=== PATIENT | male | born 1965 | race Caucasian/White ===

== ENCOUNTER 2017-03-26 16:29 | Emergency (ER) | payer BC ==
[~2017-03-26] VITALS: Ht 179.1 cm; Wt 139.2 kg
[2017-03-26 16:41] VITALS: Ht 179.1 cm; Wt 139.2 kg
[2017-03-26] MEDS ORDERED: SODIUM CHLORIDE 0.9% 1000ML 1,000 ML IV STA (16:47)
--- NOTE | 2017-03-26 16:55 | EMERGENCY ROOM VISIT NOTE ---
History Report prepared by Paulette: Patricia Kaiser Under the Supervision of: Dr. Niranjan Mclaughlin D.O. First contact with patient: 16:44 Chief Complaint: FEVER Stated Complaint: FEVER - PAIN IN RIGHT KIDNEY History of Present Illness The patient is a 51 year old male who presents to the Emergency Room with complaints of right kidney pain beginning 2 days ago. He reports that he was only born with one kidney and that he had this same kidney pain 1 month ago. He reports that taking deep breaths exacerbates the pain. The patient reports that he had a sorethroat, cough, and a fever as well. He denies nausea, vomiting, and chest pain. The patient denies bloody stools and dark urine. He states that he has not seen his doctor for this pain and has only taken Tylenol. He denies a history of kidney stones and a cholecystectomy. He states that he has no other pertinent medical problems. Source of History: patient Onset: 2 days ago Position: other (right kidney) Modifying Factors (Worsening): breathing (deep breaths ) Associated Symptoms: + fevers, + sorethroat, + cough, No chest pain, No nausea, No vomiting Review of Systems See HPI for pertinent positives & negatives. A total of 10 systems reviewed and were otherwise negative. Past Medical & Surgical Medical Problems: (1) Bronchitis (2) Congenital kidney disease (3) Diabetes (4) Hypertension Family History Cancer Heart disease Hypertension Social History Smoking Status: Current Every Day Smoker Marital Status: Housing Status: lives with significant other Current/Historical Medications Scheduled Acetaminophen (Tylenol), 1,000 MG PO PRN UD Aspirin (Aspirin), 1 TAB PO DAILY Atorvastatin (Lipitor), 5 MG PO DAILY Escitalopram (Lexapro), 10 MG PO DAILY Glimepiride (Glimepiride), 1 TAB PO DAILY Losartan Potassium (Cozaar), 50 MG PO DAILY Metformin Hcl (Glucophage), 1,000 MG PO BID Sulfa/Trimethoprim (Bactrim Ds 800MG/160MG), 1 TAB PO BID Scheduled PRN Oxycodone Immediate Rel Tab (Roxicodone Ir), 1-2 TAB PO Q4H PRN for Severe Pain Allergies Coded Allergies: No Known Drug Allergy (Verified Allergy, Unknown, ., 03/26/17) Physical Exam Vital Signs Date Time Temp Pulse Resp B/P (MAP) Pulse Ox O2 Delivery O2 Flow Rate FiO2 03/26/17 18:44 82 20 144/90 98 Room Air 03/26/17 17:40 71 03/26/17 16:41 37.2 73 17 137/86 96 Room Air Physical Exam GENERAL: Patient is awake, alert, and in no acute distress. Patient is resting comfortably and showing no signs of anxiety EYES: The conjunctivae are clear. The pupils are round and reactive. EARS, NOSE, MOUTH AND THROAT: The nose is without any evidence of any deformity. Mucous membranes are moist tongue is midline NECK: The neck is nontender and supple. RESPIRATORY: Normal respiratory effort is noted there is no evidence of wheezing rhonchi or rales CARDIOVASCULAR: Regular rate and rhythm noted there no murmurs rubs or gallops normal S1 normal S2 GASTROINTESTINAL: The abdomen is soft and mildly distended. Bowel sounds are present in all quadrants. RUQ is tender to palpation. No guarding or rigidity. BACK: No midline tenderness or or step-off noted range of motion in flexion extension as well as rotation no signs of muscle spasm noted MUSCULOSKELETAL/EXTREMITIES: There is no evidence of gross deformity full range of motion is noted in the hips and shoulders SKIN: There is no obvious evidence of any rash. There are no petechiae, pallor or cyanosis noted. NEUROLOGIC: Patient is awake alert and oriented x3 Medical Decision & Procedures ER Provider Diagnostic Interpretation: Radiology results as stated below per my review and radiologist interpretation: CHEST ONE VIEW PORTABLE CLINICAL HISTORY: 51 years-old Male presenting with ABDOMINAL PAIN/GI. TECHNIQUE: Portable upright AP view of the chest was obtained. COMPARISON: 04/25/2010. FINDINGS: Mildly prominent cardiac silhouette. Pulmonary vasculature unchanged from prior. Lungs and pleural spaces clear. Osseous structures normal. Upper abdomen normal. IMPRESSION: 1. No acute cardiopulmonary disease. Electronically signed by: Byron Bellamy M.D. 03/26/2017 5:26 PM Dictated Date/Time: 03/26/2017 5:[address] SCAN OF THE ABDOMEN AND PELVIS WITHOUT IV CONTRAST CLINICAL HISTORY: Right flank pain. COMPARISON STUDY: Renal ultrasound dated 05/04/2014. TECHNIQUE: CT scan of the abdomen and pelvis is performed from the lung bases to the proximal femora. Images are reviewed in the axial, sagittal, and coronal planes. IV contrast was not administered for this examination. Automated dose control exposure was utilized. A dose lowering technique was utilized adhering to the principles of ALARA. CT DOSE: 2003.59 mGy.cm FINDINGS: Lung bases: The heart is normal in size and without pericardial effusion. The lung bases are clear. There is a tiny hiatal hernia. Liver: The unenhanced liver is normal in size and contour. The liver demonstrates diffusely diminished attenuation consistent with hepatic steatosis. Fatty sparing is seen adjacent to gallbladder fossa. There is no intrahepatic biliary ductal dilatation. Gallbladder: Unremarkable. Spleen: Normal in size and attenuation. Pancreas: The unenhanced pancreas is grossly unremarkable. Adrenal glands: Unremarkable. Kidneys: There is marked cortical atrophy of the left kidney. The unenhanced right kidney demonstrates compensatory hypertrophy. There is a 12 mm calculus in the right renal pelvis. There is mild right-sided hydronephrosis. The right ureter is normal in caliber and no ureteral calculus is seen. There is right-sided perinephric stranding. 2 additional punctate nonobstructing calculi are seen in the right kidneys. No left renal calculi are identified and there is no left-sided hydronephrosis. There is no evidence of contour deforming renal mass lesion. Abdominal vasculature: The abdominal aorta is normal in course and caliber. Bowel: The small bowel and colon are normal in course and caliber. There is moderate to advanced colonic diverticulosis without CT evidence of acute diverticulitis. Mild colonic fecal retention is observed. The appendix is well-visualized and normal. Peritoneum: There is no intraperitoneal free air or abdominal ascites. There is a fat-containing umbilical hernia. Lymphadenopathy: None. Pelvic viscera: The bladder is decompressed and grossly unremarkable. The prostate and seminal vesicles are normal as visualized. There is a fat-containing right inguinal hernia. Skeletal structures: There are bilateral pars defects at L5. No anterolisthesis is seen at L5-S1. Mild lumbosacral spondylosis is observed. No lytic or blastic lesions are seen. IMPRESSION: 1. There is a 12 mm calculus identified in the right renal pelvis. There is minimal right-sided hydronephrosis as well as right-sided perinephric stranding. The right ureter is normal in caliber and no ureteral stone is identified. This could represent the sequelae of a recently passed kidney stone, ascending urinary tract infection/pyelonephritis, or possibly intermittent obstruction from the large stone in the right renal pelvis. Correlation with clinical findings and urinalysis will be required. Follow-up with urology is recommended. 2. Two additional punctate nonobstructing calculi are seen in the right kidney. 3. There is marked and asymmetric cortical atrophy of the left kidney. 4. Hepatic steatosis. 5. Moderate to advanced colonic diverticulosis without CT evidence of acute diverticulitis. 6. Additional findings as above. Electronically signed by: Ga Dumont M.D. 03/26/2017 5:48 PM Dictated Date/Time: 03/26/2017 5:29 PM Laboratory Results 03/26/17 16:47 Red Blood Count 4.73, Mean Corpuscular Volume 82.7, Mean Corpuscular Hemoglobin 28.8, Mean Corpuscular Hemoglobin Concent 34.8, Mean Platelet Volume 9.0, Neutrophils (%) (Auto) 65.5, Lymphocytes (%) (Auto) 20.4, Monocytes (%) (Auto) 10.4, Eosinophils (%) (Auto) 3.0, Basophils (%) (Auto) 0.3, Neutrophils # (Auto ) 6.24, Lymphocytes # (Auto) 1.95, Monocytes # (Auto) 0.99, Eosinophils # (Auto ) 0.29, Basophils # (Auto) 0.03 03/26/17 17:10 Test 03/26/17 16:47 03/26/17 17:10 03/26/17 17:40 White Blood Count 9.54 K/uL (4.8-10.8) Red Blood Count 4.73 M/uL (4.7-6.1) Hemoglobin 13.6 g/dL (14.0-18.0) Hematocrit 39.1 % (42-52) Mean Corpuscular Volume 82.7 fL (80-100) Mean Corpuscular Hemoglobin 28.8 pg (25-34) Mean Corpuscular Hemoglobin Concent 34.8 g/dl (32-36) Platelet Count 242 K/uL (130-400) Mean Platelet Volume 9.0 fL (7.4-10.4) Neutrophils (%) (Auto) 65.5 % Lymphocytes (%) (Auto) 20.4 % Monocytes (%) (Auto) 10.4 % Eosinophils (%) (Auto) 3.0 % Basophils (%) (Auto) 0.3 % Neutrophils # (Auto) 6.24 K/uL (1.4-6.5) Lymphocytes # (Auto) 1.95 K/uL (1.2-3.4) Monocytes # (Auto) 0.99 K/uL (0.11-0.59) Eosinophils # (Auto) 0.29 K/uL (0-0.5) Basophils # (Auto) 0.03 K/uL (0-0.2) RDW Standard Deviation 38.1 fL (36.4-46.3) RDW Coefficient of Variation 12.6 % (11.5-14.5) Immature Granulocyte % (Auto) 0.4 % Immature Granulocyte # (Auto) 0.04 K/uL (0.00-0.02) Anion Gap 6.0 mmol/L (3-11) Est Creatinine Clear Calc Drug Dose 88.5 ml/min Estimated GFR () 66.9 Estimated GFR (Non- 57.8 BUN/Creatinine Ratio 12.9 (10-20) Calcium Level 9.0 mg/dl (8.5-10.1) Total Bilirubin 0.3 mg/dl (0.2-1) Direct Bilirubin < 0.1 mg/dl (0-0.2) Aspartate Amino Transf (AST/SGOT) 15 U/L (15-37) Alanine Aminotransferase (ALT/SGPT) 33 U/L (12-78) Alkaline Phosphatase 112 U/L (45-117) Total Protein 7.7 gm/dl (6.4-8.2) Albumin 3.7 gm/dl (3.4-5.0) Lipase 169 U/L (73-393) Urine Color YELLOW Urine Appearance CLEAR (CLEAR) Urine pH 5.0 (4.5-7.5) Urine Specific [place] 1.027 (1.000-1.030) Urine Protein 1+ (NEG) Urine Glucose (UA) 2+ (NEG) Urine Ketones TRACE (NEG) Urine Occult Blood 1+ (NEG) Urine Nitrite NEG (NEG) Urine Bilirubin NEG (NEG) Urine Urobilinogen NEG (NEG) Urine Leukocyte Esterase NEG (NEG) Urine WBC (Auto) 1-5 /hpf (0-5) Urine RBC (Auto) 0-4 /hpf (0-4) Urine Hyaline Casts (Auto) 1-5 /lpf (0-5) Urine Epithelial Cells (Auto) 20-30 /lpf (0-5) Urine Bacteria (Auto) NEG (NEG) Laboratory results per my review. Medications Administered Medications (Trade) Dose Ordered Sig/Ervin Route Start Time Stop Time Status Last Admin Dose Admin Sodium Chloride 1,000 ml @ 999 mls/hr Q1H1M STAT IV 03/26/17 16:47 03/26/17 17:47 DC 03/26/17 17:36 999 MLS/HR ED Course 164: The patient was evaluated in room C2. A complete history and physical examination were performed. 164: Ordered Sodium Chloride 1,000 ml @ 999 mls/hr IV. 1840: I spoke with Dr. Baker and he suggests outpatient follow-up for kidney stone. He states that the patient should return if it worsens and be placed on an antibiotic if fever returns. 184: The patient agrees with the plan. 185: Upon reevaluation, the patient is resting. I discussed the results and treatment plan with him. He verbalized agreement of the treatment plan. He was discharged home. Medical Decision Differential diagnosis: Etiologies such as appendicitis, diverticulitis, PUD, biliary pathology, UTI, pancreatitis, obstruction, mesenteric ischemia, aortic pathology, infections, inflammatory bowel disease, renal colic, as well as others were entertained. Nursing notes reviewed. The patient is a 51-year-old male who presented to the emergency department for evaluation of right flank pain. The patient has had right flank pain for the last few days. He also complained of low-grade fever. He took Tylenol prior to arrival and does not have a fever at this time. The patient's abdominal exam does not appear to be consistent with an acute surgical abdomen. 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 The patient's CAT scan showed stranding around his right kidney which could be consistent with intermittent obstruction of her recent passed kidney stone. The patient's right kidney also had a very large kidney stone which could be intermittently obstructing and causing the presentation today. I discussed the patient's laboratory and radiographic studies with him. He was treated with IV fluids in the emergency department. I discussed his case with the on-call urologist. At this time the patient will not be started on antibiotics last signs of infection develop. He was given a prescription for an antibiotic in the urine was sent for culture. He was also encouraged to continue using Motrin and Tylenol for pain but to monitor his temperature closely. He was also encouraged to call the urologist on Wednesday to schedule a follow-up appointment and return to the emergency department immediately if symptoms change worsen or the need arises. Medication Reconcilliation Current Medication List: was personally reviewed by me Blood Pressure Screening Patient's blood pressure: Normal blood pressure Consults Time Called: 1834 Consulting Physician: Dr. Baker [facility] Returned Call: [phone] Baker and he suggests outpatient follow-up for kidney stone. He states that the patient should return if it worsens and be placed on an antibiotic if fever returns. Impression Primary Impression: Kidney stone Additional Impression: Right flank pain Scribe Attestation The scribe's documentation has been prepared under my direction and personally reviewed by me in its entirety. I confirm that the note above accurately reflects all work, treatment, procedures, and medical decision making performed by me. Departure Information Dispostion Home / Self-Care Prescriptions Oxycodone Immediate Rel Tab (ROXICODONE IR) 5 Mg Tab 1-2 TAB PO Q4H Y for Severe Pain, #24 TAB Prov: Niranjan Mclaughlin, DO 03/26/17 Sulfa/Trimethoprim (Bactrim Ds 800MG/160MG) Tab 1 TAB PO BID, #14 TAB Prov: Niranjan Mclaughlin, DO 03/26/17 Referrals Monica Shaikh M.D. (PCP) Murtaza Baker M.D. Forms HOME CARE DOCUMENTATION FORM, IMPORTANT VISIT INFORMATION Patient Instructions Kidney Stones Eval, My [facility] Additional Instructions Call your family to schedule a follow-up appointment. Call the urologist this is possible to schedule a follow-up appointment. Continue using Motrin and Tylenol as directed for pain. Drink plenty clear liquids. If the fever returns I would recommend starting the antibiotic, Bactrim. Return to the emergency department immediately symptoms change worsen or the need arises. Problem Qualifiers
--- NOTE | 2017-03-26 17:27 | DIAGNOSTIC IMAGING REPORT ---
CHEST ONE VIEW PORTABLE CLINICAL HISTORY: 51 years-old Male presenting with ABDOMINAL PAIN/GI. TECHNIQUE: Portable upright AP view of the chest was obtained. COMPARISON: 04/25/2010. FINDINGS: Mildly prominent cardiac silhouette. Pulmonary vasculature unchanged from prior. Lungs and pleural spaces clear. Osseous structures normal. Upper abdomen normal. IMPRESSION: 1. No acute cardiopulmonary disease. Electronically signed by: Byron Bellamy M.D. 03/26/2017 5:26 PM Dictated Date/Time: 03/26/2017 5:25 PM
[2017-03-26 17:46] LABS: BASO % 0.3 %; BASO ABS # 0.03 K/uL (0-0.2); COMPLETE YES; HEMATOCRIT 39.1 % (42-52); IG% 0.4 %; LYMPH % 20.4 %; LYMPH ABS # 1.95 K/uL (1.2-3.4); MEAN CELL VOLUME 82.7 fL (80-100); MEAN CORPUSCULAR HEMOGLOBIN 28.8 pg (25-34); MEAN CORPUSCULAR HGB CONC 34.8 g/dl (32-36); MONO % 10.4 %; NEUT % 65.5 %; PLATELET COUNT 242 K/uL (130-400); RED BLOOD COUNT 4.73 M/uL (4.7-6.1); WHITE BLOOD COUNT 9.54 K/uL (4.8-10.8)
--- NOTE | 2017-03-26 17:49 | DIAGNOSTIC IMAGING REPORT ---
CT SCAN OF THE ABDOMEN AND PELVIS WITHOUT IV CONTRAST CLINICAL HISTORY: Right flank pain. COMPARISON STUDY: Renal ultrasound dated 05/04/2014. TECHNIQUE: CT scan of the abdomen and pelvis is performed from the lung bases to the proximal femora. Images are reviewed in the axial, sagittal, and coronal planes. IV contrast was not administered for this examination. Automated dose control exposure was utilized. A dose lowering technique was utilized adhering to the principles of ALARA. CT DOSE: 2003.59 mGy.cm FINDINGS: Lung bases: The heart is normal in size and without pericardial effusion. The lung bases are clear. There is a tiny hiatal hernia. Liver: The unenhanced liver is normal in size and contour. The liver demonstrates diffusely diminished attenuation consistent with hepatic steatosis. Fatty sparing is seen adjacent to gallbladder fossa. There is no intrahepatic biliary ductal dilatation. Gallbladder: Unremarkable. Spleen: Normal in size and attenuation. Pancreas: The unenhanced pancreas is grossly unremarkable. Adrenal glands: Unremarkable. Kidneys: There is marked cortical atrophy of the left kidney. The unenhanced right kidney demonstrates compensatory hypertrophy. There is a 12 mm calculus in the right renal pelvis. There is mild right-sided hydronephrosis. The right ureter is normal in caliber and no ureteral calculus is seen. There is right-sided perinephric stranding. 2 additional punctate nonobstructing calculi are seen in the right kidneys. No left renal calculi are identified and there is no left-sided hydronephrosis. There is no evidence of contour deforming renal mass lesion. Abdominal vasculature: The abdominal aorta is normal in course and caliber. Bowel: The small bowel and colon are normal in course and caliber. There is moderate to advanced colonic diverticulosis without CT evidence of acute diverticulitis. Mild colonic fecal retention is observed. The appendix is well-visualized and normal. Peritoneum: There is no intraperitoneal free air or abdominal ascites. There is a fat-containing umbilical hernia. Lymphadenopathy: None. Pelvic viscera: The bladder is decompressed and grossly unremarkable. The prostate and seminal vesicles are normal as visualized. There is a fat-containing right inguinal hernia. Skeletal structures: There are bilateral pars defects at L5. No anterolisthesis is seen at L5-S1. Mild lumbosacral spondylosis is observed. No lytic or blastic lesions are seen. IMPRESSION: 1. There is a 12 mm calculus identified in the right renal pelvis. There is minimal right-sided hydronephrosis as well as right-sided perinephric stranding. The right ureter is normal in caliber and no ureteral stone is identified. This could represent the sequelae of a recently passed kidney stone, ascending urinary tract infection/pyelonephritis, or possibly intermittent obstruction from the large stone in the right renal pelvis. Correlation with clinical findings and urinalysis will be required. Follow-up with urology is recommended. 2. Two additional punctate nonobstructing calculi are seen in the right kidney. 3. There is marked and asymmetric cortical atrophy of the left kidney. 4. Hepatic steatosis. 5. Moderate to advanced colonic diverticulosis without CT evidence of acute diverticulitis. 6. Additional findings as above. Electronically signed by: Ga Dumont M.D. 03/26/2017 5:48 PM Dictated Date/Time: 03/26/2017 5:29 PM
[2017-03-26 17:52] LABS: ALT/SGPT 33 U/L (12-78); BLOOD UREA NITROGEN 18 mg/dl (7-18); BUN/CREATININE RATIO 12.9 (10-20); CARBON DIOXIDE 26 mmol/L (21-32); CHLORIDE 107 mmol/L (98-107); GLUCOSE 191 mg/dl (70-99); POTASSIUM 3.9 mmol/L (3.5-5.1); SODIUM 139 mmol/L (136-145)
[2017-03-26 17:55] LABS: ALKALINE PHOSPHATASE 112 U/L (45-117); AST/SGOT 15 U/L (15-37)
[2017-03-26 18:08] LABS: URINE APPEARANCE CLEAR (CLEAR); URINE BILIRUBIN NEG (NEG); URINE COLOR YELLOW; URINE EPITHELIAL CELL AUTO 20-30 /lpf (0-5); URINE NITRITE NEG (NEG); URINE SPECIFIC GRAVITY 1.027 (1.000-1.030); UROBILINOGEN NEG (NEG)
[2017-03-26 18:09] LABS: MANUAL MICROSCOPIC REQUIRED? NO; REVIEW REQ? NO
[2017-03-26 18:44] VITALS: BP 144/90; PULSE 82; O2SAT 98
[2017-03-26] MEDS ORDERED: SULF800T23 PO (18:50)
[2017-03-26] MEDS ORDERED: OXYC1TAB3 PO (18:50)
[2017-03-26 19:10] VITALS: TEMP 37.5
[2017-04-03] MEDS ORDERED: ASPI1TAB83 PO (17:07)
[2017-04-03] MEDS ORDERED: ACET-1256 PO (17:07)
[2017-04-03] MEDS ORDERED: ATOR10TA88 PO (17:07)
[2017-04-03] MEDS ORDERED: GLIM4TAB2 PO (17:07)
[2017-04-03] MEDS ORDERED: LOSA50TA6 PO (17:07)
[2017-04-03] MEDS ORDERED: ESCI10TA17 PO (17:07)
[2017-04-03] MEDS ORDERED: METF-384 PO (17:07)
[2017-04-13] MEDS ORDERED: HYDR-5688 PO (10:24)
[2017-04-13] MEDS ORDERED: CIPR-255 PO (10:24)
== END 2017-03-26 19:10 | disposition home or self-care (01) ==
LOC: C.EDB 16:30 → C.EDC 19:10
DX: N20.0 Calculus of kidney (principal); R10.31 Right lower quadrant pain; R10.11 Right upper quadrant pain; Q60.0 Renal agenesis, unilateral; R50.9 Fever, unspecified; J02.9 Acute pharyngitis, unspecified; R05 Cough; E11.9 Type 2 diabetes mellitus without complications; I10 Essential (primary) hypertension; F17.200 Nicotine dependence, unspecified, uncomplicated; Z79.82 Long term (current) use of aspirin; Z79.84 Long term (current) use of oral hypoglycemic drugs; Z82.49 Family history of ischemic heart disease and other diseases of the circulatory system

== ENCOUNTER → 2017-03-31 | Outpatient (CLI) | payer BC ==
[~2017-03-31] MED LIST: ACET-1256 PO; AMOX875T3 PO; ASPI1TAB83 PO; ATOR10TA88 PO; CEFD300C2 PO; CIPR-255 PO; ESCI10TA17 PO; GLIM4TAB2 PO; HYDR-5688 PO; LOSA50TA6 PO; METF-384 PO; OXYC1TAB3 PO; SULF800T23 PO
== END | disposition home or self-care (01) ==
LOC: C.LABSPEC 17:15
PROVIDERS: ATTEND Urology
DX: N20.0 Calculus of kidney (principal)

== ENCOUNTER 2017-04-03 19:04 | Inpatient (IN) | payer BC ==
[~2017-04-03] VITALS: Ht 180.3 cm; Wt 135.6 kg
[~2017-04-03 19:04] MED LIST changes: -AMOX875T3 PO; -CEFD300C2 PO; -CIPR-255 PO; -HYDR-5688 PO; -SULF800T23 PO
[2017-04-03] MEDS ORDERED: SODIUM CHLORIDE 0.9% 1000ML 1,000 ML IV STA (19:24)
[2017-04-03] MEDS ORDERED: ONDANSETRON INJ 2 MG/ML 2 ML VIAL IV STA (19:24)
[2017-04-03] MEDS ORDERED: MoRPHine SULFATE 4 MG/ML 1 ML CARP\\VIAL IV STA ×2 (19:24→20:55)
[2017-04-03 19:56] LABS: BASO % 0.2 %; BASO ABS # 0.02 K/uL (0-0.2); COMPLETE YES; EOS % 2.8 %; HEMATOCRIT 41.7 % (42-52); IG% 0.2 %; LYMPH % 22.5 %; LYMPH ABS # 2.45 K/uL (1.2-3.4); MEAN CELL VOLUME 83.9 fL (80-100); MEAN CORPUSCULAR HEMOGLOBIN 28.4 pg (25-34); MEAN CORPUSCULAR HGB CONC 33.8 g/dl (32-36); MEAN PLATELET VOLUME 8.9 fL (7.4-10.4); MONO % 12.8 %; NEUT % 61.5 %; PLATELET COUNT 353 K/uL (130-400); RED BLOOD COUNT 4.97 M/uL (4.7-6.1); WHITE BLOOD COUNT 10.89 K/uL (4.8-10.8)
[2017-04-03 20:11] LABS: BUN/CREATININE RATIO 8.2 (10-20); CALCIUM 9.6 mg/dl (8.5-10.1); CREATININE 2.2 mg/dl (0.60-1.40); POTASSIUM 4.7 mmol/L (3.5-5.1)
--- NOTE | 2017-04-03 20:26 | DIAGNOSTIC IMAGING REPORT ---
KUB CLINICAL HISTORY: 51 years-old Male presenting with eval for stone right side. TECHNIQUE: Single supine view of the abdomen was obtained. COMPARISON: CT from 03/26/2017. FINDINGS: Moderate stool burden degrades evaluation of the renal shadows. Previously noted calculus in the right renal pelvis measuring approximately 13 mm now projects over the right transverse process of L3 suggestive of passage into the right ureter and obstruction near the right ureteropelvic junction. Osseous structures normal. IMPRESSION: 1. Prominent calculus previously noted in the right renal pelvis may have progressed distally into the right ureteropelvic junction/proximal right ureter. Electronically signed by: Byron Bellamy M.D. 04/03/2017 8:24 PM Dictated Date/Time: 04/03/2017 8:22 PM
[2017-04-03] MEDS ORDERED: AMOX875T3 PO (20:47)
[2017-04-03 21:04] LABS: MANUAL MICROSCOPIC REQUIRED? NO; REVIEW REQ? YES; URINE APPEARANCE TURBID (CLEAR); URINE EPITHELIAL CELL AUTO >30 /lpf (0-5); URINE NITRITE POS (NEG); URINE SPECIFIC GRAVITY 1.034 (1.000-1.030); UROBILINOGEN NEG (NEG)
[2017-04-03 21:08] LABS: URINE COLOR BROWN
[2017-04-03 21:10] LABS: URINE BILIRUBIN NEG (NEG)
[2017-04-03] MEDS ORDERED: CEFTRIAXONE SOD INJ 1 GM ADDVIAL IV STA (21:15)
[2017-04-03] MEDS ORDERED: HYDROmorphone INJ 0.5 MG/0.5 ML SYR IV PRN (22:00)
[2017-04-03] MEDS ORDERED: DEXTROSE 50% 50 ML SYR IV PRN (22:15)
[2017-04-03] MEDS ORDERED: GLUCAGON FOR INJ 1 MG VIAL SQ PRN (22:15)
[2017-04-03] MEDS ORDERED: GLUCOSE 10 TABS/TUBE PO PRN (22:15)
[2017-04-03] MEDS ORDERED: GLUCOSE 40% GEL 15 GM TUBE PO PRN (22:15)
[2017-04-03] MEDS ORDERED: ACETAMINOPHEN 325 MG TAB PO PRN (22:15)
[2017-04-03] MEDS ORDERED: ACETAMINOPHEN 500 MG TAB PO PRN (22:15)
[2017-04-03] MEDS ORDERED: ZOLPIDEM TARTRATE 5 MG TAB PO PRN (22:15)
[2017-04-03] MEDS: HYDROmorphone INJ 1 MG/ML SYR IV PRN (22:19)
--- NOTE | 2017-04-03 22:39 | History and Physical ---
History & Physical Date & Time of Service: Apr 03, 2017 at 22:23 Chief Complaint: Kidney Pain, Stone- Physician Referred Primary Care Physician: Monica Shaikh M.D. History of Present Illness Source: patient, spouse The patient is a 51-year-old male who presents to the emergency department with severe right flank pain. He underwent a CT scan of the abdomen and pelvis on March 26, which showed a 12 mm right ureteral stone with hydronephrosis and perinephric stranding. He saw Dr. Baker from urology 3 days ago, and had a surgical procedure planned for April 13. However, his pain became so severe he presented to the emergency department for assessment tonight. He and his are especially concerned, as he has congenital kidney disease, and has only one functioning kidney. Past Medical/Surgical History Medical Problems: (1) Bronchitis Status: Resolved (2) Congenital kidney disease Status: Chronic (3) Diabetes Status: Chronic (4) Hypertension Status: Chronic Family History Cancer Heart disease Hypertension Social History Smoking Status: Never Smoker Smokeless Tobacco Use: No Alcohol Use: none Drug Use: none Marital Status: Housing status: lives with family Occupational Status: employed Immunizations History of Influenza Vaccine: Unknown History of Tetanus Vaccine?: Unknown History of Pneumococcal: Unknown History of Hepatitis B Vaccine: Unknown Multi-Drug Resistant Organisms History of MDRO: No Allergies Coded Allergies: Sulfamethoxazole w/Trimethoprim (Verified Adverse Reaction, Unknown, diarrhea, 04/02/17) Home Medications Scheduled Amoxicillin (Amoxil), 875 MG PO BID Aspirin (Aspirin), 81 MG PO QPM Atorvastatin (Lipitor), 5 MG PO QPM Escitalopram (Lexapro), 10 MG PO QPM Glimepiride (Glimepiride), 4 MG PO QAM Losartan Potassium (Cozaar), 50 MG PO QAM Metformin Hcl (Glucophage), 1,000 MG PO BID Scheduled PRN Acetaminophen (Tylenol), 1,000 MG PO Q6H PRN for Pain or Fever Oxycodone Immediate Rel Tab (Roxicodone Ir), 1-2 TAB PO Q4H PRN for Severe Pain Review of Systems The patient denies chest pain, palpitations, shortness of breath, cough, lower extremity swelling, vision change, hearing change, sore throat, fevers, chills, sweats, weight change, fatigue, nausea, vomiting, diarrhea or constipation, blood in urine or stool, dysuria, urinary frequency or urgency, lightheadedness , dizziness, headache, memory loss, rash, abnormal bruising or bleeding, imbalance, focal or generalized weakness, numbness or tingling in arms or legs, generalized arthralgias or myalgias, back or neck pain, night sweats. The review of systems is otherwise negative other than for that already noted above, and at least 10 systems have been reviewed. Physical Exam Vital Signs Date Time Temp Pulse Resp B/P (MAP) Pulse Ox O2 Delivery O2 Flow Rate FiO2 04/03/17 21:17 37.3 100 16 145/92 98 Room Air 04/03/17 19:13 36.7 71 20 137/85 95 Room Air The patient is awake, well-developed and adequately nourished, alert and oriented 3, normocephalic and atraumatic, lying in bed and in no acute distress. HEENT--PERRL, EOMI, mucous membranes and oropharynx dry. Neck--supple, no JVD or bruits, thyroid normal, trachea midline, no adenopathy. Heart--normal S1 and S2, no extra beats, no murmurs, rubs or gallops. Lungs--clear bilaterally with good air movement, no respiratory distress, no accessory muscle use. Abdomen--normal bowel sounds and soft, right flank tenderness. Nondistended, no hernias, masses or organomegaly. Obese Extremities--no cyanosis, clubbing or edema. There are good distal pulses b/l. Dermatologic--normal skin turgor, normal color, warm and dry, no abnormal lymph nodes, no rash. Neurologic--cranial nerves II through XII grossly intact. Rheumatologic--normal range of motion, nontender, muscles and joints. Psychiatric--normal affect. Diagnostics Laboratory Results Results Past 24 Hours Test 04/03/17 19:30 04/03/17 20:53 Range/Units White Blood Count 10.89 4.8-10.8 K/uL Red Blood Count 4.97 4.7-6.1 M/uL Hemoglobin 14.1 14.0-18.0 g/dL Hematocrit 41.7 42-52 % Mean Corpuscular Volume 83.9 80-100 fL Mean Corpuscular Hemoglobin 28.4 25-34 pg Mean Corpuscular Hemoglobin Concent 33.8 32-36 g/dl Platelet Count 353 130-400 K/uL Mean Platelet Volume 8.9 7.4-10.4 fL Neutrophils (%) (Auto) 61.5 % Lymphocytes (%) (Auto) 22.5 % Monocytes (%) (Auto) 12.8 % Eosinophils (%) (Auto) 2.8 % Basophils (%) (Auto) 0.2 % Neutrophils # (Auto) 6.71 1.4-6.5 K/uL Lymphocytes # (Auto) 2.45 1.2-3.4 K/uL Monocytes # (Auto) 1.39 0.11-0.59 K/uL Eosinophils # (Auto) 0.30 0-0.5 K/uL Basophils # (Auto) 0.02 0-0.2 K/uL RDW Standard Deviation 37.4 36.4-46.3 fL RDW Coefficient of Variation 12.3 11.5-14.5 % Immature Granulocyte % (Auto) 0.2 % Immature Granulocyte # (Auto) 0.02 0.00-0.02 K/uL Sodium Level 139 136-145 mmol/L Potassium Level 4.7 3.5-5.1 mmol/L Chloride Level 104 98-107 mmol/L Carbon Dioxide Level 28 21-32 mmol/L Anion Gap 7.0 3-11 mmol/L Blood Urea Nitrogen 18 7-18 mg/dl Creatinine 2.20 0.60-1.40 mg/dl Est Creatinine Clear Calc Drug Dose 55.8 ml/min Estimated GFR () 38.8 Estimated GFR (Non- 33.4 BUN/Creatinine Ratio 8.2 10-20 Random Glucose 141 70-99 mg/dl Calcium Level 9.6 8.5-10.1 mg/dl Total Bilirubin 0.4 0.2-1 mg/dl Direct Bilirubin 0.1 0-0.2 mg/dl Aspartate Amino Transf (AST/SGOT) 11 15-37 U/L Alanine Aminotransferase (ALT/SGPT) 22 12-78 U/L Alkaline Phosphatase 100 45-117 U/L Total Protein 8.7 6.4-8.2 gm/dl Albumin 3.9 3.4-5.0 gm/dl Lipase 258 73-393 U/L Urine Color BROWN Urine Appearance TURBID CLEAR Urine pH 5.0 4.5-7.5 Urine Specific [place] 1.034 1.000-1.030 Urine Protein 2+ NEG Urine Glucose (UA) TRACE NEG Urine Ketones NEG NEG Urine Occult Blood 2+ NEG Urine Nitrite POS NEG Urine Bilirubin NEG NEG Urine Urobilinogen NEG NEG Urine Leukocyte Esterase LARGE NEG Urine WBC (Auto) >30 0-5 /hpf Urine RBC (Auto) >30 0-4 /hpf Urine Hyaline Casts (Auto) 1-5 0-5 /lpf Urine Epithelial Cells (Auto) >30 0-5 /lpf Urine Bacteria (Auto) NEG NEG Urine Pathogenic Casts 0 /lpf Microbiology Results 04/03/17 Urine Culture, Received Pending Diagnostic Radiology Patient Name: FOREST KEYS Unit Number: [id number] Dictated: 04/03/172021 Transcribed: 04/03/172021 PBS Printed Date/Time: [~ rep prt dt]/[~ rep prt tm] [~ rep ct labl] - [~ rep ct ivnm] [facility] [place] [address] Dictated: 04/03/172021 Transcribed: 04/03/172021 PBS Printed Date/Time: [~ rep prt dt]/[~ rep prt tm] [~ rep ct labl] - [~ rep ct ivnm] [~ rep ct add3]] [facility] CLINICAL HISTORY: 51 years-old Male presenting with eval for stone right side. TECHNIQUE: Single supine view of the abdomen was obtained. COMPARISON: CT from 03/26/2017. FINDINGS: Moderate stool burden degrades evaluation of the renal shadows. Previously noted calculus in the right renal pelvis measuring approximately 13 mm now projects over the right transverse process of L3 suggestive of passage into the right ureter and obstruction near the right ureteropelvic junction. Osseous structures normal. IMPRESSION: 1. Prominent calculus previously noted in the right renal pelvis may have progressed distally into the right ureteropelvic junction/proximal right ureter. Electronically signed by: Byron Bellamy M.D. 04/03/2017 8:24 PM Dictated Date/Time: 04/03/2017 8:22 PM The status of this report is Signed. Draft = Not yet reviewed or approved by Radiologist. Signed = Reviewed and approved by Radiologist. <AttendingPhy></AttendingPhy> <FamilyPhy>Monica Shaikh M.D.</FamilyPhy> < PrimaryPhy>Monica Shaikh M.D.</PrimaryPhy> <UnitNumber>[id number]</UnitNumber > <VisitNumber>[id number]</VisitNumber> <PatientName>FOREST KEYS</ PatientName> <DateOfBirth>1965</DateOfBirth> <Location>[facility]</Location> < ServiceDate>04/03/17</ServiceDate> <MNE>ESINDI</MNE> <OrderingPhy>Christian Jade MD</OrderingPhy> <OrderingPhyMNE>f rep ord dr rios</OrderingPhyMNE> < DictatingPhyMNE>f rep dict dr rios</DictatingPhyMNE> <CCListMNE>f rep ct mne</ CCListMNE> <AdmittingPhyMNE>f pt admit dr rios</AdmittingPhyMNE> <AttendingPhyMNE >f pt attend dr rios</AttendingPhyMNE> <ConsultingPhyMNE>f pt consult dr rios</ConsultingPhyMNE> <FamilyPhyMNE>f pt fam dr rios</FamilyPhyMNE> <OtherPhyMNE>f pt other dr rios</OtherPhyMNE> < PrimaryPhyMNE>f pt prim care dr rios</PrimaryPhyMNE> <ReferringPhyMNE>f pt referring dr rios</ReferringPhyMNE> Patient Name: FOREST KEYS Unit Number: [id number] Dictated: 03/26/171728 Transcribed: 03/26/171728 EV Printed Date/Time: [~ rep prt dt]/[~ rep prt tm] [~ rep ct labl] - [~ rep ct ivnm] [facility] [place] [address] Dictated: 03/26/171728 Transcribed: 03/26/171728 EV Printed Date/Time: [~ rep prt dt]/[~ rep prt tm] [~ rep ct labl] - [~ rep ct ivnm] [~ rep ct add3]] CT SCAN OF THE ABDOMEN AND PELVIS WITHOUT IV CONTRAST CLINICAL HISTORY: Right flank pain. COMPARISON STUDY: Renal ultrasound dated 05/04/2014. TECHNIQUE: CT scan of the abdomen and pelvis is performed from the lung bases to the proximal femora. Images are reviewed in the axial, sagittal, and coronal planes. IV contrast was not administered for this examination. Automated dose control exposure was utilized. A dose lowering technique was utilized adhering to the principles of ALARA. CT DOSE: 2003.59 mGy.cm FINDINGS: Lung bases: The heart is normal in size and without pericardial effusion. The lung bases are clear. There is a tiny hiatal hernia. Liver: The unenhanced liver is normal in size and contour. The liver demonstrates diffusely diminished attenuation consistent with hepatic steatosis. Fatty sparing is seen adjacent to gallbladder fossa. There is no intrahepatic biliary ductal dilatation. Gallbladder: Unremarkable. Spleen: Normal in size and attenuation. Pancreas: The unenhanced pancreas is grossly unremarkable. Adrenal glands: Unremarkable. Kidneys: There is marked cortical atrophy of the left kidney. The unenhanced right kidney demonstrates compensatory hypertrophy. There is a 12 mm calculus in the right renal pelvis. There is mild right-sided hydronephrosis. The right ureter is normal in caliber and no ureteral calculus is seen. There is right-sided perinephric stranding. 2 additional punctate nonobstructing calculi are seen in the right kidneys. No left renal calculi are identified and there is no left-sided hydronephrosis. There is no evidence of contour deforming renal mass lesion. Abdominal vasculature: The abdominal aorta is normal in course and caliber. Bowel: The small bowel and colon are normal in course and caliber. There is moderate to advanced colonic diverticulosis without CT evidence of acute diverticulitis. Mild colonic fecal retention is observed. The appendix is well-visualized and normal. Peritoneum: There is no intraperitoneal free air or abdominal ascites. There is a fat-containing umbilical hernia. Lymphadenopathy: None. Pelvic viscera: The bladder is decompressed and grossly unremarkable. The prostate and seminal vesicles are normal as visualized. There is a fat-containing right inguinal hernia. Skeletal structures: There are bilateral pars defects at L5. No anterolisthesis is seen at L5-S1. Mild lumbosacral spondylosis is observed. No lytic or blastic lesions are seen. IMPRESSION: 1. There is a 12 mm calculus identified in the right renal pelvis. There is minimal right-sided hydronephrosis as well as right-sided perinephric stranding. The right ureter is normal in caliber and no ureteral stone is identified. This could represent the sequelae of a recently passed kidney stone, ascending urinary tract infection/pyelonephritis, or possibly intermittent obstruction from the large stone in the right renal pelvis. Correlation with clinical findings and urinalysis will be required. Follow-up with urology is recommended. 2. Two additional punctate nonobstructing calculi are seen in the right kidney. 3. There is marked and asymmetric cortical atrophy of the left kidney. 4. Hepatic steatosis. 5. Moderate to advanced colonic diverticulosis without CT evidence of acute diverticulitis. 6. Additional findings as above. Electronically signed by: Ga Dumont M.D. 03/26/2017 5:48 PM Dictated Date/Time: 03/26/2017 5:29 PM The status of this report is Signed. Draft = Not yet reviewed or approved by Radiologist. Signed = Reviewed and approved by Radiologist. <AttendingPhy></AttendingPhy> <FamilyPhy>Monica Shaikh M.D.</FamilyPhy> < PrimaryPhy>Monica Shaikh M.D.</PrimaryPhy> <UnitNumber>[id number]</UnitNumber > <VisitNumber>[id number]</VisitNumber> <PatientName>FOREST KEYS</ PatientName> <DateOfBirth>1965</DateOfBirth> <Location>[facility]</Location> < ServiceDate>03/26/17</ServiceDate> <MNE>ESINDI</MNE> <OrderingPhy>Niranjan Mclaughlin D.O.</OrderingPhy> <OrderingPhyMNE>f rep ord dr rios</OrderingPhyMNE> <DictatingPhyMNE>f rep dict dr rios</DictatingPhyMNE> <CCListMNE>f rep ct elijahe</ CCListMNE> <AdmittingPhyMNE>f pt admit dr rios</AdmittingPhyMNE> <AttendingPhyMNE >f pt attend dr rios</AttendingPhyMNE> <ConsultingPhyMNE>f pt consult dr rios</ConsultingPhyMNE> <FamilyPhyMNE>f pt fam dr rios</FamilyPhyMNE> <OtherPhyMNE>f pt other dr rios</OtherPhyMNE> < PrimaryPhyMNE>f pt prim care dr rios</PrimaryPhyMNE> <ReferringPhyMNE>f pt referring dr rios</ReferringPhyMNE> EKG EKG shows normal sinus rhythm at 77 bpm, there are no acute ST-T changes. Impression Assessment and Plan 13 mm right ureteral pelvic junction stone with mild right hydronephrosis and perinephric stranding--the patient will be admitted to the medical surgical floor. Nothing by mouth after midnight except medications. Normal saline at 100 mils per hour. Dilaudid 0.5-1 mg IV every 2 hours when necessary. Zofran 4 mg IV every 6 hours when necessary. Famotidine 20 mg IV every 12 hours. Ceftriaxone 1 g IV daily. Follow urine culture and sensitivity report. Consults Dr. Martinez from urology, he is already aware of the patient. Hypertension/acute renal insufficiency--baseline creatinine was 1.4 on March 26. Creatinine today is 2.2. Hydrate with normal saline at 100 mils per hour. Follow serial BMP and magnesium levels. Hold losartan and aspirin. Diabetes mellitus--hold glimepiride 4 mg by mouth every morning, and metformin 1000 mg by mouth twice a day. Place on Accu-Cheks before meals and at bedtime with NovoLog coverage per scale. Patient will resume a diabetic diet after his nothing by mouth status is completed. Hyperlipidemia-continue atorvastatin 5 mg by mouth every evening. Depression--continue Lexapro 10 mg by mouth every afternoon. SCDs for DVT prophylaxis. Level of Care Med/Surg Advanced Directives Existing Advance Directive: No Existing Living Will: No Existing Power of Carpenter Prototype: No Resuscitation Status FULL RESUSCITATION VTE Prophylaxis VTE Risk Assessment Done? Y/N: Yes Risk Level: Moderate Given or contraindicated: SCD's Social Service Consult None Apply
[2017-04-03 22:46] VITALS: BP 128/79; PULSE 78; TEMP 36.8; O2SAT 93
[2017-04-03] MEDS: SODIUM CHLORIDE 0.9% 1000ML 1,000 ML IV SCH (23:27)
[2017-04-03] MEDS: FAMOTIDINE IV INJ 20 MG in DEXTROSE 5% 100ML 100 ML IV SCH (23:27)
[2017-04-03 23:45] VITALS: Ht 180.3 cm; Wt 135.6 kg
[2017-04-03] MEDS ORDERED: NURSING DECISION MEDICATION ORDER SCH (23:45)
--- NOTE | 2017-04-04 00:01 | EMERGENCY ROOM VISIT NOTE ---
History Report prepared by Paulette: Maribell Jeronimo Under the Supervision of: Dr. Christian Jade M.D. First contact with patient: 19:16 Chief Complaint: KIDNEY STONE Stated Complaint: KIDNEY PAIN, STONE- PHYSICIAN REFERRED History of Present Illness The patient is a 51 year old male who presents to the Emergency Room with complaints of flank pain starting 10 days ago. The patient states that he was in the ED 8 days ago and was referred to Dr. Baker. He reports that he saw Dr. Baker 3 days ago. He states that they scheduled a laser lithotripsy for April 13. He notes that on that day his pain was under control. He states that he came to the ED today due to increased right sided pain and blood starting to appear in his urine. The patient currently rates her pain as a 10/ 10 in severity. He states that the pain has moved lower in his back and this is the first time he has seen blood in his urine. He states that the pain is intermittent and sharp. The patient denies pain with urination. He reports that he is nauseated, but not vomiting. The patient notes a loss of appetite and diaphoresis. Source of History: patient Onset: 10 days ago Position: other (global) Symptom Intensity: 10/10 Quality: other (global) Timing: other (episode) Associated Symptoms: + diaphoresis, + nausea, + abdominal pain (right sided) , + urinary symptoms, No vomiting Note: The patient complains of loss of appetite. Review of Systems See HPI for pertinent positives & negatives. A total of 10 systems reviewed and were otherwise negative. Past Medical & Surgical Medical Problems: (1) Bronchitis (2) Congenital kidney disease (3) Diabetes (4) Hydronephrosis due to obstruction of ureter (5) Hypertension (6) Right ureteral calculus Family History Cancer Heart disease Hypertension Social History Smoking Status: Never Smoker Marital Status: Housing Status: lives with significant other Current/Historical Medications Scheduled Amoxicillin (Amoxil), 875 MG PO BID Aspirin (Aspirin), 81 MG PO QPM Atorvastatin (Lipitor), 5 MG PO QPM Escitalopram (Lexapro), 10 MG PO QPM Glimepiride (Glimepiride), 4 MG PO QAM Losartan Potassium (Cozaar), 50 MG PO QAM Metformin Hcl (Glucophage), 1,000 MG PO BID Scheduled PRN Acetaminophen (Tylenol), 1,000 MG PO Q6H PRN for Pain or Fever Oxycodone Immediate Rel Tab (Roxicodone Ir), 1-2 TAB PO Q4H PRN for Severe Pain Allergies Coded Allergies: Sulfamethoxazole w/Trimethoprim (Verified Adverse Reaction, Unknown, diarrhea, 04/02/17) Physical Exam Vital Signs Date Time Temp Pulse Resp B/P (MAP) Pulse Ox O2 Delivery O2 Flow Rate FiO2 04/03/17 21:17 37.3 100 16 145/92 98 Room Air 04/03/17 19:13 36.7 71 20 137/85 95 Room Air Physical Exam Constitutional: Vital signs reviewed. Eyes: Pupils are equal round reactive to light. Conjunctiva are noninjected. ENT: Pharynx is clear without erythema or exudate. Mucous membranes are moist. Neck supple without meningeal signs. Respiratory: Clear to auscultation bilaterally. Breath sounds are equal bilaterally. Cardiovascular: Regular rate and rhythm. No rubs or gallops. GI: Soft, nondistended and nontender. Bowel sounds are present. Musculoskeletal: No peripheral edema. No CVA tenderness. Integumentary: No cyanosis. Neurological: The patient is awake and alert. No focal deficits. Psychiatric: Normal affect. Medical Decision & Procedures ER Provider Diagnostic Interpretation: Radiology results as stated below per my review and the radiologist's interpretation: [facility] CLINICAL HISTORY: 51 years-old Male presenting with eval for stone right side. TECHNIQUE: Single supine view of the abdomen was obtained. COMPARISON: CT from 03/26/2017. FINDINGS: Moderate stool burden degrades evaluation of the renal shadows. Previously noted calculus in the right renal pelvis measuring approximately 13 mm now projects over the right transverse process of L3 suggestive of passage into the right ureter and obstruction near the right ureteropelvic junction. Osseous structures normal. IMPRESSION: 1. Prominent calculus previously noted in the right renal pelvis may have progressed distally into the right ureteropelvic junction/proximal right ureter. Electronically signed by: Byron Bellamy M.D. 04/03/2017 8:24 PM Dictated Date/Time: 04/03/2017 8:22 PM Laboratory Results 04/03/17 19:30 Red Blood Count 4.97, Mean Corpuscular Volume 83.9, Mean Corpuscular Hemoglobin 28.4, Mean Corpuscular Hemoglobin Concent 33.8, Mean Platelet Volume 8.9, Neutrophils (%) (Auto) 61.5, Lymphocytes (%) (Auto) 22.5, Monocytes (%) (Auto) 12.8, Eosinophils (%) (Auto) 2.8, Basophils (%) (Auto) 0.2, Neutrophils # (Auto ) 6.71, Lymphocytes # (Auto) 2.45, Monocytes # (Auto) 1.39, Eosinophils # (Auto ) 0.30, Basophils # (Auto) 0.02 04/03/17 19:30 Test 04/03/17 19:30 04/03/17 20:53 White Blood Count 10.89 K/uL (4.8-10.8) Red Blood Count 4.97 M/uL (4.7-6.1) Hemoglobin 14.1 g/dL (14.0-18.0) Hematocrit 41.7 % (42-52) Mean Corpuscular Volume 83.9 fL (80-100) Mean Corpuscular Hemoglobin 28.4 pg (25-34) Mean Corpuscular Hemoglobin Concent 33.8 g/dl (32-36) Platelet Count 353 K/uL (130-400) Mean Platelet Volume 8.9 fL (7.4-10.4) Neutrophils (%) (Auto) 61.5 % Lymphocytes (%) (Auto) 22.5 % Monocytes (%) (Auto) 12.8 % Eosinophils (%) (Auto) 2.8 % Basophils (%) (Auto) 0.2 % Neutrophils # (Auto) 6.71 K/uL (1.4-6.5) Lymphocytes # (Auto) 2.45 K/uL (1.2-3.4) Monocytes # (Auto) 1.39 K/uL (0.11-0.59) Eosinophils # (Auto) 0.30 K/uL (0-0.5) Basophils # (Auto) 0.02 K/uL (0-0.2) RDW Standard Deviation 37.4 fL (36.4-46.3) RDW Coefficient of Variation 12.3 % (11.5-14.5) Immature Granulocyte % (Auto) 0.2 % Immature Granulocyte # (Auto) 0.02 K/uL (0.00-0.02) Anion Gap 7.0 mmol/L (3-11) Est Creatinine Clear Calc Drug Dose 55.8 ml/min Estimated GFR () 38.8 Estimated GFR (Non- 33.4 BUN/Creatinine Ratio 8.2 (10-20) Calcium Level 9.6 mg/dl (8.5-10.1) Total Bilirubin 0.4 mg/dl (0.2-1) Direct Bilirubin 0.1 mg/dl (0-0.2) Aspartate Amino Transf (AST/SGOT) 11 U/L (15-37) Alanine Aminotransferase (ALT/SGPT) 22 U/L (12-78) Alkaline Phosphatase 100 U/L (45-117) Total Protein 8.7 gm/dl (6.4-8.2) Albumin 3.9 gm/dl (3.4-5.0) Lipase 258 U/L (73-393) Urine Color BROWN Urine Appearance TURBID (CLEAR) Urine pH 5.0 (4.5-7.5) Urine Specific [place] 1.034 (1.000-1.030) Urine Protein 2+ (NEG) Urine Glucose (UA) TRACE (NEG) Urine Ketones NEG (NEG) Urine Occult Blood 2+ (NEG) Urine Nitrite POS (NEG) Urine Bilirubin NEG (NEG) Urine Urobilinogen NEG (NEG) Urine Leukocyte Esterase LARGE (NEG) Urine WBC (Auto) >30 /hpf (0-5) Urine RBC (Auto) >30 /hpf (0-4) Urine Hyaline Casts (Auto) 1-5 /lpf (0-5) Urine Epithelial Cells (Auto) >30 /lpf (0-5) Urine Bacteria (Auto) NEG (NEG) Urine Pathogenic Casts /lpf (0) Laboratory results as reviewed by me. Medications Administered Medications (Trade) Dose Ordered Sig/Ervin Route Start Time Stop Time Status Last Admin Dose Admin Morphine Sulfate (MoRPHine SULFATE INJ) 4 mg ONE STAT IV 04/03/17 19:24 04/03/17 19:26 DC 04/03/17 19:40 4 MG Ondansetron HCl (Zofran Inj) 4 mg NOW STAT IV 04/03/17 19:24 04/03/17 19:26 DC 04/03/17 19:39 4 MG Sodium Chloride 1,000 ml @ 999 mls/hr Q1H1M STAT IV 04/03/17 19:24 04/03/17 20:24 DC 8/26/17 19:40 999 MLS/HR Morphine Sulfate (MoRPHine SULFATE INJ) 4 mg NOW STAT IV 04/03/17 20:55 04/03/17 20:56 DC 04/03/17 21:01 4 MG Ceftriaxone Sodium (Rocephin Inj) 1 gm NOW STAT IV 04/03/17 21:15 04/03/17 21:17 DC 04/03/17 21:35 1 GM Hydromorphone HCl (Dilaudid Inj) 1 mg Q2H PRN IV 04/03/17 22:00 04/17/17 21:59 04/03/17 22:19 1 MG ED Course 1919: The patient was evaluated in room A12B. A complete history and physical exam was performed. 1923: Ordered NSS 1000 ml @ 999 mls/hr IV, Zofran Inj 4 mg IV, Morphine Sulfate 4 mg IV. 2053: I reevaluated the patient and he is still having pain, but is feeling better. 2054: Ordered Morphine Sulfate 4 mg IV. 2112: The patient is still having pain. We discussed the urine results. I paged Dr. Martinez. 2114: Ordered Rocephin Inj 1 gm IV. 2127: I spoke with Dr. Martinez of Urology. We discussed the patient and his results. We decided that there is no need for an emergent stent at this time. He asked that if the patient's temperature goes above 101 to notify him. He asked that the patient be admitted to the hospital and a stent will be placed tomorrow. 2131: I spoke with Dr. Ramirez. We discussed the patient and his results. The patient will be further evaluated by Dr. Ramirez. Medical Decision This is a 51-year-old male presents with renal colic. I did perform a limited focused review of portions of the patient's old chart on the electronic medical record. The patient was here March 26, 2017 for right flank pain. He had a CT of the abdomen and pelvis done which showed a 12 mm calculus in the right renal pelvis with minimal hydronephrosis and stranding. The case was discussed with Dr. Dick who recommended outpatient treatment. The patient was discharge with Bactrim and Oxycodone. I did evaluate the patient as noted above. The patient is diaphoretic and in significant pain. IV access was established. I did treat patient with IV morphine and Zofran. He is also given normal saline IV. I did order and personally review the patient's urinalysis as described above. He does have a UTI. A urine culture was sent. I did treat him with IV Rocephin. I did order and review the patient's blood work as noted in the electronic medical record. His creatinine is elevated. I did order a [facility] x-ray. I did review the images myself as well as the radiology report as described above. There does appear to be some movement distally of the stone. I did reassess the patient. He had persistent pain. He was given additional morphine and Dilaudid IV. I did discuss case with Dr. Martinez of urology. He stated that he would take the patient to the or the morning for stent placement. He recommended calling him back should the patient develop fever. I did discuss the recommendations with Dr. Duarte who will hospitalize the patient. Medication Reconcilliation Current Medication List: was personally reviewed by me Blood Pressure Screening Patient's blood pressure: Elevated blood pressure Consults Time Called: 2117 Consulting Physician: Dr. Martinez- Urology Returned Call: [address] Martinez of Urology. We discussed the patient and his results. We decided that there is no need for an emergent stent at this time. He asked that if the patient's temperature goes above 101 to notify him. He asked that the patient be admitted to the hospital and a stent will be placed tomorrow. Additional Consults: Time Called: 2130 Consulted Physician: Dr. Ramirez Returned Call: 2131 Additional Comments: I spoke with Dr. Ramirez. We discussed the patient and his results. The patient will be further evaluated by Dr. Ramirez. Impression Primary Impression: Renal colic Additional Impressions: Intractable pain Acute kidney injury UTI (urinary tract infection) Scribe Attestation The scribe's documentation has been prepared under my direct and personally reviewed by me in its entirety. I confirm that the note above accurately reflects all work, treatment, procedures, and medical decision making performed by me. Departure Information Dispostion Being Evaluated By Hospitalist Monica Roland M.D. (PCP) Patient Instructions My [facility] Problem Qualifiers Additional Impressions: UTI (urinary tract infection) Urinary tract infection type: acute cystitis Hematuria presence: with hematuria Qualified Codes: N30.01 - Acute cystitis with hematuria
[2017-04-04] MEDS: ONDANSETRON INJ 2 MG/ML 2 ML VIAL IV PRN ×2 (00:07→09:58)
[2017-04-04] MEDS: INSULIN ASPART 100 UNITS/ML 3 ML PEN SC SCH ×5 (00:07→21:07)
[2017-04-04] MEDS: HYDROmorphone INJ 1 MG/ML SYR IV PRN ×7 (00:14→12:13)
[2017-04-04] MEDS ORDERED: SODIUM CHLORIDE 0.9% 1000ML 1,000 ML IV STA (06:37)
[2017-04-04] MEDS ORDERED: INSULIN ASPART 100 UNITS/ML 3 ML PEN SC SCH (07:00)
[2017-04-04 07:52] VITALS: BP 142/87; PULSE 81; TEMP 36.8; O2SAT 94
[2017-04-04 08:29] LABS: BASO % 0.1 %; BASO ABS # 0.02 K/uL (0-0.2); COMPLETE YES; EOS % 0.3 %; HEMATOCRIT 38.8 % (42-52); IG% 0.5 %; LYMPH % 10.7 %; LYMPH ABS # 1.48 K/uL (1.2-3.4); MEAN CELL VOLUME 82.7 fL (80-100); MEAN CORPUSCULAR HEMOGLOBIN 28.1 pg (25-34); MEAN PLATELET VOLUME 8.8 fL (7.4-10.4); MONO % 10.9 %; NEUT % 77.5 %; PLATELET COUNT 298 K/uL (130-400); RED BLOOD COUNT 4.69 M/uL (4.7-6.1); WHITE BLOOD COUNT 13.82 K/uL (4.8-10.8)
--- NOTE | 2017-04-04 08:51 | DIAGNOSTIC IMAGING REPORT ---
(RENAL)RETROPERITON COMP HISTORY: 52 years-old Male acute right-sided flank pain with question of hydronephrosis COMPARISON: [facility] 04/03/2017 CT abdomen and pelvis 03/26/2017, renal ultrasound 05/04/2014. TECHNIQUE: Multiple real-time sonographic images of the kidneys and urinary bladder were obtained assessing grayscale appearance and color flow. FINDINGS: Right kidney measures 16.1 x 9.1 x 7.6 cm. There is mild right-sided hydronephrosis with 1.2 cm calculus in the region of the right renal pelvis seen on comparison CT not identified. Additionally, the previously noted punctate nonobstructing calculi seen on CT are not well seen. Cortical medullary differentiation is within normal limits. Markedly trophic left kidney is redemonstrated measuring approximately 8 cm in length. Urinary bladder is collapsed with ureteral jets not identified. IMPRESSION: 1. Mild right-sided hydronephrosis without obstructing stone or mass identified. This may be secondary to the previously noted large calculus within the expected region of the proximal right ureter seen on comparison K[facility] radiograph. 2. Markedly atrophic left kidney redemonstrated. 3. Collapsed urinary bladder. The above report was generated using voice recognition software. It may contain grammatical, syntax or spelling errors. Electronically signed by: Bakari Ingram M.D. 04/04/2017 8:50 AM Dictated Date/Time: 04/04/2017 8:43 AM
[2017-04-04 08:57] LABS: BUN/CREATININE RATIO 6.7 (10-20); CALCIUM 8.5 mg/dl (8.5-10.1); CREATININE 3.6 mg/dl (0.60-1.40); POTASSIUM 5.1 mmol/L (3.5-5.1)
[2017-04-04] MEDS: SODIUM CHLORIDE 0.9% 1000ML 1,000 ML IV SCH ×3 (09:10→23:48)
[2017-04-04] MEDS: FAMOTIDINE IV INJ 20 MG in DEXTROSE 5% 100ML 100 ML IV SCH ×2 (09:59→22:29)
--- NOTE | 2017-04-04 10:07 | Hospitalist Progress Note ---
Hospitalist Progress Note Date of Service Apr 04, 2017. (Susi Russo PA-C) Subjective Pt evaluation today including: conversation w/ patient, conversation w/ family , physical exam, chart review, lab review, review of studies Pain: Moderate RLQ, R flank pain The patient was seen and examined this morning. His and sister are present at bedside. He states "This is one way to spend your birthday". Pt has c/o RLQ and R flank pain this morning, it has improved since coming in overnight, pain initially started last Wednesday after being seen by Dr Baker in clinic. He is still nauseous, and has vomited 4 times this morning. Last time he ate or drank was yesterday around 4 pm. The patient only has one kidney due to congenital kidney disease. His last BM was 2 days ago. He has not urinated at all since late last night. Constitutional: No fever, No chills, No sweats ENT: No trouble swallowing Respiratory: No cough, No shortness of breath, No dyspnea on exertion Cardiovascular: No chest pain, No palpitations Abdomen: + pain, + nausea, + vomiting, No diarrhea, No constipation Musculoskeletal: No joint pain, No swelling Male : + see HPI, + problem reported Neurologic: No weakness, No numbness/tingling Endo: No fatigue Skin: No rash, No itch (Susi Russo, MARY) Objective Vital Signs Date Time Temp Pulse Resp B/P (MAP) Pulse Ox O2 Delivery O2 Flow Rate FiO2 04/04/17 07:52 36.8 81 19 142/87 (105) 94 Room Air 04/03/17 23:45 Room Air 04/03/17 23:45 Room Air 04/03/17 22:46 36.8 78 16 128/79 (95) 93 Room Air 04/03/17 22:28 84 16 154/74 95 04/03/17 21:17 37.3 100 16 145/92 98 Room Air 04/03/17 19:13 36.7 71 20 137/85 95 Room Air (Susi Russo PA-C) Physical Exam General Appearance: WD/WN, no apparent distress Eyes: PERRL, EOMI ENT: hearing grossly normal, pharynx normal Neck: supple, no JVD Respiratory/Chest: lungs clear, no respiratory distress, no accessory muscle use, + pertinent finding (on room air) Cardiovascular: regular rate, rhythm, no murmur, + pertinent finding (slightly tachycardic) Abdomen: normal bowel sounds, soft, + pertinent finding (slightly distended, + Pain with palpation in the RLQ. + R CVA tenderness) Extremities: non-tender, no pedal edema, no calf tenderness Neurologic/Psychiatric: alert, normal mood/affect, oriented x 3 Skin: normal color, warm/dry (Susi Russo, MARY) Laboratory Results Last 24 Hours Test 04/03/17 19:30 04/03/17 20:53 04/03/17 23:44 04/04/17 06:00 White Blood Count 10.89 K/uL Red Blood Count 4.97 M/uL Hemoglobin 14.1 g/dL Hematocrit 41.7 % Mean Corpuscular Volume 83.9 fL Mean Corpuscular Hemoglobin 28.4 pg Mean Corpuscular Hemoglobin Concent 33.8 g/dl Platelet Count 353 K/uL Mean Platelet Volume 8.9 fL Neutrophils (%) (Auto) 61.5 % Lymphocytes (%) (Auto) 22.5 % Monocytes (%) (Auto) 12.8 % Eosinophils (%) (Auto) 2.8 % Basophils (%) (Auto) 0.2 % Neutrophils # (Auto) 6.71 K/uL Lymphocytes # (Auto) 2.45 K/uL Monocytes # (Auto) 1.39 K/uL Eosinophils # (Auto) 0.30 K/uL Basophils # (Auto) 0.02 K/uL RDW Standard Deviation 37.4 fL RDW Coefficient of Variation 12.3 % Immature Granulocyte % (Auto) 0.2 % Immature Granulocyte # (Auto) 0.02 K/uL Sodium Level 139 mmol/L Potassium Level 4.7 mmol/L Chloride Level 104 mmol/L Carbon Dioxide Level 28 mmol/L Anion Gap 7.0 mmol/L Blood Urea Nitrogen 18 mg/dl Creatinine 2.20 mg/dl Est Creatinine Clear Calc Drug Dose 55.8 ml/min Estimated GFR () 38.8 Estimated GFR (Non- 33.4 BUN/Creatinine Ratio 8.2 Random Glucose 141 mg/dl Calcium Level 9.6 mg/dl Total Bilirubin 0.4 mg/dl Direct Bilirubin 0.1 mg/dl Aspartate Amino Transf (AST/SGOT) 11 U/L Alanine Aminotransferase (ALT/SGPT) 22 U/L Alkaline Phosphatase 100 U/L Total Protein 8.7 gm/dl Albumin 3.9 gm/dl Lipase 258 U/L Urine Color BROWN Urine Appearance TURBID Urine pH 5.0 Urine Specific [place] 1.034 Urine Protein 2+ Urine Glucose (UA) TRACE Urine Ketones NEG Urine Occult Blood 2+ Urine Nitrite POS Urine Bilirubin NEG Urine Urobilinogen NEG Urine Leukocyte Esterase LARGE Urine WBC (Auto) >30 /hpf Urine RBC (Auto) >30 /hpf Urine Hyaline Casts (Auto) 1-5 /lpf Urine Epithelial Cells (Auto) >30 /lpf Urine Bacteria (Auto) NEG Urine Pathogenic Casts /lpf Bedside Glucose 177 mg/dl 161 mg/dl Test 04/04/17 07:38 White Blood Count 13.82 K/uL Red Blood Count 4.69 M/uL Hemoglobin 13.2 g/dL Hematocrit 38.8 % Mean Corpuscular Volume 82.7 fL Mean Corpuscular Hemoglobin 28.1 pg Mean Corpuscular Hemoglobin Concent 34.0 g/dl Platelet Count 298 K/uL Mean Platelet Volume 8.8 fL Neutrophils (%) (Auto) 77.5 % Lymphocytes (%) (Auto) 10.7 % Monocytes (%) (Auto) 10.9 % Eosinophils (%) (Auto) 0.3 % Basophils (%) (Auto) 0.1 % Neutrophils # (Auto) 10.71 K/uL Lymphocytes # (Auto) 1.48 K/uL Monocytes # (Auto) 1.50 K/uL Eosinophils # (Auto) 0.04 K/uL Basophils # (Auto) 0.02 K/uL RDW Standard Deviation 37.6 fL RDW Coefficient of Variation 12.5 % Immature Granulocyte % (Auto) 0.5 % Immature Granulocyte # (Auto) 0.07 K/uL Sodium Level 136 mmol/L Potassium Level 5.1 mmol/L Chloride Level 106 mmol/L Carbon Dioxide Level 24 mmol/L Anion Gap 6.0 mmol/L Blood Urea Nitrogen 24 mg/dl Creatinine 3.60 mg/dl Est Creatinine Clear Calc Drug Dose 33.7 ml/min Estimated GFR () 21.2 Estimated GFR (Non- 18.3 BUN/Creatinine Ratio 6.7 Random Glucose 197 mg/dl Calcium Level 8.5 mg/dl Magnesium Level 2.0 mg/dl (Susi Russo PA-C) Assessment and Plan This is a 52 yo M with PMHx of HTN, HLD, DM II, Depression who presented with right flank pain. He underwent a CT scan of the abdomen and pelvis on March 26 , which showed a 12 mm right ureteral stone with hydronephrosis and perinephric stranding. He saw Dr. Bkaer from urology 3 days ago, and had a surgical procedure planned for April 13. Nephrolithiasis, hydronephrosis ABDOUL Congenital kidney disease - CT scan of the abdomen and pelvis on March 26, which showed a 12 mm right ureteral stone with hydronephrosis and perinephric stranding. He saw Dr. Baker from urology 3 days ago, scheduled for ureteroscopy on 04/13 as outpt. - Renal U/S completed showing- mild right-sided hydronephrosis with 1.2 cm calculus in the region of the right renal pelvis seen on comparison CT not identified. Additionally, the previously noted punctate nonobstructing calculi seen on CT are not well seen. Markedly trophic left kidney. - Urology consulted- Plan for stent placement this morning and outpatient ureteroscopy as already scheduled. - Cr. increased from 2.2 to 3.6 - will back off fluids at this time to 1/2 NSS to 60 mL/hr per urology request, can increase after stent placement if needed. Baseline Cr. seems to be around 1.4 - WBC increased to 13.8 from 10 K - Continue ceftriaxone IV, day #1 - Follow am prp and cbc Hypertension - BP stable, holding losartan and asa Diabetes mellitus II - hold glimepiride 4 mg QAM and metformin 1000 mg BID - ISS with accuchekcs achs and Q6H while NPO. - Currently NPO, diabetic diet afterwards Hyperlipidemia -continue atorvastatin 5 mg QPM Depression- -continue Lexapro 10 mg QPM DVT prophylaxis: SCDs, ambulatory CODE STATUS: FULL CODE Disposition: From home, lives with , discharge when medically stable, possible tomorrow. (Susi Russo PA-C) AURELIO Physician Supervision Note: I interviewed and examined the patient. Discussed with Susi Russo PAC and agree with findings and plan as documented in the note. Any exceptions or clarifications are listed here: None Pt was seen post operatively and was slightly sedate, was at bedside and will bring in CPAP Pt is sedate but awakens easily, pain is controlled vitals noted and stable car is regular, lungs are clear nephrolithiasis , s/p ureteroscopy and stent placement acute renal failure from obstructive uropathy, will increase IVF and hope renal function improves by am, if not will need nephrology Documented By: Christian Green (Christian Green M.D.)
[2017-04-04] MEDS ORDERED: NURSING VERBAL MED ORDER ONE ×3 (10:15→16:30)
--- NOTE | 2017-04-04 10:26 | Urology Consultation ---
History General Date of Service: Apr 04, 2017. Primary Care Physician: Monica Shaikh M.D. Pt seen a urologist before?: Yes If yes, why?: renal stone History of Present Illness 52 / male with an atrophic l kidney and known 1 cm r renal stone scheduled for an elective r ureteroscopy and laser sept developed r flank pain and nausea yesterday pm and was advised to come to the er for admission and r stent . Creatinine is rising and he is having ongoing pain and nausea. Discussed w pt and plan stent today and return as scheduled for ureteroscopy. Discussed risks including inability to place stent requiring transfer for percutaneous nephrostomy , anesthesia risks and damage to the ureter requiring open repair. Pt agrees to proceed Imaging Imaging: [facility] Labs were reviewed and are within normal limits unless listed below. Labs are available in the chart and at [facility] Problem List Medical Problems: (1) Acute kidney injury Status: Acute (2) Intractable pain Status: Acute (3) Kidney stone Status: Acute (4) Renal colic Status: Acute (5) Right flank pain Status: Acute (6) UTI (urinary tract infection) Status: Acute Family History Cancer Heart disease Hypertension Social History Hx Tobacco Use In Past Year?: No Marital status: Housing status: lives with family Occupation status: employed Immunizations History of Influenza Vaccine: Unknown History of Tetanus Vaccine?: Unknown History of Pneumococcal: Unknown History of Hepatitis B Vaccine: Unknown History of MDRO No Allergies Coded Allergies: Sulfamethoxazole w/Trimethoprim (Verified Adverse Reaction, Unknown, diarrhea, 04/02/17) Medications Home Medications: Home Meds and Scripts Medications Dose Route/Sig Max Daily Dose Days Date Category Dose Instructions Amoxil (Amoxicillin) 875 Mg Tab 875 Mg PO BID 10 04/03/17 Reported PRESCRIBED 04/02/2017, TAKE DIRECTED UNTIL GONE Roxicodone Ir (Oxycodone HCl) 5 Mg Tab 1-2 Tab PO Q4H PRN 03/26/17 Rx Tylenol (Acetaminophen) 500 Mg Tab 1,000 Mg PO Q6H PRN 03/26/17 Reported Aspirin 81 Mg Tab 81 Mg PO QPM 03/26/17 Reported Lipitor (Atorvastatin Calcium) 10 Mg Tab 5 Mg PO QPM 03/26/17 Reported Lexapro (Escitalopram Oxalate) 10 Mg Tab 10 Mg PO QPM 03/26/17 Reported Glimepiride 4 Mg Tab 4 Mg PO QAM 03/26/17 Reported Cozaar (Losartan Potassium) 50 Mg Tab 50 Mg PO QAM 03/26/17 Reported Glucophage (Metformin Hcl) 1,000 Mg Tab 1,000 Mg PO BID 03/26/17 Reported Inpatient Medications: Current Inpatient Medications Medications (Trade) Dose Ordered Sig/Ervin Route Start Time Stop Time Status Last Admin Dose Admin Hydromorphone HCl (Dilaudid Inj) 1 mg Q2H PRN IV 04/03/17 22:00 04/17/17 21:59 04/04/17 10:11 1 MG Hydromorphone HCl (Dilaudid Inj) 0.5 mg Q2H PRN IV 04/03/17 22:00 04/17/17 21:59 Acetaminophen (Tylenol Tab) 650 mg Q4H PRN PO 04/03/17 22:15 05/03/17 22:14 Zolpidem Tartrate (Ambien Tab) 5 mg HSZ PRN PO 04/03/17 22:15 05/03/17 22:14 Ondansetron HCl (Zofran Inj) 4 mg Q6H PRN IV 04/03/17 22:15 05/03/17 22:14 04/04/17 09:58 4 MG Glucose (Glucose 40% Gel) UD PRN PO 04/03/17 22:15 05/03/17 22:14 Glucose (Glucose Chew Tab) 1 tabs UD PRN PO 04/03/17 22:15 05/03/17 22:14 Dextrose (Dextrose 50% 50ML Syringe) 50 ml UD PRN IV 04/03/17 22:15 05/03/17 22:14 Glucagon (Glucagon Inj) 1 mg UD PRN SQ 04/03/17 22:15 05/03/17 22:14 Famotidine 20 mg/ Dextrose 102 ml @ 200 mls/hr Q12H IV 04/03/17 23:00 05/03/17 22:59 04/04/17 09:59 200 MLS/HR Atorvastatin Calcium (Lipitor Tab) 5 mg QPM PO 04/04/17 21:00 05/04/17 20:59 Escitalopram Oxalate (Lexapro Tab) 10 mg QPM PO 04/04/17 21:00 05/04/17 20:59 Ceftriaxone Sodium 1 gm/ Dextrose 50 ml @ 100 mls/hr Q24H IV 04/04/17 21:00 04/12/17 21:29 Sodium Chloride 1,000 ml @ 200 mls/hr Q5H IV 04/03/17 23:00 05/03/17 22:59 04/04/17 09:10 100 MLS/HR Insulin Aspart (novoLOG ASPART) SLIDING SCALE If C... Q6 SC 04/04/17 00:00 05/04/17 00:00 04/04/17 06:14 1 UNITS Miscellaneous Information (Nursing Verbal Med Order) 1 ea ONE ONCE N/A 04/04/17 10:15 04/04/17 10:16 UNV Miscellaneous Information (Nursing Verbal Med Order) 1 ea ONE ONCE N/A 04/04/17 10:15 04/04/17 10:16 UNV Review of Systems Review of Systems Constitutional: No fever Eyes: No see HPI, No blurred vision, No double vision, No eye pain, No loss of night vision, No problem reported Neurological: No see HPI, No dizzy, No passing out, No numbness/tingling, No seizures, No problem reported Endocrine: + tired/sluggish Gastrointestinal: + abdominal pain Cardiovascular: No see HPI, No heart murmur, No chest pain, No angina, No irregular heartbeat, No palpitations, No swelling ankles/feet, No problem reported Respiratory: No shortness of breath Skin: No see HPI, No rash, No boils, No dry skin, No problem reported Blood / Lymphatic: No bleed easily Ears / Nose / Throat: No hearing loss Psychologic / Mental: No see HPI Male : + kidney stones Physical Exam Vital Signs: Vital Signs Past 12 Hours Date Time Temp Pulse Resp B/P (MAP) Pulse Ox O2 Delivery O2 Flow Rate FiO2 04/04/17 07:52 36.8 81 19 142/87 (105) 94 Room Air 04/03/17 23:45 Room Air 04/03/17 23:45 Room Air 04/03/17 22:46 36.8 78 16 128/79 (95) 93 Room Air 04/03/17 22:28 84 16 154/74 95 Physical Exam: General Appearance: + moderate distress Eyes: bilateral eyes normal inspection, bilateral eyes PERRL, bilateral eyes EOMI ENT: normal ENT inspection, hearing grossly normal, TMs normal, pharynx normal Neck: supple, no adenopathy, thyroid normal, no JVD Respiratory/Chest: no respiratory distress Cardiovascular: no edema Extremities: normal inspection, no calf tenderness 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
[2017-04-04] MEDS: SODIUM CHLORIDE 0.45% 1000ML 1,000 ML IV SCH ×2 (10:28→15:04)
[2017-04-04] MEDS ORDERED: HYDROmorphone INJ 1 MG/ML SYR IV ONE (10:30)
[2017-04-04] MEDS ORDERED: LIDOCAINE HCL 2% 2 ML VIAL (20MG/ML) ONE (12:33)
[2017-04-04] MEDS ORDERED: PROPOFOL IV EMULSION 10 MG/ML 20 ML VIAL IV ONE (12:33)
[2017-04-04] MEDS ORDERED: FENTANYL CITRATE INJ 50 MCG/1 ML 2 ML VIAL ONE (12:34)
[2017-04-04] MEDS ORDERED: MIDAZOLAM HCL 1 MG/ML 2ML VIAL ONE (12:34)
[2017-04-04] MEDS ORDERED: CONRAY 30% 150ML BOTTLE ONE (12:38)
[2017-04-04] MEDS ORDERED: ATROPINE SULFATE 0.1 MG/ML 5ML SYR IV PRN (13:00)
[2017-04-04] MEDS ORDERED: ONDANSETRON INJ 2 MG/ML 2 ML VIAL IV PRN (13:00)
[2017-04-04] MEDS ORDERED: FENTANYL CITRATE INJ 50 MCG/1 ML 2 ML VIAL IV PRN (13:00)
[2017-04-04] MEDS ORDERED: EpHEDrine SULFATE INJ 50 MG/ML AMP IV PRN (13:00)
[2017-04-04] MEDS ORDERED: PHENYLEPHRINE HCL INJ 10 MG/ML VIAL ONE (13:26)
[2017-04-04] MEDS ORDERED: EpHEDrine SULFATE INJ 50 MG/ML AMP ONE (13:34)
--- NOTE | 2017-04-04 13:59 | DIAGNOSTIC IMAGING REPORT ---
RETROGRADE INCLUDES [facility] HISTORY: 52 years-old Male CYSTOSCOPY RT URETERAL STENT COMPARISON: Renal ultrasound of same day, [facility] radiograph 04/03/2017, CT 03/26/2017. TECHNIQUE: Retrograde cystourethrogram was obtained utilizing 49 seconds of fluoroscopy time. 3 images of the abdominal right upper quadrant were obtained. FINDINGS: First image demonstrates contrast opacification of a dilated right renal collecting system. Second image demonstrates placement of a wire in a dilated right ureter just distal to the ureterovesicular junction. Third image demonstrates the placement of an apparent stent within the inferior pole of the right kidney with distal portion of the device not imaged. The previously described large calculus of the proximal right ureter is not definitely seen on these images. IMPRESSION: Successful placement of a right ureteral stent. Please refer to the procedural report for further details. The above report was generated using voice recognition software. It may contain grammatical, syntax or spelling errors. Electronically signed by: Bakari Ingram M.D. 04/04/2017 1:57 PM Dictated Date/Time: 04/04/2017 1:53 PM
--- NOTE | 2017-04-04 14:13 | [facility] Post Operative Brief Note ---
Immediate Operative Summary Operative Date Apr 04, 2017. Pre-Operative Diagnosis Renal Stone Right Post-Operative Diagnosis Renal Stone Right Procedure(s) Performed Cystoscopy, Right Ureteral Stent Insertion Surgeon Tactical Air Control Party Manager Surgeon(s) None Estimated Blood Loss 5ML Findings duplex collecting system Specimens None per surgeon
--- NOTE | 2017-04-04 14:14 | [facility] Post Operative Brief Note ---
Immediate Operative Summary Operative Date Apr 04, 2017. Pre-Operative Diagnosis Renal Stone Right Post-Operative Diagnosis Renal Stone Right Procedure(s) Performed Cystoscopy, Right Ureteral Stent Insertion Surgeon Database Marketing Specialist Surgeon(s) None Estimated Blood Loss 5ML Findings urethral stricture able to dilate w scope Specimens None per surgeon
[2017-04-04] MEDS ORDERED: HYDROCODONE/ACETAMOPHEN 5/325MG TAB PO PRN (14:15)
--- NOTE | 2017-04-04 14:28 | Anesthesiology Progress Note ---
Anesthesia Post Op Note Date & Time Apr 04, 2017 at 14:27 Vital Signs Pain Intensity: 0 Vital Signs Past 12 Hours Date Time Temp Pulse Resp B/P (MAP) Pulse Ox O2 Delivery O2 Flow Rate FiO2 04/04/17 14:25 36.3 79 16 130/77 96 Oxymask 10 04/04/17 14:15 79 16 129/82 96 Oxymask 10 04/04/17 14:07 86 16 135/74 94 Oxymask 10 04/04/17 13:58 36.4 87 16 153/87 96 Oxymask 10 04/04/17 09:00 Room Air 04/04/17 07:52 36.8 81 19 142/87 (105) 94 Room Air Notes Mental Status: alert / awake / arousable, participated in evaluation Pt Amnestic to Procedure: Yes Nausea / Vomiting: adequately controlled Pain: adequately controlled Airway Patency, RR, SpO2: stable & adequate BP & HR: stable & adequate Hydration State: stable & adequate Anesthetic Complications: no major complications apparent
[2017-04-04] MEDS ORDERED: MAGNESIUM HYDROXIDE SUSP 30 ML UDC PO PRN (14:30)
[2017-04-04 14:40] VITALS: BP 142/87; PULSE 72; TEMP 36.7; O2SAT 96
[2017-04-04 15:40] VITALS: BP 138/79; PULSE 69; TEMP 36.6; O2SAT 92
[2017-04-04 16:40] VITALS: BP 133/73; PULSE 74; TEMP 36.6; O2SAT 92
[2017-04-04 19:58] VITALS: BP 113/68; PULSE 70; TEMP 36.7; O2SAT 94
[2017-04-04] MEDS ORDERED: CEFTRIAXONE SOD INJ 1 GM in DEXTROSE 5% ADD-VANTAGE 50ML 50 ML IV SCH (21:00)
[2017-04-04] MEDS ORDERED: ESCITALOPRAM OXALATE 10 MG TAB PO SCH (21:00)
[2017-04-04] MEDS ORDERED: ATORVASTATIN 10 MG TAB PO SCH (21:00)
[2017-04-04] MEDS: DOCUSATE SODIUM 100 MG CAP PO SCH (21:05)
--- NOTE | 2017-04-04 22:15 | OPERATIVE REPORT ---
DATE OF OPERATION: 04/04/2017 PROCEDURE PERFORMED: Cystoscopy and right stent. PREOPERATIVE DIAGNOSIS: Obstructing stone in right ureter and solitary kidney. POSTOPERATIVE DIAGNOSIS: Same. SURGEON: Abimael Martinez MD ANESTHESIA: General. INDICATIONS: The patient is a 52-year-old male with a history of stone that moved into the ureter. The patient had been scheduled for ureteroscopy. He has a solitary kidney. He presents now with anuria and severe pain and rising creatinine. DESCRIPTION OF THE PROCEDURE: The patient was taken to the cystoscopy suite and had Venodyne stockings placed and given Rocephin yesterday. He was placed in dorsal lithotomy position and prepped and draped in the usual sterile fashion. A 21-Bulgarian cystoscope was passed per urethra. The patient did have a small short stricture in the bulbar urethra which was dilated passively with the scope. Once inside the bladder, the bladder was carefully examined with 30 and 70 degree lens without any evidence of tumor. The right ureteral orifice was identified and cannulated with a 5-Bulgarian open-ended catheter and a retrograde was performed which showed a duplex system with a stone above the intersection of the 2 collecting systems. The Dual-Flex guidewire was passed beyond this and then an open-ended catheter was passed over that with a hydronephrotic drip. The wire was removed and a retrograde was performed which defined the duplex system better, then the guidewire was replaced and once in the lower pole moiety and the stent went into the collecting system lower pole moiety, and the distal end was in the bladder. The patient was transferred to the recovery room in stable condition. I attest to the content of the Intraoperative Record and any orders documented therein. Any exceptions are noted below. MTDD
[2017-04-04 22:53] VITALS: BP 110/68; PULSE 71; TEMP 36.8; O2SAT 95
[2017-04-05 03:33] VITALS: BP 103/63; PULSE 68; TEMP 36.6; O2SAT 95
[2017-04-05 06:01] LABS: BASO % 0.1 %; BASO ABS # 0.01 K/uL (0-0.2); COMPLETE YES; HEMATOCRIT 34.5 % (42-52); IG% 0.2 %; LYMPH % 10.5 %; LYMPH ABS # 1.34 K/uL (1.2-3.4); MEAN CELL VOLUME 82.9 fL (80-100); MEAN CORPUSCULAR HEMOGLOBIN 28.4 pg (25-34); MEAN CORPUSCULAR HGB CONC 34.2 g/dl (32-36); MEAN PLATELET VOLUME 8.8 fL (7.4-10.4); MONO % 8.8 %; NEUT % 80.4 %; PLATELET COUNT 316 K/uL (130-400); RED BLOOD COUNT 4.16 M/uL (4.7-6.1); WHITE BLOOD COUNT 12.74 K/uL (4.8-10.8)
[2017-04-05] MEDS: SODIUM CHLORIDE 0.9% 1000ML 1,000 ML IV SCH ×2 (06:18→13:45)
[2017-04-05 06:30] LABS: BUN/CREATININE RATIO 10.5 (10-20); CALCIUM 8.7 mg/dl (8.5-10.1); CREATININE 2.7 mg/dl (0.60-1.40); MAGNESIUM 2.1 mg/dl (1.8-2.4); POTASSIUM 5.3 mmol/L (3.5-5.1)
[2017-04-05 08:00] VITALS: BP 106/65; PULSE 66; TEMP 36.7; O2SAT 96
[2017-04-05] MEDS: DOCUSATE SODIUM 100 MG CAP PO SCH (08:38)
[2017-04-05] MEDS: INSULIN ASPART 100 UNITS/ML 3 ML PEN SC SCH ×2 (08:49→13:32)
--- NOTE | 2017-04-05 10:19 | Progress Note ---
Subjective Date of Service: Apr 05, 2017. Subjective Pt evaluation today including: conversation w/ patient, chart review, lab review Voiding: no voiding problems 53 yo male s/p right ureteral stent placement for 12mm right ureteral stone. Pt reports he feels better today. Denies pain. Denies n/v. + gross hematuria. Denies dysuria. UC&S noted to be negative. Cr remains elevated, but has improved to 2.7 this morning from 3.6 yesterday. Potassium noted to be elevated at 5.3. Problem List Medical Problems: (1) Acute kidney injury Status: Acute (2) Intractable pain Status: Acute (3) Kidney stone Status: Acute (4) Renal colic Status: Acute (5) Right flank pain Status: Acute (6) UTI (urinary tract infection) Status: Acute Review of Systems Constitutional: No fever, No chills Respiratory: No shortness of breath Cardiac: No chest pain Abdomen: No pain, No nausea, No vomiting Male : + hematuria, No dysuria Heme: No abnormal bleeding/bruising Objective Vital Signs Date Time Temp Pulse Resp B/P (MAP) Pulse Ox O2 Delivery O2 Flow Rate FiO2 04/05/17 08:00 96 Room Air 04/05/17 08:00 36.7 66 16 106/65 (79) 96 Room Air 04/05/17 08:00 36.7 16 106/65 (79) 96 Room Air 04/05/17 03:33 36.6 68 16 103/63 (76) 95 Room Air 04/04/17 23:50 Room Air CPAP 04/04/17 22:53 36.8 71 16 110/68 (82) 95 CPAP 04/04/17 19:58 36.7 70 18 113/68 (83) 94 Room Air 04/04/17 16:40 36.6 74 18 133/73 (93) 92 Room Air 04/04/17 15:45 Room Air 04/04/17 15:40 36.6 69 18 138/79 (98) 92 Room Air 04/04/17 14:40 96 Nasal Cannula 2.0 04/04/17 14:40 36.7 72 16 142/87 (105) 96 Nasal Cannula 2.0 04/04/17 14:40 96 Nasal Cannula 2.0 04/04/17 14:25 36.3 79 16 130/77 96 Oxymask 10 04/04/17 14:15 79 16 129/82 96 Oxymask 10 04/04/17 14:07 86 16 135/74 94 Oxymask 10 04/04/17 13:58 36.4 87 16 153/87 96 Oxymask 10 Physical Exam General Appearance: no apparent distress Eyes: normal inspection ENT: hearing grossly normal Neck: no JVD Respiratory/Chest: no respiratory distress, no accessory muscle use Cardiovascular: no JVD Extremities: normal inspection Neurologic/Psychiatric: alert, normal mood/affect, oriented x 3 Skin: normal color Laboratory Results Last 24 Hours Test 04/04/17 12:12 04/04/17 12:58 04/04/17 14:08 04/04/17 17:03 Bedside Glucose 229 mg/dl 177 mg/dl 184 mg/dl 221 mg/dl Test 04/04/17 20:39 04/05/17 05:23 04/05/17 08:01 Bedside Glucose 228 mg/dl White Blood Count 12.74 K/uL Red Blood Count 4.16 M/uL Hemoglobin 11.8 g/dL Hematocrit 34.5 % Mean Corpuscular Volume 82.9 fL Mean Corpuscular Hemoglobin 28.4 pg Mean Corpuscular Hemoglobin Concent 34.2 g/dl Platelet Count 316 K/uL Mean Platelet Volume 8.8 fL Neutrophils (%) (Auto) 80.4 % Lymphocytes (%) (Auto) 10.5 % Monocytes (%) (Auto) 8.8 % Eosinophils (%) (Auto) 0.0 % Basophils (%) (Auto) 0.1 % Neutrophils # (Auto) 10.24 K/uL Lymphocytes # (Auto) 1.34 K/uL Monocytes # (Auto) 1.12 K/uL Eosinophils # (Auto) 0.00 K/uL Basophils # (Auto) 0.01 K/uL RDW Standard Deviation 38.3 fL RDW Coefficient of Variation 12.6 % Immature Granulocyte % (Auto) 0.2 % Immature Granulocyte # (Auto) 0.03 K/uL Sodium Level 140 mmol/L Potassium Level 5.3 mmol/L Chloride Level 108 mmol/L Carbon Dioxide Level 24 mmol/L Anion Gap 8.0 mmol/L Blood Urea Nitrogen 28 mg/dl Creatinine 2.70 mg/dl Est Creatinine Clear Calc Drug Dose 45.0 ml/min Estimated GFR () 30.0 Estimated GFR (Non- 25.9 BUN/Creatinine Ratio 10.5 Random Glucose 208 mg/dl Calcium Level 8.7 mg/dl Magnesium Level 2.1 mg/dl Assessment and Plan POD #1 s/p cysto and right ureteral stent placement for renal colic and ARF AFVSS. Pain improved. Cr improving. Continue to monitor. The pt is scheduled for outpatient URS/LL with Dr. Baker next week on 04-13. Will keep as scheduled. No further management at this time. Recall PRN issues. Thanks for allowing us to participate in this pt's care.
--- NOTE | 2017-04-05 10:50 | Discharge Instructions ---
Discharge Instructions Date of Service Apr 05, 2017. Admission Reason for Admission: Hydronephrosis Due To Obstruction Of Ureter, Discharge Discharge Diagnosis / Problem: R ureteral kidney stone, hydronephrosis Discharge Goals Goal(s): Decrease discomfort, Improve function, Increase independence, Improve disease control Activity Recommendations Activity Limitations: resume your previous activity Lifting Limitations: no more than 25 pounds, gradually increase as tolerated Exercise/Sports Limitations: none, gradually increase as tolerated May Resume Sexual Activity: when tolerated Shower/Bathe: no limitations Driving or Machine Use: no limitations . Instructions / Follow-Up Instructions / Follow-Up You were admitted to [facility] with abdominal pain and diagnosed with R ureteral kidney stone and hydronephrosis in the setting of Congenital Kidney disease. During your stay here you were evaluated by Urology, a R ureteral stent was placed. You were treated with supportive care, intravenous fluids, and pain management. You have been scheduled for lithotripsy as an outpatient next Wednesday with Dr. Baker. Your creatine function improved during admission. Continue to drink plenty of water. Please have a BMP rechecked on Wednesday to evaluated further improvement. Medications: Continue taking all medications as prescribed. Your antibiotic regimen has been changed from Augmentin to Cefdinir (Omnicef) 300 mg twice daily x 7 days. Appointments: Follow up with your Primary Care Provider within 1 week. Follow up with urology as already scheduled on Wednesday, Apr [address] Baker. Follow up with Nephrology within 1-2 weeks. An appointment has been requested with Dr. Sawyer Current Hospital Diet Patient's current hospital diet: Diabetes Type 2 Diet Discharge Diet Recommended Diet: Diabetes Type 2 Diet Procedures Procedures Performed: Cystoscopy, Right Ureteral Stent Insertion Pending Studies Studies pending at discharge: no Medical Emergencies . Who to Call and When: Medical Emergencies: If at any time you feel your situation is an emergency, please call 911 immediately. . Non-Emergent Contact Non-Emergency issues call your: Primary Care Provider, Urologist Call Non-Emergent contact if: you have a fever, temperature is above 100.5, your pain is not controlled, your pain is worsening, your pain is unusual for you, your pain is concerning you, you have any medication questions . Past History Medical & Surgical History: (1) Right ureteral calculus (2) Hydronephrosis due to obstruction of ureter (3) Congenital kidney disease (4) Diabetes (5) Hypertension . "Provider Documentation" section prepared by Sandee Russo. . VTE Core Measure Inpt VTE Proph given/why not?: Emi Gutierrez, SCD's
[2017-04-05] MEDS ORDERED: CEFD300C2 PO (13:03)
[2017-04-05] MEDS ORDERED: SODIUM POLYST. SULF SUSP 15G/60ML PO STA (13:04)
--- NOTE | 2017-04-05 13:14 | Discharge Summary ---
Discharge Summary Date of Service Apr 05, 2017. (Susi Russo PA-C) Discharge Summary Admission Date: Apr 03, 2017 at 22:01 Discharge Date: Apr 05, 2017 Discharge Disposition: Home Principal Diagnosis: R kidney stone, hydronephrosis Problems/Secondary Diagnoses: HTN, HLD, DM II, Depression, congenital kidney disease Immunizations: Have You Had Influenza Vaccine: Unknown History of Tetanus Vaccine?: Unknown History of Pneumococcal: Unknown History of Hepatitis B Vaccine: Unknown Procedures: KUB CLINICAL HISTORY: 51 years-old Male presenting with eval for stone right side. TECHNIQUE: Single supine view of the abdomen was obtained. COMPARISON: CT from 03/26/2017. FINDINGS: Moderate stool burden degrades evaluation of the renal shadows. Previously noted calculus in the right renal pelvis measuring approximately 13 mm now projects over the right transverse process of L3 suggestive of passage into the right ureter and obstruction near the right ureteropelvic junction. Osseous structures normal. IMPRESSION: 1. Prominent calculus previously noted in the right renal pelvis may have progressed distally into the right ureteropelvic junction/proximal right ureter. Electronically signed by: Byron Bellamy M.D. 04/03/2017 8:24 PM Dictated Date/Time: 04/03/2017 8:22 PM The status of this report is Signed. (RENAL)RETROPERITON COMP HISTORY: 52 years-old Male acute right-sided flank pain with question of hydronephrosis COMPARISON: [facility] 04/03/2017 CT abdomen and pelvis 03/26/2017, renal ultrasound 05/04/2014. TECHNIQUE: Multiple real-time sonographic images of the kidneys and urinary bladder were obtained assessing grayscale appearance and color flow. FINDINGS: Right kidney measures 16.1 x 9.1 x 7.6 cm. There is mild right-sided hydronephrosis with 1.2 cm calculus in the region of the right renal pelvis seen on comparison CT not identified. Additionally, the previously noted punctate nonobstructing calculi seen on CT are not well seen. Cortical medullary differentiation is within normal limits. Markedly trophic left kidney is redemonstrated measuring approximately 8 cm in length. Urinary bladder is collapsed with ureteral jets not identified. IMPRESSION: 1. Mild right-sided hydronephrosis without obstructing stone or mass identified. This may be secondary to the previously noted large calculus within the expected region of the proximal right ureter seen on comparison K[facility] radiograph. 2. Markedly atrophic left kidney redemonstrated. 3. Collapsed urinary bladder. The above report was generated using voice recognition software. It may contain grammatical, syntax or spelling errors. Electronically signed by: Bakari Ingram M.D. 04/04/2017 8:50 AM Dictated Date/Time: 04/04/2017 8:43 AM The status of this report is Signed. RETROGRADE INCLUDES [facility] HISTORY: 52 years-old Male CYSTOSCOPY RT URETERAL STENT COMPARISON: Renal ultrasound of same day, [facility] radiograph 04/03/2017, CT 03/26/2017. TECHNIQUE: Retrograde cystourethrogram was obtained utilizing 49 seconds of fluoroscopy time. 3 images of the abdominal right upper quadrant were obtained. FINDINGS: First image demonstrates contrast opacification of a dilated right renal collecting system. Second image demonstrates placement of a wire in a dilated right ureter just distal to the ureterovesicular junction. Third image demonstrates the placement of an apparent stent within the inferior pole of the right kidney with distal portion of the device not imaged. The previously described large calculus of the proximal right ureter is not definitely seen on these images. IMPRESSION: Successful placement of a right ureteral stent. Please refer to the procedural report for further details. The above report was generated using voice recognition software. It may contain grammatical, syntax or spelling errors. Electronically signed by: Bakari Ingram M.D. 04/04/2017 1:57 PM Dictated Date/Time: 04/04/2017 1:53 PM The status of this report is Signed. Consultations: Urology (Susi Russo PA-C) Medication Reconciliation New Medications: Cefdinir (Omnicef) 300 Mg Cap 1 CAP PO BID for 7 Days, #14 CAP Continued Medications: Acetaminophen (Tylenol) 500 Mg Tab 1000 MG PO Q6H PRN for Pain or Fever, TAB Aspirin (Aspirin) 81 Mg Tab 81 MG PO QPM, TAB Atorvastatin (Lipitor) 10 Mg Tab 5 MG PO QPM, TAB Escitalopram (Lexapro) 10 Mg Tab 10 MG PO QPM, TAB Glimepiride (Glimepiride) 4 Mg Tab 4 MG PO QAM, TAB Losartan Potassium (Cozaar) 50 Mg Tab 50 MG PO QAM, TAB Metformin Hcl (Glucophage) 1,000 Mg Tab 1000 MG PO BID, TAB Oxycodone Immediate Rel Tab (Roxicodone Ir) 5 Mg Tab 1-2 TAB PO Q4H PRN for Severe Pain, #24 TAB Discontinued Medications: Amoxicillin (Amoxil) 875 Mg Tab 875 MG PO BID for 10 Days, #20 TAB PRESCRIBED 04/02/2017, TAKE DIRECTED UNTIL GONE Discharge Exam The patient was seen and examined this morning. Pt reports feeling "100% better today compared to yesterday". He reports he is eating and drinking without difficulty. He has been urinating with mild hematuria, with a small clot passing this morning. He denies dysuria or abdominal pain s/p stent placement yesterday. Ambulating in the halls without difficulty. Review of Systems: Constitutional: No fever, No chills, No sweats Eyes: No diplopia ENT: No sore throat, No trouble swallowing Respiratory: No sputum, No shortness of breath Cardiovascular: No chest pain, No palpitations Abdomen: No pain, No nausea, No vomiting, No diarrhea, No constipation Musculoskeletal: No swelling, No calf pain Genitourinary - Male: + hematuria, No dysuria, No urinary frequency, No urinary urgency, No urinary hesitancy, No urinary retention Neurologic: No numbness/tingling Endocrine: No fatigue Integumentary: No rash, No itch Physical Exam: General Appearance: WD/WN, no apparent distress, + obese Eyes: PERRL, EOMI ENT: hearing grossly normal, pharynx normal Neck: supple, no JVD Respiratory/Chest: chest non-tender, lungs clear, no respiratory distress, no accessory muscle use Cardiovascular: regular rate, rhythm, no murmur Abdomen / GI: normal bowel sounds, non tender, soft Extremities: no calf tenderness, no pedal edema Neurologic/Psychiatric: alert, normal mood/affect, oriented x 3 Skin: normal color, warm/dry (Susi Russo PA-C) Hospital Course History of Present Illness Source: patient, spouse The patient is a 51-year-old male who presents to the emergency department with severe right flank pain. He underwent a CT scan of the abdomen and pelvis on March 26, which showed a 12 mm right ureteral stone with hydronephrosis and perinephric stranding. He saw Dr. Baker from urology 3 days ago, and had a surgical procedure planned for April 13. However, his pain became so severe he presented to the emergency department for assessment tonight. He and his are especially concerned, as he has congenital kidney disease, and has only one functioning kidney. Physical Exam Vital Signs Date Time Temp Pulse Resp B/P (MAP) Pulse Ox O2 Delivery O2 Flow Rate FiO2 04/03/17 21:17 37.3 100 16 145/92 98 Room Air 04/03/17 19:13 36.7 71 20 137/85 95 Room Air The patient is awake, well-developed and adequately nourished, alert and oriented 3, normocephalic and atraumatic, lying in bed and in no acute distress. HEENT--PERRL, EOMI, mucous membranes and oropharynx dry. Neck--supple, no JVD or bruits, thyroid normal, trachea midline, no adenopathy. Heart--normal S1 and S2, no extra beats, no murmurs, rubs or gallops. Lungs--clear bilaterally with good air movement, no respiratory distress, no accessory muscle use. Abdomen--normal bowel sounds and soft, right flank tenderness. Nondistended, no hernias, masses or organomegaly. Obese Extremities--no cyanosis, clubbing or edema. There are good distal pulses b/l. Dermatologic--normal skin turgor, normal color, warm and dry, no abnormal lymph nodes, no rash. Neurologic--cranial nerves II through XII grossly intact. Rheumatologic--normal range of motion, nontender, muscles and joints. Psychiatric--normal affect. Hospital Course: This is a 52 yo M with PMHx of HTN, HLD, DM II, Depression who presented with right flank pain. He underwent a CT scan of the abdomen and pelvis on March 26 , which showed a 12 mm right ureteral stone with hydronephrosis and perinephric stranding. He saw Dr. Baker from urology 3 days ago, and had a surgical procedure planned for April 13. Nephrolithiasis, hydronephrosis ABDOUL Congenital kidney disease - CT scan of the abdomen and pelvis on March 26, which showed a 12 mm right ureteral stone with hydronephrosis and perinephric stranding. He saw Dr. Baker from urologyas an outpt only 3 days prior to admission, scheduled for ureteroscopy on 04/13 as outpt. - Renal U/S completed showing- mild right-sided hydronephrosis with 1.2 cm calculus in the region of the right renal pelvis seen on comparison CT not identified. Additionally, the previously noted punctate nonobstructing calculi seen on CT are not well seen. Markedly trophic left kidney. - Urology consulted- Pt had stent placement on 04/[address] Martinez, keep planned outpatient ureteroscopy as already scheduled. - Cr. peaked at 3.6 and trended back down to 2.7, pt is tolerating fluids and diet without difficulty. An outpatient nephrology referral was made and pt will see nephro within 1-2 weeks. Repeat BMP on 04/07 to recheck Cr. Results are being sent to urology for follow up. Baseline Cr. seems to be around 1.4 - WBC trending downward - Received ceftriaxone IV x 2 days, will switch to cefdinir 300 gm Q12H, pt's cr. clearance is stable. D/C outpatient augmentin. Hypertension - BP stable, holding losartan and asa during admission, resume upon discharge Diabetes mellitus II - held glimepiride 4 mg QAM and metformin 1000 mg BID - resume upon discharge - ISS with accuchekcs achs and Q6H while NPO. - Tolerating diet without difficulty Hyperlipidemia -continue atorvastatin 5 mg QPM Depression- -continue Lexapro 10 mg QPM DVT prophylaxis: SCDs, ambulatory CODE STATUS: FULL CODE Disposition: From home, lives with , discharge today Total Time Spent: Greater than 30 minutes This includes examination of the patient, discharge planning, medication reconciliation, and communication with other providers. (Susi Russo, MARY) PA Physician Supervision Note: I interviewed and examined the patient. Discussed with Susi Russo PAC and agree with findings and plan as documented in the note. Any exceptions or clarifications are listed here: None Patient has congenital unilateral kidney and ureteral stent acute on chronic renal failure this has improved the patient is understanding he needs to continue aggressive hydration with close outpatient follow-up with serology Vital signs are stable Patient's pain is greatly improved his heart is regular lungs are clear abdomen is soft Patiently discharged Omnicef twice a day given his previous streptococcal urinary tract infection cultures an outpatient Documented By: Christian Green (Christian Green M.D.) Discharge Instructions Please refer to the electronic Patient Visit Report (Discharge Instructions) for additional information. (Susi Russo PA-C) Follow-Up Follow up with your Primary Care Provider within 1 week. Follow up with urology as already scheduled on Wednesday, [address] Baker. Follow up with Nephrology within 1-2 weeks. An appointment has been requested with Dr. Sawyer (Susi Russo PA-C) Additional Copies To Monica Shaikh M.D.
[2017-04-05] MEDS: FAMOTIDINE IV INJ 20 MG in DEXTROSE 5% 100ML 100 ML IV SCH (13:27)
[2017-04-05 14:55] VITALS: BP 106/65; PULSE 66; TEMP 36.7; O2SAT 96
[2017-04-13] MEDS ORDERED: HYDR-5688 PO (10:24)
[2017-04-13] MEDS ORDERED: CIPR-255 PO (10:24)
== END 2017-04-05 15:10 | disposition home or self-care (01) | DRG 694 ==
LOC: C.EDB 19:06 → C.MSN 22:01 → ENRESERV 22:17
PROVIDERS: ADMIT Hospitalist; ATTEND Internal Medicine
PROC: BT14ZZZ Fluoroscopy of Kidneys, Ureters and Bladder (ICD-10-PCS; principal; 2017-04-04 12:00)
PROC: 0T768DZ Dilation of Right Ureter with Intraluminal Device, Via Natural or Artificial Opening Endoscopic (ICD-10-PCS; principal; 2017-04-04 12:00)
DX: N13.2 Hydronephrosis with renal and ureteral calculous obstruction (principal); N17.9 Acute kidney failure, unspecified; Q61.9 Cystic kidney disease, unspecified; R74.8 Abnormal levels of other serum enzymes; I10 Essential (primary) hypertension; Z88.2 Allergy status to sulfonamides; E78.5 Hyperlipidemia, unspecified; F32.9 Major depressive disorder, single episode, unspecified; E11.9 Type 2 diabetes mellitus without complications

== ENCOUNTER → 2017-04-13 | Day surgery (SDC) | payer BC ==
[2017-04-02 11:36] VITALS: BMI 44.0
--- NOTE | 2017-04-02 12:22 | PAT Medication Instructions ---
Service Date Apr 02, 2017. Current Home Medication List Acetaminophen (Tylenol), 1,000 MG PO PRN UD Aspirin (Aspirin), 1 TAB PO QPM Atorvastatin (Lipitor), 5 MG PO QPM Escitalopram (Lexapro), 10 MG PO QPM Glimepiride (Glimepiride), 1 TAB PO QAM Losartan Potassium (Cozaar), 50 MG PO QAM Metformin Hcl (Glucophage), 1,000 MG PO BID Oxycodone Immediate Rel Tab (Roxicodone Ir), 1-2 TAB PO Q4H PRN for Severe Pain Medication Instructions For Your Scheduled Surgery Hold for 10 days per surgeon: Aspirin (Aspirin), 1 TAB PO QP - Hold the following medications 48 hours prior to surgery: Metformin Hcl (Glucophage), 1,000 MG PO BID - Hold the following medications the morning of surgery: Glimepiride (Glimepiride), 1 TAB PO QAM Losartan Potassium (Cozaar), 50 MG PO QAM - Take the following medications the morning of surgery with a sip of water: Acetaminophen (Tylenol), 1,000 MG PO PRN UD (if needed up to 4 hours prior to surgery) Oxycodone Immediate Rel Tab (Roxicodone Ir), 1-2 TAB PO Q4H PRN for Severe Pain (if needed for pain up to 4 hours prior to surgery) - Take the following medications as scheduled the night before surgery: Atorvastatin (Lipitor), 5 MG PO QPM Escitalopram (Lexapro), 10 MG PO QPM Acetaminophen (Tylenol), 1,000 MG PO PRN UD Oxycodone Immediate Rel Tab (Roxicodone Ir), 1-2 TAB PO Q4H PRN for Severe Pain If you have any questions please call us at [phone] or [phone] or [phone]
[~2017-04-13] VITALS: Ht 177.8 cm; Wt 138.2 kg
[~2017-04-13] MED LIST changes: +ACETAMINOPHEN 325 MG TAB PO PRN; +ATROPINE SULFATE 0.1 MG/ML 5ML SYR IV PRN; +CEFD300C2 PO; +CIPR-255 PO; +CIPROFLOXACIN / D5W 400 MG IV SCH; +CONRAY 30% 150ML BOTTLE ONE; +DEXAMETHASONE SOD INJ 4 MG/ML VIAL ONE; +DiphenhydrAMINE HCL 50 MG/ML VIAL ONE; +EpHEDrine SULFATE INJ 50 MG/ML AMP IV PRN; +FENTANYL CITRATE INJ 50 MCG/1 ML 2 ML VIAL IV PRN; +FENTANYL CITRATE INJ 50 MCG/1 ML 2 ML VIAL ONE; +HYDR-5688 PO; +LACTATED RINGER'S 1000ML 1,000 ML IV SCH; +LIDOCAINE HCL 2% 2 ML VIAL (20MG/ML) ONE; +MIDAZOLAM HCL 1 MG/ML 2ML VIAL ONE; +ONDANSETRON INJ 2 MG/ML 2 ML VIAL ONE; +OXYCODONE/ACETAMINOPHEN 5-325 TAB PO PRN; +PROPOFOL IV EMULSION 10 MG/ML 20 ML VIAL IV ONE; +ROCURONIUM BROMIDE 10 MG/ML 5 ML VIAL IV ONE; +SODIUM CHLORIDE 0.9% 1000ML 1,000 ML IV SCH; +SUCCINYLCHOLINE CHLORIDE 20 MG/ML 10 ML VIAL IV ONE
[2017-04-13 06:59] VITALS: BP 144/65; PULSE 72; TEMP 37; O2SAT 98; Ht 177.8 cm; Wt 138.2 kg
--- NOTE | 2017-04-13 08:23 | History & Physical Bridge Note ---
H&P Re-Evaluation Bridge Note: I have examined the patient, reviewed the History & Physical and in the interval since the performance of the History & Physical I have noted the following changes of clinical significance: No changes noted
--- NOTE | 2017-04-13 10:26 | Discharge Instructions ---
Discharge Instructions Date of Service Apr 13, 2017. Admission Reason for Admission: Stones Discharge Discharge Diagnosis / Problem: stone Discharge Goals Goal(s): Decrease discomfort, Improve function, Increase independence, Improve disease control, Prevent Disease Progression Activity Recommendations Activity Limitations: resume your previous activity Lifting Limitations: none Exercise/Sports Limitations: none May Resume Sexual Activity: when tolerated Shower/Bathe: no limitations Driving or Machine Use: resume 1 day after discharge . Instructions / Follow-Up Instructions / Follow-Up Please keep your previously scheduled follow-up appointment Dr. Baker Discharge Diet Recommended Diet: Regular Diet Procedures Procedures Performed: Cystoscopy; Right Ureteroscopy, Laser Lithotripsy, Retrograde Pyelogram, Stent Exchange Pending Studies Studies pending at discharge: no Medical Emergencies . Who to Call and When: Medical Emergencies: If at any time you feel your situation is an emergency, please call 911 immediately. . Non-Emergent Contact Non-Emergency issues call your: Urologist Call Non-Emergent contact if: you have a fever, temperature is above 101.5, your pain is not controlled, your pain is worsening . . "Provider Documentation" section prepared by Himanshu Prado. . VTE Core Measure Inpt VTE Proph given/why not?: Treatment not indicated [place] Drug Monitoring Program Search Results: patient reviewed within database, no issues identified
--- NOTE | 2017-04-13 10:30 | [facility] Operative Report ---
Operative Report Operative Date Apr 13, 2017. Pre-Operative Diagnosis Right Nephrolithiasis; Atrophic Left Kidney Post-Operative Diagnosis same as preop Procedure(s) Performed Cystoscopy; Right Ureteroscopy, Laser Lithotripsy, Retrograde Pyelogram, Stent Exchange ([id number]) Surgeon Dr. Baker Clinical Research Physician Surgeon(s) None Estimated Blood Loss 0 ml Findings Large right ureteral calculus- impacted in the proximal ureter Specimens A: Right kidney stones, for chemical analysis Drains [id number] Anesthesia Gen. Complication(s) None Disposition Recovery Room / PACU (stable) Indications [place]-nephric patient with a right ureteral calculus status post prior stenting Description of Procedure The patient was identified in the preoperative holding area, appropriate informed consent reviewed and completed, and the patient was transported to the operating suite. Upon arrival he received appropriate preoperative antibiotics the form of ciprofloxacin. Adequate general anesthesia was achieved, and the patient was placed in dorsal lithotomy position where he was sterilely prepped and draped in standard fashion. In the case by passing a 22 Bengali cystoscope with 30 lens. Meatus was moderately tight but accommodated the scope and no evidence of other stricture disease. Prostate was moderately enlarged but not significantly obstructive. Bladder was fully inspected, no tumors were identified. A stent was easily seen protruding from the right ureteral orifice. Distal aspect of the stent was grasped withdrawn to the meatus. I intubated the stent with a sensor wire advanced to the kidney under fluoroscopy. Of note a large opacity was visualized along the course of the ureter consistent with the stones seen on preoperative imaging. Utilizing a 10 Bengali double-lumen catheter, I dilated the distal ureter and placed a second wire up to the kidney. Utilizing one as a safety wire another as a working wire advanced the flexible ureteroscope. Stone was immediately seen impacted in the ureter at this proximal ureteral location. A 400 laser fiber was passed and laser lithotripsy commenced. I sequentially fragmented the stone into pieces deemed safe for spontaneous passage. The last several pieces mood retrograde into the kidney and I cisco these into the kidney and try to fragment all pieces in the city as a smaller than 1 mm. Given the overall stone burden there was a significant amount of debris but I identified no large stones retained within this debris. I performed a careful exit ureteroscopy identifying no large stones within the ureter. I performed retrograde pyelogram identifying some air bubbles within the ureter but no large stones had moderate hydronephrosis and a clearly bifid system. Wire was repositioned in the upper pole and the stent was placed over this wire significant good curl in the kidney as well as the bladder. The bladder was emptied several small stone fragments were collected and passed off the table as a specimen. Patient was ultimately extubated and taken to the PACU in stable condition. I attest to the content of the Intraoperative Record and any orders documented therein. Any exceptions are noted below.
[2017-04-13 11:26] VITALS: BP 119/57; PULSE 71; TEMP 37; O2SAT 91
--- NOTE | 2017-04-13 11:30 | Anesthesiology Progress Note ---
Anesthesia Post Op Note Date & Time Apr 13, 2017 at 11:29 Vital Signs Pain Intensity: 0 Vital Signs Past 12 Hours Date Time Temp Pulse Resp B/P (MAP) Pulse Ox O2 Delivery O2 Flow Rate FiO2 04/13/17 11:10 36.3 77 23 124/63 92 Room Air 04/13/17 11:00 67 21 126/68 96 Oxymask 10 04/13/17 10:50 68 21 128/70 94 Oxymask 10 04/13/17 10:40 73 17 140/68 96 Oxymask 10 04/13/17 10:32 36.1 82 16 184/89 100 Oxymask 10 132/75 04/13/17 06:59 37 72 20 144/65 (91) 98 Room Air Notes Mental Status: alert / awake / arousable, participated in evaluation Pt Amnestic to Procedure: Yes Nausea / Vomiting: adequately controlled Pain: adequately controlled Airway Patency, RR, SpO2: stable & adequate BP & HR: stable & adequate Hydration State: stable & adequate Anesthetic Complications: no major complications apparent
[2017-04-13 11:50] VITALS: BP 105/62; PULSE 64; TEMP 36.9; O2SAT 92
[2017-04-13 12:20] VITALS: BP 102/60; PULSE 72; TEMP 36.8; O2SAT 92
== END | disposition home or self-care (01) ==
LOC: C.ACU 06:34
PROVIDERS: ATTEND Urology
DX: N20.0 Calculus of kidney (principal); E78.00 Pure hypercholesterolemia, unspecified; Z79.82 Long term (current) use of aspirin; Z79.899 Other long term (current) drug therapy

== ENCOUNTER → 2017-04-20 | Outpatient (CLI) | payer BC ==
[~2017-04-20] MED LIST changes: -ACETAMINOPHEN 325 MG TAB PO PRN; -ATROPINE SULFATE 0.1 MG/ML 5ML SYR IV PRN; -CEFD300C2 PO; -CIPROFLOXACIN / D5W 400 MG IV SCH; -CONRAY 30% 150ML BOTTLE ONE; -DEXAMETHASONE SOD INJ 4 MG/ML VIAL ONE; -DiphenhydrAMINE HCL 50 MG/ML VIAL ONE; -EpHEDrine SULFATE INJ 50 MG/ML AMP IV PRN; -FENTANYL CITRATE INJ 50 MCG/1 ML 2 ML VIAL IV PRN; -FENTANYL CITRATE INJ 50 MCG/1 ML 2 ML VIAL ONE; -LACTATED RINGER'S 1000ML 1,000 ML IV SCH; -LIDOCAINE HCL 2% 2 ML VIAL (20MG/ML) ONE; -MIDAZOLAM HCL 1 MG/ML 2ML VIAL ONE; -ONDANSETRON INJ 2 MG/ML 2 ML VIAL ONE; -OXYCODONE/ACETAMINOPHEN 5-325 TAB PO PRN; -PROPOFOL IV EMULSION 10 MG/ML 20 ML VIAL IV ONE; -ROCURONIUM BROMIDE 10 MG/ML 5 ML VIAL IV ONE; -SODIUM CHLORIDE 0.9% 1000ML 1,000 ML IV SCH; -SUCCINYLCHOLINE CHLORIDE 20 MG/ML 10 ML VIAL IV ONE
--- NOTE | 2017-04-20 18:54 | DIAGNOSTIC IMAGING REPORT ---
KUB HISTORY: N20.0 Nephrolithiasis COMPARISON: KUB 04/03/2017. FINDINGS: The bowel gas pattern is unremarkable. There are no dilated loops of small bowel to suggest an obstruction. There is a right ureteral stent which appears be in good position. There are now multiple stones fragments seen within the distal right ureter near the ureterovesical junction. These measure a total length of 1.4 cm. The proximal right ureteral stone seen on the prior study is no longer identified. No left ureteral calculi. No renal calculi identified. No pneumoperitoneum or pneumatosis. IMPRESSION: 1. Multiple stone fragments within the distal right ureter near the ureterovesical junction. 2. Right ureteral stent is likely in good position. Electronically signed by: Nicolas Arechiga M.D. 04/20/2017 6:52 PM Dictated Date/Time: 04/20/2017 6:50 PM
== END | disposition home or self-care (01) ==
LOC: C.RAD 16:15
PROVIDERS: ATTEND Urology
DX: N20.0 Calculus of kidney (principal)

== ENCOUNTER → 2017-06-07 | Outpatient (CLI) | payer BC ==
[~2017-06-07] MED LIST changes: +ATOR10TA82 PO; -ATOR10TA88 PO
[2017-06-07 10:22] LABS: URINE APPEARANCE CLEAR (CLEAR); URINE BILIRUBIN NEG (NEG); URINE COLOR YELLOW; URINE NITRITE NEG (NEG); URINE SPECIFIC GRAVITY 1.023 (1.000-1.030); UROBILINOGEN NEG (NEG); ZZUR CULT IF INDIC CLEAN CATCH NO
[2017-06-07 10:24] LABS: MANUAL MICROSCOPIC REQUIRED? NO; REVIEW REQ? NO
[2017-06-07 10:26] LABS: BLOOD UREA NITROGEN 18 mg/dl (7-18); BUN/CREATININE RATIO 13.9 (10-20); CALCIUM 8.9 mg/dl (8.5-10.1); CARBON DIOXIDE 25 mmol/L (21-32); CHLORIDE 104 mmol/L (98-107); CREATININE 1.26 mg/dl (0.60-1.40); GLUCOSE 215 mg/dl (70-99); MAGNESIUM 1.7 mg/dl (1.8-2.4); POTASSIUM 4.2 mmol/L (3.5-5.1); SODIUM 138 mmol/L (136-145); URIC ACID 6.1 mg/dl (2.6-7.2)
[2017-06-07 10:27] LABS: PHOSPHORUS 2.7 mg/dl (2.5-4.9)
[2017-06-07 10:44] LABS: URINE PROTIEN/CREAT RATIO 0.2 (0-0.2); URINE TOTAL PROTEIN 25.8 mg/dl (0-11.9)
--- NOTE | 2017-06-14 13:47 | CODING QUERY MEDICAL NECESSITY ---
SUPPORTING DIAGNOSIS NEEDED A supporting diagnosis is required for the test/procedure performed on this patient in order for us to be reimbursed by the patient's insurance. Please provide a supporting diagnosis for the following test/procedure listed below next to the test name along with your signature. *If there is no additional diagnosis for this patient that would support the following test/procedure please document that below next to the test/procedure. Test(s)/Procedure(s) that require a supporting diagnosis: * VITAMIN D, 25-HYDROXY DIAGNOSIS: Provider Signature: Date: Thank you Meena Peters [employer] Once completed, please kindly fax back to [phone] For questions please call [phone]
== END | disposition home or self-care (01) ==
LOC: C.LAB1850 08:27
PROVIDERS: ATTEND Internal Medicine Nephrology
DX: N20.0 Calculus of kidney (principal)

== ENCOUNTER → 2017-12-14 | Outpatient (CLI) | payer OTHER ==
[~2017-12-14] MED LIST changes: -HYDR-5688 PO; -OXYC1TAB3 PO
[2017-12-14 18:11] LABS: BLOOD UREA NITROGEN 13 mg/dl (7-18); CALCIUM 8.9 mg/dl (8.5-10.1); CARBON DIOXIDE 29 mmol/L (21-32); CREATININE 1.21 mg/dl (0.60-1.40); GLUCOSE 182 mg/dl (70-99); SODIUM 140 mmol/L (136-145)
[2017-12-14 18:12] LABS: PHOSPHORUS 2.5 mg/dl (2.5-4.9)
== END | disposition home or self-care (01) ==
LOC: C.LAB1850 16:16
PROVIDERS: ATTEND Internal Medicine Nephrology
DX: N20.0 Calculus of kidney (principal)

== ENCOUNTER 2018-11-19 03:49 | Inpatient (IN) ==
[2018-11-19] MEDS ORDERED: SODIUM CHLORIDE 0.9% 500 ML IV STA (04:17)
[2018-11-19 04:23] LABS: Hematocrit (blood only) 39.1 % (42-52); Hemoglobin 13.4 g/dL (14.0-18.0); Mean Corpuscular Hgb Conc 34.3 g/dL (32-36); Mean Corpuscular Volume 83.4 fL (80-100); Mean Platelet Volume 9.1 fL (7.4-10.4); Platelet Count 220 K/uL (130-400); RDW Coefficient of Variation 12.7 % (11.5-14.5); Red Blood Count 4.69 M/uL (4.7-6.1); White Blood Count 8.25 K/uL (4.8-10.8)
[2018-11-19 04:48] LABS: BUN Creatinine Ratio 10.3 (10-20); Blood Urea Nitrogen 28 mg/dl (7-18); Calcium 8.6 mg/dl (8.5-10.1); Carbon Dioxide 27 mmol/L (21-32); Chloride 102 mmol/L (98-107); Creatinine Clr Calc Pharmacy 43.7 ml/min; Est GFR (African American) 29.2; Est GFR (Non-African American) 25.2; Glucose 431 mg/dl (70-99); Potassium 3.8 mmol/L (3.5-5.1); Sodium 134 mmol/L (136-145)
[2018-11-19 05:08] LABS: Alanine Aminotransferase 25 U/L (12-78); Alkaline Phosphatase 113 U/L (45-117); Aspartate Aminotransferase 10 U/L (15-37); Beta-Hydroxybutyrate 1.06 mg/dl (0.2-2.81); Bilirubin Direct < 0.1 mg/dl (0-0.2); Bilirubin,Total 0.3 mg/dl (0.2-1); Total Protein 7.2 gm/dl (6.4-8.2)
[2018-11-19 05:12] LABS: Albumin Level 3.3 gm/dl (3.4-5.0); Troponin I < 0.015 ng/ml (0-0.045)
[2018-11-19 05:14] LABS: Partial Thromboplastin Ratio 0.9; Partial Thromboplastin Time 25.3 Seconds (21.0-31.0); Prothrombin Time 10.4 Seconds (9.0-12.0)
[2018-11-19 06:46] LABS: Appearance Urine Cloudy (Clear); Bilirubin Urine Negative (Negative); Blood Urine Trace (Negative); Color Urine Yellow; Glucose Urine UA 3+ (Negative); Ketones Urine Negative (Negative); Leukocyte Esterase Urine Negative (Negative); Nitrite Urine Negative (Negative); Protein Urine Negative (Negative); Specific Gravity Urine 1.017 (1.000-1.030); Urobilinogen Urine Negative (Negative)
[2018-11-19 06:59] LABS: Epithelial Cell Urine 0-5 /lpf (0-5); RBC Urine 0-4 /hpf (0-4); Sperm Urine Present (None Prsent); WBC Urine 0-5 /hpf (0-5)
[2018-11-19 07:00] LABS: Bacteria Urine Negative (Negative)
--- NOTE | 2018-11-19 07:47 | Emergency Department Note ---
History of Present Illness General Chief Complaint: Flank Pain Stated Complaint: RIGHT SIDE KIDNEY PAIN W/ HX OF KIDNEY STONES Source: patient Mode of arrival: ambulatory Limitations: no limitations History of Present Illness Provider Complaint: flank pain Onset (ago): 1 day(s) Pain Consistency: constant Location: R flank Radiation: RLQ Migration to: no migration Severity: moderate Maximum Pain Intensity: 3 Current Pain Intensity: 3 Quality: + sharp Relieved By: + nothing Exacerbated By: + nothing Context: + history of similar episodes Associated Symptoms: + nausea and + chills This 53-year-old male patient presents emergency department today, ambulatory, complaining of right flank pain. Patient states the pain began at approximately 8 AM yesterday morning. Reports associated nausea and chills and decreased urine output. He has been drinking fluids, but states he does not feel that he is urinating enough. The patient reports a history of 2 kidney stones, one in 2017 and one in 2018. These were 13 mm at 9 mm and did require surgery and stent placement. The patient sees Dr. Baker for urology and Dr. Guerra for nephrology. He did recently follow up with the passenger brakeman. He does have a history of congenital kidney disease and renal agenesis. Patient reports a history of type 2 diabetes. He is currently taking metformin and glimepiride. He denies any fever, chest pain, dyspnea, weakness, numbness or tingling, or other concerning symptoms. Home Medications Home Medications Medication Instructions Recorded Confirmed Type aspirin 81 mg PO DAILY 11/19/18 11/19/18 History atorvastatin 10 mg PO PM 11/19/18 11/19/18 History escitalopram oxalate [Lexapro] 10 mg PO QPM 11/19/18 11/19/18 History glimepiride 4 mg PO QAM 11/19/18 11/19/18 History losartan 50 mg PO DAILY 11/19/18 11/19/18 History metformin 1,000 mg PO BID 11/19/18 11/19/18 History potassium citrate 15 meq PO BID 11/19/18 11/19/18 History Allergies Allergy/AdvReac Type Severity Reaction Status Date / Time Bactrim AdvReac Intermediate diarrhea Verified 02/28/18 05:37 sulfamethoxazole AdvReac Intermediate diarrhea Verified 11/19/18 04:18 trimethoprim AdvReac Intermediate diarrhea Verified 11/19/18 04:18 Past Med/Surg History Medical History Renal agenesis Diabetes (Chronic) Hypertension (Chronic) Congenital kidney disease (Chronic) Right ureteral calculus Hydronephrosis due to obstruction of ureter Social History Preferred Language: B[place]udian Communication Ability: Effective Conservation Planner Required: No Beliefs That Will Affect Care: None Current Living Situation: Spouse Other Information That Helps Us Care for You: No Feels Safe at Home: Yes Safety Concerns: Feels Safe At This Time Smoking Status: Never smoker Hx Alcohol Use: Yes Hx Substance Use: No Review of Systems A total of 10 systems reviewed and were otherwise negative Physical Exam 2 Vital Signs: Vital Signs - 24 hr 11/19/18 03:53 11/19/18 05:08 11/19/18 06:55 Temperature 36.9 C Temperature Source Oral Sepsis Recent Feve r Within 48 Hours No Sepsis New/Unexpla ined Change in Men chi Status No Sepsis Action Take n by Nursing No Action Required Pulse Rate 64 Pulse Rate [Finger ] 67 65 Respiratory Rate 18 20 20 Respiratory Effort / Characteristics Non-Labored Respiratory Depth Normal Blood Pressure 162/96 H Blood Pressure [Le ft Arm] 144/88 H 131/91 Blood Pressure Andra n 118 Blood Pressure Andra n [Left Arm] 106 104 Blood Pressure Pos ition [Left Arm] Lying Pulse Oximetry 97 94 97 Oxygen Delivery Me thod Room Air Room Air Physical Exam: VITALS: Vitals are noted on the nurse's note and reviewed by myself. Vital signs stable. GENERAL: This is a 53-year-old white male, in no acute distress, nondiaphoretic, well-developed well-nourished. SKIN: The skin was without rashes, erythema, edema, or bruising. There is no tenting of the skin. Capillary reflex less than 2 seconds. HEAD: Normocephalic atraumatic. EARS: External auditory canals clear, tympanic membranes pearly rdz without erythema or effusion bilaterally. EYES: Pupils equal round and reactive to light and accommodation. Conjunctivae without injection, sclerae without icterus. Extraocular movements intact. NOSE: Patent, turbinates without inflammation or discharge. No sinus tenderness. MOUTH: Mucous membranes moist. Tonsils are not enlarged. Pharynx without erythema or exudate. Uvula midline. Airway patent. Tongue does not deviate. NECK: Supple without nuchal rigidity. No lymphadenopathy. No thyromegaly. Cervical spine is nontender. No JVD. HEART: Regular rate and rhythm without murmurs gallops or rubs. LUNGS: Clear to auscultation bilaterally without wheezes, rales or rhonchi. No dullness to percussion. No retractions or accessory muscle use. ABDOMEN: Positive bowel sounds x 4. Normal tympanic percussion. Right lower quadrant abdominal tenderness.abdomen otherwise soft, nontender, without masses or organomegaly. Kemp sign negative. No guarding or rebound tenderness. Positive right CVA tenderness. MUSCULOSKELETAL: No muscle atrophy, erythema, or edema noted. Full range of motion without joint tenderness in all extremities. No tenderness to palpation. Normal gait. Strength 5/5 throughout. NEURO: Patient was alert and oriented to person place and time. Normal sensation to light and sharp touch. No focal neurological deficits. Course The patient was seen and evaluated as above. IV access obtained, labs drawn. Patient was hydrated with IV fluids. He was offered analgesics and declined. Imaging performed and reviewed by myself and radiologist as above. Labs reviewed by myself. I discussed the findings with the patient at bedside. I discussed the case with my attending. I discussed the case with the telephonic case manager. We then discussed the case with Dr. Wood, [facility] hospitalist. She did agree to see and evaluate the patient for admission. Please see her dictation regarding ongoing management care of this patient. Administered Medications Discontinued Medications Sodium Chloride (Nss) 500 mls @ 999 mls/hr IV .Q31M STA Stop: 11/19/18 04:47 Last Infusion: 11/19/18 05:06 Dose: 0 mls/hr Documented by: [id number] Admin: 11/19/18 04:20 Dose: 999 mls/hr Documented by: [id number] Medical Decision Making Differential Diagnosis + peptic ulcer disease, + biliary pathology, + UTI, + obstruction, + mesenteric ischemia, + aortic pathology, + infections, + inflammatory bowel disease, + renal colic, + torsion (male), + epididymitis (male), + abdominal pain, + appendicitis, + calculus of kidney, + constipation, + diverticulitis, + endometriosis, + gastroenteritis, + pancreatitis and + small bowel obstruction Medical Records Attestation: I reviewed the patient's medical records. Home Medications Current Medication List: was personally reviewed by me Laboratory Data Attestation: I reviewed the patient's lab results. No leukocytosis, significant anemia, thrombocytopenia. Hepatic function, and electrolytes without significant abnormality. Coags normal. Creatinine elevated at 2.75. Troponin negative. Lipase 399. Glucose elevated at 431. Urinalysis positive for 3+ glucose and trace blood. No bacteria or evidence of infection. Result diagrams: 11/19/18 04:13 11/19/18 04:13 Lab Results 11/19/18 11/19/18 11/19/18 Range/Units 04:13 04:13 04:13 WBC 8.25 (4.8-10.8) K/uL RBC 4.69 L (4.7-6.1) M/uL Hgb 13.4 L (14.0-18.0) g/dL Hct 39.1 L (42-52) % MCV 83.4 (80-100) fL MCH 28.6 (25-34) pg MCHC 34.3 (32-36) g/dL RDW Std Deviation 38.0 (36.4-46.3) fL RDW Coeff of Kandis 12.7 (11.5-14.5) % Plt Count 220 (130-400) K/uL MPV 9.1 (7.4-10.4) fL PT 10.4 (9.0-12.0) Seconds INR 1.0 (0.9-1.1) APTT 25.3 (21.0-31.0) Seconds PTT Ratio 0.9 Sodium 134 L (136-145) mmol/L Potassium 3.8 (3.5-5.1) mmol/L Chloride 102 (98-107) mmol/L Carbon Dioxide 27 (21-32) mmol/L Anion Gap 5.0 (3-11) BUN 28 H (7-18) mg/dl Creatinine 2.75 H (0.6-1.4) mg/dl Est Cr Clr Drug Dosing 43.7 ml/min Est GFR ( Amer) 29.2 Est GFR (Non-Af Amer) 25.2 BUN/Creatinine Ratio 10.3 (10-20) Glucose 431 H* (70-99) mg/dl Calcium 8.6 (8.5-10.1) mg/dl Total Bilirubin 0.3 (0.2-1) mg/dl Direct Bilirubin < 0.1 (0-0.2) mg/dl AST 10 L (15-37) U/L ALT 25 (12-78) U/L Alkaline Phosphatase 113 (45-117) U/L Troponin I < 0.015 (0-0.045) ng/ml Total Protein 7.2 (6.4-8.2) gm/dl Albumin 3.3 L (3.4-5.0) gm/dl Lipase 399 H (73-393) U/L Beta-Hydroxybutyric Acd 1.06 (0.2-2.81) mg/dl Urine Color Urine Appearance (Clear) Urine pH (4.5-7.5) Ur Specific [place] (1.000-1.030) Urine Protein (Negative) Urine Glucose (UA) (Negative) Urine Ketones (Negative) Urine Blood (Negative) Urine Nitrite (Negative) Urine Bilirubin (Negative) Urine Urobilinogen (Negative) Ur Leukocyte Esterase (Negative) Urine RBC (0-4) /hpf Urine WBC (0-5) /hpf Ur Epithelial Cells (0-5) /lpf Urine Bacteria (Negative) Urine Sperm (None Prsent) 11/19/18 Range/Units 06:20 WBC (4.8-10.8) K/uL RBC (4.7-6.1) M/uL Hgb (14.0-18.0) g/dL Hct (42-52) % MCV (80-100) fL MCH (25-34) pg MCHC (32-36) g/dL RDW Std Deviation (36.4-46.3) fL RDW Coeff of Kandis (11.5-14.5) % Plt Count (130-400) K/uL MPV (7.4-10.4) fL PT (9.0-12.0) Seconds INR (0.9-1.1) APTT (21.0-31.0) Seconds PTT Ratio Sodium (136-145) mmol/L Potassium (3.5-5.1) mmol/L Chloride (98-107) mmol/L Carbon Dioxide (21-32) mmol/L Anion Gap (3-11) BUN (7-18) mg/dl Creatinine (0.6-1.4) mg/dl Est Cr Clr Drug Dosing ml/min Est GFR ( Amer) Est GFR (Non-Af Amer) BUN/Creatinine Ratio (10-20) Glucose (70-99) mg/dl Calcium (8.5-10.1) mg/dl Total Bilirubin (0.2-1) mg/dl Direct Bilirubin (0-0.2) mg/dl AST (15-37) U/L ALT (12-78) U/L Alkaline Phosphatase (45-117) U/L Troponin I (0-0.045) ng/ml Total Protein (6.4-8.2) gm/dl Albumin (3.4-5.0) gm/dl Lipase (73-393) U/L Beta-Hydroxybutyric Acd (0.2-2.81) mg/dl Urine Color Yellow Urine Appearance Cloudy H (Clear) Urine pH 5.0 (4.5-7.5) Ur Specific [place] 1.017 (1.000-1.030) Urine Protein Negative (Negative) Urine Glucose (UA) 3+ H (Negative) Urine Ketones Negative (Negative) Urine Blood Trace H (Negative) Urine Nitrite Negative (Negative) Urine Bilirubin Negative (Negative) Urine Urobilinogen Negative (Negative) Ur Leukocyte Esterase Negative (Negative) Urine RBC 0-4 (0-4) /hpf Urine WBC 0-5 (0-5) /hpf Ur Epithelial Cells 0-5 (0-5) /lpf Urine Bacteria Negative (Negative) Urine Sperm Present H (None Prsent) Imaging Data Radiologist's Impression: CT ABDOMEN/PELVIS WITHOUT CONTRAST (reviewed by statrad): Moderate right hydroureteronephrosis extending to 2 mm calcification in the proximal to mid right ureter. The left kidney is markedly atrophic measuring only 4.4 cm in length by 2.8 cm AP, similar to exam 02/05/2018. No acute bowel abnormality suspected with scattered diverticulosis incidentally noted. The unenhanced liver, gallbladder, pancreas, spleen, and adrenal glands are unremarkable. No acute osseous abnormality with incidental bilateral L5 spondylolysis. No acute osseous abnormality. ECG Data Attestation: I personally reviewed and interpreted this ECG as follows: Indication: abdominal pain Rate (beats per minute): 67 Rhythm: normal sinus Findings: no acute ischemic change and no ectopy Comparison ECG Date: from (11/19/18) Change: no significant change Blood Pressure Blood Pressure Findings: Normal blood pressure MDM Narrative This 53-year-old male patient with significant past medical history of renal agenesis presents emergency department today complaining of right flank pain. The patient has a history of ureteral stones requiring surgical intervention. He developed right flank pain consistent with previous stones and associated with urinary retention yesterday. Pain became worse and he was concerned about the urinary retention overnight, so he decided to come to the emergency department for evaluation. Workup here does show a 2 mm stone in the proximal to mid right ureter with moderate right hydroureteronephrosis. The patient does have a elevated creatinine 2.75, and concern for ABDOUL. Of note, the patient's blood sugar is 430 which is unusual for the patient. He is a type II diabetic and currently being treated with metformin and glimepiride, which he has been taking regularly. I did recommend admission for IV hydration, blood sugar management, and ABDOUL. I suspect the patient will require urology consult. He was hydrated in the emergency department with IV fluids, but declined any pain medication. Please see hospitalist dictation regarding ongoing management care of this patient. The chart was completed utilizing [employer] Speech voice recognition software. Grammatical errors, random word insertions, pronoun errors, and incomplete sentences are an occasional consequence of this system due to software limitations, ambient noise, and hardware issues. Any formal questions or concerns about the content, text, or information contained within the body of this dictation should be directly addressed to the provider for clarification. Impression & Plan Renal agenesis, Right ureteral calculus, Hydronephrosis due to obstruction of ureter, Hyperglycemia Discharge Plan Visit Data Chief Complaint: Flank Pain Stated Complaint: RIGHT SIDE KIDNEY PAIN W/ HX OF KIDNEY STONES ED Provider: Carole Crocker ED Midlevel Provider: Yessica Glynn Discharge Problem: Renal agenesis, Right ureteral calculus, Hydronephrosis due to obstruction of ureter, Hyperglycemia Patient Disposition: Admitted As Inpatient Condition: Good Forms Stand Alone Forms: [employer] Prescriptions Prescriptions: No Action aspirin 81 mg Tablet,Delayed Release (Dr/Ec) 81 mg PO DAILY RF: 0 atorvastatin 10 mg Tablet 10 mg PO PM RF: 0 escitalopram oxalate [Lexapro] 10 mg Tablet 10 mg PO QPM RF: 0 glimepiride 4 mg Tablet 4 mg PO QAM RF: 0 metformin 1,000 mg Tablet Extended Release 24hr 1,000 mg PO BID RF: 0 losartan 50 mg Tablet 50 mg PO DAILY RF: 0 potassium citrate 15 mEq Tablet Extended Release 15 meq PO BID RF: 0 Referrals Referrals: Monica Shaikh [Primary Care Provider] -
--- NOTE | 2018-11-19 08:09 | CT Scan Report ---
CT SCAN OF THE ABDOMEN AND PELVIS WITHOUT IV CONTRAST CLINICAL HISTORY: Right flank pain. COMPARISON STUDY: Abdominal CT dated 05/20/2018. TECHNIQUE: CT scan of the abdomen and pelvis is performed from the lung bases to the proximal femora. Images are reviewed in the axial, sagittal, and coronal planes. IV contrast was not administered for this examination as per the referring clinician. A dose lowering technique was utilized adhering to the principles of ALARA. CT DOSE: 1760.78 mGy.cm FINDINGS: Lung bases: The heart is normal in size and without pericardial effusion. Punctate calcified granulom as are noted. The lung bases are otherwise clear. There is a tiny hiatal hernia. Liver: The unenhanced liver is normal in size. The liver demonstrates diffusely diminished attenuatio n consistent with hepatic steatosis. Fatty sparing is seen adjacent to gallbladder fossa. There is no intrahepatic biliary ductal dilatation. Gallbladder: Unremarkable. Spleen: Normal in size and attenuation. Pancreas: Unremarkable. Adrenal glands: Unremarkable. Kidneys: There is markedly asymmetric cortical atrophy of the left kidney as compared to the right. T he unenhanced right kidney is mildly enlarged. There is moderate to severe right-sided hydroureterone phrosis, with a 3 mm calculus in the mid right ureter at the level of L4 seen on image #[id number]. There i s associated left-sided perinephric and periureteric stranding as well as trace perinephric fluid. No additional renal calculi are identified. There is no evidence of contour deforming renal mass lesion . Abdominal vasculature: The abdominal aorta is normal in course and caliber. Bowel: There is moderate to advanced colonic diverticulosis without CT evidence of acute diverticulit is. Fecal retention is observed. No bowel obstruction is seen. A small duodenal diverticulum is incid entally noted. The appendix is well-visualized and normal. Peritoneum: There is no intraperitoneal free air or abdominal ascites. There is a fat-containing umbi lical hernia. Lymphadenopathy: None. Pelvic viscera: The bladder, prostate, and seminal vesicles are normal as imaged. Skeletal structures: No lytic or blastic lesions are seen. There are bilateral pars defects at L5. IMPRESSION: 1. There is a 3 mm obstructing calculus in mid right ureter. This causes moderate to severe right hyd roureteronephrosis. 2. No additional renal calculi are identified. 3. Markedly asymmetric cortical atrophy of the left kidney as compared to the right is unchanged from previous. 4. Hepatic steatosis. 5. Moderate to advanced colonic diverticulosis without CT evidence of acute diverticulitis. 6. Additional findings as above. Electronically signed by: Ga Dumont M.D. 11/19/2018 8:07 AM
[2018-11-19] MEDS ORDERED: ACETAMINOPHEN 1,000 MG/100 ML VIAL IV PRN (08:32)
--- NOTE | 2018-11-19 08:32 | History & Physical Report ---
Date of Service November 19, 2018 Assessment & Plan (1) Hydronephrosis due to obstruction of ureter: This patient is a 53-year-old male with a history of left congenital renal agenesis, nephrolithiasis, HTN, HL, DM 2, ZA on CPAP, and anxiety disorder, who presents to the ER with 24 hours of right-sided flank pain that sometimes radiates down into the right groin. He denies hematuria or urinary retention. He was having chills at home but no documented fevers. He has had kidney stones before and this felt similar.. In the ER, he was found to have a 3 mm obstructing right ureteral stone causing moderate to severe hydronephrosis on CT scan. He was also found to have an acute kidney injury with creatinine of 2.75. His urinalysis was negative for infection. -Admit to the medical service -Consult urology-discussed with Dr. Baker on the phone today who will take him urgently to the operating room for stent placement given acute kidney injury in the presence of unilateral kidney -Hydrate with normal saline at 125 mL's per hour -Pain control as needed with Tylenol IV-patient states that he does not need anything more than this for now (2) Right ureteral calculus: As above (3) ABDOUL (acute kidney injury): Baseline creatinine around 1.3, has CKD stage III Creatinine here on admission up to 2.75 likely secondary to right ureteral obstruction in the presence of a unilateral right kidney (has agenesis of the left kidney) Potassium within normal limits, bicarbonate within normal limits, corrected sodium within normal limits, does not appear volume overloaded at this time -Urology to place urgent stent as above to relieve obstruction -Hydrate with IV fluids -Follow BMP in the morning -Hold potassium citrate supplement from home -Holding losartan, metformin from home as well (4) Renal agenesis: With congenital absence of the left kidney as above (5) Diabetes: Blood glucose on admission was 431. He has known, severely uncontrolled diabetes and he admits to noncompliance with checking sugars. He is morbidly obese. He only takes metformin and glimepiride at home. Last hemoglobin A1c was 9.6% in 02/2018 -Hold home glimepiride and metformin -Start Lantus 10 units once daily and start sliding scale insulin -Follow Accu-Cheks q. before meals and at bedtime and adjust insulin as needed -ADA diet after procedure today (6) Hypertension: Blood pressures are fairly well-controlled -Holding losartan from home due to ABDOUL -Follow blood pressures (7) Anxiety disorder: Stable -Continue Lexapro 10 mg daily (8) Hyperlipidemia: Stable -Continue atorvastatin 10 mg daily (9) ZA on CPAP: Can bring CPAP in from home If cannot bring CPAP in from home, would order CPAP for while here (10) Fatty liver: With fatty liver seen on imaging studies previously and today -Need to encourage weight loss and low carbohydrate diet -Can restart on metformin once acute kidney injury resolves (11) Obesity: BMI is 43.9, morbidly obese -Needs counseling on dietary changes and increased exercise in order to lose weight (12) CKD (chronic kidney disease) stage 3, GFR 30-59 ml/min: Baseline GFR around 58, with acute kidney injury here as above -Avoid nephrotoxins -Renally dose all medications -Avoid NSAIDs (13) Anemia: With mild anemia with hemoglobin 13.4, MCV on the low normal side to 83 -Check iron studies, B12, folate in the morning -Follow CBC (14) DVT prophylaxis: SCDs only given upcoming procedure Disposition-admit to medical floor, with acute kidney injury and obstructive ureterolithiasis with hydronephrosis, would need a 2 midnight stay in order to properly treat this condition History of Present Illness Chief Complaint: Right flank pain Primary Care Provider: Monica Shaikh This patient is a 53-year-old male with a history of left congenital renal agenesis, nephrolithiasis, HTN, HL, DM 2, ZA on CPAP, and anxiety disorder, who presents to the ER with 24 hours of right-sided flank pain that sometimes radiates down into the right groin. He denies hematuria or urinary retention. He was having chills at home but no documented fevers. He has had kidney stones before and this felt similar. Denies abdominal pain otherwise, has had some nausea but no vomiting. Denies chest pain or shortness of breath, no lightheadedness or headache. In the ER, he was found to have a 3 mm obstructing right ureteral stone causing moderate to severe hydronephrosis on CT scan. He was also found to have an acute kidney injury with creatinine of 2.75. His urinalysis was negative for infection. He was afebrile in the ER. Allergies Allergy/AdvReac Type Severity Reaction Status Date / Time Bactrim AdvReac Intermediate diarrhea Verified 02/28/18 05:37 sulfamethoxazole AdvReac Intermediate diarrhea Verified 11/19/18 04:18 trimethoprim AdvReac Intermediate diarrhea Verified 11/19/18 04:18 Home Medications Home Medications Medication Instructions Recorded Confirmed Type atorvastatin 10 mg PO PM 11/19/18 11/19/18 History escitalopram oxalate [Lexapro] 10 mg PO QPM 11/19/18 11/19/18 History glimepiride 4 mg PO QAM 11/19/18 11/19/18 History losartan 50 mg PO DAILY 11/19/18 11/19/18 History metformin 1,000 mg PO BID 11/19/18 11/19/18 History potassium citrate 15 meq PO BID 11/19/18 11/19/18 History Past Med/Surg History Medical History Renal agenesis (Acute) Diabetes (Chronic) Hypertension (Chronic) Congenital kidney disease (Chronic) Right ureteral calculus (Acute) Hydronephrosis due to obstruction of ureter (Acute) Anxiety disorder Fatty liver Hyperlipidemia ZA on CPAP Obesity Surgical History History of removal of ureteral stent x 2 Family History Grandmother Diabetes Mother SLE (systemic lupus erythematosus) Parkinson disease Macular degeneration Social History Preferred Language: Macedonian Communication Ability: Effective 911 Emergency Services Dispatcher Required: No Beliefs That Will Affect Care: None marital status: Current Living Situation: Spouse current occupational status: employed 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 Other Information That Helps Us Care for You: No Feels Safe at Home: Yes Safety Concerns: Feels Safe At This Time Smoking Status: Never smoker Hx Alcohol Use: Yes Hx Substance Use: No Review of Systems All systems reviewed & are unremarkable except as noted in HPI & below Physical Exam Vital Signs (Past 24 Hours): Last Vital Signs Temp 36.9 C 11/19/18 03:53 Pulse 65 11/19/18 06:55 Resp 20 11/19/18 06:55 BP 131/91 11/19/18 06:55 Pulse Ox 97 11/19/18 06:55 Constitutional: WD/WN, vitals as above + morbidly obese Eyes: PERRL, conjunctivae normal, anicteric sclerae ENMT: external ear and nose normal, oropharynx normal Neck: trachea midline, no thyromegaly Respiratory: normal respiratory effort, lungs clear to auscultation Cardiovascular: RRR, no murmur, no edema Gastrointestinal (Abdomen): Inspection/Auscultation: abdomen normal to inspection and normal bowel sounds; abdomen not distended Percussion/Palpation: + abdomen tender (Mild in right lower quadrant without guarding or rebound tenderness) and abdomen soft Musculoskeletal: Extremities: extremities normal to inspection; no cyanosis and no clubbing Skin: no rashes, warm and dry Neurologic: moves all extremities and awake; no focal motor deficits Psychiatric: A+Ox3, euthymic affect Results & Data Laboratory Results 11/19/18 11/19/18 11/19/18 Range/Units 17:05 11:42 10:51 WBC (4.8-10.8) K/uL RBC (4.7-6.1) M/uL Hgb (14.0-18.0) g/dL Hct (42-52) % MCV (80-100) fL MCH (25-34) pg MCHC (32-36) g/dL RDW Std Deviation (36.4-46.3) fL RDW Coeff of Kandis (11.5-14.5) % Plt Count (130-400) K/uL MPV (7.4-10.4) fL PT (9.0-12.0) Seconds INR (0.9-1.1) APTT (21.0-31.0) Seconds PTT Ratio Sodium (136-145) mmol/L Potassium (3.5-5.1) mmol/L Chloride (98-107) mmol/L Carbon Dioxide (21-32) mmol/L Anion Gap (3-11) BUN (7-18) mg/dl Creatinine (0.6-1.4) mg/dl Est Cr Clr Drug Dosing ml/min Est GFR ( Amer) Est GFR (Non-Af Amer) BUN/Creatinine Ratio (10-20) Glucose (70-99) mg/dl POC Glucose 170 H 307 H 301 H (70-99) Calcium (8.5-10.1) mg/dl Total Bilirubin (0.2-1) mg/dl Direct Bilirubin (0-0.2) mg/dl AST (15-37) U/L ALT (12-78) U/L Alkaline Phosphatase (45-117) U/L Troponin I (0-0.045) ng/ml Total Protein (6.4-8.2) gm/dl Albumin (3.4-5.0) gm/dl Lipase (73-393) U/L Beta-Hydroxybutyric Acd (0.2-2.81) mg/dl Urine Color Urine Appearance (Clear) Urine pH (4.5-7.5) Ur Specific [place] (1.000-1.030) Urine Protein (Negative) Urine Glucose (UA) (Negative) Urine Ketones (Negative) Urine Blood (Negative) Urine Nitrite (Negative) Urine Bilirubin (Negative) Urine Urobilinogen (Negative) Ur Leukocyte Esterase (Negative) Urine RBC (0-4) /hpf Urine WBC (0-5) /hpf Ur Epithelial Cells (0-5) /lpf Urine Bacteria (Negative) Urine Sperm (None Prsent) 11/19/18 11/19/18 11/19/18 Range/Units 06:20 04:13 04:13 WBC (4.8-10.8) K/uL RBC (4.7-6.1) M/uL Hgb (14.0-18.0) g/dL Hct (42-52) % MCV (80-100) fL MCH (25-34) pg MCHC (32-36) g/dL RDW Std Deviation (36.4-46.3) fL RDW Coeff of Kandis (11.5-14.5) % Plt Count (130-400) K/uL MPV (7.4-10.4) fL PT 10.4 (9.0-12.0) Seconds INR 1.0 (0.9-1.1) APTT 25.3 (21.0-31.0) Seconds PTT Ratio 0.9 Sodium 134 L (136-145) mmol/L Potassium 3.8 (3.5-5.1) mmol/L Chloride 102 (98-107) mmol/L Carbon Dioxide 27 (21-32) mmol/L Anion Gap 5.0 (3-11) BUN 28 H (7-18) mg/dl Creatinine 2.75 H (0.6-1.4) mg/dl Est Cr Clr Drug Dosing 43.7 ml/min Est GFR ( Amer) 29.2 Est GFR (Non-Af Amer) 25.2 BUN/Creatinine Ratio 10.3 (10-20) Glucose 431 H* (70-99) mg/dl POC Glucose (70-99) Calcium 8.6 (8.5-10.1) mg/dl Total Bilirubin 0.3 (0.2-1) mg/dl Direct Bilirubin < 0.1 (0-0.2) mg/dl AST 10 L (15-37) U/L ALT 25 (12-78) U/L Alkaline Phosphatase 113 (45-117) U/L Troponin I < 0.015 (0-0.045) ng/ml Total Protein 7.2 (6.4-8.2) gm/dl Albumin 3.3 L (3.4-5.0) gm/dl Lipase 399 H (73-393) U/L Beta-Hydroxybutyric Acd 1.06 (0.2-2.81) mg/dl Urine Color Yellow Urine Appearance Cloudy H (Clear) Urine pH 5.0 (4.5-7.5) Ur Specific [place] 1.017 (1.000-1.030) Urine Protein Negative (Negative) Urine Glucose (UA) 3+ H (Negative) Urine Ketones Negative (Negative) Urine Blood Trace H (Negative) Urine Nitrite Negative (Negative) Urine Bilirubin Negative (Negative) Urine Urobilinogen Negative (Negative) Ur Leukocyte Esterase Negative (Negative) Urine RBC 0-4 (0-4) /hpf Urine WBC 0-5 (0-5) /hpf Ur Epithelial Cells 0-5 (0-5) /lpf Urine Bacteria Negative (Negative) Urine Sperm Present H (None Prsent) 11/19/18 Range/Units 04:13 WBC 8.25 (4.8-10.8) K/uL RBC 4.69 L (4.7-6.1) M/uL Hgb 13.4 L (14.0-18.0) g/dL Hct 39.1 L (42-52) % MCV 83.4 (80-100) fL MCH 28.6 (25-34) pg MCHC 34.3 (32-36) g/dL RDW Std Deviation 38.0 (36.4-46.3) fL RDW Coeff of Kandis 12.7 (11.5-14.5) % Plt Count 220 (130-400) K/uL MPV 9.1 (7.4-10.4) fL PT (9.0-12.0) Seconds INR (0.9-1.1) APTT (21.0-31.0) Seconds PTT Ratio Sodium (136-145) mmol/L Potassium (3.5-5.1) mmol/L Chloride (98-107) mmol/L Carbon Dioxide (21-32) mmol/L Anion Gap (3-11) BUN (7-18) mg/dl Creatinine (0.6-1.4) mg/dl Est Cr Clr Drug Dosing ml/min Est GFR ( Amer) Est GFR (Non-Af Amer) BUN/Creatinine Ratio (10-20) Glucose (70-99) mg/dl POC Glucose (70-99) Calcium (8.5-10.1) mg/dl Total Bilirubin (0.2-1) mg/dl Direct Bilirubin (0-0.2) mg/dl AST (15-37) U/L ALT (12-78) U/L Alkaline Phosphatase (45-117) U/L Troponin I (0-0.045) ng/ml Total Protein (6.4-8.2) gm/dl Albumin (3.4-5.0) gm/dl Lipase (73-393) U/L Beta-Hydroxybutyric Acd (0.2-2.81) mg/dl Urine Color Urine Appearance (Clear) Urine pH (4.5-7.5) Ur Specific [place] (1.000-1.030) Urine Protein (Negative) Urine Glucose (UA) (Negative) Urine Ketones (Negative) Urine Blood (Negative) Urine Nitrite (Negative) Urine Bilirubin (Negative) Urine Urobilinogen (Negative) Ur Leukocyte Esterase (Negative) Urine RBC (0-4) /hpf Urine WBC (0-5) /hpf Ur Epithelial Cells (0-5) /lpf Urine Bacteria (Negative) Urine Sperm (None Prsent) Diagnostic Findings CT scan of the abdomen and pelvis images personally reviewed by me and agree with the following report: CT SCAN OF THE ABDOMEN AND PELVIS WITHOUT IV CONTRAST CLINICAL HISTORY: Right flank pain. COMPARISON STUDY: Abdominal CT dated 05/20/2018. TECHNIQUE: CT scan of the abdomen and pelvis is performed from the lung bases to the proximal femora. Images are reviewed in the axial, sagittal, and coronal planes. IV contrast was not administered for this examination as per the referring clinician. A dose lowering technique was utilized adhering to the principles of ALARA. CT DOSE: 1760.78 mGy.cm FINDINGS: Lung bases: The heart is normal in size and without pericardial effusion. Punctate calcified granulomas are noted. The lung bases are otherwise clear. There is a tiny hiatal hernia. Liver: The unenhanced liver is normal in size. The liver demonstrates diffusely diminished attenuation consistent with hepatic steatosis. Fatty sparing is seen adjacent to gallbladder fossa. There is no intrahepatic biliary ductal dilatation. Gallbladder: Unremarkable. Spleen: Normal in size and attenuation. Pancreas: Unremarkable. Adrenal glands: Unremarkable. Kidneys: There is markedly asymmetric cortical atrophy of the left kidney as compared to the right. The unenhanced right kidney is mildly enlarged. There is moderate to severe right-sided hydroureteronephrosis, with a 3 mm calculus in the mid right ureter at the level of L4 seen on image #304. There is associated left-sided perinephric and periureteric stranding as well as trace perinephric fluid. No additional renal calculi are identified. There is no evidence of contour deforming renal mass lesion. Abdominal vasculature: The abdominal aorta is normal in course and caliber. Bowel: There is moderate to advanced colonic diverticulosis without CT evidence of acute diverticulitis. Fecal retention is observed. No bowel obstruction is seen. A small duodenal diverticulum is incidentally noted. The appendix is well-visualized and normal. Peritoneum: There is no intraperitoneal free air or abdominal ascites. There is a fat-containing umbilical hernia. Lymphadenopathy: None. Pelvic viscera: The bladder, prostate, and seminal vesicles are normal as imaged. Skeletal structures: No lytic or blastic lesions are seen. There are bilateral pars defects at L5. IMPRESSION: 1. There is a 3 mm obstructing calculus in mid right ureter. This causes moderate to severe right hydroureteronephrosis. 2. No additional renal calculi are identified. 3. Markedly asymmetric cortical atrophy of the left kidney as compared to the right is unchanged from previous. 4. Hepatic steatosis. 5. Moderate to advanced colonic diverticulosis without CT evidence of acute diverticulitis. 6. Additional findings as above. ECG Rate (beats per minute): 67 Rhythm: normal sinus Code Status & VTE Plan Code Status Full code VTE Prophylaxis Plan VTE Prophylaxis will be ordered: Yes Reason for no VTE drug order: Contraindicated (1) Diabetes Diabetes mellitus type: type 2 Diabetes mellitus skilled nursing insulin use: without ad terminal makeup operator use Diabetes mellitus complication status: with hyperglycemia Qualified Code(s): E11.65 - Type 2 diabetes mellitus with hyperglycemia (2) Anxiety disorder Anxiety disorder type: generalized anxiety disorder Qualified Code(s): F41.1 - Generalized anxiety disorder (3) Hypertension Hypertension type: essential hypertension Qualified Code(s): I10 - Essential (primary) hypertension (4) Hyperlipidemia Hyperlipidemia type: unspecified Qualified Code(s): E78.5 - Hyperlipidemia, unspecified
--- NOTE | 2018-11-19 09:26 | Urology Consultation ---
Date of Consultation November 19, 2018 Assessment & Plan (1) Right ureteral calculus: Mononephric with obstructing right ureteral stone - plan for cysto stent placement - strict glucose control - cover with single dose ceftriaxone now - consent on the chart History of Present Illness Attending Physician: Mare Conway MD History of Present Illness 53y/o male w/ congenital agenesis of the left kidney and hx of stones from the right kidney - presents to the ER with 24hrs of increasing R flank pain and decreased UoP - no fevers - no hematuria - mild nausea CT: very small stone in the right mid ureter with associated hydro - increased Cr - high BG Allergies Allergy/AdvReac Type Severity Reaction Status Date / Time Bactrim AdvReac Intermediate diarrhea Verified 02/28/18 05:37 sulfamethoxazole AdvReac Intermediate diarrhea Verified 11/19/18 04:18 trimethoprim AdvReac Intermediate diarrhea Verified 11/19/18 04:18 Home Medications Home Medications Medication Instructions Recorded Confirmed Type aspirin 81 mg PO DAILY 11/19/18 11/19/18 History atorvastatin 10 mg PO PM 11/19/18 11/19/18 History escitalopram oxalate [Lexapro] 10 mg PO QPM 11/19/18 11/19/18 History glimepiride 4 mg PO QAM 11/19/18 11/19/18 History losartan 50 mg PO DAILY 11/19/18 11/19/18 History metformin 1,000 mg PO BID 11/19/18 11/19/18 History potassium citrate 15 meq PO BID 11/19/18 11/19/18 History Patient History Medical History Renal agenesis (Acute) Diabetes (Chronic) Hypertension (Chronic) Congenital kidney disease (Chronic) Right ureteral calculus (Acute) Hydronephrosis due to obstruction of ureter (Acute) Social History Preferred Language: Gambian Communication Ability: Effective 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 Beliefs That Will Affect Care: None Current Living Situation: Spouse Other Information That Helps Us Care for You: No Feels Safe at Home: Yes Safety Concerns: Feels Safe At This Time Smoking Status: Never smoker Hx Alcohol Use: Yes Hx Substance Use: No Review of Systems Constitutional: as per Subjective / HPI; no fever and no chills Respiratory: no cough and no dyspnea Cardiovascular: no chest pain and no dyspnea Gastrointestinal: + abdominal pain and + nausea Genitourinary (Male): + urinary hesitancy; no dysuria and no hematuria Musculoskeletal: no back pain and no neck pain Integumentary: no rash Endocrine: no fatigue Physical Exam Vital Signs (Past 24 Hours): Last Vital Signs Temp 36.9 C 11/19/18 03:53 Pulse 67 11/19/18 08:55 Resp 20 11/19/18 08:55 BP 137/87 11/19/18 08:55 Pulse Ox 97 11/19/18 08:55 Physical Exam: AFVSS NAD AAOx3 no resp distress RRR abd soft, mild tenderness on the right flank no edema no rash no adenopathy
[2018-11-19] MEDS ORDERED: GLUCOSE 10 TABS/TUBE PO PRN (09:27)
[2018-11-19] MEDS ORDERED: ONDANSETRON INJ 2 MG/ML 2 ML VIAL IV PRN (09:27)
[2018-11-19] MEDS ORDERED: CARBOHYDRATES FOR HYPOGLYCEMIA PO PRN (09:27)
[2018-11-19] MEDS ORDERED: DEXTROSE 50% 50 ML SYRINGE IV PRN (09:27)
[2018-11-19] MEDS ORDERED: GLUCOSE 40% GEL 15 GM TUBE PO PRN (09:27)
[2018-11-19] MEDS ORDERED: GLUCAGON FOR INJ 1 MG VIAL SQ PRN (09:27)
--- NOTE | 2018-11-19 09:43 | Anesthesiology Consultation ---
Date of Service November 19, 2018 Assessment & Plan (1) Encounter for pre-operative examination: Chart Review Chart Review: Acceptable Risk for Surgery and Patient NOT seen in Pre Admission Testing Consults Requested none NPO Date Last Intake of Fluids: 11/19/18 Time Last Intake of Fluids: 03:00 Last Intake of Fluids Comment: sip of water Date Last Intake of Solids: 11/18/18 Time Last Intake of Solids: 18:30 History Surgery Operation Date: 11/19/18 10:00 Proposed Procedures p Cystoscopy - Himanshu Baker MD s Ureteral Stent Insertion/Removal(Right) - Himanshu Baker MD Height/Weight Height: 5 ft 10 in Weight: 138.9 kg Allergies Allergy/AdvReac Type Severity Reaction Status Date / Time Bactrim AdvReac Intermediate diarrhea Verified 02/28/18 05:37 sulfamethoxazole AdvReac Intermediate diarrhea Verified 11/19/18 04:18 trimethoprim AdvReac Intermediate diarrhea Verified 11/19/18 04:18 Medications Home Medications Medication Instructions Recorded Confirmed Last Taken aspirin 81 mg PO DAILY 11/19/18 11/19/18 Unknown atorvastatin 10 mg PO PM 11/19/18 11/19/18 Unknown escitalopram oxalate [Lexapro] 10 mg PO QPM 11/19/18 11/19/18 Unknown glimepiride 4 mg PO QAM 11/19/18 11/19/18 Unknown losartan 50 mg PO DAILY 11/19/18 11/19/18 Unknown metformin 1,000 mg PO BID 11/19/18 11/19/18 Unknown potassium citrate 15 meq PO BID 11/19/18 11/19/18 Unknown Past Medical History Medical History Renal agenesis (Acute) Diabetes (Chronic) Hypertension (Chronic) Congenital kidney disease (Chronic) Right ureteral calculus (Acute) Hydronephrosis due to obstruction of ureter (Acute) Social History Smoking Status: Never smoker Do You Dip or Chew Tobacco: No Hx Alcohol Use: Yes alcohol intake frequency: holidays/special occasions only Hx Substance Use: No Physical Exam Vital Signs Last Vital Signs Temp 36.9 C 11/19/18 03:53 Pulse 67 11/19/18 08:55 Resp 20 11/19/18 08:55 BP 137/87 11/19/18 08:55 Pulse Ox 97 11/19/18 08:55 Testing Laboratory Results 11/19/18 04:13 11/19/18 04:13 PT 10.4 Seconds (9.0-12.0) 11/19/18 04: INR 1.0 (0.9-1.1) 11/19/18 04: APTT 25.3 Seconds (21.0-31.0) 11/19/18 04:13 Urine Color Yellow 11/19/18 06:20 Urine Appearance Cloudy (Clear) H 11/19/18 06:20 Urine pH 5.0 (4.5-7.5) 11/19/18 06:20 Ur Specific [place] 1.017 (1.000-1.030) 11/19/18 06:20 Urine Protein Negative (Negative) 11/19/18 06:20 Urine Glucose (UA) 3+ (Negative) H 11/19/18 06:20 Urine Ketones Negative (Negative) 11/19/18 06:20 Urine Nitrite Negative (Negative) 11/19/18 06:20 Ur Leukocyte Esterase Negative (Negative) 11/19/18 06:20 Urine RBC 0-4 /hpf (0-4) 11/19/18 06:20 Urine WBC 0-5 /hpf (0-5) 11/19/18 06:20 Ur Epithelial Cells 0-5 /lpf (0-5) 11/19/18 06:20
[2018-11-19] MEDS ORDERED: LIDOCAINE HCL 2% 2 ML VIAL/AMP(20MG/ML) INFIL ONE (09:58)
[2018-11-19] MEDS ORDERED: PROPOFOL IV EMULSION 10 MG/ML 20 ML VIAL IV ONE (09:58)
[2018-11-19] MEDS ORDERED: KETAMINE HCL INJ 50 MG/ML 10 ML VIAL ONE (09:59)
[2018-11-19] MEDS ORDERED: MIDAZOLAM HCL 1 MG/ML 2ML VIAL ONE ×2 (09:59)
[2018-11-19] MEDS ORDERED: fentaNYL citrate 100 MCG/2 ML VIAL ONE (09:59)
[2018-11-19] MEDS ORDERED: cefTRIAXone SODIUM 1,000 MG in DEXTROSE 5% 50 ML IV SCH (10:00)
[2018-11-19] MEDS ORDERED: ePHEDrine sulfate 50 MG/ML AMP IV PRN (10:02)
[2018-11-19] MEDS ORDERED: fentaNYL citrate 100 MCG/2 ML VIAL IV PRN (10:02)
[2018-11-19] MEDS ORDERED: ATROPINE SULFATE 0.1 MG/ML 10ML SYR IV PRN (10:02)
[2018-11-19] MEDS ORDERED: IOTHALAMATE MEGLUMINE II 17.2% 250 ML VIAL ONE (10:06)
--- NOTE | 2018-11-19 10:41 | Operative Report ---
Post Operative Report Pre & Post Diagnosis Operation Date: 11/19/18 10:00 Pre-Op Diagnosis: Acute Kidney Injury, Ureterolithiasis Post-Op Diagnosis: Acute Kidney Injury, Ureterolithiasis Procedure Operation Date: 11/19/18 10:00 Actual Procedures p Cystoscopy - Himanshu Baker MD s Ureteral Stent Insertion/Removal(Right) - Himanshu Baker MD Surgeon Murtaza Baker MD Medical Claims Representative none Estimated Blood Loss 0 Findings Consistent with Post-Op Diagnosis Specimens none Description of Procedure Patient was identified in the preoperative holding area, appropriate informed consents reviewed and completed and the patient transferred to the operating suite. Upon arrival he received appropriate sedation. He is placed in dorsal lithotomy position where sterilely prepped and draped in standard fashion. To begin the case I passed a 22 [place] cystoscope with 30 degree lens. Of note, he has a relatively tight meatus which was gently dilated utilizing hemostat. He has a wide caliber bulbar urethral stricture which was navigable with the scope. Inspection of the bladder revealed no evidence of mucosal disease. Turned my attention to his right ureteral orifice and cannulated with a sensor wire a 5 [place] open-ended catheter. The wire advanced the kidney without difficulty. I advanced a 5 [place] open-ended over the catheter. I felt moderate resistance in the mid ureter consistent with the location of the stone. I measured the length of the ureter and felt that a 6 [place] by 22-32 cm double-J ureteral stent was most appropriate. I placed the stent seeing a good curl in the kidney as well as the bladder. I emptied the bladder and concluded the case. There were no complications. He was reversed from anesthesia and taken to the recovery room in stable condition. I attest to the content of the Intraoperative Record and any orders documented therein. Any exceptions are noted below.
--- NOTE | 2018-11-19 11:13 | Fluoroscopy Report ---
INTRAOPERATIVE RADIOGRAPHS CLINICAL HISTORY: Right-sided retrograde ureterogram and ureteral stent placement. Fluoroscopy time: 7 seconds. FINDINGS: 3 spot fluoroscopic views of the right upper quadrant from a ureterogram and ureteral stent placement procedure are correlated with abdominal CT dated 11/19/2018. The initial image shows a cath eter projecting over the right renal pelvis. The second 2 images show the proximal end of a right ure teral stent being deployed. No large calcifications are identified. IMPRESSION: Intraoperative images from a right ureteral stent placement procedure as above. See opera tive report for detailed findings. Electronically signed by: Ga Dumont M.D. 11/19/2018 11:12 AM
--- NOTE | 2018-11-19 11:27 | Anesthesiology Progress Note ---
Date of Service November 19, 2018 Anesthesia Post Procedure Vital Signs Vital Signs: Temp Pulse Pulse Pulse Resp BP BP 11/19/18 11:05 36.8 C 66 16 151/81 H 11/19/18 10:50 64 17 148/92 H 11/19/18 10:44 36.8 C 67 16 146/73 H 11/19/18 08:55 67 20 137/87 11/19/18 06:55 65 20 131/91 11/19/18 05:08 67 20 144/88 H 11/19/18 03:53 36.9 C 64 18 162/96 H Pulse Ox 11/19/18 11:05 97 11/19/18 10:50 94 11/19/18 10:44 94 11/19/18 08:55 97 11/19/18 06:55 97 11/19/18 05:08 94 11/19/18 03:53 97 Pain Intensity Right Flank: Pain Intensity: 4 Notes Mental Status: alert / awake / arousable Patient Amnestic to Procedure: Yes Nausea / Vomiting: adequately controlled Pain: adequately controlled Airway Patency, RR, SpO2: stable & adequate BP & HR: stable & adequate Hydration State: stable & adequate Anesthetic Complications: no major complications apparent and Pt Satisfied with anesthetic care
[2018-11-19] MEDS: SODIUM CHLORIDE 0.9% 1000ML 1,000 ML IV SCH ×2 (12:27→20:37)
[2018-11-19] MEDS: INSULIN ASPART 100 UNITS/ML 3 ML PEN SC SCH ×3 (13:51→20:38)
[2018-11-19] MEDS: INSULIN GLARGINE SOLOSTAR 100 UNITS/ML 3 ML PEN SC SCH (13:54)
[2018-11-19] MEDS ORDERED: ATORVASTATIN 10 MG TAB PO SCH (21:00)
[2018-11-19] MEDS ORDERED: ESCITALOPRAM OXALATE 10 MG TAB PO SCH (21:00)
[2018-11-20] MEDS: SODIUM CHLORIDE 0.9% 1000ML 1,000 ML IV SCH ×2 (04:40→12:16)
[2018-11-20 07:12] LABS: Basophils # (auto) 0.02 K/uL (0-0.2); Basophils % (auto) 0.3 %; Eosinophils % (auto) 2.8 %; Hematocrit (blood only) 36.5 % (42-52); Hemoglobin 12.5 g/dL (14.0-18.0); Immature Granulocytes # (auto) 0.02 K/uL (0.00-0.02); Immature Granulocytes % (auto) 0.3 %; Lymphocytes # (auto) 2.58 K/uL (1.2-3.4); Lymphocytes % (auto) 35.9 %; Mean Corpuscular Hgb Conc 34.2 g/dL (32-36); Mean Corpuscular Volume 83.7 fL (80-100); Mean Platelet Volume 9.2 fL (7.4-10.4); Monocytes # (auto) 0.67 K/uL (0.11-0.59); Monocytes % (auto) 9.3 %; Neutrophils # (auto) 3.69 K/uL (1.4-6.5); Neutrophils % (auto) 51.4 %; Platelet Count 218 K/uL (130-400); RDW Coefficient of Variation 12.8 % (11.5-14.5); RDW Standard Deviation 38.9 fL (36.4-46.3); Red Blood Count 4.36 M/uL (4.7-6.1); White Blood Count 7.18 K/uL (4.8-10.8)
[2018-11-20 07:32] VITALS: TEMP 98.1
[2018-11-20 07:42] LABS: BUN Creatinine Ratio 12.4 (10-20); Calcium 8.5 mg/dl (8.5-10.1); Est GFR (African American) 57.9; Magnesium 1.9 mg/dl (1.8-2.4); Potassium 4.3 mmol/L (3.5-5.1)
[2018-11-20 07:47] LABS: Ferritin 62.2 ng/ml (8-388)
--- NOTE | 2018-11-20 08:42 | Urology Progress Note ---
Date of Service November 20, 2018 Assessment & Plan (1) ABDOUL (acute kidney injury): mononephric with obstructing ureteral stone - s/p stent yesterday - check KUB today to see if we can determine the exact location of the stone in preparation for definitive surgery - good improvement in Cr overnight - discussed need for strict BG control - ok for d/c home from standpoint - we will arrange outpt f/u Subjective minor stent discomfort, but otherwise doing very well - no hematuria - no fevers - tolerating a diet Physical Exam Vital Signs (Past 24 Hours): Last Vital Signs Temp 36.7 C 11/20/18 07:05 Pulse 63 11/20/18 07:05 Resp 16 11/20/18 07:05 BP 163/93 H 11/20/18 07:05 Pulse Ox 96 11/20/18 07:05 Physical Exam: AFVSS NAD AAox3 no resp distress RRR abd soft, nontender no edema no rash no adenopathy
[2018-11-20] MEDS: INSULIN ASPART 100 UNITS/ML 3 ML PEN SC SCH ×2 (08:53→13:16)
[2018-11-20] MEDS: INSULIN GLARGINE SOLOSTAR 100 UNITS/ML 3 ML PEN SC SCH (08:54)
[2018-11-20 09:00] LABS: Folate (Folic Acid) 11.05 ng/ml (>5.38)
--- NOTE | 2018-11-20 09:19 | XRay Report ---
XR KUB/Abdomen 1 view CLINICAL HISTORY: kidney stone nephrocalcinosis COMPARISON STUDY: 02/08/2018 CT 11/19/2018 FINDINGS: There is a right ureteral stent. Bowel pattern is nonobstructive. Possible 3 mm calcificat ion adjacent to the distal aspect of the stent. Mid right ureter overlaps the spine and is not diagno stically evaluated. IMPRESSION: 1. Right ureteral stent in good position. 2. Potential 3 mm calcification adjacent to the stent distal right ureter. The above report was generated using voice recognition software. It may contain grammatical, syntax or spelling errors. Electronically signed by: Ricardo Dejesus M.D. 11/20/2018 9:17 AM
[2018-11-20 15:03] VITALS: BP 146/89; PULSE 56; O2SAT 98
--- NOTE | 2018-11-20 15:49 | Discharge Summary ---
Date of Service November 20, 2018 Admission HPI Per Admitting Provider This patient is a 53-year-old male with a history of left congenital renal agenesis, nephrolithiasis, HTN, HL, DM 2, ZA on CPAP, and anxiety disorder, who presents to the ER with 24 hours of right-sided flank pain that sometimes radiates down into the right groin. He denies hematuria or urinary retention. He was having chills at home but no documented fevers. He has had kidney stones before and this felt similar. Denies abdominal pain otherwise, has had some nausea but no vomiting. Denies chest pain or shortness of breath, no lightheadedness or headache. In the ER, he was found to have a 3 mm obstructing right ureteral stone causing moderate to severe hydronephrosis on CT scan. He was also found to have an acute kidney injury with creatinine of 2.75. His urinalysis was negative for infection. He was afebrile in the ER. Principal Diagnosis Right ureterolithiasis, acute kidney injury Diabetes mellitus type 2 with hyperglycemia Discharge Exam Constitutional WD/WN, vitals as above + morbidly obese Eyes PERRL, conjunctivae normal, anicteric sclerae ENMT external ear and nose normal, oropharynx normal Neck trachea midline, no thyromegaly Respiratory normal respiratory effort, lungs clear to auscultation Cardiovascular RRR, no murmur, no edema Gastrointestinal (Abdomen) normal bowel sounds, soft, nontender, no hepatosplenomegaly Musculoskeletal Extremities: extremities normal to inspection; no cyanosis and no clubbing Skin no rashes, warm and dry Neurologic moves all extremities and awake; no focal motor deficits Psychiatric A+Ox3, euthymic affect Discharge Data Allergies Allergy/AdvReac Type Severity Reaction Status Date / Time Bactrim AdvReac Intermediate diarrhea Verified 02/28/18 05:37 sulfamethoxazole AdvReac Intermediate diarrhea Verified 11/19/18 04:18 trimethoprim AdvReac Intermediate diarrhea Verified 11/19/18 04:18 Consultations 11/19/18 06:44 ED Decision to Admit Stat 11/19/18 09:27 Consult Urology Routine Procedures Performed Operation Date: 11/19/18 10:00 Actual Procedures p Cystoscopy(Not Applicable) - Himanshu Baker MD s Right Ureteral Stent Insertion(Right) - Himanshu Baker MD Ordered Studies 11/19/18 FL KUB Routine FL fluoroscopy <1hr Routine 11/19/18 04:36 CT abd pelvis wo con Stat KUB Hospital Course (1) Hydronephrosis due to obstruction of ureter: This patient is a 53-year-old male with a history of left congenital renal agenesis, nephrolithiasis, HTN, HL, DM 2, ZA on CPAP, and anxiety disorder, who presents to the ER with 24 hours of right-sided flank pain that sometimes radiates down into the right groin. He denies hematuria or urinary retention. He was having chills at home but no documented fevers. He has had kidney stones before and this felt similar.. In the ER, he was found to have a 3 mm obstructing right ureteral stone causing moderate to severe hydronephrosis on CT scan. He was also found to have an acute kidney injury with creatinine of 2.75. His urinalysis was negative for infection. He was admitted to the hospital and neurology was urgently consulted. He was taken urgently to the operating room for stent placement given acute kidney injury in the presence of unilateral kidney -He was given copious IV fluids with normal saline at 125 mL's per hour -His pain was fairly well controlled from the beginning With ureteral stent in place, his hydronephrosis and obstruction is likely resolved -He will follow-up with urology in the office in 2 days to discuss definitive stone treatment as the stone was still in place on KUB on the day of discharge -He can take Tylenol at home as needed for pain (2) Right ureteral calculus: As above (3) ABDOUL (acute kidney injury): Baseline creatinine around 1.3, has CKD stage III Creatinine here on admission up to 2.75 likely secondary to right ureteral obstruction in the presence of a unilateral right kidney (has agenesis of the left kidney) Potassium within normal limits, bicarbonate within normal limits, corrected sodium within normal limits, does not appear volume overloaded at this time -Creatinine improved down to 1.5 on the day of discharge status post ureteral stent as above to relieve obstruction -He was also hydrated with IV fluids -Follow BMP as an outpatient in 2 days with results to be sent to his PCP and urology -Upon discharge, will continue to hold potassium citrate supplement from home to avoid hyperkalemia in the setting of acute kidney injury-he can restart this once creatinine returns to normal -Upon discharge, will also continue to hold losartan and metformin from home as well until creatinine returns to normal (4) Renal agenesis: With congenital absence of the left kidney as above (5) Diabetes: Blood glucose on admission was 431. He has known, severely uncontrolled diabetes and he admits to noncompliance with checking sugars. He is morbidly obese. He only takes metformin and glimepiride at home. Last hemoglobin A1c was 9.6% in 02/2018 -His home glimepiride and metformin were held during admission He was treated with Lantus 10 units once daily and sliding scale insulin with meals His hemoglobin A1c was still pending at the time of discharge and should be followed up on by his PCP -Stressed him the importance of checking his sugars at home and better control of his sugar -He will have his metformin held after discharge until renal function returns to normal -He can continue his glimepiride -Would be a good candidate for Trulicity versus starting on basal bolus insulin as an outpatient-we will defer to PCP for management (6) Hypertension: Blood pressures are fairly well-controlled -Continue holding losartan from home due to ABDOUL -Follow blood pressures after discharge as an outpatient (7) Anxiety disorder: Stable -Continue Lexapro 10 mg daily (8) Hyperlipidemia: Stable -Continue atorvastatin 10 mg daily (9) ZA on CPAP: Used CPAP while here and will continue at home (10) Fatty liver: With fatty liver seen on imaging studies previously and today -Need to encourage weight loss and low carbohydrate diet -Can restart on metformin once acute kidney injury resolves (11) Obesity: BMI is 43.9, morbidly obese -Needs counseling on dietary changes and increased exercise in order to lose weight (12) CKD (chronic kidney disease) stage 3, GFR 30-59 ml/min: Baseline GFR around 58, with acute kidney injury here as above -Avoid nephrotoxins -Renally dose all medications -Avoid NSAIDs (13) Anemia: With mild anemia with hemoglobin 13.4, MCV on the low normal side to 83 Iron studies here are consistent with anemia of chronic disease B12 normal but on the low side of normal at 312, folate normal (14) DVT prophylaxis: SCDs were provided Disposition-stable for discharge home Total Time Total Time Spent Total Time Spent (In Minutes): Greater than 30 minutes Total Time Includes: Examination of the Patient, Discharge Planning and Medication Reconciliation Discharge Plan Discharge Items Patient Disposition: Home - Self-Care Reason For Visit: ABDOUL, URETEROLITHIASIS Discharge Diagnosis: Acute kidney injury, right ureterolithiasis Condition: Good Discharge Goals: Decrease discomfort, Diagnostic testing, Improve disease control and Therapeutic intervention Activity: Resume your previous activity Lifting: Gradually increase as tolerated Bathing: No limitations Exercise/Sports: Gradually increase as tolerated Non-emergency contact: Primary Care Provider and Urologist Call non-emergency contact if: you have any medication questions, your symptoms worsen, your pain is not controlled, your pain is worsening, your pain is unusual for you, your pain is concerning for you and your temperature is above 100.5 Follow-up/Referrals: Himanshu Baker MD [Family Provider] - (Dr. Baker's office should be contacting you tomorrow for your appointment on Wednesday.) Monica Shaikh [Primary Care Provider] - (Please call for follow-up appoint ment within 1 week) Diet: Carb Consistent or DM2 and Heart Healthy Other Ambulatory Orders: Basic Metabolic Panel (Routine) Timeframe: 2 Days Location: Determined by Patient Ordered By: Mare Estes Provider Instructions: You were admitted with a kidney stone on the right side and had a stent placed to relieve the obstruction causing injury to your right kidney. Your kidney failure improved on the blood work but was not completely back to normal. Please have your blood work checked in 2 days-the results will get sent to your primary care physician and to Dr. Baker's office. Your diabetes is severely uncontrolled. You are given insulin while you are here as your blood sugar was in the 400s when you were admitted. Your hemoglobin A1c test was still pending at the time of discharge, but I suspect it will be significantly elevated as well. Please follow-up with your primary care physician for this. Please DO NOT TAKE your losartan, your potassium citrate, or your metformin until your kidney function returns to normal. Prescriptions: Continued atorvastatin 10 mg Tablet 10 mg PO PM RF: 0 escitalopram oxalate [Lexapro] 10 mg Tablet 10 mg PO QPM RF: 0 glimepiride 4 mg Tablet 4 mg PO QAM RF: 0 metformin 1,000 mg Tablet Extended Release 24hr 1,000 mg PO BID Qty: 0 RF: 0 losartan 50 mg Tablet 50 mg PO DAILY Qty: 0 RF: 0 potassium citrate 15 mEq Tablet Extended Release 15 meq PO BID Qty: 0 RF: 0 Stand-Alone Forms: [employer] Marisa/Other Patient Handouts: Diabetes Healthy Meals, Diabetes Carbs, Eat Healthy, Diet High Fiber Discharge Orders: Discharge Order (Routine); Ordered 11/20/18 Ordered By: Mare Conway Admission Data Admit Date/Time: 11/19/18 08:32 Attending Provider: Mare Conway Admit Provider: Mare Conway Primary Care Provider: Monica Shaikh Other Providers: Alisa Wood Christophe T. Service: Medical Other Pending Studies at Discharge: Yes Studies:: Hemoglobin A1c
[2018-11-21 07:22] LABS: Estimated Average Glucose 280 mg/dl; Hemoglobin A1C 11.4 % (4.5-5.6)
== END 2018-11-20 16:49 | disposition home or self-care (01) | DRG 660 ==
LOC: ED 03:49 → 3N 08:32

== ENCOUNTER 2018-11-30 17:32 | Inpatient (IN) ==
[2018-11-30] MEDS ORDERED: ONDANSETRON INJ 2 MG/ML 2 ML VIAL IV STA (18:17)
--- NOTE | 2018-11-30 18:32 | Emergency Department Note ---
History of Present Illness General Chief complaint: Flank Pain Stated complaint: RT FLANK PAIN Source: patient Mode of arrival: ambulatory Limitations: no limitations History of Present Illness Maximum Pain Intensity: 4 This patient is a 53-year-old male who presents to the emergency department complaining of right flank pain. The patient reports that approximately 8 hours ago, he began to develop pain in the right side which radiates to the left side. He has been unable to void since 530 this morning, about 12 hours ago. He states that he is having no urge to urinate. Patient reports he only has one functional kidney due to left-sided atrophic kidney. He states that the pain is a constant, throbbing pain with occasional sharp pains and rates the discomfort a 4/10. He states that he has felt feverish today but does not believe he has a fever. He has not taken any pain medication. He has nausea, but has not vomited. Patient does report he had a recent admission approximately 10 days ago due to a right-sided kidney stone. He had a stent which was removed about 1 week ago in the office. He was prescribed ciprofloxacin after discharge and finished this 2 days ago. Patient is a diabetic and recently stopped metformin due to his kidney function. He did call his urologist today, who said they would call him in a dose of Flomax and recommended that he come here if he was not able to make to the office. Home Medications Home Medications Medication Instructions Recorded Confirmed Type atorvastatin 10 mg PO PM 11/19/18 11/30/18 History escitalopram oxalate [Lexapro] 10 mg PO QPM 11/19/18 11/30/18 History glimepiride 4 mg PO QAM 11/19/18 11/30/18 History metformin 1,000 mg PO BID #0 tab 11/20/18 11/30/18 Rx potassium citrate 15 meq PO BID #0 tab 11/20/18 11/30/18 Rx losartan 50 mg PO QAM 11/21/18 11/30/18 History hydrocodone-acetaminophen 1 tab PO Q6H PRN #15 tab 11/22/18 11/30/18 Rx Allergies Allergy/AdvReac Type Severity Reaction Status Date / Time Bactrim AdvReac Intermediate diarrhea Verified 02/28/18 05:37 sulfamethoxazole AdvReac Intermediate diarrhea Verified 11/22/18 12:48 trimethoprim AdvReac Intermediate diarrhea Verified 11/22/18 12:48 Past Med/Surg History Medical History Renal agenesis (Acute) Diabetes (Chronic) A1C 11.4% Hypertension (Chronic) Congenital kidney disease (Chronic) Right ureteral calculus (Acute) Anxiety disorder Fatty liver Hyperlipidemia Morbid obesity ZA on CPAP Surgical History History of colonoscopy History of removal of ureteral stent x 2 Hx of cystoscopy x2 Family History Grandmother Diabetes Mother SLE (systemic lupus erythematosus) Parkinson disease Macular degeneration Social History Preferred Language: Russian Communication Ability: Effective 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[employer] 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: No Beliefs That Will Affect Care: None marital status: Current Living Situation: Spouse current occupational status: employed 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 Other Information That Helps Us Care for You: No Feels Safe at Home: Yes Safety Concerns: Feels Safe At This Time Smoking Status: Never smoker Second Hand Exposure: No Hx Alcohol Use: No Hx Substance Use: No Review of Systems A total of 10 systems reviewed and were otherwise negative Physical Exam Vital Signs Vital Signs - 24 hr 11/30/18 17:35 11/30/18 19:53 11/30/18 21:52 Temperature 37.1 C Temperature Source Oral Sepsis Recent Fever Within 48 Hours No Sepsis New/Unexplained Change in Mental Status No Sepsis Action Taken by Nursing No Action Required Pulse Rate 73 Pulse Rate [Apical] Pulse Rate [Left Finger] Pulse Rate [Radial] 75 72 Pulse Rhythm Regular Pulse Rhythm [Apical] Pulse Rhythm [Radial] Regular Regular Pulse Strength Normal Pulse Strength [Radial] Normal Normal Respiratory Rate 20 18 20 Respiratory Effort / Characteristics Non-Labored Spontaneous Non-Labored Spontaneous Non-Labored Spontaneous Respiratory Depth Normal Normal Normal Respiratory Pattern Regular Regular Regular Blood Pressure 152/96 H Blood Pressure [Left Arm] Blood Pressure [Right Arm] 145/78 H 130/74 Blood Pressure Mean 114 Blood Pressure Mean [Left Arm] Blood Pressure Mean [Right Arm] 100 92 Blood Pressure Position Sitting Blood Pressure Position [Left Arm] Pulse Oximetry 98 97 95 Oxygen Delivery Method Room Air Room Air Room Air Oxygen Flow Rate Fraction of Inspired Oxygen SaO2/FiO2 Ratio 11/30/18 21:56 11/30/18 23:05 11/30/18 23:15 Temperature 36.7 C Temperature Source Oral Sepsis Recent Fever Within 48 Hours Sepsis New/Unexplained Change in Mental Status Sepsis Action Taken by Nursing Pulse Rate 75 Pulse Rate [Apical] 63 65 Pulse Rate [Left Finger] Pulse Rate [Radial] Pulse Rhythm Pulse Rhythm [Apical] Pulse Rhythm [Radial] Pulse Strength Pulse Strength [Radial] Respiratory Rate 20 18 20 Respiratory Effort / Characteristics Non-Labored Spontaneous Non-Labored Spontaneous Respiratory Depth Normal Normal Respiratory Pattern Regular Regular Blood Pressure 130/74 Blood Pressure [Left Arm] 125/70 126/79 Blood Pressure [Right Arm] Blood Pressure Mean Blood Pressure Mean [Left Arm] 88 94 Blood Pressure Mean [Right Arm] Blood Pressure Position Blood Pressure Position [Left Arm] Lying Lying Pulse Oximetry 95 99 99 Oxygen Delivery Method Room Air Oxymask Oxymask Oxygen Flow Rate 5 2 Fraction of Inspired Oxygen SaO2/FiO2 Ratio 11/30/18 23:25 11/30/18 23:35 11/30/18 23:45 Temperature 37 C 36.8 C Temperature Source Oral Oral Sepsis Recent Fever Within 48 Hours Sepsis New/Unexplained Change in Mental Status Sepsis Action Taken by Nursing Pulse Rate Pulse Rate [Apical] 63 61 Pulse Rate [Left Finger] 62 Pulse Rate [Radial] Pulse Rhythm Pulse Rhythm [Apical] Regular Pulse Rhythm [Radial] Pulse Strength Pulse Strength [Radial] Respiratory Rate 18 18 16 Respiratory Effort / Characteristics Non-Labored Spontaneous Non-Labored Spontaneous Respiratory Depth Normal Normal Respiratory Pattern Regular Regular Blood Pressure Blood Pressure [Left Arm] 124/75 115/68 123/82 Blood Pressure [Right Arm] Blood Pressure Mean Blood Pressure Mean [Left Arm] 91 83 95 Blood Pressure Mean [Right Arm] Blood Pressure Position Blood Pressure Position [Left Arm] Lying Lying Lying Pulse Oximetry 98 98 95 Oxygen Delivery Method Oxymask Oxymask Room Air Oxygen Flow Rate 2 Fraction of Inspired Oxygen 2 SaO2/FiO2 Ratio 4900 12/01/18 00:15 12/01/18 00:45 Temperature 37.0 C 37.0 C Temperature Source Oral Axillary Sepsis Recent Fever Within 48 Hours Sepsis New/Unexplained Change in Mental Status Sepsis Action Taken by Nursing Pulse Rate Pulse Rate [Apical] Pulse Rate [Left Finger] 58 L 60 Pulse Rate [Radial] Pulse Rhythm Pulse Rhythm [Apical] Pulse Rhythm [Radial] Pulse Strength Pulse Strength [Radial] Respiratory Rate 16 16 Respiratory Effort / Characteristics Respiratory Depth Respiratory Pattern Blood Pressure Blood Pressure [Left Arm] 137/67 128/83 Blood Pressure [Right Arm] Blood Pressure Mean Blood Pressure Mean [Left Arm] 90 98 Blood Pressure Mean [Right Arm] Blood Pressure Position Blood Pressure Position [Left Arm] Lying Lying Pulse Oximetry 94 Oxygen Delivery Method Room Air CPAP Oxygen Flow Rate Fraction of Inspired Oxygen SaO2/FiO2 Ratio VITALS: Vitals are noted on the nurse's note and reviewed by myself. Vital signs stable. GENERAL: This is a 53-year-old male, in no acute distress, nondiaphoretic, well-developed well-nourished. SKIN: The skin was without rashes. EYES: Pupils equal round and reactive to light and accommodation. MOUTH: Mucous membranes moist. NECK: Supple without nuchal rigidity. HEART: Regular rate and rhythm without murmurs gallops or rubs. LUNGS: Clear to auscultation bilaterally without wheezes, rales or rhonchi. ABDOMEN: Positive bowel sounds x 4. Soft, minimal tenderness to palpation in the right upper quadrant. No guarding or rebound tenderness. Positive right CV A tenderness. NEURO: Patient was alert and oriented to person place and time. Course Reevaluation(s) Reevaluation #1: Patient was reevaluated and is having pain now and request something for this. He was ordered a dose of morphine. Consultations Consultation #1: Dr. Edward [place] [facility] [place] Consultation #2: Dr. Cohen - urology Administered Medications Discontinued Medications Ceftriaxone Sodium (Rocephin) 1,000 mg in 50 mls @ 100 mls/hr IV NOW STA Stop: 11/30/18 21:55 Last Infusion: 12/01/18 00:44 Dose: 0 mls/hr Documented by: [id number] Admin: 11/30/18 21:41 Dose: 100 mls/hr Documented by: [id number] Iothalamate Meglumine (Cysto-Conray Ii) Confirm Administered Dose 250 ml .ROUTE .STK-MED ONE Stop: 11/30/18 21:57 Last Admin: 11/30/18 22:50 Dose: 30 ml Documented by: [id number] Morphine Sulfate (Morphine Sulfate) 6 mg IV NOW STA Stop: 11/30/18 19:10 Last Admin: 11/30/18 19:19 Dose: 6 mg Documented by: [id number] Ondansetron HCl (Zofran) 4 mg IV NOW STA Stop: 11/30/18 18:18 Last Admin: 11/30/18 19:05 Dose: 4 mg Documented by: [id number] Medical Decision Making Differential Diagnosis Differential diagnosis includes kidney stone, pyelonephritis, kidney failure, prostate enlargement, among others. Home Medications Current Medication List: was personally reviewed by me Laboratory Data Attestation: I reviewed the patient's lab results. Result diagrams: 11/30/18 18:55 12/01/18 00:13 Lab Results 11/30/18 11/30/18 12/01/18 Range/Units 18:55 18:55 00:13 WBC 9.61 (4.8-10.8) K/uL RBC 4.86 (4.7-6.1) M/uL Hgb 14.2 (14.0-18.0) g/dL Hct 39.7 L (42-52) % MCV 81.7 (80-100) fL MCH 29.2 (25-34) pg MCHC 35.8 (32-36) g/dL RDW Std Deviation 38.1 (36.4-46.3) fL RDW Coeff of Kandis 12.8 (11.5-14.5) % Plt Count 262 (130-400) K/uL MPV 9.4 (7.4-10.4) fL Immature Gran % (Auto) 0.3 % Neut % (Auto) 60.6 % Lymph % (Auto) 24.8 % Arroyo % (Auto) 12.2 % Eos % (Auto) 1.7 % Baso % (Auto) 0.4 % Immature Gran # (Auto) 0.03 H (0.00-0.02) K/uL Neut # (Auto) 5.83 (1.4-6.5) K/uL Lymph # (Auto) 2.38 (1.2-3.4) K/uL Arroyo # (Auto) 1.17 H (0.11-0.59) K/uL Eos # (Auto) 0.16 (0-0.5) K/uL Baso # (Auto) 0.04 (0-0.2) K/uL Sodium 138 136 (136-145) mmol/L Potassium 4.3 4.4 (3.5-5.1) mmol/L Chloride 108 H 108 H (98-107) mmol/L Carbon Dioxide 22 24 (21-32) mmol/L Anion Gap 8.0 4.0 (3-11) BUN 31 H 33 H (7-18) mg/dl Creatinine 3.00 H 3.12 H (0.6-1.4) mg/dl Est Cr Clr Drug Dosing 40.2 38.4 ml/min Est GFR ( Amer) 26.3 25.1 Est GFR (Non-Af Amer) 22.7 21.6 BUN/Creatinine Ratio 10.4 10.5 (10-20) Glucose 155 H 175 H (70-99) mg/dl Calcium 9.2 8.7 (8.5-10.1) mg/dl Total Bilirubin 0.3 (0.2-1) mg/dl AST 14 L (15-37) U/L ALT 27 (12-78) U/L Alkaline Phosphatase 108 (45-117) U/L Total Protein 7.6 (6.4-8.2) gm/dl Albumin 3.8 (3.4-5.0) gm/dl Globulin 3.8 (2.5-4.0) gm/dl Albumin/Globulin Ratio 1.0 (0.9-2) Imaging Data Attestation: I personally reviewed and interpreted this imaging study as follows: Radiologist's Impression: KUB FINDINGS: The bowel gas pattern is unremarkable. There are no dilated loops of small bowel to suggest an obstruction. No renal calculi. No ureteral calculi. No pneumoperitoneum or pneumatosis. IMPRESSION: No renal or ureteral stones. RENAL ULTRASOUND FINDINGS: Right kidney: 14.5 cm. Mild hydronephrosis. This has improved. Normal corticomedullary differentiation and cortical thickness. Left kidney: Not identified. This was demonstrated to be atrophic on the prior study. Bladder: Almost completely decompressed and therefore not well visualized. IMPRESSION: 1. Mild right hydronephrosis. This has slightly improved compared to the recent CT examination. 2. The left kidney was not identified and was demonstrated to be atrophic on the prior study. ABDOMEN AND PELVIS CT WITHOUT CONTRAST FINDINGS: Punctate calcified granulomas within the left lower lobe. No pneumoperitoneum. No pneumatosis. Bilateral L5 spondylolysis with associated spondylolisthesis. Mild hepatic steatosis. The unenhanced gallbladder, spleen, adrenal glands, and pancreas are unremarkable. There is a severely atrophic left kidney. No retroperitoneal lymphadenopathy. The bladder is decompressed and not well evaluated. Small fat-containing right inguinal hernia. Small duodenal diverticulum. Normal appendix. Colonic diverticulosis. No evidence for diverticulitis. Suboptimal evaluation for bowel pathology due to the lack of intravenous and oral contrast. However, there is no definite bowel wall thickening or obstruction. Right perinephric edema persists. Moderate right hydroureteronephrosis to the level of the proximal ureter is again noted. There is a 2 mm obstructing stone at the proximal ureter on image 289 resulting in the hydronephrosis. This remains unchanged. No renal calculi identified. IMPRESSION: 1. No change in the moderate right hydronephrosis secondary to an obstructing 2 mm stone within the proximal right ureter. 2. No additional renal calculi. 3. The left kidney is markedly atrophic. 4. Hepatic steatosis. 5. Colonic diverticulosis. Blood Pressure Blood Pressure Findings: Normal blood pressure Blood Pressure Disposition: did not require urgent referral MDM Narrative The patient is a 53-year-old male who presents today complaining of right flank pain and decreased urination. Bladder scan was performed and showed no significant retention. Labs revealed no leukocytosis or anemia. Creatinine was found to be elevated at 3, which is nearly double that of patient's most recent creatinine. Ultrasound and KUB performed which did not show any obvious abnormalities. CT of the abdomen and pelvis was then performed which did show a 2 mm obstructing stone in the proximal right ureter. Dr. Cohen of urology was consulted and did take the patient to the OR for operative management. [facility] for [facility]. Patient was given a dose of Rocephin in the ER and did receive morphine for pain. He remained stable while in the emergency department. Impression & Plan ABDOUL (acute kidney injury), Calculus of right ureter Discharge Plan Visit Data *Final* Discharge Date/Time: 11/30/18 21:56 Chief Complaint: Flank Pain Stated Complaint: RT FLANK PAIN ED Provider: Fredis Branham ED Midlevel Provider: Adriana Cheney Discharge Problem: ABDOUL (acute kidney injury), Calculus of right ureter Patient Disposition: Admitted As Inpatient Condition: Good Discharge Instructions Interventions: ED Discharge Assessment Last Done: 11/30/18 21:56
[2018-11-30 19:06] LABS: Basophils # (auto) 0.04 K/uL (0-0.2); Basophils % (auto) 0.4 %; Eosinophils # (auto) 0.16 K/uL (0-0.5); Eosinophils % (auto) 1.7 %; Hematocrit (blood only) 39.7 % (42-52); Hemoglobin 14.2 g/dL (14.0-18.0); Immature Granulocytes # (auto) 0.03 K/uL (0.00-0.02); Immature Granulocytes % (auto) 0.3 %; Lymphocytes # (auto) 2.38 K/uL (1.2-3.4); Lymphocytes % (auto) 24.8 %; Mean Corpuscular Hgb Conc 35.8 g/dL (32-36); Mean Corpuscular Volume 81.7 fL (80-100); Mean Platelet Volume 9.4 fL (7.4-10.4); Monocytes # (auto) 1.17 K/uL (0.11-0.59); Monocytes % (auto) 12.2 %; Neutrophils # (auto) 5.83 K/uL (1.4-6.5); Neutrophils % (auto) 60.6 %; Platelet Count 262 K/uL (130-400); RDW Coefficient of Variation 12.8 % (11.5-14.5); RDW Standard Deviation 38.1 fL (36.4-46.3); Red Blood Count 4.86 M/uL (4.7-6.1); White Blood Count 9.61 K/uL (4.8-10.8)
[2018-11-30] MEDS ORDERED: MoRPHine SULFATE 10 MG/ML CARP/VIAL IV STA (19:09)
[2018-11-30 19:24] LABS: Albumin Level 3.8 gm/dl (3.4-5.0); BUN Creatinine Ratio 10.4 (10-20); Calcium 9.2 mg/dl (8.5-10.1); Creatinine Clr Calc Pharmacy 40.2 ml/min; Est GFR (African American) 26.3; Est GFR (Non-African American) 22.7; Potassium 4.3 mmol/L (3.5-5.1)
[2018-11-30 19:27] LABS: Bilirubin,Total 0.3 mg/dl (0.2-1); Globulin 3.8 gm/dl (2.5-4.0); Total Protein 7.6 gm/dl (6.4-8.2)
--- NOTE | 2018-11-30 19:36 | XRay Report ---
KUB HISTORY: right flank pain, hx stones COMPARISON: KUB 11/20/2018. FINDINGS: The bowel gas pattern is unremarkable. There are no dilated loops of small bowel to suggest an obstruction. No renal calculi. No ureteral calculi. No pneumoperitoneum or pneumatosis. IMPRESSION: No renal or ureteral stones. Electronically signed by: Nicolas Arechiga M.D. 11/30/2018 7:34 PM
--- NOTE | 2018-11-30 19:54 | Ultrasound Report ---
RENAL ULTRASOUND HISTORY: right flank pain, hx stones COMPARISON: Abdomen and pelvis CT 11/19/2018. FINDINGS: Right kidney: 14.5 cm. Mild hydronephrosis. This has improved. Normal corticomedullary differentiatio n and cortical thickness. Left kidney: Not identified. This was demonstrated to be atrophic on the prior study. Bladder: Almost completely decompressed and therefore not well visualized. IMPRESSION: 1. Mild right hydronephrosis. This has slightly improved compared to the recent CT examination. 2. The left kidney was not identified and was demonstrated to be atrophic on the prior study. Electronically signed by: Nicolas Arechiga M.D. 11/30/2018 7:53 PM
--- NOTE | 2018-11-30 20:27 | CT Scan Report ---
ABDOMEN AND PELVIS CT WITHOUT CONTRAST CT DOSE: 1726.23 mGy.cm HISTORY: right flank pain TECHNIQUE: Multiaxial CT images of the abdomen and pelvis were performed without contrast. A dose lo wering technique was utilized adhering to the principles of ALARA. COMPARISON STUDY: Abdomen and pelvis CT 11/19/2018. FINDINGS: Punctate calcified granulomas within the left lower lobe. No pneumoperitoneum. No pneumatos is. Bilateral L5 spondylolysis with associated spondylolisthesis. Mild hepatic steatosis. The unenhan luly gallbladder, spleen, adrenal glands, and pancreas are unremarkable. There is a severely atrophic left kidney. No retroperitoneal lymphadenopathy. The bladder is decompressed and not well evaluated. Small fat-containing right inguinal hernia. Small duodenal diverticulum. Normal appendix. Colonic div erticulosis. No evidence for diverticulitis. Suboptimal evaluation for bowel pathology due to the lac k of intravenous and oral contrast. However, there is no definite bowel wall thickening or obstructio n. Right perinephric edema persists. Moderate right hydroureteronephrosis to the level of the proxima l ureter is again noted. There is a 2 mm obstructing stone at the proximal ureter on image 289 result ing in the hydronephrosis. This remains unchanged. No renal calculi identified. IMPRESSION: 1. No change in the moderate right hydronephrosis secondary to an obstructing 2 mm stone within the p roximal right ureter. 2. No additional renal calculi. 3. The left kidney is markedly atrophic. 4. Hepatic steatosis. 5. Colonic diverticulosis. Electronically signed by: Nicolas Arechiga M.D. 11/30/2018 8:26 PM
--- NOTE | 2018-11-30 21:14 | History & Physical Report ---
Date of Service November 30, 2018 Assessment & Plan (1) Right ureteral calculus: 53 y/o M male Hx congenital L renal agenesis, nephrolithiasis, HTN, HLD, DM 2, ZA - CPAP. The pt recently developed an obstructive calculus with resultant ARF and a creatinine of 2.75 on 11/19/18. He required a stent and extraction of the stone. The stent was removed on 11/24. At that point his creatinine had improved to 1.5. The pt was up at 5:[address] his to [place]. He reports that he did not urinate as he normally does when he woke up and then developed R flank pain at approximately 9:30 AM. He presents with progressive pain and still has not urinated. Initial labs are notable for a creatinine of 3. He denies fevers, rigors, N/V. 1) R ureteral calculus with obstruction and ARF - this is a surgical emergency considering he is unable to urinate and has only one kidney. Urology has been contacted and I do not imagine he can avoid the OR emergently. He carries an RCRI of 0.9% and recently tolerated stenting well. Would start IVF with the procedure to avoid overload as he is unable to urinate. 2) DM II - placed on a SS 3) HTN - Losartan held - PRN Hydralazine can be provided if needed 4) HLD - cont Atorvastatin Full code - SCDs Total time for this admit including review of labs, meds, imaging, records - discussion with pt and ER attending - 38 min Present on Admission?: Yes History of Present Illness Chief Complaint: R flank pain Primary Care Provider: Monica Shaikh 53 y/o M male Hx congenital L renal agenesis, nephrolithiasis, HTN, HLD, DM 2, ZA - CPAP. The pt recently developed an obstructive calculus with resultant ARF and a creatinine of 2.75 on 11/19/18. He required a stent and extraction of the stone. The stent was removed on 11/24. At that point his creatinine had improved to 1.5. The pt was up at 5:[address] his to [place]. He reports that he did not urinate as he normally does when he woke up and then developed R flank pain at approximately 9:30 AM. He presents with progressive pain and still has not urinated. Initial labs are notable for a creatinine of 3. He denies fevers, rigors, N/V. PMH: 1) DM II 2) HTN 3) HLD 4) Congenital absence of L kidney 5) Nephrolithiasis with ureteral obstruction and ARF 01/24, 11/25 Surgical: Ureteral stent, lithotripsy Social: Does not drink or smoke. 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 Family: Both parents alive - father is well, mother has Parkinson's and SLE Allergies Allergy/AdvReac Type Severity Reaction Status Date / Time Bactrim AdvReac Intermediate diarrhea Verified 02/28/18 05:37 sulfamethoxazole AdvReac Intermediate diarrhea Verified 11/22/18 12:48 trimethoprim AdvReac Intermediate diarrhea Verified 11/22/18 12:48 Home Medications Home Medications Medication Instructions Recorded Confirmed Type atorvastatin 10 mg PO PM 11/19/18 11/30/18 History escitalopram oxalate [Lexapro] 10 mg PO QPM 11/19/18 11/30/18 History glimepiride 4 mg PO QAM 11/19/18 11/30/18 History metformin 1,000 mg PO BID #0 tab 11/20/18 11/30/18 Rx potassium citrate 15 meq PO BID #0 tab 11/20/18 11/30/18 Rx losartan 50 mg PO QAM 11/21/18 11/30/18 History hydrocodone-acetaminophen 1 tab PO Q6H PRN #15 tab 11/22/18 11/30/18 Rx Past Med/Surg History Medical History Renal agenesis (Acute) Diabetes (Chronic) A1C 11.4% Hypertension (Chronic) Congenital kidney disease (Chronic) Right ureteral calculus (Acute) Anxiety disorder Fatty liver Hyperlipidemia Morbid obesity ZA on CPAP Surgical History History of colonoscopy History of removal of ureteral stent x 2 Hx of cystoscopy x2 Social History Preferred Language: Martiniquais Communication Ability: Effective Beliefs That Will Affect Care: None marital status: Current Living Situation: Spouse current occupational status: employed 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 Feels Safe at Home: Yes Smoking Status: Never smoker Second Hand Exposure: No Hx Alcohol Use: Yes Alcohol type: beer Hx Substance Use: No Review of Systems Review of Systems: Gen: Denies fevers, night sweats, rigors, fatigue, malaise, weight loss/gain ENT: Denies congestion, throat pain, hearing loss Eyes: Denies acute visual changes CV: Denies CP, palpitations Pulmonary: Denies SOB, cough, wheezing GI: Denies N/V, diarrhea, constipation : R flank pain - anuric since prior hammad Neuro: Denies acute or unilateral weakness, acute gait impairment, headache or acute visual changes Musculoskeletal: Denies joint pain, inflammation Endocrine: Denies polydipsia, polyuria Skin: Denies acute rashes or ulcers Physical Exam Physical Exam: General: AAO x 3, no distress ENT: No erythema or exudates, no thrush Eyes: AYANNA, EOMI Head and neck: Normocephalic, atraumatic, No JVD, neck is supple. Chest/heart: Nontender, S1,2, RRR, no murmurs, no gallops Lungs: CTAB, no wheezing or crackles Abdomen: Nondistended, BS+, R flank is tender Neuro: AAO x 3, speech is clear, no unilateral weakness or loss of sensation, coordination intact Musculoskeletal: No joint inflammation, muscle tenderness, FROM Skin: No acute rashes or ulcers Extremities: No clubbing, cyanosis, edema Results & Data Vital Signs (Past 12 Hours) Vital Signs Temp Pulse Pulse Resp BP BP Pulse Ox 11/30/18 19:53 75 18 145/78 H 97 11/30/18 17:35 98.8 F 73 20 152/96 H 98
[2018-11-30] MEDS ORDERED: cefTRIAXone SODIUM 1,000 MG/50 ML BAG IV STA (21:26)
--- NOTE | 2018-11-30 21:53 | Urology Consultation ---
Date of Consultation November 30, 2018 Assessment & Plan (1) ABDOUL (acute kidney injury): Solitary kidney with obstructing stone and anuria for few hours. Patient Cr has doubled since last checked. CT shows small obst stone on solitary kidney. Risks and benefits discussed with patient. Understands risks. Understands anuria with solitary kidney would warrant emergent/urgent intervention. OR and anesthesia has been alerted. Plan for urgent Cystoscopy with right stent placement. Will have ER alert medicine about admission for observation. (2) Right ureteral calculus: (3) Congenital kidney disease: History of Present Illness History of Present Illness Patient was driving to [place] and had sudden onset of severe pain in flank. has not voided significant amount since this AM. Has worsening discomfort and severpain into groin known solitary kidney with recent stone treatment. Had tolerated well and recently had stent removed. CT shows 2 mm obs stone in solitary kidney with surrounding stranding Allergies Allergy/AdvReac Type Severity Reaction Status Date / Time Bactrim AdvReac Intermediate diarrhea Verified 02/28/18 05:37 sulfamethoxazole AdvReac Intermediate diarrhea Verified 11/22/18 12:48 trimethoprim AdvReac Intermediate diarrhea Verified 11/22/18 12:48 Home Medications Home Medications Medication Instructions Recorded Confirmed Type atorvastatin 10 mg PO PM 11/19/18 11/30/18 History escitalopram oxalate [Lexapro] 10 mg PO QPM 11/19/18 11/30/18 History glimepiride 4 mg PO QAM 11/19/18 11/30/18 History metformin 1,000 mg PO BID #0 tab 11/20/18 11/30/18 Rx potassium citrate 15 meq PO BID #0 tab 11/20/18 11/30/18 Rx losartan 50 mg PO QAM 11/21/18 11/30/18 History hydrocodone-acetaminophen 1 tab PO Q6H PRN #15 tab 11/22/18 11/30/18 Rx Patient History Medical History Renal agenesis (Acute) Diabetes (Chronic) A1C 11.4% Hypertension (Chronic) Congenital kidney disease (Chronic) Right ureteral calculus (Acute) Anxiety disorder Fatty liver Hyperlipidemia Morbid obesity ZA on CPAP Surgical History History of colonoscopy History of removal of ureteral stent x 2 Hx of cystoscopy x2 Family History Grandmother Diabetes Mother SLE (systemic lupus erythematosus) Parkinson disease Macular degeneration Social History Preferred Language: Liberian Communication Ability: Effective Beliefs That Will Affect Care: None marital status: Current Living Situation: Spouse current occupational status: employed 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 Feels Safe at Home: Yes Smoking Status: Never smoker Second Hand Exposure: No Hx Alcohol Use: Yes Alcohol type: beer Hx Substance Use: No Review of Systems Review of Systems: All systems reviewed & are unremarkable except as noted in HPI & below Physical Exam Constitutional: well developed, + acute distress and + obese Eyes: eyes not dysmorphic, no eyelid abnormality and no scleral abnormality ENMT: Ears: no hearing impairment Neck: trachea midline; no tracheal deviation Respiratory: normal respiratory effort; no respiratory distress and no labored breathing Cardiovascular: Rate/Rhythm: not tachycardic Gastrointestinal (Abdomen): Inspection/Auscultation: + abdomen distended Percussion/Palpation: abdomen soft; abdomen nontender Musculoskeletal: Head/Neck/Chest: + head abnormal to inspection, normocephalic and head atraumatic Skin: no lesions and no jaundice Neurologic: normal touch/pain/proprioception and CN's II-XI intact bilaterally Psychiatric: Orientation: alert and oriented x 3 Apperance: appropriately dressed Genitourinary: + CVA tenderness Lymphatic: no lymphadenopathy Results & Data Vital Signs (Past 12 Hours) Vital Signs Temp Pulse Pulse Resp BP BP Pulse Ox 11/30/18 19:53 75 18 145/78 H 97 11/30/18 17:35 37.1 C 73 20 152/96 H 98
[2018-11-30] MEDS ORDERED: IOTHALAMATE MEGLUMINE II 17.2% 250 ML VIAL ONE (21:56)
[2018-11-30] MEDS ORDERED: SUCCINYLCHOLINE 100MG/5ML SYR ONE (22:04)
[2018-11-30] MEDS ORDERED: PROPOFOL IV EMULSION 10 MG/ML 20 ML VIAL IV ONE (22:04)
[2018-11-30] MEDS ORDERED: LIDOCAINE HCL 2% 2 ML VIAL/AMP(20MG/ML) INFIL ONE (22:04)
[2018-11-30] MEDS ORDERED: fentaNYL citrate 100 MCG/2 ML VIAL ONE (22:05)
--- NOTE | 2018-11-30 22:23 | Anesthesiology Consultation ---
Date of Service November 30, 2018 Assessment & Plan (1) Encounter for pre-operative examination: Chart Review Chart Review: Acceptable Risk for Surgery and Patient NOT seen in Pre Admission Testing Consults Requested none ASA [id number] Proposed Anesthesia Anesthesia Type: MAC Risk / Benefits Reviewed With: PT / POA / Parent / Guardian, Accepts Plan and Informed Consent Obtained NPO Date Last Intake of Fluids: 11/30/18 Time Last Intake of Fluids: 16:00 Date Last Intake of Solids: 11/30/18 Time Last Intake of Solids: 09:30 History Surgery Operation Date: 11/30/18 21:40 Proposed Procedures p Cystoscopy Ureteral Stent Insertion - Kiran Cohen II, DO Height/Weight Height: 5 ft 11 in Weight: 136.3 kg Allergies Allergy/AdvReac Type Severity Reaction Status Date / Time Bactrim AdvReac Intermediate diarrhea Verified 02/28/18 05:37 sulfamethoxazole AdvReac Intermediate diarrhea Verified 11/22/18 12:48 trimethoprim AdvReac Intermediate diarrhea Verified 11/22/18 12:48 Medications Home Medications Medication Instructions Recorded Confirmed Last Taken atorvastatin 10 mg PO PM 11/19/18 11/30/18 11/21/18 22:00 escitalopram oxalate [Lexapro] 10 mg PO QPM 11/19/18 11/30/18 11/21/18 22:00 glimepiride 4 mg PO QAM 11/19/18 11/30/18 11/18/18 23:00 metformin 1,000 mg PO BID #0 tab 11/20/18 11/30/18 11/18/18 23:00 potassium citrate 15 meq PO BID #0 tab 11/20/18 11/30/18 11/18/18 23:00 losartan 50 mg PO QAM 11/21/18 11/30/18 11/18/18 23:00 hydrocodone-acetaminophen 1 tab PO Q6H PRN #15 tab 11/22/18 11/30/18 Unknown Past Medical History Medical History Renal agenesis (Acute) Diabetes (Chronic) A1C 11.4% Hypertension (Chronic) Congenital kidney disease (Chronic) Right ureteral calculus (Acute) Anxiety disorder Fatty liver Hyperlipidemia Morbid obesity ZA on CPAP Past Family History Family History Grandmother Diabetes Mother SLE (systemic lupus erythematosus) Parkinson disease Macular degeneration Past Surgical History Surgical History History of colonoscopy History of removal of ureteral stent x 2 Hx of cystoscopy x2 Social History Smoking Status: Never smoker Hx Alcohol Use: Yes Alcohol type: beer alcohol intake frequency: holidays/special occasions only Hx Substance Use: No Physical Exam Vital Signs Last Vital Signs Temp 37.1 C 11/30/18 17:35 Pulse 75 11/30/18 21:56 Resp 20 11/30/18 21:56 BP 130/74 11/30/18 21:56 Pulse Ox 95 11/30/18 21:56 Testing Laboratory Results 11/30/18 18:55 11/30/18 18:55
[2018-11-30] MEDS ORDERED: ePHEDrine sulfate 50 MG/ML AMP IV PRN (22:29)
[2018-11-30] MEDS ORDERED: fentaNYL citrate 100 MCG/2 ML VIAL IV PRN (22:29)
[2018-11-30] MEDS ORDERED: ATROPINE SULFATE 0.1 MG/ML 10ML SYR IV PRN (22:29)
[2018-11-30] MEDS ORDERED: MIDAZOLAM HCL 1 MG/ML 2ML VIAL ONE (22:32)
--- NOTE | 2018-11-30 23:01 | Operative Report ---
Post Operative Report Pre & Post Diagnosis Operation Date: 11/30/18 21:40 Pre-Op Diagnosis: Right Ureteral Stone, Anuria, Renal Failure Post-Op Diagnosis: Right Ureteral Stone Procedure Operation Date: 11/30/18 21:40 Actual Procedures p Cystoscopy, Right retrograde pyelogram and Ureteral Stent Insertion(Right) - Kiran Cohen II, DO Surgeon Kiran Cohen, II, DO Human Geography Instructor None Estimated Blood Loss 1 Findings Consistent with Post-Op Diagnosis Severely obstructed right kidney with small proximal ureteral stone. Specimens None Drains 6 Fr Multilength Anesthesia Type MAC Complications none Disposition Disposition: Recovery Room Indications Patient with obstructing stone and solitary kidney with anuria and acute renal failure. Risks and benefits discussed about urgent procedure. Description of Procedure Patient was consented and brought back to the operating room. Patient was placed under anesthesia in the supine position and moved to the dorsal lithotomy position. Patient was prepped and draped in the regular sterile fashion. A time out was completed. A 30degree Cystoscope was placed into the bladder and the entire bladder was examined. The UO's were identified. The Right was cannulized with a catheter and a retrograde pyelogram was complete. Severe dilation of the renal pelvis was noted. A wire was then placed. With the wire in place, a 6 Fr Double J stent was placed. It was confirmed with fluoroscopy. With the stent in place, the bladder was emptied. The scope was removed. The patient was cleaned, aroused from anesthesia, and transferred to the pacu in stable condition having tolerated the procedure well with no complications. I was present and participated in all aspects of the procedure. The patient will be monitored in the PACU until transferred. I attest to the content of the Intraoperative Record and any orders documented therein. Any exceptions are noted below.
--- NOTE | 2018-11-30 23:13 | Anesthesiology Progress Note ---
Date of Service November 30, 2018 Anesthesia Post Procedure Vital Signs Vital Signs: Temp Pulse Pulse Resp BP BP Pulse Ox 11/30/18 21:56 75 20 130/74 95 11/30/18 21:52 72 20 130/74 95 11/30/18 19:53 75 18 145/78 H 97 11/30/18 17:35 37.1 C 73 20 152/96 H 98 Pain Intensity Right Flank: Pain Intensity: 1 Notes Mental Status: alert / awake / arousable Patient Amnestic to Procedure: Yes Nausea / Vomiting: adequately controlled Pain: adequately controlled Airway Patency, RR, SpO2: stable & adequate BP & HR: stable & adequate Hydration State: stable & adequate Anesthetic Complications: no major complications apparent and Pt Satisfied with anesthetic care
[2018-11-30] MEDS ORDERED: ONDANSETRON INJ 2 MG/ML 2 ML VIAL IV PRN (23:51)
[2018-11-30] MEDS ORDERED: ZOLPIDEM TARTRATE 5 MG TAB PO PRN (23:51)
[2018-11-30] MEDS ORDERED: ACETAMINOPHEN 325 MG TAB PO PRN (23:51)
[2018-11-30] MEDS ORDERED: HYDROmorphone INJ 0.5 MG/0.5 ML SYR IV PRN (23:51)
[2018-12-01 00:53] LABS: BUN Creatinine Ratio 10.5 (10-20); Calcium 8.7 mg/dl (8.5-10.1); Creatinine Clr Calc Pharmacy 38.4 ml/min; Est GFR (African American) 25.1; Est GFR (Non-African American) 21.6; Potassium 4.4 mmol/L (3.5-5.1)
[2018-12-01] MEDS ORDERED: GLUCOSE 10 TABS/TUBE PO PRN (01:00)
[2018-12-01] MEDS ORDERED: DEXTROSE 50% 50 ML SYRINGE IV PRN (01:00)
[2018-12-01] MEDS ORDERED: CARBOHYDRATES FOR HYPOGLYCEMIA PO PRN (01:00)
[2018-12-01] MEDS ORDERED: GLUCAGON FOR INJ 1 MG VIAL IM PRN (01:00)
[2018-12-01] MEDS ORDERED: GLUCOSE 40% GEL 15 GM TUBE PO PRN (01:00)
[2018-12-01] MEDS: LACTATED RINGER'S 1,000 ML IV SCH ×2 (01:46→14:23)
[2018-12-01] MEDS: INSULIN ASPART 100 UNITS/ML 3 ML PEN SC SCH ×6 (04:56→22:03)
--- NOTE | 2018-12-01 06:30 | Fluoroscopy Report ---
FL retrograde includes kub HISTORY: 53 years-old Male CYSTO/STENT right-sided cystourethrogram with stent placement COMPARISON: CT abdomen and pelvis 11/30/2018 TECHNIQUE: 3 spot fluoroscopic images of the right abdomen and pelvis were obtained utilizing 30.6 se conds fluoroscopy time FINDINGS: Moderate right hydroureteronephrosis redemonstrated. A right ureteral stent is placed which appears t o be in satisfactory positioning. The previously described 2 mm calculus of the right ureters not def initively seen on these images. IMPRESSION: Fluoroscopic assistance as above. Please see procedural report for further details. The above report was generated using voice recognition software. It may contain grammatical, syntax o r spelling errors. Electronically signed by: Bakari Ingram M.D. 12/01/2018 6:29 AM
[2018-12-01 07:21] LABS: Basophils # (auto) 0.03 K/uL (0-0.2); Basophils % (auto) 0.4 %; Eosinophils # (auto) 0.13 K/uL (0-0.5); Eosinophils % (auto) 1.9 %; Hematocrit (blood only) 38.5 % (42-52); Hemoglobin 13.5 g/dL (14.0-18.0); Immature Granulocytes # (auto) 0.01 K/uL (0.00-0.02); Immature Granulocytes % (auto) 0.1 %; Lymphocytes # (auto) 2.18 K/uL (1.2-3.4); Lymphocytes % (auto) 31.1 %; Mean Corpuscular Hgb Conc 35.1 g/dL (32-36); Mean Platelet Volume 9.2 fL (7.4-10.4); Monocytes # (auto) 0.65 K/uL (0.11-0.59); Monocytes % (auto) 9.3 %; Neutrophils # (auto) 4.02 K/uL (1.4-6.5); Neutrophils % (auto) 57.2 %; Platelet Count 242 K/uL (130-400); RDW Standard Deviation 39.1 fL (36.4-46.3); Red Blood Count 4.64 M/uL (4.7-6.1); White Blood Count 7.02 K/uL (4.8-10.8)
[2018-12-01] MEDS ORDERED: Nursing to Pharmacy Communication ONE (07:58)
--- NOTE | 2018-12-01 09:42 | Urology Progress Note ---
Date of Service December 01, 2018 Assessment & Plan (1) Calculus of right ureter: POD #1 s/p cysto, R ureteral stent placement. Doing well, tolerating stent without bother. Will arrange outpatient urology follow up with Dr. Baker in 2 weeks to discuss definitive stone management. Patient encouraged to call our office with any questions/concerns in the interim. Continue Tamsulosin, can utilize Tylenol as needed for stent discomfort. Thank you for allowing us to participate in the care of this patient. Please contact our service with additional questions/concerns. (2) ABDOUL (acute kidney injury): Stent in good position, recommend repeat BMP. Subjective 53 YO male, atrophic L kidney, POD #1 s/p cysto, R ureteral stent placement. Patient reports feeling much better this morning. No pain. +intermittent hematuria, voiding spontaneously without bother. No fever/chills. No nausea/vomiting. Review of Systems Review of Systems: All systems reviewed & are unremarkable except as noted in HPI & below Physical Exam Physical Exam: WN/WD NAD. Resp effort normal. No edema. No JVD. Abd soft/nontender. A&O x3, appropriate affect. Results & Data Vital Signs (Past 12 Hours) Vital Signs Temp Pulse Pulse Pulse Pulse Resp BP 12/01/18 07:21 51 L 16 12/01/18 02:45 36.5 C 56 L 16 12/01/18 01:45 36.7 C 56 L 16 12/01/18 00:45 37.0 C 60 16 12/01/18 00:15 37.0 C 58 L 16 11/30/18 23:45 36.8 C 62 16 11/30/18 23:35 61 18 11/30/18 23:25 37 C 63 18 11/30/18 23:15 65 20 11/30/18 23:05 36.7 C 63 18 11/30/18 21:56 75 20 130/74 11/30/18 21:52 72 20 BP BP Pulse Ox 12/01/18 07:21 127/84 96 12/01/18 02:45 134/82 95 12/01/18 01:45 127/82 96 12/01/18 00:45 128/83 12/01/18 00:15 137/67 94 11/30/18 23:45 123/82 95 11/30/18 23:35 115/68 98 11/30/18 23:25 124/75 98 11/30/18 23:15 126/79 99 11/30/18 23:05 125/70 99 11/30/18 21:56 95 11/30/18 21:52 130/74 95
[2018-12-01] MEDS ORDERED: PNEUMOCOCCAL POLYSACCHARIDES 25 MCG/0.5 ML VIAL/SYR IM ONE (12:00)
[2018-12-01] MEDS ORDERED: PNEUMOCOCCAL ADMINISTRATION CHARGE ONE (12:00)
[2018-12-01 14:51] LABS: Appearance Urine Clear (Clear); Bacteria Urine Automated Negative (Negative); Bilirubin Urine Negative (Negative); Blood Urine 3+ (Negative); Color Urine Yellow; Glucose Urine UA 1+ (Negative); Ketones Urine Negative (Negative); Leukocyte Esterase Urine Negative (Negative); Nitrite Urine Negative (Negative); Protein Urine Trace (Negative); RBC Urine Automated >30 /hpf (0-4); Specific Gravity Urine 1.017 (1.000-1.030); Urobilinogen Urine Negative (Negative)
--- NOTE | 2018-12-01 16:28 | Hospitalist Progress Note ---
Date of Service December 01, 2018 Assessment & Plan (1) Right ureteral calculus: 53 y/o M male Hx congenital L renal agenesis, nephrolithiasis, HTN, HLD, DM 2, ZA - CPAP admitted on November 27, 2018 because of right ureter stone associated with blockage and acute renal failure Per report, the pt recently developed an obstructive calculus with resultant ARF and a creatinine of 2.75 on 11/19/18, required a stent and extraction of the stone. The stent was removed on 11/24/2018 , At that point his creatinine had improved to 1.5. On the day of admission he was up at 5:[address] his to [place], he developed Right flank pain at approximately 9:30 AM. right ureteral calculus with obstruction and ARF Patient had a stent last night, the pain was released, after cystoscopy, per report of the right mild hydronephrosis was not changed, this morning his creatinine level was 3.12, compared to 3.0 yesterday Acute on chronic kidney failure, with worsening creatinine level, likely blockage, will continue IV fluid and monitor lab tomorrow morning DM II -blood glucose range 177 09/10/2016, restart glimepiride, and placed on a SS HTN - Losartan held - PRN Hydralazine can be provided if needed HLD - cont Atorvastatin Full code - SCDs Continue IV fluid followed by renal function, if renal function getting better and may be discharged sooner Subjective Doing fair, no pain, no dysuria urgency and frequency, denies fever and chills, has been up and walk, Review of Systems Review of Systems: All systems reviewed & are unremarkable except as noted in HPI & below Physical Exam Physical Exam: General Appearance: obvious obesity, WD/WN, no apparent distress, Eyes: normal inspection, PERRL, EOMI, sclerae normal ENT: normal ENT inspection, hearing grossly normal, pharynx normal Neck: supple, no adenopathy, thyroid normal, no JVD, no carotid bruits, trachea midline Respiratory/Chest: chest non-tender, normal breath sounds, no respiratory distress, no accessory muscle use, rales, wheezing Cardiovascular: regular rate, rhythm, no JVD, no murmur Abdomen: karla CVA NT, normal bowel sounds, non tender, soft, no organomegaly, Extremities: normal range of motion, non-tender, normal inspection, no pedal edema, no calf tenderness, normal capillary refill, pelvis stable, joint has no limited range of motion, capillary refill is normal, no cyanosis clubbing Neurologic/Psychiatric: skein yarn dyer helper II-XII nml as tested, no motor/sensory deficits, alert, normal mood/affect, oriented x 3 Skin: normal color, warm/dry, no rash Lymphatic: no adenopathy Results & Data Vital Signs (Past 12 Hours) Vital Signs Temp Pulse Resp BP Pulse Ox 12/01/18 15:28 36.8 C 64 18 108/68 96 12/01/18 07:21 51 L 16 127/84 96 Laboratory Results - last 24 hr 11/30/18 11/30/18 12/01/18 18:55 18:55 00:13 WBC 9.61 RBC 4.86 Hgb 14.2 Hct 39.7 L MCV 81.7 MCH 29.2 MCHC 35.8 RDW Std Deviation 38.1 RDW Coeff of Kandis 12.8 Plt Count 262 MPV 9.4 Immature Gran % (Auto) 0.3 Neut % (Auto) 60.6 Lymph % (Auto) 24.8 Green % (Auto) 12.2 Eos % (Auto) 1.7 Baso % (Auto) 0.4 Immature Gran # (Auto) 0.03 H Neut # (Auto) 5.83 Lymph # (Auto) 2.38 Green # (Auto) 1.17 H Eos # (Auto) 0.16 Baso # (Auto) 0.04 Sodium 138 136 Potassium 4.3 4.4 Chloride 108 H 108 H Carbon Dioxide 22 24 Anion Gap 8.0 4.0 BUN 31 H 33 H Creatinine 3.00 H 3.12 H Est Cr Clr Drug Dosing 40.2 38.4 Est GFR ( Amer) 26.3 25.1 Est GFR (Non-Af Amer) 22.7 21.6 BUN/Creatinine Ratio 10.4 10.5 Glucose 155 H 175 H POC Glucose Calcium 9.2 8.7 Magnesium Total Bilirubin 0.3 AST 14 L ALT 27 Alkaline Phosphatase 108 Total Protein 7.6 Albumin 3.8 Globulin 3.8 Albumin/Globulin Ratio 1.0 Urine Color Urine Appearance Urine pH Ur Specific [place] Urine Protein Urine Glucose (UA) Urine Ketones Urine Blood Urine Nitrite Urine Bilirubin Urine Urobilinogen Ur Leukocyte Esterase Urine WBC (Auto) Urine RBC (Auto) U Hyaline Cast (Auto) U Epithel Cells (Auto) Urine Bacteria (Auto) 12/01/18 12/01/18 12/01/18 01:46 04:51 06:55 WBC 7.02 RBC 4.64 L Hgb 13.5 L Hct 38.5 L MCV 83.0 MCH 29.1 MCHC 35.1 RDW Std Deviation 39.1 RDW Coeff of Kandis 13.0 Plt Count 242 MPV 9.2 Immature Gran % (Auto) 0.1 Neut % (Auto) 57.2 Lymph % (Auto) 31.1 Green % (Auto) 9.3 Eos % (Auto) 1.9 Baso % (Auto) 0.4 Immature Gran # (Auto) 0.01 Neut # (Auto) 4.02 Lymph # (Auto) 2.18 Green # (Auto) 0.65 H Eos # (Auto) 0.13 Baso # (Auto) 0.03 Sodium Potassium Chloride Carbon Dioxide Anion Gap BUN Creatinine Est Cr Clr Drug Dosing Est GFR ( Amer) Est GFR (Non-Af Amer) BUN/Creatinine Ratio Glucose POC Glucose 195 H 217 H Calcium Magnesium Total Bilirubin AST ALT Alkaline Phosphatase Total Protein Albumin Globulin Albumin/Globulin Ratio Urine Color Urine Appearance Urine pH Ur Specific [place] Urine Protein Urine Glucose (UA) Urine Ketones Urine Blood Urine Nitrite Urine Bilirubin Urine Urobilinogen Ur Leukocyte Esterase Urine WBC (Auto) Urine RBC (Auto) U Hyaline Cast (Auto) U Epithel Cells (Auto) Urine Bacteria (Auto) 12/01/18 12/01/18 12/01/18 06:55 08:14 11:54 WBC RBC Hgb Hct MCV MCH MCHC RDW Std Deviation RDW Coeff of [place]and[place] Plt Count MPV Immature Gran % (Auto) Neut % (Auto) Lymph % (Auto) Green % (Auto) Eos % (Auto) Baso % (Auto) Immature Gran # (Auto) Neut # (Auto) Lymph # (Auto) Green # (Auto) Eos # (Auto) Baso # (Auto) Sodium Potassium Chloride Carbon Dioxide Anion Gap BUN Creatinine Est Cr Clr Drug Dosing Est GFR ( Amer) Est GFR (Non-Af Amer) BUN/Creatinine Ratio Glucose POC Glucose 190 H 203 H Calcium Magnesium 2.0 Total Bilirubin AST ALT Alkaline Phosphatase Total Protein Albumin Globulin Albumin/Globulin Ratio Urine Color Urine Appearance Urine pH Ur Specific [place] Urine Protein Urine Glucose (UA) Urine Ketones Urine Blood Urine Nitrite Urine Bilirubin Urine Urobilinogen Ur Leukocyte Esterase Urine WBC (Auto) Urine RBC (Auto) U Hyaline Cast (Auto) U Epithel Cells (Auto) Urine Bacteria (Auto) 12/01/18 14:25 WBC RBC Hgb Hct MCV MCH MCHC RDW Std Deviation RDW Coeff of [place]and[place] Plt Count MPV Immature Gran % (Auto) Neut % (Auto) Lymph % (Auto) Green % (Auto) Eos % (Auto) Baso % (Auto) Immature Gran # (Auto) Neut # (Auto) Lymph # (Auto) Green # (Auto) Eos # (Auto) Baso # (Auto) Sodium Potassium Chloride Carbon Dioxide Anion Gap BUN Creatinine Est Cr Clr Drug Dosing Est GFR ( Amer) Est GFR (Non-Af Amer) BUN/Creatinine Ratio Glucose POC Glucose Calcium Magnesium Total Bilirubin AST ALT Alkaline Phosphatase Total Protein Albumin Globulin Albumin/Globulin Ratio Urine Color Yellow Urine Appearance Clear Urine pH 5.0 Ur Specific [place] 1.017 Urine Protein Trace H Urine Glucose (UA) 1+ H Urine Ketones Negative Urine Blood 3+ H Urine Nitrite Negative Urine Bilirubin Negative Urine Urobilinogen Negative Ur Leukocyte Esterase Negative Urine WBC (Auto) 1-5 Urine RBC (Auto) >30 H U Hyaline Cast (Auto) 1-5 U Epithel Cells (Auto) 10-20 H Urine Bacteria (Auto) Negative
[2018-12-01] MEDS: GLIMEPIRIDE 2 MG TAB PO SCH (18:55)
[2018-12-01] MEDS ORDERED: ATORVASTATIN 10 MG TAB PO SCH (21:00)
[2018-12-01] MEDS ORDERED: ESCITALOPRAM OXALATE 10 MG TAB PO SCH (21:00)
[2018-12-02] MEDS: LACTATED RINGER'S 1,000 ML IV SCH ×2 (02:23→13:59)
[2018-12-02 06:18] LABS: Basophils # (auto) 0.03 K/uL (0-0.2); Basophils % (auto) 0.4 %; Eosinophils # (auto) 0.23 K/uL (0-0.5); Eosinophils % (auto) 3.2 %; Hematocrit (blood only) 38.8 % (42-52); Hemoglobin 13.7 g/dL (14.0-18.0); Immature Granulocytes # (auto) 0.01 K/uL (0.00-0.02); Immature Granulocytes % (auto) 0.1 %; Lymphocytes # (auto) 2.74 K/uL (1.2-3.4); Mean Corpuscular Hgb Conc 35.3 g/dL (32-36); Mean Corpuscular Volume 82.4 fL (80-100); Mean Platelet Volume 9.2 fL (7.4-10.4); Monocytes # (auto) 0.62 K/uL (0.11-0.59); Monocytes % (auto) 8.6 %; Neutrophils # (auto) 3.59 K/uL (1.4-6.5); Neutrophils % (auto) 49.7 %; Platelet Count 228 K/uL (130-400); RDW Coefficient of Variation 12.7 % (11.5-14.5); RDW Standard Deviation 38.3 fL (36.4-46.3); Red Blood Count 4.71 M/uL (4.7-6.1); White Blood Count 7.22 K/uL (4.8-10.8)
[2018-12-02 07:50] LABS: BUN Creatinine Ratio 13.9 (10-20); Calcium 9.3 mg/dl (8.5-10.1); Creatinine Clr Calc Pharmacy 86.8 ml/min; Est GFR (African American) 67.2; Potassium 4.4 mmol/L (3.5-5.1)
[2018-12-02] MEDS: GLIMEPIRIDE 2 MG TAB PO SCH (07:58)
[2018-12-02] MEDS: INSULIN ASPART 100 UNITS/ML 3 ML PEN SC SCH ×2 (09:14→13:02)
--- NOTE | 2018-12-02 14:07 | Discharge Summary ---
Date of Service December 02, 2018 Admission HPI Per Admitting Provider 53 y/o M male Hx congenital L renal agenesis, nephrolithiasis, HTN, HLD, DM 2, ZA - CPAP. The pt recently developed an obstructive calculus with resultant ARF and a creatinine of 2.75 on 11/19/18. He required a stent and extraction of the stone. The stent was removed on 11/24. At that point his creatinine had improved to 1.5. The pt was up at 5:[address] his to [place]. He reports that he did not urinate as he normally does when he woke up and then developed R flank pain at approximately 9:30 AM. He presents with progressive pain and still has not urinated. Initial labs are notable for a creatinine of 3. He denies fevers, rigors, N/V. PMH: 1) DM II 2) HTN 3) HLD 4) Congenital absence of L kidney 5) Nephrolithiasis with ureteral obstruction and ARF 01/24, 11/25 Surgical: Ureteral stent, lithotripsy Social: Does not drink or smoke. 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 Chest/heart: Nontender, S1,2, RRR, no murmurs, no gallops Lungs: CTAB, no wheezing or crackles Abdomen: Nondistended, BS+, R flank is tender Neuro: AAO x 3, speech is clear, no unilateral weakness or loss of sensation, coordination intact Musculoskeletal: No joint inflammation, muscle tenderness, FROM Skin: No acute rashes or ulcers Extremities: No clubbing, cyanosis, edema Principal Diagnosis Ureteral calculus with obstruction, acute renal failure Discharge Exam Lungs clear to auscultation percussion. Heart regular rhythm normal S1 and S2. Abdomen soft with active bowel sounds no tenderness. No flank pain or costovertebral angle tenderness. No hematuria. Discharge Data Allergies Allergy/AdvReac Type Severity Reaction Status Date / Time Bactrim AdvReac Intermediate diarrhea Verified 02/28/18 05:37 sulfamethoxazole AdvReac Intermediate diarrhea Verified 11/22/18 12:48 trimethoprim AdvReac Intermediate diarrhea Verified 11/22/18 12:48 Consultations 11/30/18 23:51 Consult Urology Stat Procedures Performed Operation Date: 11/30/18 21:40 Actual Procedures p Cystoscopy, Right Retrograde Pyelogram, Right Ureteral Stent Insertion(Right) - Kiran Cohen II, DO Ordered Studies 11/30/18 18:47 US renal/blad retro comp Stat 11/30/18 20:08 CT abd pelvis wo con Stat 11/30/18 22:00 FL fluoroscopy <1hr Routine FL retrograde includes kub Routine Hospital Course (1) Right ureteral calculus: 53 y/o M male Hx congenital L renal agenesis, nephrolithiasis, HTN, HLD, DM 2, ZA - CPAP admitted on November 27, 2018 because of right ureter stone associated with blockage and acute renal failure Per report, the pt recently developed an obstructive calculus with resultant ARF and a creatinine of 2.75 on 11/19/18, required a stent and extraction of the stone. The stent was removed on 11/24/2018 , At that point his creatinine had improved to 1.5. On the day of admission he was up at 5:[address] his to [place], he developed Right flank pain at approximately 9:30 AM. right ureteral calculus with obstruction and ARF Patient had a stent last night, the pain was released, after cystoscopy, per report of the right mild hydronephrosis was not changed, this morning his creatinine level was 3.12, compared to 3.0 yesterday Acute on chronic kidney failure, with worsening creatinine level, likely blockage, will continue IV fluid and monitor lab tomorrow morning DM II -blood glucose range 177 09/10/2016, restart glimepiride, and placed on a SS HTN - Losartan held - PRN Hydralazine can be provided if needed HLD - cont Atorvastatin Full code - SCDs Continue IV fluid followed by renal function, if renal function getting better and may be discharged sooner Total Time Total Time Spent Total Time Spent (In Minutes): 35 minutes Total Time Includes: Examination of the Patient, Discharge Planning and Medication Reconciliation Discharge Plan Discharge Items Patient Disposition: Home - Self-Care Reason For Visit: OBSTRUCTING CALCULUS,ARF Discharge Diagnosis: Ureteral calculus with obstruction, acute renal failure Condition: Good Discharge Goals: Decrease discomfort, Improve disease control, Improve function and Increase independence Activity: Resume your previous activity Non-emergency contact: Primary Care Provider and Urologist Call non-emergency contact if: you have any medication questions, your symptoms worsen, your pain is worsening and your temperature is above 100.5 Follow-up/Referrals: Monica Shaikh [Primary Care Provider] - Diet: Carb Consistent or DM2 Addtl Provider Instructions: Follow-up with urology as instructed Prescriptions: New ciprofloxacin HCl 250 mg tablet 250 mg PO BID Qty: 10 RF: 0 Continued atorvastatin 10 mg Tablet 10 mg PO PM RF: 0 escitalopram oxalate [Lexapro] 10 mg Tablet 10 mg PO QPM RF: 0 glimepiride 4 mg Tablet 4 mg PO QAM RF: 0 metformin 1,000 mg Tablet Extended Release 24hr 1,000 mg PO BID Qty: 0 RF: 0 potassium citrate 15 mEq Tablet Extended Release 15 meq PO BID Qty: 0 RF: 0 losartan 50 mg tablet 50 mg PO QAM RF: 0 hydrocodone-acetaminophen 5-325 mg tablet 1 tab PO Q6H PRN (Reason: pain) Qty: 15 RF: 0 Stand-Alone Forms: [facility], Important Visit Information Discharge Orders: Discharge Order (Routine); Ordered 12/02/18 Ordered By: Sarbjit Chan Admission Data Admit Date/Time: 11/30/18 21:57 Attending Provider: Sarbjit Chan Admit Provider: Anthony Edward Primary Care Provider: Monica Shaikh Other Providers: Kiran Cohen II ; Anthony Edward Service: Surgical Services Other Interventions: Discharge Summary Assessment (RN) Last Done: 12/02/18 13:49 Pending Studies at Discharge: No
--- OUTSIDE RECORDS SUMMARY | 2018-12-05 20:51 | External Medical Summary | Continuity of Care Document ---
:1965 Author Name Trevor Chowdhury, Provider Address Unavailable Unavailable , Care Team Providers Name Role Phone Olivia Chowdhury, Murtaza Unavailable [email or web address] Problems Hypercholesterolemia (272.0) (E78.00) Essential hypertension (401.9) (I10) Nephrolithiasis (592.0) (N20.0) Depression (311) (F32.9) Diabetes mellitus, type 2 (250.00) (E11.9) Allergies and Adverse Reactions No Known Drug Allergies (Allergy) Medications Tamsulosin HCl - 0.4 MG Oral Capsule; TAKE 1 CAPSULE B edtime JULIAN Nolasco Katheryn Goyal Start: 30-Nov-2018 Quantity: 30 Refills: 2 Glucophage 500 MG Oral Tablet; TAKE 1 TABLET EVERY 12 HOURS WITH FOOD. Refills: 0 Losartan Potassium 50 MG Oral Tablet; TAKE 1 TABLET DAILY. Quantity: 90 Refills: 3 Glimepiride 4 MG Oral Tablet; TAKE 1 TABLET DAILY. 100 Tablet Bottle Refills: 0 Escitalopram Oxalate 10 MG Oral Tablet; TAKE 1 TABLET DAILY. 30 Tablet Bottle Refills: 0 Atorvastatin Calcium 10 MG Oral Tablet; TAKE 1 TABLET AT BED TIME Quantity: 30 Refills: 5 Aspirin 81 MG TABS; TAKE 1 TABLET DAILY. Refills: 5 Tylenol CAPS; TAKE 1 CAPSULE Every 6 hours Refills: 0 Potassium Citrate ER 15 MEQ (1620 MG) Or al Tablet Extended Release; Take 1 tablet twice daily DO Tanvir Murillo Start: 11-Jun-2017 Quantity: 180 Refills: 3 Procedures X-ray 1 view Abdomen (KUB) Date: 01-Dec-2018 History of colonoscopy Status: Completed History of oral surgery Status: Complete d Immunizations Immunizations not documented Family History Mother Family history of systemic lupus erythematosus (V19.4) (Z82. 69) Status: Active Family history of Parkinsonism (V17.2) (Z82.0) Status: Activ e Social History - Smoking Status Never smoker Plan of Treatment Planned Encounters Appointment; Murtaza Baker M.D. Start: 16-Jan-2019 8:15 Request Planned Observations Planned Goals not documented Results CT Abd/Pelvis w/o Contrast (No IV, No Laboratory: [facility] C Diagnostic Imaging 1800 [address]. Oral) (Pending) [facility] 19-Nov-2018 7:58 CT ABD/PELVIS NO IV OR ORAL CN [facility], [place] [phone] C T Scan Report Patient: FOREST KEYS Admit Date: 11/19/18 MR#: [id number] Address1: [address] [place], [place] [address] Acct ID:[id number] Address2: Date: 1965 [facility] Zip: [place] [address] Age: 53 Location: ED Sex: M Room/Bed: Att Phy: Diagnosis: RIGHT SIDE KIDNEY PAIN W/ HX OF KIDNEY STONES Mary Phy: Monica Shaikh MD Service Date: 11/19/18 Fam Phy: Murtaza Solares MD Interpr etin g Phy: Ga Dumont MD Admi t Phy: Ordering Phy: Yessica Glynn PA-C cc: CT SCAN OF THE ABDOMEN AND PELVIS WITHOUT IV CONTRAST CLINICAL HISTORY: Right flank pain. COMPARISON STUDY: Abdominal CT dated 05/20/2018. TECHNIQUE: CT scan of t he abdomen and pelvis is performed from the lung bases to the proximal femora. Images are reviewed in the axial, sagittal, and cor onal planes. IV contrast was not administered for this examination as per the referring clinician. A dose lowering technique was utilized adhering to the principles of A LEEANNE. CT DOSE: 1760.78 mGy.cm FINDING S: Lung bases: The heart is normal in size and without pericardial effusion. Punctate calcified granulomas are noted. The lung bases are otherwise clear. There is a tiny hia chi hernia. Liver: The unenhanced liver is normal in size. The liver demonstrates diffusely diminished attenuation consist ent with hepatic steatosis. Fatty sparing is seen adjacent to gallbladder fossa. There is no intrahepatic biliary ductal dilatation. Gallbladder: Unremarkable. Spleen: Normal in size and attenuation. Pancreas: Unremarkable. Adrenal glands: Unremarkable. Kidneys: There is mar kedly asymmetric cortical atrophy of the left kidney as compared to the right.The unenhanced right kidney is mildly enlarged. There is mode rate to severe right-sided hydroureteronephro sis, with a 3 mm calculus in the mid right ur eter at the level of L4 seen on image#304. T here is associated left-sided perinephric and periureteric stranding as well as trace perinephric fluid. No additional renal c alculi are identified. There is no evidence of contour deforming renal mass lesion. Abdominal vasculature: The abdominal aor ta is normal in course and caliber. Bowel : There is moderate to advanced colonic diverticulosis without CT evidence of ac fernie diverticulitis. Fecal retention is obser eliecer. No bowel obstruction is seen. A small du odenal diverticulum is incidentally noted. The appendix is well-visualized and normal. Peritoneum: There is no intraperitoneal free air or abdominal ascites. There is a fat-containing umbilical hernia. Lymphadenopathy: None. Pelvic visce ra: The bladder, prostate, and seminal vesic les are normal as imaged. Skeletal structures: No lytic or blastic lesions are seen. There are bilateral pars defects a t L5. IMPRESSION: 1. There is a 3 mm obstructing calculus in mid right ureter . This causes moderate to severe right hydroureteronephrosis. 2. No additi onal renal calculi are identified. 3. Ma rkedly asymmetric cortical atrophy of the left kidney as compared to the right is unchanged fr om previous. 4. Hepatic steatosis. 5. Moderate to advanced colonic diverticulo sis without CT evidence of acute diverticuli tis. 6. Additional findings as above. Electronically signed by: Ga Dumont M.D. 11/19/2018 8:07 AM Dictated: 0758 Transcribed: 11/19/18 0758 RADFL Fluoroscopy Up to 1 HR Laboratory: [facility] Diagnostic Im aging 1800 [address]. (Pending) Kelly [facility] [place] 19-Nov-2018 11:10 FLUORO UP TO 1 HOUR [facility], [place] [phone] Fluoroscopy Report Patient: FOREST KEYS Admit Date: 11/19/18 MR#: [id number] Address1: [address] [place] [address] [address]izondo Acct ID:[id number] Address2: Date: 1965 [facility] Zip: [place] [address] Age: 53 Location: 3N Sex: M Room/Bed: N379-2 Att Ph y: Mare Conway MD Diagnosis : A KI, URETEROLITHIASIS Pr i Phy: Monica Shaikh MD Service Delroy e: 11/19/18 Fam Phy: Murtaza Solares MD Interpr etin g Phy: Ga Dumont MD Admi t Phy: Mare Conway MD Ordering Phy: Mare Barry MD cc : INTRAOPERATIVE RADIOGRAPHS CLIN ICAL HISTORY: Right-sided retrograde ureterog pooja and ureteral stent placement. Fluor oscopy time: 7 seconds. FINDINGS: 3 spot fluoroscopic views of the right upper qu adrant from a ureterogram and ureteral stent placement procedure are correlated with abdominal CT dated 11/19/2018. The initia l image shows a catheter projecting over t he right renal pelvis. The second 2 images show the proximal end of a right ureteral rebecca nt being deployed. No large calcifications are identified. IMPRESSION: Intraoperat subha images from a right ureteral stent place ment procedure as above. See operative report for detailed findings. Electronic ally signed by: Ga Dumont M.D. 11/20/19 11:12 AM Dictated: 11/19/18 111 0 Transcribed: 11/19/18 1110 FL KUB (Pending) Laboratory: [facility] Diagnostic Imaging 180 0 Jona [facility] [place] 19-Nov-2018 11:10 FL KUB [facility] [place] [phone] Fluoroscopy Report Mickey larios: KEYSFOREST Franco Admit Date: 11/07 10/25 MR#: [id number] Address1: [address] Acct ID:[id number] Address2 : Date: 1965 [facility] Zip: [place] [address] Age: 53 Location: 3N Sex: M Room/Bed: [facility]2 Att Phy: Mare Conway MD Diagnosis: A KI, URETEROLITHIASIS Mary Phy: Monica Shaikh MD Service Date: 11/19/18 Fam Phy: Murtaza Baker MD Interpr eting Phy: Ga Dumont MD Admit Phy: Mare Conway MD Ordering Phy: Murtaza Baker MD cc: INTRAOPERATIVE RADIOGRAPHS CLINICAL HISTORY: Right -sided retrograde ureterogram and ureteral sten t placement. Fluoroscopy time: 7 seco nds. FINDINGS: 3 spot fluoroscopic views o f the right upper quadrant from a ureterogram and ureteral stent placement procedure are correlated with abdominal CT dated 2018. The initial image shows a catheter proje cting over the right renal pelvis. The second 2 images show the proximal end of a right ureteral stent being deployed. No large calcifications are identified. IMPRESSION: Intraoperative images from a right ureteral stent placement procedure as ab ove. See operative report for detailed findin gs. Electronically signed by: Ga Dumont M.D. 11/19/2018 11:12 AM Dictated: 11/19/18 1110 Transcribe d: 11/19/18 1110 X-ray 1 view Abdomen (KUB) (Pending) Laboratory: [facility] Diagnostic Imaging 1800 Jona [facility] 20-Nov-2018 9:15 KUB [facility] [place] [phone] XRay Report Patient: FOREST KEYS Admit Date: 11/07 10/25 MR#: [id number] Address1: [address] [place] [address] Acct ID:[id number] Address2 : Date: 1965 [facility] Zip: [place] [address] Age: 53 Location: 3N Sex: M Room/Bed: [facility] Att Phy: Mare Conway MD Diagnosis: A KI, URETEROLITHIASIS Mary Phy: Monica Shaikh MD Service Date: 11/20/18 Fam Phy: Murtaza Baker MD Interpr eting Phy: Ricardo Dejesus MD Admit Phy: Mare Conway MD Ordering Phy: Murtaza Baker MD cc: XR KUB/Abdomen 1 view CLINICAL HISTORY: kidney stone nephrocalcinosis COMPARISON STUDY: 02/08/2018 CT 11/19/2018 FINDINGS: Th ere is a right ureteral stent. Bowel pattern is nonobstructive. Possible 3 mm calcificat ion adjacent to the distal aspect of the rebecca nt. Mid right ureter overlaps the spine and isnot diagnostically evaluated. IMPRESSIO N: 1. Right ureteral stent in good position . 2. Potential 3 mm calcification adjac ent to the stent distal right ureter. The above report was generated [employer] voice recognition software. It may cont ain grammatical, syntax or spelling errors. Electronically signed by: Ricardo reese M.D. 11/20/2018 9:17 AM Dictat ed: 11/20/18914 Transcribed: 914 X-ray 1 view Abdomen (KUB) (Pending) Laboratory: [facility] Diagnostic Imaging 1800 [address] [place] 30-Nov-2018 19:33 KUB [facility] [place] [phone] XRay Report Patient: FOREST KEYS Admit Date: 11/08 11/25 MR#: [id number] Address1: [address] [place] [address] Acct ID:[id number] Address2 : Date: 1965 [facility] Zip: [place] [address] Age: 53 Location: ED Sex: M Room/Bed: Att Phy: Diagnosis: RT FLAN K PAIN Mary Phy: Ciera Shaikh MD Service Date: 11/30/18 Fam Phy: Murtaza Baker MD Interpr eting Phy: Nicolas somers MD Admit Phy: Rohinii ng Phy: Adriana Cheney PA-C cc: KUB HISTORY: right flank pain, hx stones COMPARISON: K UB 11/20/2018. FINDINGS: The bowel gas pattern is unremarkable. There are no di lated loops of small bowel to suggest an obstruction. No renal calculi. No urete ral calculi. No pneumoperitoneum or pneumato sis. IMPRESSION: No renal or ureteral stones. Electronically signed by: Nicolas Arechiga M.D. 11/30/2018 7:34 PM Dictated: 11/30/181932 Transcribed: 11/30/181932 US renal/blad retro comp (Pending) Laboratory: [facility] D iagnostic Imaging 1800 [address] [facility] [place] 30-Nov-2018 19:51 US renal/blad retro comp Favio Thomas [facility], [place] [phone] Ultrasound Report Patient: FOREST KEYS Admit Date: 11/30/18 MR#: [id number] Address1: [address] [place] [address] [place] Acct ID:[id number] Address2: Date: 1965 [facility] Zip: [place] [address] Age: 53 Location: ED Sex: M Room/Bed: Att Phy: Diagnosis: RT FLANK PAIN Mary Phy: Monica Shaikh MD Se rvice Date: 11/30/18 Fam P hy: Murtaza Baker MD Int erpr eting Phy: Nicolas Arechiga MD Admit Phy: Ordering Phy: Alber Cheney PA-C cc: RENAL ULTRASOUND HISTORY: righ t flank pain, hx stones COMPARISON: Abdomen and pelvis CT 11/19/2018. FINDINGS: Right kidney: 14.5 cm. Mi ld hydronephrosis. This has improved. Romy l corticomedullary differentiation and cor tical thickness. Left kidney: Not identif ied. This was demonstrated to be atrophic on the prior study. Bladder: Almos t completely decompressed and therefore no t well visualized. IMPRESSION: 1. Mild right hydronephrosis. This has slig htly improved compared to the recent CT examination. 2. The left kidney was no t identified and was demonstrated to be at rophic on the prior study. Electron ically signed by: Nicolas Arechiga M.D. 11/30/2018 7:53 PM Dictated: 1950 Transcribed: 11/30/181950 CT Abd/Pelvis w/o Contrast (No IV, No Laboratory: [facility] C Diagnostic Imaging 1800 [address]. Oral) (Pending) [facility] [place] 30-Nov-2018 20:21 CT ABD/PELVIS NO IV OR ORAL CN [facility], [place] [phone] C T Scan Report Patient: FOREST KEYS Admit Date: 11/30/18 MR#: [id number] Address1: [address] Acct ID:[id number] Address2: Date: 1965 [facility] Zip: [place] [address] Age: 53 Location: ED Sex: M Room/Bed: Att Phy: Diagnosis: RT FLANK PAIN Mary Phy: Monica Shaikh MD Se rvice Date: 11/30/18 Fam P hy: Murtaza Baker MD Int erpr eting Phy: Nicolas Arechiga MD Admit Phy: Ordering Phy: Alber Cheney PA-C cc: ABDOMEN AND PELVIS CT WITHOUT CONTRAST CT DOSE: 1726.23 mGy.cm HISTORY: right flank pain TECHNIQUE: Multiaxial CT images of the abdomen and pelvis were performed without contrast. A dose lowe ring technique was utilized adhering to the principles of ALARA. COMPARISON FABIEN DY: Abdomen and pelvis CT 11/19/2018. FINDINGS: Punctate calcified granulomas within the left lower lobe. No pneumoperitoneum . No pneumatosis. Bilateral L5 spondylolysis with associated spondylolisthesis. Mild hepat ic steatosis. The unenhanced gallbladder, s pleen, adrenal glands, and pancreas are unremar kable. There is a severely atrophic left kidney . No retroperitoneal lymphadenopathy. The shannan dder is decompressed and not well evaluated. Small fat-containing right inguinal hernia. Sm all duodenal diverticulum. Normal appendix. Colonic diverticulosis. No evidence for diverticulitis. Suboptimal evaluation fo r bowel pathology due to the lack of intra venous and oral contrast. However, there is no definite bowel wallthickening or obstruc tion. Right perinephric edema persists. Modera te right hydroureteronephrosis tothe level of the proximal ureter is again noted. There is a 2 mm obstructing stone at the proximal ure ter on image 289 resulting in the hydronephrosi s. This remains unchanged. No renal calculi identified. IMPRESSION: 1. No change in the moderate right hydronephro sis secondary to an obstructing 2 mm stone w ithin theproximal right ureter. 2. No additi onal renal calculi. 3. The left kidney is markedly atrophic. 4. Hepatic steatosi s. 5. Colonic diverticulosis. Electronically signed by: Nicolas looney M.D. 11/30/2018 8:26 PM Dictat ed: 11/30/182020 Transcribed: 2020 Retrograde Includes KUB (Pending) Laboratory: [facility] Diagnost ic Imaging [address] [place] 01-Dec-2018 6:27 Retrograde Includes KUB (ROR) [facility], [place] [phone] Fluoroscopy Report Patient: FOREST KEYS Admit Date: 11/08 11/25 MR#: [id number] Address1: [address] [place] [address] Samantha Elizondo Acct ID:[id number] Address2 : Date: 1965 [facility] Zip: [place] [address] Age: 53 Location: 3N Sex: M Room/Bed: N380 Att Phy: Anthony Edward M.D. Diagnosis: OBSTR UCTING CALCULUS,ARF Mary Phy: Monica Shaikh MD Service Date: 11/30/18 Fam Phy: Murtaza Baker MD Interpr eting Phy: Avtar Ingram Admit Phy: Anthony Edward M. D. Ordering Phy: Kiran Cohen II, DO cc: FL retrograde includes kub HISTORY: 53 years-old Male CYSTO/STENT right-sided cystourethrogram with stent placement COMPARISON: CT abdo men and pelvis 11/30/2018 TECHNIQUE: 3 s pot fluoroscopic images of the right abdomen and pelvis were obtained utilizing 30.6 seco nds fluoroscopy time FINDINGS: Moder ate right hydroureteronephrosis redemonstrat ed. A right ureteral stent is placed which abdulkadir earsto be in satisfactory positioning. The prev iously described 2 mm calculus of the right ure ters not definitively seen on these images. IMPRESSION: Fluoroscopic assistance as a dominguez. Please see procedural report for further details. The above report wa s generated using voice recognition softwa [employer]. It may contain grammatical, syntaxor spelli ng errors. Electronically signed by: Bakari Ingram M.D. 12/01/2018 6:29 A M Dictated: 12/01/18626 Transc ribed: 12/01/18626 Encounters Appointment; Urology, Nursing Station 24-Nov-2018 9:40 Encounter Diagnosis: Problem not documented Appointment; Murtaza Baker M.D. 22-Nov-2018 13:00 Encounter Diagnosis: Problem not documented Appointment; Murtaza Baker M.D. 21-Sep-2018 9:00 Encounter Diagnosis: Problem not documented Appointment; Tanvir Murillo DO 24-Jun-2018 15:05 Encounter Diagnosis: Problem not documented Appointment; Tanvir Murillo DO 20-May-2018 13:30 Encounter Diagnosis: Problem not documented Appointment; Murtaza Baker M.D. 16-Mar-2018 12:45 Encounter Diagnosis: Problem not documented Appointment; Urology, Room 7 16-Mar-2018 12:30 Encounter Diagnosis: Problem not documented Appointment; Tanvir Murillo DO 04-Mar-2018 10:30 Encounter Diagnosis: Problem not documented Appointment; Murtaza Baker M.D. 28-Feb-2018 11:00 Encounter Diagnosis: Problem not documented Appointment; Murtaza Baker M.D. 14-Feb-2018 11:20 Encounter Diagnosis: Problem not documented Appointment; Tnavir Murillo DO 17-Dec-2017 9:15 Encounter Diagnosis: Problem not documented Appointment; Tanvir Murillo DO 11-Jun-2017 11:15 Encounter Diagnosis: Problem not documented Appointment; Murtaza Baker M.D. 21-Apr-2017 15:55 Encounter Diagnosis: Problem not documented Appointment; Urology, Room 7 21-Apr-2017 15:45 Encounter Diagnosis: Problem not documented Appointment; Murtaza Baker M.D. 13-Apr-2017 12:00 Encounter Diagnosis: Problem not documented Appointment; Tanvir Murillo DO 09-Apr-2017 15:15 Encounter Diagnosis: Problem not documented Appointment; Murtaza Baker M.D. 31-Mar-2017 14:20 Encounter Diagnosis: Problem not documented Appointment; Murtaza Baker M.D. 16-Jan-2019 8:15 Encounter Diagnosis: Problem not documented
--- OUTSIDE RECORDS SUMMARY | 2018-12-05 20:53 | External Medical Summary | Continuity of Care Document ---
:1965 Author Name Trevor Chowdhury, Provider Address Unavailable Unavailable , Care Team Providers Name Role Phone Murtaza Baker M.D. Unavailable [email or web address] Katheryn Reed Unavailable [email or web address] Problems Hypercholesterolemia (272.0) (E78.00) Diabetes mellitus, type 2 (250.00) (E11.9) Depression (311) (F32.9) Essential hypertension (401.9) (I10) Nephrolithiasis (592.0) (N20.0) Allergies and Adverse Reactions No Known Drug Allergies (Allergy) Medications Glucophage 500 MG Oral Tablet; TAKE 1 [...] Murillo Start: 11-Jun-2017 Quantity: 180 Refills: 3 Tamsulosin HCl - 0.4 MG Oral Capsule; TAKE 1 CAPSULE B edtime JULIAN Nolasco Start: 30-Nov-2018 Quantity: 30 Refills: 2 Procedures X-ray 1 view Abdomen (KUB) Date: [...] C Diagnostic Imaging 1800 [address]. Oral) (Pending) [facility] 19-Nov-2018 7:58 CT ABD/PELVIS NO IV OR ORAL CN [facility], [place] [phone] C T Scan Report Patient: FOREST KEYS Admit Date: 11/19/18 MR#: [id number] Address1: [address] [place], [place] [address] Acct ID:[id number] Address2: Date: 1965 [facility] Zip: [place] [address] Age: 53 Location: ED Sex: M Room/Bed: [...] RADFL Fluoroscopy Up to 1 HR Laboratory: [facility] Diagnostic Im aging [address]. (Pending) Kelly [facility] [place] 19-Nov-2018 11:10 FLUORO UP TO 1 HOUR [facility], [place] [phone] Fluoroscopy Report Patient: FOREST KEYS Admit Date: 11/19/18 MR#: [id number] Address1: [address] [place] [address] [address] Acct ID:[id number] Address2: Date: 1965 [facility] Zip: [place] [address] Age: 53 Location: 3N Sex: M Room/Bed: [...] Transcribed: 11/19/18 1110 FL KUB (Pending) Laboratory: [facility] Diagnostic Imaging 180 0 Jona [facility] [place] 19-Nov-2018 11:10 FL KUB [facility] [place] [phone] Fluoroscopy Report Mickey larios: KEYSFOREST Franco Admit Date: 11/07 10/25 MR#: [id number] Address1: [address] Acct ID:[id number] Address2 : Date: 1965 [facility] Zip: [place] [address] Age: 53 Location: 3N Sex: M Room/Bed: [facility] Att Phy: Mare Conway MD Diagnosis: A [...] X-ray 1 view Abdomen (KUB) (Pending) Laboratory: [facility] Diagnostic Imaging 1800 Jona [facility] 20-Nov-2018 9:15 KUB [facility] [place] [phone] XRay Report Patient: FOREST KEYS Admit Date: 11/07 10/25 MR#: [id number] Address1: [address] [place] [address] Acct ID:[id number] Address2 : Date: 1965 [facility] Zip: [place] [address] Age: 53 Location: 3N Sex: M Room/Bed: [facility] Att Phy: Mare Conway MD Diagnosis: A [...] right ureter. The above report was generated [employer] voice recognition software. It may cont ain grammatical, syntax or spelling errors. Electronically signed by: Ricardo reese M.D. 11/20/2018 9:17 AM Dictat ed: 11/20/18914 Transcribed: 914 X-ray 1 view Abdomen (KUB) (Pending) Laboratory: [facility] Diagnostic Imaging [address] [place] 30-Nov-2018 19:33 KUB [facility] [place] [phone] XRay Report Patient: FOREST KEYS Admit Date: 11/08 11/25 MR#: [id number] Address1: [address] [place] [address] Acct ID:[id number] Address2 : Date: 1965 [facility] Zip: [place] [address] Age: 53 Location: ED Sex: M Room/Bed: [...] 11/30/181932 US renal/blad retro comp (Pending) Laboratory: [facility] D iagnostic Imaging [address] [facility] [place] 30-Nov-2018 19:51 US renal/blad retro comp Favio Thomas [facility], [place] [phone] Ultrasound Report Patient: FOREST KEYS Admit Date: 11/30/18 MR#: [id number] Address1: [address] [place] [address] [address] Acct ID:[id number] Address2: Date: 1965 [facility] Zip: [place] [address] Age: 53 Location: ED Sex: M Room/Bed: [...] Abd/Pelvis w/o Contrast (No IV, No Laboratory: [facility] C Diagnostic Imaging [address]. Oral) (Pending) [facility] [place] 30-Nov-2018 20:21 CT ABD/PELVIS NO IV OR ORAL CN [facility], [place] [phone] C T Scan Report Patient: FOREST KEYS Admit Date: 11/30/18 MR#: [id number] Address1: [address] Acct ID:[id number] Address2: Date: 1965 [facility] Zip: [place] [address] Age: 53 Location: ED Sex: M Room/Bed: [...] adhering to the principles of ALARA. COMPARISON FABEIN DY: Abdomen and pelvis CT 11/19/2018. FINDINGS: [...] Transcribed: 2020 Retrograde Includes KUB (Pending) Laboratory: [facility] Diagnost ic Imaging [address] [place] 01-Dec-2018 6:27 Retrograde Includes KUB (ROR) [facility], [place] [phone] Fluoroscopy Report Patient: FOREST KEYS Admit Date: 11/08 11/25 MR#: [id number] Address1: [address] [place] [address] Samantha Elizondo Acct ID:[id number] Address2 : Date: 1965 [facility] Zip: [place] [address] Age: 53 Location: 3N Sex: M Room/Bed: [...] 11:20 Encounter Diagnosis: Problem not documented Appointment; Tanvir Murillo DO 17-Dec-2017 9:15 Encounter Diagnosis: Problem [...]
== END 2018-12-02 14:58 | disposition home or self-care (01) | DRG 660 ==
LOC: ED 17:32 → 3N 21:56 → OR 21:56 → 3N 21:57 → SUATTDRO 21:57
DX: Z88.8 Allergy status to other drugs, medicaments and biological substances; Z68.41 Body mass index [BMI] 40.0-44.9, adult; K76.0 Fatty (change of) liver, not elsewhere classified; E78.5 Hyperlipidemia, unspecified; E66.01 Morbid (severe) obesity due to excess calories; R34 Anuria and oliguria; Z79.84 Long term (current) use of oral hypoglycemic drugs; E11.9 Type 2 diabetes mellitus without complications; Z88.2 Allergy status to sulfonamides; N20.1 Calculus of ureter; N17.9 Acute kidney failure, unspecified; F41.9 Anxiety disorder, unspecified; Q60.0 Renal agenesis, unilateral; I10 Essential (primary) hypertension

== ENCOUNTER 2018-12-11 16:15 | Inpatient (IN) ==
[2018-12-11] MEDS ORDERED: ONDANSETRON INJ 2 MG/ML 2 ML VIAL IV STA (16:52)
[2018-12-11] MEDS ORDERED: fentaNYL citrate 100 MCG/2 ML VIAL IV STA (16:52)
[2018-12-11] MEDS ORDERED: SODIUM CHLORIDE 0.9% 1000ML 1,000 ML IV SCH (17:00)
[2018-12-11 17:06] LABS: Basophils # (auto) 0.04 K/uL (0-0.2); Basophils % (auto) 0.4 %; Eosinophils # (auto) 0.13 K/uL (0-0.5); Eosinophils % (auto) 1.2 %; Hematocrit (blood only) 37.4 % (42-52); Immature Granulocytes # (auto) 0.01 K/uL (0.00-0.02); Immature Granulocytes % (auto) 0.1 %; Lymphocytes # (auto) 1.99 K/uL (1.2-3.4); Lymphocytes % (auto) 18.7 %; Mean Corpuscular Hgb Conc 34.8 g/dL (32-36); Mean Corpuscular Volume 82.4 fL (80-100); Mean Platelet Volume 9.3 fL (7.4-10.4); Monocytes # (auto) 1.18 K/uL (0.11-0.59); Monocytes % (auto) 11.1 %; Neutrophils # (auto) 7.31 K/uL (1.4-6.5); Neutrophils % (auto) 68.5 %; Platelet Count 224 K/uL (130-400); RDW Coefficient of Variation 12.4 % (11.5-14.5); RDW Standard Deviation 37.2 fL (36.4-46.3); Red Blood Count 4.54 M/uL (4.7-6.1); White Blood Count 10.66 K/uL (4.8-10.8)
--- NOTE | 2018-12-11 17:08 | Emergency Department Note ---
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 He reports he has a hx of recurrent kidney stones. Last month, the patient had a kidney stone on the right side. He had a stent placed on November 22 which was taken out on the as it was thought his kidney stone had passed. He then developed right sided flank pain and had another stent placed on the which is still in. This morning, the patient reports he had some hematuria. He rates his pain as a 4/10 in severity. Home Medications Home Medications Medication Instructions Recorded Confirmed Type atorvastatin 10 mg PO PM 11/19/18 12/11/18 History escitalopram oxalate [Lexapro] 10 mg PO QPM 11/19/18 12/11/18 History glimepiride 4 mg PO QAM 11/19/18 12/11/18 History metformin 1,000 mg PO BID #0 tab 11/20/18 12/11/18 Rx potassium citrate 15 meq PO BID #0 tab 11/20/18 12/11/18 Rx losartan 50 mg PO QAM 11/21/18 12/11/18 History Allergies Allergy/AdvReac Type Severity Reaction Status Date / Time Bactrim AdvReac Intermediate diarrhea Verified 02/28/18 05:37 sulfamethoxazole AdvReac Intermediate diarrhea Verified 12/11/18 17:47 trimethoprim AdvReac Intermediate diarrhea Verified 12/11/18 17:47 Past Med/Surg History Medical History Renal agenesis (Acute) Diabetes (Chronic) A1C 11.4% Hypertension (Chronic) Congenital kidney disease (Chronic) Right ureteral calculus (Acute) Anxiety disorder Fatty liver Hyperlipidemia Morbid obesity ZA on CPAP Surgical History History of colonoscopy History of removal of ureteral stent x 2 Hx of cystoscopy x2 Family History Grandmother Diabetes Mother SLE (systemic lupus erythematosus) Parkinson disease Macular degeneration Social History Preferred Language: Greenlandic Communication Ability: Effective 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 and A total of 10 systems reviewed and were otherwise negative Physical Exam Vital Signs Vital Signs - 24 hr 12/11/18 16:18 12/11/18 17:11 12/11/18 17:15 Temperature 37.2 C Temperature Source Oral Sepsis Recent Fever Within 48 Hours No Sepsis New/Unexplained Change in Mental Status No Sepsis Action Taken by Nursing No Action Required Pulse Rate 73 75 73 Pulse Rate [Finger] Pulse Rate from SpO2 Sensor 76 Pulse Rhythm Regular Respiratory Rate 18 21 18 Respiratory Effort / Characteristics Non-Labored Spontaneous Respiratory Depth Normal Blood Pressure 149/83 H 143/89 H Blood Pressure [Left Arm] Blood Pressure Mean 105 107 Blood Pressure Mean [Left Arm] Blood Pressure Position Sitting Pulse Oximetry 99 93 99 Oxygen Delivery Method Room Air Room Air Room Air 12/11/18 18:28 12/11/18 20:37 Temperature Temperature Source Sepsis Recent Fever Within 48 Hours Sepsis New/Unexplained Change in Mental Status Sepsis Action Taken by Nursing Pulse Rate 73 Pulse Rate [Finger] 67 Pulse Rate from SpO2 Sensor 74 Pulse Rhythm Respiratory Rate 24 18 Respiratory Effort / Characteristics Respiratory Depth Blood Pressure 132/85 Blood Pressure [Left Arm] 147/90 H Blood Pressure Mean 100 Blood Pressure Mean [Left Arm] 109 Blood Pressure Position Pulse Oximetry 95 95 Oxygen Delivery Method Room Air Room Air Vital signs reviewed. General: Well-appearing male, in no significant distress. Obese HEENT: No scleral icterus, PERRLA, neck supple. Atraumatic. Cardiovascular: Regular rate and rhythm, no extra sounds. Pulmonary: Clear to auscultation bilaterally, normal work of breathing. Abdomen: Soft, nontender, nondistended, positive bowel sounds. Musculoskeletal: Atraumatic, no peripheral edema. Right CVA tenderness Neurologic: Patient awake alert and oriented x 3 Skin: Warm, dry, no rash Course 1700: Past medical records reviewed. The patient was evaluated in room B12. A complete history and physical examination was performed. Administered Medications Discontinued Medications Atorvastatin Calcium (Lipitor) 10 mg PO PM JOBY Stop: 01/11/19 00:12 Last Admin: 12/12/18 01:22 Dose: 10 mg Documented by: [id number] Escitalopram Oxalate (Lexapro) 10 mg PO QPM JOBY Stop: 01/11/19 00:12 Last Admin: 12/12/18 01:21 Dose: 10 mg Documented by: [id number] Fentanyl Citrate (Fentanyl Citrate) 100 mcg IV NOW [facility] Stop: 12/11/18 16:53 Last Admin: 12/11/18 17:06 Dose: 100 mcg Documented by: [id number] Sodium Chloride (Nss 1000ml) 1,000 mls @ 200 mls/hr IV .Q5H JOBY Stop: 01/10/19 16:59 Last Infusion: 12/12/18 00:43 Dose: 0 mls/hr Documented by: [id number] Admin: 12/11/18 17:07 Dose: 125 mls/hr Documented by: [id number] Sodium Chloride (Nss 1000ml) 500 mls @ 999 mls/hr IV .Q31M ONE Stop: 12/11/18 20:08 Last Infusion: 12/11/18 20:31 Dose: 0 mls/hr Documented by: [id number] Admin: 12/11/18 19:56 Dose: 999 mls/hr Documented by: [id number] Lactated Ringer's (Lr) 1,000 mls @ 200 mls/hr IV .Q5H JOBY Stop: 01/11/19 00:12 Last Admin: 12/12/18 14:44 Dose: 200 mls/hr Documented by: [id number] Infusion: 12/12/18 14:44 Dose: 200 mls/hr Documented by: [id number] Admin: 12/12/18 10:05 Dose: 200 mls/hr Documented by: [id number] Infusion: 12/12/18 10:05 Dose: 200 mls/hr Documented by: [id number] Infusion: 12/12/18 08:48 Dose: 200 mls/hr Documented by: [id number] Infusion: 12/12/18 05:30 Dose: 0 mls/hr Documented by: [id number] Admin: 12/12/18 05:29 Dose: 200 mls/hr Documented by: [id number] Infusion: 12/12/18 05:29 Dose: 0 mls/hr Documented by: [id number] Admin: 12/12/18 00:41 Dose: 200 mls/hr Documented by: [id number] Piperacillin Sod/Tazobactam (Sod 4.5 gm/ Dextrose) 120 mls @ 200 mls/hr IV NOW ONE; Protocol Stop: 12/12/18 01:20 Last Infusion: 12/12/18 02:15 Dose: 0 mls/hr Documented by: [id number] Admin: 12/12/18 01:23 Dose: 200 mls/hr Documented by: [id number] Piperacillin Sod/Tazobactam (Sod 4.5 gm/ Dextrose) 120 mls @ 30 mls/hr IV Q8 JOBY; Protocol Stop: 12/22/18 05:59 Last Infusion: 12/12/18 17:20 Dose: 0 mls/hr Documented by: [id number] Admin: 12/12/18 13:18 Dose: 30 mls/hr Documented by: [id number] Infusion: 12/12/18 09:35 Dose: 0 mls/hr Documented by: [id number] Admin: 12/12/18 05:29 Dose: 30 mls/hr Documented by: [id number] Insulin Aspart (Novolog Flexpen) 0 units SC ACHS JOBY Stop: 01/11/19 00:12 Last Admin: 12/12/18 13:19 Dose: 2 units Documented by: [id number] Cosigned by: [id number] Admin: 12/12/18 08:31 Dose: 3 units Documented by: [id number] Cosigned by: [id number] Admin: 12/12/18 00:41 Dose: Not Given Documented by: [id number] Cosigned by: [id number] Iothalamate Meglumine (Cysto-Conray Ii) Confirm Administered Dose 250 ml .ROUTE .STK-MED ONE Stop: 12/11/18 22:52 Last Admin: 12/11/18 23:12 Dose: 20 ml Documented by: [id number] Miscellaneous (Patient's Height And/Or Weight Needed) 1 ea N/A Q2H JOBY Stop: 01/11/19 00:44 Last Admin: 12/12/18 01:13 Dose: 1 ea Documented by: [id number] Ondansetron HCl (Zofran) 4 mg IV NOW STA Stop: 12/11/18 16:53 Last Admin: 12/11/18 17:06 Dose: 4 mg Documented by: [id number] Ondansetron HCl (Zofran) Confirm Administered Dose 4 mg .ROUTE .STK-MED ONE Stop: 12/11/18 21:35 Last Admin: 12/11/18 21:37 Dose: 4 mg Documented by: [id number] Potassium Citrate (Urocit-K) 15 meq PO BID JOBY Stop: 01/11/19 00:12 Last Admin: 12/12/18 08:28 Dose: 15 meq Documented by: [id number] Admin: 12/12/18 01:20 Dose: 15 meq Documented by: [id number] Medical Decision Making Differential Diagnosis Differential diagnosis: Etiologies such as renal colic, appendicitis, diverticulitis, mesenteric ischemia, aortic pathology, infections, inflammatory bowel disease, PUD, biliary pathology, UTI, as well as others were entertained. Medical Records Attestation: I reviewed the patient's medical records. Home Medications Current Medication List: was personally reviewed by me Laboratory Data Attestation: I reviewed the patient's lab results. Result diagrams: 12/12/18 06:53 12/12/18 15:55 Lab Results 12/11/18 12/11/18 12/11/18 Range/Units 16:48 16:48 20:43 WBC 10.66 (4.8-10.8) K/uL RBC 4.54 L (4.7-6.1) M/uL Hgb 13.0 L (14.0-18.0) g/dL Hct 37.4 L (42-52) % MCV 82.4 (80-100) fL MCH 28.6 (25-34) pg MCHC 34.8 (32-36) g/dL RDW Std Deviation 37.2 (36.4-46.3) fL RDW Coeff of Kandis 12.4 (11.5-14.5) % Plt Count 224 (130-400) K/uL MPV 9.3 (7.4-10.4) fL Immature Gran % (Auto) 0.1 % Neut % (Auto) 68.5 % Lymph % (Auto) 18.7 % Logan % (Auto) 11.1 % Eos % (Auto) 1.2 % Baso % (Auto) 0.4 % Immature Gran # (Auto) 0.01 (0.00-0.02) K/uL Neut # (Auto) 7.31 H (1.4-6.5) K/uL Lymph # (Auto) 1.99 (1.2-3.4) K/uL Logan # (Auto) 1.18 H (0.11-0.59) K/uL Eos # (Auto) 0.13 (0-0.5) K/uL Baso # (Auto) 0.04 (0-0.2) K/uL Sodium 138 (136-145) mmol/L Potassium 4.1 (3.5-5.1) mmol/L Chloride 107 (98-107) mmol/L Carbon Dioxide 25 (21-32) mmol/L Anion Gap 6.0 (3-11) BUN 30 H (7-18) mg/dl Creatinine 3.31 H (0.6-1.4) mg/dl Est Cr Clr Drug Dosing Not Reportable Est GFR ( Amer) 23.3 Est GFR (Non-Af Amer) 20.1 BUN/Creatinine Ratio 9.1 L (10-20) Glucose 146 H (70-99) mg/dl POC Glucose (70-99) Calcium 8.9 (8.5-10.1) mg/dl Total Bilirubin 0.3 (0.2-1) mg/dl AST 17 (15-37) U/L ALT 33 (12-78) U/L Alkaline Phosphatase 108 (45-117) U/L Total Creatine Kinase (39-308) U/L Total Protein 7.8 (6.4-8.2) gm/dl Albumin 3.8 (3.4-5.0) gm/dl Globulin 4.0 (2.5-4.0) gm/dl Albumin/Globulin Ratio 1.0 (0.9-2) Lipase 308 (73-393) U/L Specimen Hemolysis Urine Color Yellow Urine Appearance Cloudy A (Clear) Urine pH 5.0 (4.5-7.5) Ur Specific [place] 1.020 (1.000-1.030) Urine Protein 2+ H (Negative) Urine Glucose (UA) 3+ H (Negative) Urine Ketones Negative (Negative) Urine Blood 3+ H (Negative) Urine Nitrite Negative (Negative) Urine Bilirubin Negative (Negative) Urine Urobilinogen Negative (Negative) Ur Leukocyte Esterase 1+ H (Negative) Urine WBC (Auto) >30 H (0-5) /hpf Urine RBC (Auto) >30 H (0-4) /hpf U Hyaline Cast (Auto) 5-10 H (0-5) /lpf U Epithel Cells (Auto) >30 H (0-5) /lpf Urine Bacteria (Auto) Negative (Negative) Ur Renal Epithelial Cell >30 H (0-5) /lpf Urine Yeast Not Reportable 12/12/18 12/12/18 12/12/18 Range/Units 00:16 00:17 06:53 WBC 7.62 (4.8-10.8) K/uL RBC 4.11 L (4.7-6.1) M/uL Hgb 11.7 L (14.0-18.0) g/dL Hct 33.9 L (42-52) % MCV 82.5 (80-100) fL MCH 28.5 (25-34) pg MCHC 34.5 (32-36) g/dL RDW Std Deviation 37.5 (36.4-46.3) fL RDW Coeff of Kandis 12.5 (11.5-14.5) % Plt Count 196 (130-400) K/uL MPV 9.2 (7.4-10.4) fL Immature Gran % (Auto) 0.1 % Neut % (Auto) 60.9 % Lymph % (Auto) 28.2 % Logan % (Auto) 8.9 % Eos % (Auto) 1.6 % Baso % (Auto) 0.3 % Immature Gran # (Auto) 0.01 (0.00-0.02) K/uL Neut # (Auto) 4.64 (1.4-6.5) K/uL Lymph # (Auto) 2.15 (1.2-3.4) K/uL Logan # (Auto) 0.68 H (0.11-0.59) K/uL Eos # (Auto) 0.12 (0-0.5) K/uL Baso # (Auto) 0.02 (0-0.2) K/uL Sodium 142 (136-145) mmol/L Potassium 4.4 (3.5-5.1) mmol/L Chloride 111 H (98-107) mmol/L Carbon Dioxide 26 (21-32) mmol/L Anion Gap 5.0 (3-11) BUN 31 H (7-18) mg/dl Creatinine 3.32 H (0.6-1.4) mg/dl Est Cr Clr Drug Dosing Not Reportable Est GFR ( Amer) 23.2 Est GFR (Non-Af Amer) 20.1 BUN/Creatinine Ratio 9.2 L (10-20) Glucose 136 H (70-99) mg/dl POC Glucose 135 H (70-99) Calcium 8.1 L (8.5-10.1) mg/dl Total Bilirubin (0.2-1) mg/dl AST (15-37) U/L ALT (12-78) U/L Alkaline Phosphatase (45-117) U/L Total Creatine Kinase 89 (39-308) U/L Total Protein (6.4-8.2) gm/dl Albumin (3.4-5.0) gm/dl Globulin (2.5-4.0) gm/dl Albumin/Globulin Ratio (0.9-2) Lipase (73-393) U/L Specimen Hemolysis Urine Color Urine Appearance (Clear) Urine pH (4.5-7.5) Ur Specific [place] (1.000-1.030) Urine Protein (Negative) Urine Glucose (UA) (Negative) Urine Ketones (Negative) Urine Blood (Negative) Urine Nitrite (Negative) Urine Bilirubin (Negative) Urine Urobilinogen (Negative) Ur Leukocyte Esterase (Negative) Urine WBC (Auto) (0-5) /hpf Urine RBC (Auto) (0-4) /hpf U Hyaline Cast (Auto) (0-5) /lpf U Epithel Cells (Auto) (0-5) /lpf Urine Bacteria (Auto) (Negative) Ur Renal Epithelial Cell (0-5) /lpf Urine Yeast 12/12/18 12/12/18 12/12/18 Range/Units 08:32 09:11 11:39 WBC (4.8-10.8) K/uL RBC (4.7-6.1) M/uL Hgb (14.0-18.0) g/dL Hct (42-52) % MCV (80-100) fL MCH (25-34) pg MCHC (32-36) g/dL RDW Std Deviation (36.4-46.3) fL RDW Coeff of Kandis (11.5-14.5) % Plt Count (130-400) K/uL MPV (7.4-10.4) fL Immature Gran % (Auto) % Neut % (Auto) % Lymph % (Auto) % Logan % (Auto) % Eos % (Auto) % Baso % (Auto) % Immature Gran # (Auto) (0.00-0.02) K/uL Neut # (Auto) (1.4-6.5) K/uL Lymph # (Auto) (1.2-3.4) K/uL Logan # (Auto) (0.11-0.59) K/uL Eos # (Auto) (0-0.5) K/uL Baso # (Auto) (0-0.2) K/uL Sodium 142 (136-145) mmol/L Potassium 4.3 (3.5-5.1) mmol/L Chloride 110 H (98-107) mmol/L Carbon Dioxide 28 (21-32) mmol/L Anion Gap 4.0 (3-11) BUN 27 H (7-18) mg/dl Creatinine 2.71 H D (0.6-1.4) mg/dl Est Cr Clr Drug Dosing 44.2 Est GFR ( Amer) 29.7 Est GFR (Non-Af Amer) 25.6 BUN/Creatinine Ratio 10.1 (10-20) Glucose 192 H (70-99) mg/dl POC Glucose 191 H 154 H (70-99) Calcium 8.3 L (8.5-10.1) mg/dl Total Bilirubin (0.2-1) mg/dl AST (15-37) U/L ALT (12-78) U/L Alkaline Phosphatase (45-117) U/L Total Creatine Kinase (39-308) U/L Total Protein (6.4-8.2) gm/dl Albumin (3.4-5.0) gm/dl Globulin (2.5-4.0) gm/dl Albumin/Globulin Ratio (0.9-2) Lipase (73-393) U/L Specimen Hemolysis Urine Color Urine Appearance (Clear) Urine pH (4.5-7.5) Ur Specific [place] (1.000-1.030) Urine Protein (Negative) Urine Glucose (UA) (Negative) Urine Ketones (Negative) Urine Blood (Negative) Urine Nitrite (Negative) Urine Bilirubin (Negative) Urine Urobilinogen (Negative) Ur Leukocyte Esterase (Negative) Urine WBC (Auto) (0-5) /hpf Urine RBC (Auto) (0-4) /hpf U Hyaline Cast (Auto) (0-5) /lpf U Epithel Cells (Auto) (0-5) /lpf Urine Bacteria (Auto) (Negative) Ur Renal Epithelial Cell (0-5) /lpf Urine Yeast 12/12/18 12/12/18 Range/Units 15:55 16:26 WBC (4.8-10.8) K/uL RBC (4.7-6.1) M/uL Hgb (14.0-18.0) g/dL Hct (42-52) % MCV (80-100) fL MCH (25-34) pg MCHC (32-36) g/dL RDW Std Deviation (36.4-46.3) fL RDW Coeff of Kandis (11.5-14.5) % Plt Count (130-400) K/uL MPV (7.4-10.4) fL Immature Gran % (Auto) % Neut % (Auto) % Lymph % (Auto) % Logan % (Auto) % Eos % (Auto) % Baso % (Auto) % Immature Gran # (Auto) (0.00-0.02) K/uL Neut # (Auto) (1.4-6.5) K/uL Lymph # (Auto) (1.2-3.4) K/uL Logan # (Auto) (0.11-0.59) K/uL Eos # (Auto) (0-0.5) K/uL Baso # (Auto) (0-0.2) K/uL Sodium 140 (136-145) mmol/L Potassium 4.2 (3.5-5.1) mmol/L Chloride 110 H (98-107) mmol/L Carbon Dioxide 25 (21-32) mmol/L Anion Gap 5.0 (3-11) BUN 27 H (7-18) mg/dl Creatinine 2.54 H (0.6-1.4) mg/dl Est Cr Clr Drug Dosing 47.2 Est GFR ( Amer) 32.1 Est GFR (Non-Af Amer) 27.7 BUN/Creatinine Ratio 10.6 (10-20) Glucose 162 H (70-99) mg/dl POC Glucose 157 H (70-99) Calcium 8.4 L (8.5-10.1) mg/dl Total Bilirubin (0.2-1) mg/dl AST (15-37) U/L ALT (12-78) U/L Alkaline Phosphatase (45-117) U/L Total Creatine Kinase (39-308) U/L Total Protein (6.4-8.2) gm/dl Albumin (3.4-5.0) gm/dl Globulin (2.5-4.0) gm/dl Albumin/Globulin Ratio (0.9-2) Lipase (73-393) U/L Specimen Hemolysis Urine Color Urine Appearance (Clear) Urine pH (4.5-7.5) Ur Specific [place] (1.000-1.030) Urine Protein (Negative) Urine Glucose (UA) (Negative) Urine Ketones (Negative) Urine Blood (Negative) Urine Nitrite (Negative) Urine Bilirubin (Negative) Urine Urobilinogen (Negative) Ur Leukocyte Esterase (Negative) Urine WBC (Auto) (0-5) /hpf Urine RBC (Auto) (0-4) /hpf U Hyaline Cast (Auto) (0-5) /lpf U Epithel Cells (Auto) (0-5) /lpf Urine Bacteria (Auto) (Negative) Ur Renal Epithelial Cell (0-5) /lpf Urine Yeast Imaging Data Radiologist's Impression: Radiology results as stated below per my review and the radiologist's interpretation: KUB CLINICAL HISTORY: Right ureteral stent. FINDINGS: 2 AP supine abdominal radiographs are compared to abdominal radiographs and CT dated 11/30/2018. There is a nonobstructed abdominal bowel gas pattern. A right ureteral stent is in place. No calcifications are seen along the course of the stent. No calculi project over the kidneys. The bony structures appear intact. Mild lumbosacral spondylosis is observed. IMPRESSION: 1. A right ureteral stent is in place. 2. There is no radiographic evidence of nephrolithiasis. Electronically signed by: Ga Dumont M.D. 12/11/2018 5:24 PM ULTRASOUND KIDNEYS AND BLADDER CLINICAL HISTORY: Right flank pain. Ureteral stent. COMPARISON STUDY: KUB dated 12/11/2018. Abdominal CT dated 11/30/2018. TECHNIQUE: Real-time, grayscale, and color flow sonography of the kidneys and bladder is performed. Images are reviewed in the transverse and longitudinal planes. FINDINGS: Kidneys: The right kidney is enlarged and homogeneous in echotexture. The right kidney measures 17.0 x 9.0 x 8.0 cm. The left kidney was not identified There is mild right-sided hydronephrosis. A right ureteral stent is in place. No shadowing renal calculi are identified. There is no sonographic evidence of contour deforming renal mass lesion. No perinephric fluid is identified. Bladder: The bladder was decompressed and not well evaluated. The bladder contains the end of a right ureteral stent. IMPRESSION: 1. The right kidney is enlarged and there is mild right hydronephrosis. 2. A right ureteral stent is in place. 3. The markedly atrophic left kidney was not visualized by ultrasound. Electronically signed by: Ga Dumont M.D. 12/11/2018 7:00 PM Blood Pressure Blood Pressure Findings: Elevated blood pressure Blood Pressure Disposition: elevated BP felt to be situational MDM Narrative This patient was evaluated and appeared to be in no significant distress. IV access was obtained and laboratory work was drawn. Patient was placed on youth nutritional monitor and found to be in a normal sinus rhythm. Patient's laboratory work reveals a creatinine of 3.3. Patient had as a history of only one functioning kidney on the right. There is a stent in place. It appears to be in good position and ultrasound reveals only mild hydronephrosis. The patient has not urinated as of yet. I did discuss the case with [facility] urology, Dr. Mixon, who states there is no intervention required this evening. He will evaluate the patient for further management. Patient's case was discussed with Dr. Green of the hospitalist service he will evaluate the patient for further management. Impression & Plan ABDOUL (acute kidney injury), S/P ureteral stent placement, Renal agenesis, Acute dehydration Discharge Plan Visit Data *Final* Discharge Date/Time: 12/11/18 22:30 Chief Complaint: Flank Pain Stated Complaint: R FLANK PAIN ED Provider: Annalise Zee Discharge Problem: ABDOUL (acute kidney injury), S/P ureteral stent placement, Renal agenesis, Acute dehydration Patient Disposition: Admitted As Inpatient Discharge Instructions Interventions: ED Discharge Assessment Last Done: 12/11/18 22:30 The scribe's documentation has been prepared under my direction and personally reviewed by me in its entirety. I confirm that the note above accurately reflect s all work, treatment, procedures, and medical decision making performed by me.
[2018-12-11 17:24] LABS: Alanine Aminotransferase 33 U/L (12-78); Albumin Level 3.8 gm/dl (3.4-5.0); Aspartate Aminotransferase 17 U/L (15-37); BUN Creatinine Ratio 9.1 (10-20); Blood Urea Nitrogen 30 mg/dl (7-18); Calcium 8.9 mg/dl (8.5-10.1); Carbon Dioxide 25 mmol/L (21-32); Chloride 107 mmol/L (98-107); Est GFR (African American) 23.3; Est GFR (Non-African American) 20.1; Glucose 146 mg/dl (70-99); Potassium 4.1 mmol/L (3.5-5.1); Sodium 138 mmol/L (136-145)
--- NOTE | 2018-12-11 17:25 | XRay Report ---
KUB CLINICAL HISTORY: Right ureteral stent. FINDINGS: 2 AP supine abdominal radiographs are compared to abdominal radiographs and CT dated 019. There is a nonobstructed abdominal bowel gas pattern. A right ureteral stent is in place. No madeline cifications are seen along the course of the stent. No calculi project over the kidneys. The bony str uctures appear intact. Mild lumbosacral spondylosis is observed. IMPRESSION: 1. A right ureteral stent is in place. 2. There is no radiographic evidence of nephrolithiasis. Electronically signed by: Ga Dumont M.D. 12/11/2018 5:24 PM
[2018-12-11 17:27] LABS: Alkaline Phosphatase 108 U/L (45-117); Bilirubin,Total 0.3 mg/dl (0.2-1); Total Protein 7.8 gm/dl (6.4-8.2)
--- NOTE | 2018-12-11 19:01 | Ultrasound Report ---
ULTRASOUND KIDNEYS AND BLADDER CLINICAL HISTORY: Right flank pain. Ureteral stent. COMPARISON STUDY: KUB dated 12/11/2018. Abdominal CT dated 11/30/2018. TECHNIQUE: Real-time, grayscale, and color flow sonography of the kidneys and bladder is performed. I mages are reviewed in the transverse and longitudinal planes. FINDINGS: Kidneys: The right kidney is enlarged and homogeneous in echotexture. The right kidney measures 17.0 x 9.0 x 8.0 cm. The left kidney was not identified There is mild right-sided hydronephrosis. A right ureteral stent is in place. No shadowing renal calculi are identified. There is no sonographic eviden ce of contour deforming renal mass lesion. No perinephric fluid is identified. Bladder: The bladder was decompressed and not well evaluated. The bladder contains the end of a right ureteral stent. IMPRESSION: 1. The right kidney is enlarged and there is mild right hydronephrosis. 2. A right ureteral stent is in place. 3. The markedly atrophic left kidney was not visualized by ultrasound. Electronically signed by: Ga Dumont M.D. 12/11/2018 7:00 PM
[2018-12-11] MEDS ORDERED: SODIUM CHLORIDE 0.9% 1000ML 500 ML IV ONE (19:38)
[2018-12-11 21:13] LABS: Appearance Urine Cloudy (Clear); Bacteria Urine Automated Negative (Negative); Bilirubin Urine Negative (Negative); Blood Urine 3+ (Negative); Color Urine Yellow; Epithelial Cell Urine Auto >30 /lpf (0-5); Glucose Urine UA 3+ (Negative); Ketones Urine Negative (Negative); Leukocyte Esterase Urine 1+ (Negative); Nitrite Urine Negative (Negative); Protein Urine 2+ (Negative); Urobilinogen Urine Negative (Negative); WBC Urine Automated >30 /hpf (0-5)
--- NOTE | 2018-12-11 21:13 | History & Physical Report ---
Date of Service December 11, 2018 Assessment & Plan (1) Right flank pain: 53-year-old male was admitted on 11 Dec 2018 for right flank pain. Right flank pain: Recently underwent right ureteral stone extraction and stent placement on 24Apr by Dr. Cohen. Completed course of Cipro. No interval patient concerns until earlier on day of admission. Presently now pain, nausea, chills, and practically anuric since 10 AM. On arrival, afebrile, not tachycardic, no blood leukocytosis. KUB noted right ureteral stent in place. Renal u/s noted mild right hydronephrosis. Was able to get very small amount of urine, so sent UA and urine culture. - In ED, treated with fentanyl, Zofran, and normal saline IVF. - Discussed case with Annalise Zee, ED provider. She stated she spoke directly with Dr. Mixon (urology) who did not recommend emergent intervention this evening. - Will continue IVF and morphine + Zofran (both prn) for pain and nausea. Will cover with zosyn empirically. Acute renal injury: Admit Cr. 3.31 (on Apr was Cr 1.38) with BUN 30. Has a known history of congenital left renal agenesis. - Urology consult as above. Recheck BMP q6h for now. Track UOP. Check CK. Continue IVF with LR at 200 mL/hr for rehydration purposes. Ongoing medical issues: - Hypertension, hyperlipidemia: At home is on atorvastatin and losartan. --- Will hold his losartan for ABDOUL. - Diabetes type 2: Last A1c in record was 11.4 in Nov 2018. At home is on glimepiride and metformin. --- Placed on insulin sliding scale as inpatient. - ZA: On CPAP. Continue home CPAP use here. - Anxiety: Continue home Lexapro. Code status: Full code. Diet: N.p.o except meds. DVT prophy: SCDs and ambulation. PT/OT: Deferred. Disbo: Admit to med tele. (2) ABDOUL (acute kidney injury): (3) Renal agenesis: (4) Hypertension: (5) Hyperlipidemia: (6) Diabetes: (7) Obstructive sleep apnea: (8) Anxiety: History of Present Illness Primary Care Provider: Monica Shaikh 53-year-old male presents to the emergency department complaining of right- sided flank pain. Of note, patient has left congenital renal agenesis and had a ureteral stent placed on November 30 for similar symptoms. Patient says he was discharged from the hospital on the and went on work travel. Says he completed a course of Cipro last week as well. During his travels he denies any acute concerns but did say he had some ongoing hematuria. However, today (December 11) he says he developed 4/10 right flank pain, non-radiating, around 10 AM. Positive concurrent nausea and chills without vomiting/diarrhea. He also says he has not voided since 8 AM this morning. He denies any anterior abdominal pain or other acute concerns. --- Past medical history includes congenital left renal agenesis, hypertension, hyperlipidemia, diabetes type 2, obstructive sleep apnea, anxiety. --- Past surgical history includes cystoscopies and stent placements. 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 Allergies Allergy/AdvReac Type Severity Reaction Status Date / Time Bactrim AdvReac Intermediate diarrhea Verified 02/28/18 05:37 sulfamethoxazole AdvReac Intermediate diarrhea Verified 12/11/18 17:47 trimethoprim AdvReac Intermediate diarrhea Verified 12/11/18 17:47 Home Medications Home Medications Medication Instructions Recorded Confirmed Type atorvastatin 10 mg PO PM 11/19/18 12/11/18 History escitalopram oxalate [Lexapro] 10 mg PO QPM 11/19/18 12/11/18 History glimepiride 4 mg PO QAM 11/19/18 12/11/18 History metformin 1,000 mg PO BID #0 tab 11/20/18 12/11/18 Rx potassium citrate 15 meq PO BID #0 tab 11/20/18 12/11/18 Rx losartan 50 mg PO QAM 11/21/18 12/11/18 History Past Med/Surg History Medical History Renal agenesis (Acute) Diabetes (Chronic) A1C 11.4% Hypertension (Chronic) Congenital kidney disease (Chronic) Right ureteral calculus (Acute) Anxiety disorder Fatty liver Hyperlipidemia Morbid obesity ZA on CPAP Surgical History History of colonoscopy History of removal of ureteral stent x 2 Hx of cystoscopy x2 Family History Grandmother Diabetes Mother SLE (systemic lupus erythematosus) Parkinson disease Macular degeneration Social History Preferred Language: Palestinian Communication Ability: Effective Vice Chairman Required: No Beliefs That Will Affect Care: None marital status: Current Living Situation: Spouse current occupational status: employed 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 Other Information That Helps Us Care for You: No Feels Safe at Home: Yes Safety Concerns: Feels Safe At This Time Smoking Status: Never smoker Do You Dip or Chew Tobacco: No Second Hand Exposure: No Hx Alcohol Use: No Hx Substance Use: No Review of Systems Review of Systems: Constitutional: Denies fevers, focal weakness Eyes: Denies any visual loss or diplopia ENT: Denies any ear/nose/throat pain or difficulty speaking or swallowing Respiratory: Denies any dyspnea, cough, hemoptysis Cardiovascular: Denies any chest pain or feeling of edema Gastrointestinal: Denies any abdominal pain, vomiting/diarrhea Musculoskeletal: Denies any acute extremity pains, myalgias, or focal weakness Skin: Denies any known acute rashes or lesions Neuro: Denies any headache, acute focal weakness or numbness, or difficulties with speech or swallow. Physical Exam Physical Exam: GENERAL: Awake, alert, well-appearing, in no acute distress HENT: Normocephalic, atraumatic. Oropharynx unremarkable. EYES: Normal conjunctiva. Sclera non-icteric. NECK: Inspection normal. Non-tender. Supple and full ROM. No nuchal rigidity. CARDIAC: +S1S2 RRR, no murmurs. RESPIRATORY: Clear to auscultation. No wheezes or rales. Normal respiratory effort. GI: +BS, soft, non-distended. No anterior tenderness to palpation. No rebound or guarding. Positive right-sided CVA tenderness to palpation. EXTREMITIES: No pedal edema or calf tenderness. Moving all extremities naturally and easily. NEURO: No gross neuro deficits. Results & Data Vital Signs (Past 12 Hours) Vital Signs Temp Pulse Pulse Resp BP BP Pulse Ox 12/11/18 20:37 67 18 147/90 H 95 12/11/18 18:28 73 24 132/85 95 12/11/18 17:15 73 18 99 12/11/18 17:11 75 21 143/89 H 93 12/11/18 16:18 37.2 C 73 18 149/83 H 99 Laboratory Results 12/11/18 12/11/18 12/11/18 Range/Units 20:43 16:48 16:48 WBC 10.66 (4.8-10.8) K/uL RBC 4.54 L (4.7-6.1) M/uL Hgb 13.0 L (14.0-18.0) g/dL Hct 37.4 L (42-52) % MCV 82.4 (80-100) fL MCH 28.6 (25-34) pg MCHC 34.8 (32-36) g/dL RDW Std Deviation 37.2 (36.4-46.3) fL RDW Coeff of Kandis 12.4 (11.5-14.5) % Plt Count 224 (130-400) K/uL MPV 9.3 (7.4-10.4) fL Immature Gran % (Auto) 0.1 % Neut % (Auto) 68.5 % Lymph % (Auto) 18.7 % [place] % (Auto) 11.1 % Eos % (Auto) 1.2 % Baso % (Auto) 0.4 % Immature Gran # (Auto) 0.01 (0.00-0.02) K/uL Neut # (Auto) 7.31 H (1.4-6.5) K/uL Lymph # (Auto) 1.99 (1.2-3.4) K/uL [place] # (Auto) 1.18 H (0.11-0.59) K/uL Eos # (Auto) 0.13 (0-0.5) K/uL Baso # (Auto) 0.04 (0-0.2) K/uL Sodium 138 (136-145) mmol/L Potassium 4.1 (3.5-5.1) mmol/L Chloride 107 (98-107) mmol/L Carbon Dioxide 25 (21-32) mmol/L Anion Gap 6.0 (3-11) BUN 30 H (7-18) mg/dl Creatinine 3.31 H (0.6-1.4) mg/dl Est Cr Clr Drug Dosing Not Reportable Est GFR ( Amer) 23.3 Est GFR (Non-Af Amer) 20.1 BUN/Creatinine Ratio 9.1 L (10-20) Glucose 146 H (70-99) mg/dl Calcium 8.9 (8.5-10.1) mg/dl Total Bilirubin 0.3 (0.2-1) mg/dl AST 17 (15-37) U/L ALT 33 (12-78) U/L Alkaline Phosphatase 108 (45-117) U/L Total Protein 7.8 (6.4-8.2) gm/dl Albumin 3.8 (3.4-5.0) gm/dl Globulin 4.0 (2.5-4.0) gm/dl Albumin/Globulin Ratio 1.0 (0.9-2) Lipase 308 (73-393) U/L Urine Color Pending Urine Appearance Pending Urine pH Pending Ur Specific [place] Pending Urine Protein Pending Urine Glucose (UA) Pending Urine Ketones Pending Urine Blood Pending Urine Nitrite Pending Urine Bilirubin Pending Urine Urobilinogen Pending Ur Leukocyte Esterase Pending Medications Administered Sodium Chloride (Nss 1000ml) 1,000 mls @ 200 mls/hr IV .Q5H JOBY Stop: 01/10/19 16:59 Last Admin: 12/11/18 17:07 Dose: 125 mls/hr Documented by: [id number] Discontinued Medications Fentanyl Citrate (Fentanyl Citrate) 100 mcg IV NOW STA Stop: 12/11/18 16:53 Last Admin: 12/11/18 17:06 Dose: 100 mcg Documented by: [id number] Sodium Chloride (Nss 1000ml) 500 mls @ 999 mls/hr IV .Q31M ONE Stop: 12/11/18 20:08 Last Infusion: 12/11/18 20:31 Dose: 0 mls/hr Documented by: [id number] Admin: 12/11/18 19:56 Dose: 999 mls/hr Documented by: [id number] Ondansetron HCl (Zofran) 4 mg IV NOW STA Stop: 12/11/18 16:53 Last Admin: 12/11/18 17:06 Dose: 4 mg Documented by: [id number] Code Status & VTE Plan Code Status Full code VTE Prophylaxis Plan VTE Prophylaxis will be ordered: Yes Supervising Physician Co-Signing Physician Notes Attending addendum: I have physically seen this patient, have supervised the medical residents activities, and agree with the H&P unless as otherwise noted. Assessment and Plan: Right flank pain/obstructed right ureteral stent/acute right kidney injury/left agenesis of kidney- Patient reports he had not produced any urine since 10 AM even though he drank 46 ounces of fluid today. He was given additional fluid boluses of 1 L in the ED, and still only produced a few mils of urine. Zofran 4 mg IV every 6 hours as needed. NSS at 200 mils per hour. Zosyn 3.375 mg IV every [address] Mixon had been consulted, and did emergently come in to see the patient, take him to the OR and replaced the right ureteral stent. The patient will be admitted to [facility] telemetry. Serial BMP and magnesium levels. Diabetes mellitus-- Hold glimepiride and metformin until eating normally. Placed on Accu-Cheks before meals and at bedtime with NovoLog coverage per scale. Remainder of orders and notations as noted. Resident Activity Tracking Resident Involvement: Resident Care Provided Care Provided: Adult Hospital Medicine (1) Diabetes Diabetes mellitus complication status: with hyperglycemia Diabetes mellitus detention insulin use: without detention use Diabetes mellitus type: type 2 Qualified Code(s): E11.65 - Type 2 diabetes mellitus with hyperglycemia (2) Hypertension Hypertension type: essential hypertension Qualified Code(s): I10 - Essential (primary) hypertension
[2018-12-11 21:22] LABS: RBC Urine Automated >30 /hpf (0-4); Renal Epithelial Cells Urine >30 /lpf (0-5)
[2018-12-11] MEDS ORDERED: ONDANSETRON INJ 2 MG/ML 2 ML VIAL ONE (21:34)
--- NOTE | 2018-12-11 21:51 | Urology Consultation ---
Date of Consultation December 11, 2018 Assessment & Plan (1) ABDOUL (acute kidney injury): Assessment Right flank pain solitary right kidney anuria We will plan on taking patient to the OR tonight for right stent placement Procedure risks and benefits discussed with the patient and his History of Present Illness History of Present Illness 53-year-old white male with a history of nephrolithiasis and a solitary right k idney. He had a stent placed approximately 10 days ago which is still indwelling. He came to the emergency room tonight with anuria and right flank pain. Creatinine is up to 3.2 his baseline is about 1.2 no fevers or chills no nausea or vomiting Allergies Allergy/AdvReac Type Severity Reaction Status Date / Time Bactrim AdvReac Intermediate diarrhea Verified 02/28/18 05:37 sulfamethoxazole AdvReac Intermediate diarrhea Verified 12/11/18 17:47 trimethoprim AdvReac Intermediate diarrhea Verified 12/11/18 17:47 Home Medications Home Medications Medication Instructions Recorded Confirmed Type atorvastatin 10 mg PO PM 11/19/18 12/11/18 History escitalopram oxalate [Lexapro] 10 mg PO QPM 11/19/18 12/11/18 History glimepiride 4 mg PO QAM 11/19/18 12/11/18 History metformin 1,000 mg PO BID #0 tab 11/20/18 12/11/18 Rx potassium citrate 15 meq PO BID #0 tab 11/20/18 12/11/18 Rx losartan 50 mg PO QAM 11/21/18 12/11/18 History Patient History Medical History Renal agenesis (Acute) Diabetes (Chronic) A1C 11.4% Hypertension (Chronic) Congenital kidney disease (Chronic) Right ureteral calculus (Acute) Anxiety disorder Fatty liver Hyperlipidemia Morbid obesity ZA on CPAP Surgical History History of colonoscopy History of removal of ureteral stent x 2 Hx of cystoscopy x2 Family History Grandmother Diabetes Mother SLE (systemic lupus erythematosus) Parkinson disease Macular degeneration Social History Preferred Language: Kyrgyz Communication Ability: Effective Beliefs That Will Affect Care: None marital status: Current Living Situation: Spouse current occupational status: employed 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 Feels Safe at Home: Yes Smoking Status: Never smoker Second Hand Exposure: No Hx Alcohol Use: No Hx Substance Use: No Physical Exam Physical Exam: Well-developed well-nourished white male in no acute distress Neurologically alert and oriented x3 Lungs clear to auscultation Cardiac shows regular rate and rhythm without murmur Abdomen soft nontender there is no masses or hepatospleno megaly Back he does have some right flank pain Results & Data Vital Signs (Past 12 Hours) Vital Signs Temp Pulse Pulse Resp BP BP Pulse Ox 12/11/18 21:23 37.1 C 12/11/18 20:37 67 18 147/90 H 95 12/11/18 18:28 73 24 132/85 95 12/11/18 17:15 73 18 99 12/11/18 17:11 75 21 143/89 H 93 12/11/18 16:18 37.2 C 73 18 149/83 H 99 Laboratory Results Laboratory Results - last 24 hr 12/11/18 12/11/18 12/11/18 16:48 16:48 20:43 WBC 10.66 RBC 4.54 L Hgb 13.0 L Hct 37.4 L MCV 82.4 MCH 28.6 MCHC 34.8 RDW Std Deviation 37.2 RDW Coeff of Kandis 12.4 Plt Count 224 MPV 9.3 Immature Gran % (Auto) 0.1 Neut % (Auto) 68.5 Lymph % (Auto) 18.7 [place] % (Auto) 11.1 Eos % (Auto) 1.2 Baso % (Auto) 0.4 Immature Gran # (Auto) 0.01 Neut # (Auto) 7.31 H Lymph # (Auto) 1.99 [place] # (Auto) 1.18 H Eos # (Auto) 0.13 Baso # (Auto) 0.04 Sodium 138 Potassium 4.1 Chloride 107 Carbon Dioxide 25 Anion Gap 6.0 BUN 30 H Creatinine 3.31 H Est Cr Clr Drug Dosing Not Reportable Est GFR ( Amer) 23.3 Est GFR (Non-Af Amer) 20.1 BUN/Creatinine Ratio 9.1 L Glucose 146 H Calcium 8.9 Total Bilirubin 0.3 AST 17 ALT 33 Alkaline Phosphatase 108 Total Protein 7.8 Albumin 3.8 Globulin 4.0 Albumin/Globulin Ratio 1.0 Lipase 308 Urine Color Yellow Urine Appearance Cloudy A Urine pH 5.0 Ur Specific [place] 1.020 Urine Protein 2+ H Urine Glucose (UA) 3+ H Urine Ketones Negative Urine Blood 3+ H Urine Nitrite Negative Urine Bilirubin Negative Urine Urobilinogen Negative Ur Leukocyte Esterase 1+ H Urine WBC (Auto) >30 H Urine RBC (Auto) >30 H U Hyaline Cast (Auto) 5-10 H U Epithel Cells (Auto) >30 H Urine Bacteria (Auto) Negative Ur Renal Epithelial Cell >30 H Urine Yeast Not Reportable Diagnostic Findings KUB reviewed stent appears to be in good position no stone seen Renal ultrasound reviewed mild right hydronephrosis nonvisualization left kidney
[2018-12-11] MEDS ORDERED: MIDAZOLAM HCL 1 MG/ML 2ML VIAL ONE ×2 (22:03→22:52)
[2018-12-11] MEDS ORDERED: fentaNYL citrate 100 MCG/2 ML VIAL ONE (22:03)
--- NOTE | 2018-12-11 22:19 | Anesthesiology Consultation ---
Date of Service December 11, 2018 Assessment & Plan (1) Encounter for pre-operative examination: Chart Review Chart Review: Acceptable Risk for Surgery and Patient NOT seen in Pre Admission Testing Consults Requested none History Surgery Operation Date: 12/11/18 22:15 Proposed Procedures p Cystoscopy - Bossman Mixon MD Height/Weight Weight: 139.3 kg Allergies Allergy/AdvReac Type Severity Reaction Status Date / Time Bactrim AdvReac Intermediate diarrhea Verified 02/28/18 05:37 sulfamethoxazole AdvReac Intermediate diarrhea Verified 12/11/18 17:47 trimethoprim AdvReac Intermediate diarrhea Verified 12/11/18 17:47 Medications Home Medications Medication Instructions Recorded Confirmed Last Taken atorvastatin 10 mg PO PM 11/19/18 12/11/18 11/21/18 22:00 escitalopram oxalate [Lexapro] 10 mg PO QPM 11/19/18 12/11/18 11/21/18 22:00 glimepiride 4 mg PO QAM 11/19/18 12/11/18 11/18/18 23:00 metformin 1,000 mg PO BID #0 tab 11/20/18 12/11/18 11/18/18 23:00 potassium citrate 15 meq PO BID #0 tab 11/20/18 12/11/18 11/18/18 23:00 losartan 50 mg PO QAM 11/21/18 12/11/18 11/18/18 23:00 Active Medications Generic Name Dose Route Start Last Admin Trade Name Freq PRN Reason Stop Dose Admin Sodium Chloride 1,000 mls @ 200 mls/hr 12/11/18 17:00 12/11/18 17:07 Nss 1000ml IV 01/10/19 16:59 125 mls/hr .Q5H JOBY Administration NPO Date Last Intake of Fluids: 12/11/18 Time Last Intake of Fluids: 14:00 Date Last Intake of Solids: 12/11/18 Time Last Intake of Solids: 13:00 Past Medical History Medical History Renal agenesis (Acute) Diabetes (Chronic) A1C 11.4% Hypertension (Chronic) Congenital kidney disease (Chronic) Right ureteral calculus (Acute) Anxiety disorder Fatty liver Hyperlipidemia Morbid obesity ZA on CPAP Exercise / Class Metabolic Activity III < 4 Walking/Shop/Light housework Past Family History Family History Grandmother Diabetes Mother SLE (systemic lupus erythematosus) Parkinson disease Macular degeneration Past Surgical History Surgical History History of colonoscopy History of removal of ureteral stent x 2 Hx of cystoscopy x2 Past Anesthesia History No Hx of Anesthesia Complications and No Family Hx of Anesthesia Complications History of PONV No Hx of PONV and No Hx of Motion Sickness Social History Smoking Status: Never smoker Do You Dip or Chew Tobacco: No Hx Alcohol Use: No Alcohol type: beer alcohol intake frequency: holidays/special occasions only Hx Substance Use: No Physical Exam Vital Signs Last Vital Signs Temp 37.1 C 12/11/18 21:23 Pulse 67 12/11/18 20:37 Resp 18 12/11/18 20:37 BP 147/90 H 12/11/18 20:37 Pulse Ox 95 12/11/18 20:37 Testing Electrocardiogram Date: 11/19/18 Findings: + NSR @ (67) Laboratory Results 12/11/18 16:48 12/11/18 16:48 Urine Color Yellow 12/11/18 20:43 Urine Appearance Cloudy (Clear) A 12/11/18 20:43 Urine pH 5.0 (4.5-7.5) 12/11/18 20:43 Ur Specific [place] 1.020 (1.000-1.030) 12/11/18 20:43 Urine Protein 2+ (Negative) H 12/11/18 20:43 Urine Glucose (UA) 3+ (Negative) H 12/11/18 20:43 Urine Ketones Negative (Negative) 12/11/18 20:43 Urine Nitrite Negative (Negative) 12/11/18 20:43 Ur Leukocyte Esterase 1+ (Negative) H 12/11/18 20:43 Urine WBC (Auto) >30 /hpf (0-5) H 12/11/18 20:43 Urine RBC (Auto) >30 /hpf (0-4) H 12/11/18 20:43 U Hyaline Cast (Auto) 5-10 /lpf (0-5) H 12/11/18 20:43 U Epithel Cells (Auto) >30 /lpf (0-5) H 12/11/18 20:43 Urine Bacteria (Auto) Negative (Negative) 12/11/18 20:43
[2018-12-11] MEDS ORDERED: ePHEDrine sulfate 50 MG/ML AMP IV PRN (22:41)
[2018-12-11] MEDS ORDERED: ATROPINE SULFATE 0.1 MG/ML 10ML SYR IV PRN (22:41)
[2018-12-11] MEDS ORDERED: ONDANSETRON INJ 2 MG/ML 2 ML VIAL IV PRN (22:41)
[2018-12-11] MEDS ORDERED: fentaNYL citrate 100 MCG/2 ML VIAL IV PRN (22:41)
[2018-12-11] MEDS ORDERED: IOTHALAMATE MEGLUMINE II 17.2% 250 ML VIAL ONE (22:51)
[2018-12-11] MEDS ORDERED: PROPOFOL IV EMULSION 10 MG/ML 20 ML VIAL IV ONE (23:12)
--- NOTE | 2018-12-11 23:31 | Operative Report ---
Post Operative Report Pre & Post Diagnosis Operation Date: 12/11/18 22:15 Pre-Op Diagnosis: Obstructed Right Kidney Post-Op Diagnosis: Obstructed Right Kidney Procedure Operation Date: 12/11/18 22:15 Actual Procedures p Cystoscopy, Right Stent Insertion(Right) - Bossman Mixon MD Surgeon Bossman Mixon MD Hand Pleater None Estimated Blood Loss 0 Findings Consistent with Post-Op Diagnosis Retrograde showed right hydronephrosis Specimens None Drains 6 [place] by multilength right ureteral stent Anesthesia Type MAC Complications none Disposition Accompanied Patient To Recovery: Yes Disposition: Recovery Room Indications 53-year-old white male with solitary right kidney. Had an indwelling stent was admitted because of right flank pain and acute renal failure renal ultrasound showed mild right hydro-because of the renal failure patient being brought in for stent change Description of Procedure Patient was correctly identified and after the induction of an adequate level of intravenous sedation appropriate timeout patient was placed in the dorsolithotomy position. Lower abdomen genitalia prepped with Hibiclens draped in sterile fashion. Meatus was dilated with dilators to 26 [place]. Using a 20 [place] cystoscope routine cystoscopic exam was performed next the previously placed right ureteral stent was grasped with a grasper and brought out through the meatus. I was unable to pass a wire up the stent so the cystoscope was reinserted and I was able to pass the wire alongside the stent until positioned in the renal pelvis confirmed by fluoroscopy the old stent was removed. Open- ended catheter was passed over the wire and the wire was removed. A retrograde pyelogram was done which confirmed position of the renal pelvis. Guidewire was rethreaded through the nikolai catheter and then through the cystoscope open- ended catheter was removed. 6 [place] MultiLink stent was then passed under fluoroscopic guidance over the guidewire up the right ureter to position in the renal pelvis confirmed by fluoroscopy. The guidewire was removed there was good curl at the bladder level. Patient's bladder was then drained. All needle sponge and instrument counts were correct in the case. Patient tolerated the procedure well and was taken recovery in stable condition. I attest to the content of the Intraoperative Record and any orders documented therein. Any exceptions are noted below.
--- NOTE | 2018-12-12 00:09 | Anesthesiology Progress Note ---
Date of Service December 12, 2018 Anesthesia Post Procedure Vital Signs Vital Signs: Temp Pulse Pulse Pulse Resp BP BP 12/11/18 23:50 36.9 C 69 20 123/78 12/11/18 23:40 36.9 C 67 20 146/85 H 12/11/18 23:30 72 18 153/85 H 12/11/18 23:21 36.9 C 74 20 145/82 H 12/11/18 21:23 37.1 C 12/11/18 20:37 67 18 147/90 H 12/11/18 18:28 73 24 132/85 12/11/18 17:15 73 18 12/11/18 17:11 75 21 143/89 H 12/11/18 16:18 37.2 C 73 18 149/83 H Pulse Ox 12/11/18 23:50 95 12/11/18 23:40 96 12/11/18 23:30 100 12/11/18 23:21 100 12/11/18 21:23 12/11/18 20:37 95 12/11/18 18:28 95 12/11/18 17:15 99 12/11/18 17:11 93 12/11/18 16:18 99 Pain Intensity Abdomen: Pain Intensity: 9 Transfer of Care Handoff Completed per policy Notes Mental Status: alert / awake / arousable and participated in evaluation Patient Amnestic to Procedure: Yes Nausea / Vomiting: adequately controlled Pain: adequately controlled Airway Patency, RR, SpO2: stable & adequate BP & HR: stable & adequate Hydration State: stable & adequate Anesthetic Complications: no major complications apparent and Pt Satisfied with anesthetic care
[2018-12-12] MEDS ORDERED: PIPERACILL/TAZOBAC CONSULT ACTIVE PRN (00:13)
[2018-12-12] MEDS ORDERED: PIPERACILLIN/TAZOBACTAM 2.25 GM in DEXTROSE 5% 100 ML IV SCH (00:13)
[2018-12-12] MEDS ORDERED: GLUCOSE 10 TABS/TUBE PO PRN (00:13)
[2018-12-12] MEDS ORDERED: ESCITALOPRAM OXALATE 10 MG TAB PO SCH (00:13)
[2018-12-12] MEDS ORDERED: GLUCOSE 40% GEL 15 GM TUBE PO PRN (00:13)
[2018-12-12] MEDS ORDERED: ONDANSETRON INJ 2 MG/ML 2 ML VIAL IV PRN (00:13)
[2018-12-12] MEDS ORDERED: GLUCAGON FOR INJ 1 MG VIAL SQ PRN (00:13)
[2018-12-12] MEDS ORDERED: DEXTROSE 50% 50 ML SYRINGE IV PRN (00:13)
[2018-12-12] MEDS ORDERED: CARBOHYDRATES FOR HYPOGLYCEMIA PO PRN (00:13)
[2018-12-12] MEDS ORDERED: MoRPHine SULFATE 4 MG/ML 1 ML CARP\\VIAL IV PRN (00:13)
[2018-12-12] MEDS ORDERED: ATORVASTATIN 10 MG TAB PO SCH (00:13)
[2018-12-12] MEDS: LACTATED RINGER'S 1,000 ML IV SCH ×4 (00:41→14:44)
[2018-12-12] MEDS: INSULIN ASPART 100 UNITS/ML 3 ML PEN SC SCH ×3 (00:41→13:19)
[2018-12-12] MEDS ORDERED: PIPERACILLIN/TAZOBACTAM 4.5 GM in DEXTROSE 5% 100 ML IV ONE (00:45)
[2018-12-12] MEDS ORDERED: PATIENT'S HEIGHT AND/OR WEIGHT NEEDED SCH (00:45)
[2018-12-12 00:50] LABS: BUN Creatinine Ratio 9.2 (10-20); Blood Urea Nitrogen 31 mg/dl (7-18); Calcium 8.1 mg/dl (8.5-10.1); Carbon Dioxide 26 mmol/L (21-32); Chloride 111 mmol/L (98-107); Est GFR (African American) 23.2; Est GFR (Non-African American) 20.1; Glucose 136 mg/dl (70-99); Potassium 4.4 mmol/L (3.5-5.1); Sodium 142 mmol/L (136-145)
[2018-12-12 00:53] LABS: Creatine Kinase 89 U/L (39-308)
[2018-12-12] MEDS: POTASSIUM CITRATE 10 MEQ TAB PO SCH ×2 (01:20→08:28)
[2018-12-12] MEDS: PIPERACILLIN/TAZOBACTAM 4.5 GM in DEXTROSE 5% 100 ML IV SCH ×2 (05:29→13:18)
--- NOTE | 2018-12-12 06:49 | Fluoroscopy Report ---
FL retrograde includes kub CLINICAL HISTORY: CYSTOstent placement COMPARISON STUDY: None FLUOROSCOPY TIME: 54 seconds NUMBER OF FLUOROSCOPIC IMAGES: 3 FINDINGS: Image intensifier support was utilized for a right ureteral stent placement. IMPRESSION: Image intensifier support for a right ureteral stent placement The above report was generated using voice recognition software. It may contain grammatical, syntax or spelling errors. Electronically signed by: Ricardo Dejesus M.D. 12/12/2018 6:48 AM
[2018-12-12 07:15] LABS: Basophils # (auto) 0.02 K/uL (0-0.2); Basophils % (auto) 0.3 %; Eosinophils # (auto) 0.12 K/uL (0-0.5); Eosinophils % (auto) 1.6 %; Hematocrit (blood only) 33.9 % (42-52); Hemoglobin 11.7 g/dL (14.0-18.0); Immature Granulocytes # (auto) 0.01 K/uL (0.00-0.02); Immature Granulocytes % (auto) 0.1 %; Lymphocytes # (auto) 2.15 K/uL (1.2-3.4); Lymphocytes % (auto) 28.2 %; Mean Corpuscular Hgb Conc 34.5 g/dL (32-36); Mean Corpuscular Volume 82.5 fL (80-100); Mean Platelet Volume 9.2 fL (7.4-10.4); Monocytes # (auto) 0.68 K/uL (0.11-0.59); Monocytes % (auto) 8.9 %; Neutrophils # (auto) 4.64 K/uL (1.4-6.5); Neutrophils % (auto) 60.9 %; Platelet Count 196 K/uL (130-400); RDW Coefficient of Variation 12.5 % (11.5-14.5); RDW Standard Deviation 37.5 fL (36.4-46.3); Red Blood Count 4.11 M/uL (4.7-6.1); White Blood Count 7.62 K/uL (4.8-10.8)
--- NOTE | 2018-12-12 08:35 | Urology Progress Note ---
Date of Service December 12, 2018 Assessment & Plan (1) S/P ureteral stent placement: POD #1 s/p right stent exchange. Patient feeling well. I suspect that ABDOUL will continue to resolve, recommend nephrology consultation if continued issues. Patient has follow up appointment in our outpatient clinic this week, will keep as scheduled. Please reconsult our service if additional questions/concerns during hospitalization. Thank you for allowing us to participate in the care of Mr. Smith. (2) Right flank pain: (3) ABDOUL (acute kidney injury): Subjective 53 YO male POD #1 s/p right stent exchange. Patient reports feeling much better this morning. No pain. No fever/chills. Urinating spontaneously without bother +intermittent hematuria. No nausea/vomiting. Review of Systems Review of Systems: All systems reviewed & are unremarkable except as noted in HPI & below Physical Exam Physical Exam: WN/WD NAD. Resp effort normal. No edema, no JVD. Abdomen soft/nontender. A&O x3, appropriate affect. Results & Data Vital Signs (Past 12 Hours) Vital Signs Temp Pulse Pulse Pulse Resp BP Pulse Ox 12/12/18 07:19 63 20 117/72 94 12/12/18 04:07 36.6 C 59 L 16 120/74 97 12/12/18 03:11 36.8 C 65 21 122/72 96 12/12/18 02:10 64 12/12/18 01:47 36.8 C 71 18 130/77 94 12/12/18 01:16 36.9 C 66 18 132/80 95 12/12/18 00:45 36.8 C 62 18 127/80 95 12/12/18 00:44 37.1 C 66 14 121/71 93 12/12/18 00:31 37 C 83 18 133/75 95 12/11/18 23:50 36.9 C 69 20 123/78 95 12/11/18 23:40 36.9 C 67 20 146/85 H 96 12/11/18 23:30 72 18 153/85 H 100 12/11/18 23:21 36.9 C 74 20 145/82 H 100 12/11/18 21:23 37.1 C 12/11/18 20:37 67 18 147/90 H 95
[2018-12-12 10:16] LABS: BUN Creatinine Ratio 10.1 (10-20); Calcium 8.3 mg/dl (8.5-10.1); Creatinine Clr Calc Pharmacy 44.2 ml/min; Est GFR (African American) 29.7; Est GFR (Non-African American) 25.6; Potassium 4.3 mmol/L (3.5-5.1)
[2018-12-12 16:24] LABS: BUN Creatinine Ratio 10.6 (10-20); Calcium 8.4 mg/dl (8.5-10.1); Creatinine Clr Calc Pharmacy 47.2 ml/min; Est GFR (African American) 32.1; Est GFR (Non-African American) 27.7; Potassium 4.2 mmol/L (3.5-5.1)
--- NOTE | 2018-12-12 17:12 | Discharge Summary ---
Date of Service December 12, 2018 Admission HPI Per Admitting Provider 53-year-old male presents to the emergency department complaining of right-sided flank pain. Of note, patient has left congenital renal agenesis and had a ureteral stent placed on November 30 for similar symptoms. Patient says he was discharged from the hospital on the and went on work travel. Says he completed a course of Cipro last week as well. During his travels he denies any acute concerns but did say he had some ongoing hematuria. However, today (December 11) he says he developed 4/10 right flank pain, non-radiating, around 10 AM. Positive concurrent nausea and chills without vomiting/diarrhea. He also says he has not voided since 8 AM this morning. He denies any anterior abdominal pain or other acute concerns. --- Past medical history includes congenital left renal agenesis, hypertension, hyperlipidemia, diabetes type 2, obstructive sleep apnea, anxiety. --- Past surgical history includes cystoscopies and stent placements. 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 Principal Diagnosis Acute Renal Failure Discharge Exam Constitutional WD/WN, vitals as above Respiratory normal respiratory effort, lungs clear to auscultation Cardiovascular RRR, no murmur, no edema Gastrointestinal (Abdomen) normal bowel sounds, soft, nontender, no hepatosplenomegaly Psychiatric A+Ox3, euthymic affect Discharge Data Allergies Allergy/AdvReac Type Severity Reaction Status Date / Time Bactrim AdvReac Intermediate diarrhea Verified 02/28/18 05:37 sulfamethoxazole AdvReac Intermediate diarrhea Verified 12/11/18 17:47 trimethoprim AdvReac Intermediate diarrhea Verified 12/11/18 17:47 Consultations 12/11/18 19:32 ED Decision to Admit Stat 12/12/18 00:13 Consult Urology Routine Procedures Performed Operation Date: 12/11/18 22:15 Actual Procedures p Cystoscopy, Right Stent Insertion(Right) - Bossman Mixon MD Ordered Studies 12/11/18 FL retrograde includes kub Routine 12/11/18 17:56 US renal/blad retro comp Stat Hospital Course (1) Acute renal failure: 1) Right flank pain: 53-year-old male was admitted on 11 Dec 2018 for right flank pain. Right flank pain: Recently underwent right ureteral stone extraction and stent placement on by Dr. Cohen. Completed course of Cipro. No interval patient concerns until earlier on day of admission. Had flank pain, nausea, chills, and practically anuric. On arrival, afebrile, not tachycardic, no blood leukocytosis. KUB noted right ureteral stent in place. Renal u/s noted mild right hydronephrosis. - In ED, treated with fentanyl, Zofran, and normal saline IVF. - Urology consulted and patient underwent replacement of stent. - Kept on IVF and pain control. Given zosyn empirically. Culture came back negative. No antibiotic on discharge. Acute renal injury: Admit Cr. 3.31 (on 26Apr was Cr 1.38) with BUN 30. Has a known history of congenital left renal agenesis. - Creatinine improving after stent exchange and IV fluid hydration. Creatinine on discharge 2.54. - To have BMP checked as outpatient in 2-3 days - Continue to hold losartan, metformin and glimiperide for 3 days until bmp results reviewed by primary care physician. Ongoing medical issues: - Hypertension, hyperlipidemia: At home is on atorvastatin and losartan. - Held his losartan for ABDOUL. - Diabetes type 2: Last A1c in record was 11.4 in Nov 2018. - At home is on glimepiride and metformin. - ZA: On CPAP. Continue home CPAP use here. - Anxiety: Continue home Lexapro. Follow up with family physician in one week Follow up with urology as recommended. Total Time Total Time Spent Total Time Spent (In Minutes): 40 Discharge Plan Discharge Items Patient Disposition: Home - Self-Care Reason For Visit: FLANK PAIN,ABDOUL Discharge Diagnosis: Acute Renal Failure Discharge Goals: Improve disease control Activity: Resume your previous activity Non-emergency contact: Primary Care Provider Call non-emergency contact if: you have any medication questions Follow-up/Referrals: Monica Shaikh [Primary Care Provider] - Diet: Heart Healthy and Low Sodium (2gm) Addtl Provider Instructions: Please hold losartan, glimepiride and metformin until your blood test of kidney function comes back down enough as per your primary care provider recommendation. Please get blood test for kidney function done on . Follow up with your family physician in one week. Prescriptions: Continued atorvastatin 10 mg Tablet 10 mg PO PM RF: 0 escitalopram oxalate [Lexapro] 10 mg Tablet 10 mg PO QPM RF: 0 glimepiride 4 mg Tablet 4 mg PO QAM RF: 0 metformin 1,000 mg Tablet Extended Release 24hr 1,000 mg PO BID Qty: 0 RF: 0 potassium citrate 15 mEq Tablet Extended Release 15 meq PO BID Qty: 0 RF: 0 losartan 50 mg tablet 50 mg PO QAM RF: 0 Stand-Alone Forms: [facility] Discharge Orders: Discharge Order (Routine); Ordered 12/12/18 Ordered By: Tasha Taylor Admission Data Admit Date/Time: 12/11/18 21:07 Attending Provider: Tasha Taylor Admit Provider: Bakari Zuluaga Primary Care Provider: Monica Shaikh Other Providers: Andrzej Ramirez David Service: Telemetry Medical Other Interventions: Discharge Summary Assessment (RN) Last Done: 12/12/18 17:01
== END 2018-12-12 18:05 | disposition home or self-care (01) | DRG 660 ==
LOC: ED 16:15 → SUATTDRO 21:07 → 2W 21:07
DX: Q60.0 Renal agenesis, unilateral; G47.33 Obstructive sleep apnea (adult) (pediatric); E78.5 Hyperlipidemia, unspecified; E66.01 Morbid (severe) obesity due to excess calories; Z68.41 Body mass index [BMI] 40.0-44.9, adult; I10 Essential (primary) hypertension; Z79.84 Long term (current) use of oral hypoglycemic drugs; R31.9 Hematuria, unspecified; N13.30 Unspecified hydronephrosis; F41.9 Anxiety disorder, unspecified; E11.9 Type 2 diabetes mellitus without complications; Z79.899 Other long term (current) drug therapy; N17.9 Acute kidney failure, unspecified

== ENCOUNTER 2020-08-20 15:50 | Inpatient (IN) ==
[2020-08-20] MEDS ORDERED: SODIUM CHLORIDE 0.9% 1000ML 1,000 ML IV ONE (18:03)
[2020-08-20] MEDS ORDERED: ONDANSETRON INJ 2 MG/ML 2 ML VIAL IV STA (18:03)
[2020-08-20] MEDS ORDERED: HYDROmorphone INJ 1 MG/ML SYRINGE IV STA (18:03)
--- NOTE | 2020-08-20 19:51 | CT Scan Report ---
ABDOMEN AND PELVIS CT WITHOUT CONTRAST CT DOSE: 1928.94 mGy.cm HISTORY: Acute right-sided flank pain with hematuria. History of kidney stones flank pain TECHNIQUE: Multiaxial CT images of the abdomen and pelvis were performed without contrast. A dose lo wering technique was utilized adhering to the principles of ALARA. COMPARISON STUDY: CT abdomen pelvis 03/04/2020 FINDINGS: Mild subpleural groundglass opacities of the right lung base favor atelectasis. Mild right hemidiaphragmatic elevation. Calcified granuloma of the lingula. No pneumatosis or pneumoperitoneum. Coronary artery calcifications. The unenhanced spleen, pancreas, gallbladder and adrenal glands are u nremarkable. The liver also appears unremarkable. Marked left renal atrophy. Compensatory enlargement of the right kidney. Moderate right-sided hydrour eteronephrosis with perinephric and periureteral stranding secondary to an obstructing calculi of the mid right ureter at the level of the superior endplate L4. There appears to be 3 calculi, the larges t of which measures 4 mm. There are least 3 nonobstructing calculi noted within the right kidney, lar gest of which measures 8 mm and is linear within the inferior pole. Decompressed urinary bladder. Unr emarkable prostate. Small fat filled right inguinal hernia. Unremarkable aorta and IVC. There is no a denopathy. Small duodenal diverticulum. There is no bowel obstruction or bowel wall thickening. Colonic divertic ulosis. Mild to moderate fecal retention. Noninflamed appendix. Tiny fat filled periumbilical hernia. No acute fracture. Remote bilateral L5 pars defects with 2 mm anterolisthesis L5 on S1. IMPRESSION: 1. Moderate right-sided hydroureteronephrosis secondary to three obstructing calculi within the mid r ight ureter at the level of L4. 2. Nonobstructing right nephrolithiasis. 3. Marked left renal atrophy. 4. No bowel obstruction or bowel wall thickening. Normal appendix. 5. Colonic diverticulosis. ACT 112: Negative or not required by law. The above report was generated using voice recognition software. It may contain grammatical, syntax o r spelling errors. Electronically signed by: Bakari Ingram M.D. 08/20/2020 7:50 PM
[2020-08-20 19:58] LABS: Basophils # (auto) 0.04 K/uL (0-0.2); Basophils % (auto) 0.3 %; Eosinophils # (auto) 0.11 K/uL (0-0.5); Eosinophils % (auto) 0.8 %; Hematocrit (blood only) 39.4 % (42-52); Hemoglobin 13.3 g/dL (14.0-18.0); Immature Granulocytes # (auto) 0.03 K/uL (0.00-0.02); Immature Granulocytes % (auto) 0.2 %; Lymphocytes # (auto) 1.82 K/uL (1.2-3.4); Lymphocytes % (auto) 13.5 %; Mean Corpuscular Hemoglobin 28.5 pg (25-34); Mean Corpuscular Hgb Conc 33.8 g/dL (32-36); Mean Corpuscular Volume 84.4 fL (80-100); Mean Platelet Volume 8.9 fL (7.4-10.4); Monocytes # (auto) 1.28 K/uL (0.11-0.59); Monocytes % (auto) 9.5 %; Neutrophils # (auto) 10.25 K/uL (1.4-6.5); Neutrophils % (auto) 75.7 %; Platelet Count 244 K/uL (130-400); RDW Coefficient of Variation 12.5 % (11.5-14.5); RDW Standard Deviation 38.1 fL (36.4-46.3); Red Blood Count 4.67 M/uL (4.7-6.1); White Blood Count 13.53 K/uL (4.8-10.8)
[2020-08-20 20:18] LABS: BUN Creatinine Ratio 11.1 (10-20); Creatinine Clr Calc Pharmacy 47.2 ml/min; Est GFR (African American) 33.1; Est GFR (Non-African American) 28.6; Potassium 4.3 mmol/L (3.5-5.1)
--- NOTE | 2020-08-20 21:07 | History & Physical Report ---
Date of Service August 20, 2020 Assessment & Plan (1) ABDOUL (acute kidney injury): I suspect the acute kidney injury is secondary to the patient's kidney stones noted on CAT scan. We will avoid nephrotoxic medication We will provide gentle hydration We will repeat labs in the morning (2) Calculus of right ureter: Treating emergency room physician has been in contact with Dr. Baker of urology. Patient will tentatively be taken to the operating room for cystoscopy and possible stent placement tomorrow. We will therefore make him n.p.o. after midnight We will provide antiemetics and analgesics due to the pain the patient was experiencing We will place patient on Flomax to help expel the stones (3) Diabetes: We will place the patient on sliding scale insulin. Due to his acute kidney injury his Metformin will be held (4) Hypertension: Patient takes metoprolol which we will continue at his home dose. We will hold his losartan due to planned operative procedure tomorrow (5) Hyperlipidemia: We will maintain the patient on his home dose of Lipitor (6) Atrial fibrillation: We will check a preoperative EKG We will maintain the patient on his home dose of metoprolol We will hold the patient's Eliquis due to his planned operative procedure. We will use SCDs only for DVT prophylaxis. If the patient's Eliquis is resumed postoperatively no further measures will be needed Man will be a level 1 full code in the event of cardiopulmonary arrest. History of Present Illness Chief Complaint: I have a kidney stone Primary Care Provider: Monica Shaikh This is a 55 year -old male with a history of a left atrophic kidney as well as a history of uric acid kidney stones and acute kidney injury. Patient notes that he has a history of having kidney stones causing acute kidney injury requiring ureteral stents with the most recent episode being in October 2018. He says he follows locally with Dr. Baker of urology. This man was in his usual state of health until approximate 3 to 4 days ago when he developed hematuria. Over the ensuing several days he noted he had some right flank pain with no radiation. He said that the pain persisted so he contacted his urologist. The pain ultimately became so severe he presented to the emergency department. He does have nausea without vomiting but and he also has chills but has not had any febrile episodes. He denies dysuria. In the emergency department a CT scan was performed that showed a markedly atrophic left kidney. The right kidney demonstrated moderate hydronephrosis secondary to 3 obstructing stones in the mid ureter. Labs consisted of a CBC which revealed a white blood cell count of 3.5 his hemoglobin was 13.3 and his hematocrit was 39.4. The platelet count was noted to be within normal range. Chemistry profile showed sodium and potassium were within the normal range. His BUN and creatinine were 27 and 2.4. It is noted to mention that over the past year his baseline renal function showed a creatinine of approximately 1.3. Patient does take Eliquis for history of atrial fibrillation. He said his most recent dose was at 7:30 AM this morning. He currently does not have any palpitations or chest pain. At the time of my exam he is resting comfortably in bed his pain was better controlled and he was in no distress. Allergies Allergy/AdvReac Type Severity Reaction Status Date / Time Bactrim AdvReac Intermediate diarrhea Verified 02/28/18 05:37 sulfamethoxazole AdvReac Intermediate diarrhea Verified 08/20/20 21:24 trimethoprim AdvReac Intermediate diarrhea Verified 08/20/20 21:24 Home Medications Medication Instructions Recorded Confirmed Type escitalopram oxalate [Lexapro] 10 mg PO QPM 11/19/18 08/20/20 History losartan 50 mg PO QPM 11/21/18 08/20/20 History atorvastatin 20 mg tablet 20 mg PO QPM 04/09/20 08/20/20 History lactobacillus combination no.8 1 mg PO DAILY 04/09/20 08/20/20 History metformin 500 mg 24 hr 2,000 mg PO QPM tab 04/09/20 08/20/20 History tablet,extended release Trulicity 1.5 mg/0.5 mL 1.5 mg SUBCUT .COMPLEX #6 ml NS 05/24/20 08/20/20 Rx subcutaneous pen injector apixaban 5 mg tablet 5 mg PO BID 06/27/20 08/20/20 History metoprolol tartrate 25 mg tablet 12.5 mg PO BID 06/27/20 08/20/20 History acetaminophen [Tylenol Extra 1,000 mg PO Q6H PRN 08/20/20 08/20/20 History Strength] insulin aspart U-100 [Novolog 6 unit SUBCUT TID 08/20/20 08/20/20 History Flexpen U-100 Insulin] insulin degludec [Tresiba 38 unit SUBCUT DAILY 08/20/20 08/20/20 History FlexTouch U-100] Past Med/Surg History Medical History (Updated 08/21/20 @ 01:09 by Junior Rai) Anxiety disorder Congenital kidney disease Diabetes A1C 11.4% TYPE 2 Fatty liver Hyperlipidemia Hypertension Microalbuminuria Morbid obesity ZA on CPAP Renal agenesis Right ureteral calculus Uncontrolled type 2 diabetes mellitus Surgical History History of anesthesia reaction DIZZY/NAUSEATED/LIGHT SENSITIVTY WITH FIRST CYSTOSCOPY History of colonoscopy History of lithotripsy x2 History of removal of ureteral stent x 2 History of tooth extraction Hx of cystoscopy x5 Family History Grandmother Diabetes Mother SLE (systemic lupus erythematosus) Parkinson disease Macular degeneration Social History Smoking Status: Never smoker Second Hand Exposure: No; Do You Dip or Chew Tobacco: No; Hx Alcohol Use: No Hx Substance Use: No Preferred Language: Tanzanian Communication Ability: Effective Biological Technician Required: No Beliefs That Will Affect Care: None marital status: Current Living Situation: Spouse current occupational status: employed 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 How many Children do You have: 1 Other Information That Helps Us Care for You: Yes (born with one kidney right side) Feels Safe at Home: Yes Safety Concerns: Feels Safe At This Time Assistive Devices: CPAP and Glasses Review of Systems Constitutional: + chills; no fever Eyes: no diplopia Ear, Nose, Mouth, Throat: no ear pain Respiratory: no cough and no dyspnea Cardiovascular: no chest pain and no palpitations Gastrointestinal: + nausea; no vomiting Genitourinary: + hematuria and + flank pain (Right sided); no dysuria Musculoskeletal: + back pain (Right flank pain) Integumentary: no rash Neurologic: no localized weakness Physical Exam Constitutional: well developed and well nourished; no acute distress Eyes: no conjunctival abnormality ENMT: Ears: no hearing impairment Neck: trachea midline Respiratory: normal respiratory effort, lungs clear to auscultation Cardiovascular: Rate/Rhythm: regular rate and regular rhythm Gastrointestinal (Abdomen): Percussion/Palpation: abdomen soft; abdomen nontender Right CVA tenderness noted with percussion Musculoskeletal: No calf pain Skin: no rashes, warm and dry Neurologic: CN's II-XI intact bilaterally and moves all extremities Psychiatric: A+Ox3, euthymic affect Results & Data Results & Data ([facility] [place]) Vital Signs (Past 12 Hours) Vital Signs Temp Pulse Pulse Resp BP BP Pulse Ox 08/20/20 20:24 79 19 122/74 96 08/20/20 18:53 75 18 149/83 H 98 08/20/20 16:15 37.2 C 79 16 138/81 96 Code Status & VTE Plan VTE Prophylaxis Plan VTE Prophylaxis will be ordered: Yes Supervising Physician Co-Signing Physician Notes Patient seen and examined, chart reviewed, case discussed with MARY Vidal and I agree with his assessment and plan as above. Briefly, patient is a 55yo male with history of left atrophic kidney - multiple uric acid stones in the past. He follows with Dr. Baker. He presents today with 3-4 days of hematuria and right flank pain as well as nausea. CT with moderate hydronephrosis of the right kidney with 3 obstructing stones in the mid ureter. Labs significant for leukocytosis, elevated BUN of 27 and Cr of 2.4. Patient seen on medical floor, resting comfortably in bed, NAD Skin - no rash HEENT - NC/AT, PERRL, MMM Heart - +S1/S2, regular, no m/r/g Lungs - CTA Abd - mild tenderness with lower abdominal palpation, no rebound/guarding/peritoneal signs Ext - No edema Labs and images reviewed Assessment/Plan - 55yo C male with history of atrophic left kidney, prior stone disease presenting with obstructing renal stones, hydronephrosis and ABDOUL. He is afebrile, HD stable, non-toxic in appearance. Pain well controlled with current regimen -Admit to medical -IVF, pain control and anti-emetics -Ciprofloxacin -Flomax -Urology assistance appreciated - patient NPO for possible procedure in AM. Jennifer held on admission -Remainder of plan as above PG Care Time/CCT Total # of Minutes Spent Total Time Spent with Patient: Total time spent is greater than 50% in coordination of care (as documented) at patient's floor/unit and/or counseling patient: Coding Level of Care Code 71357 Initial Inpt Care Lvl 3 Diagnoses ABDOUL (acute kidney injury) N17.9 Calculus of right ureter N20.1 Diabetes E11.65 Diabetes mellitus complication status: with hyperglycemia Diabetes mellitus prison insulin use: without prison use Diabetes mellitus type: type 2 Hypertension I10 Hypertension type: essential hypertension Hyperlipidemia E78.5 Atrial fibrillation I48.91 (1) Diabetes Diabetes mellitus complication status: with hyperglycemia Diabetes mellitus prison insulin use: without long term care administrator use Diabetes mellitus type: type 2 Qualified Code(s): E11.65 - Type 2 diabetes mellitus with hyperglycemia (2) Hypertension Hypertension type: essential hypertension Qualified Code(s): I10 - Essential (primary) hypertension
[2020-08-20] MEDS ORDERED: METOPROLOL TARTRATE 25 MG TAB PO SCH (21:30)
[2020-08-20] MEDS ORDERED: ONDANSETRON INJ 2 MG/ML 2 ML VIAL IV PRN (22:12)
[2020-08-20] MEDS ORDERED: ACETAMINOPHEN 1,000 MG/100 ML VIAL IV PRN (22:12)
[2020-08-20] MEDS ORDERED: oxyCODONE HCL SOLN 5 MG/5 ML UDC PO PRN (22:12)
[2020-08-20] MEDS ORDERED: MoRPHine SULFATE 2 MG/ML CARP IV PRN (22:12)
[2020-08-20] MEDS: SODIUM CHLORIDE 0.9% 1000ML 1,000 ML IV SCH (23:06)
[2020-08-20] MEDS: TAMSULOSIN HCL 0.4 MG CAP PO SCH (23:12)
[2020-08-20] MEDS: INSULIN ASPART 100 UNITS/ML 3 ML PEN SC SCH (23:13)
[2020-08-20] MEDS ORDERED: GLUCOSE 40% GEL 15 GM TUBE PO PRN (23:45)
[2020-08-20] MEDS ORDERED: GLUCOSE 10 TABS/TUBE PO PRN (23:45)
[2020-08-20] MEDS ORDERED: CARBOHYDRATES FOR HYPOGLYCEMIA PO PRN (23:45)
[2020-08-20] MEDS ORDERED: GLUCAGON FOR INJ 1 MG VIAL IM PRN (23:45)
[2020-08-20] MEDS ORDERED: DEXTROSE 50% 50 ML SYRINGE IV PRN (23:45)
[2020-08-21] MEDS ORDERED: CIPROFLOXACIN / D5W 400 MG/200 ML BAG IV SCH
--- NOTE | 2020-08-21 01:08 | Emergency Department Note ---
History of Present Illness General Chief Complaint: Flank Pain Stated Complaint: R SIDED FLANK PAIN Time Seen by Provider: 08/20/20 17:49 History of Present Illness Provider Complaint: flank pain (R) Onset (ago): 2 week(s) Pain Consistency: intermittent Location: R flank Radiation: none Severity: moderate Maximum Pain Intensity: 6 Current Pain Intensity: 8 Quality: + stabbing and + sharp Relieved By: + nothing Exacerbated By: + nothing Context: + history of similar episodes (History of right-sided kidney stones) Associated Symptoms: + nausea; no vomiting, no diarrhea, no fever, no chills, no constipation, no dysuria, no hematemesis, no hematochezia, no melena, no hematuria, no anorexia, no headache, no back pain, no chest pain, no weakness and no numbness Home Medications Medication Instructions Recorded Confirmed Type escitalopram oxalate [Lexapro] 10 mg PO QPM 11/19/18 08/20/20 History losartan 50 mg PO QPM 11/21/18 08/20/20 History atorvastatin 20 mg tablet 20 mg PO QPM 04/09/20 08/20/20 History lactobacillus combination no.8 1 mg PO DAILY 04/09/20 08/20/20 History metformin 500 mg 24 hr 2,000 mg PO QPM tab 04/09/20 08/20/20 History tablet,extended release Trulicity 1.5 mg/0.5 mL 1.5 mg SUBCUT .COMPLEX #6 ml NS 05/24/20 08/20/20 Rx subcutaneous pen injector apixaban 5 mg tablet 5 mg PO BID 06/27/20 08/20/20 History metoprolol tartrate 25 mg tablet 12.5 mg PO BID 06/27/20 08/20/20 History acetaminophen [Tylenol Extra 1,000 mg PO Q6H PRN 08/20/20 08/20/20 History Strength] insulin aspart U-100 [Novolog 6 unit SUBCUT TID 08/20/20 08/20/20 History Flexpen U-100 Insulin] insulin degludec [Tresiba 38 unit SUBCUT DAILY 08/20/20 08/20/20 History FlexTouch U-100] Allergies Allergy/AdvReac Type Severity Reaction Status Date / Time Bactrim AdvReac Intermediate diarrhea Verified 02/28/18 05:37 sulfamethoxazole AdvReac Intermediate diarrhea Verified 08/20/20 21:24 trimethoprim AdvReac Intermediate diarrhea Verified 08/20/20 21:24 Past Med/Surg History Medical History (Updated 08/21/20 @ 01:09 by Junior Rai) Anxiety disorder Congenital kidney disease Diabetes A1C 11.4% TYPE 2 Fatty liver Hyperlipidemia Hypertension Microalbuminuria Morbid obesity ZA on CPAP Renal agenesis Right ureteral calculus Uncontrolled type 2 diabetes mellitus Surgical History History of anesthesia reaction DIZZY/NAUSEATED/LIGHT SENSITIVTY WITH FIRST CYSTOSCOPY History of colonoscopy History of lithotripsy x2 History of removal of ureteral stent x 2 History of tooth extraction Hx of cystoscopy x5 Family History Grandmother Diabetes Mother SLE (systemic lupus erythematosus) Parkinson disease Macular degeneration Social History Smoking Status: Never smoker Second Hand Exposure: No; Do You Dip or Chew Tobacco: No; Hx Alcohol Use: No Hx Substance Use: No Preferred Language: Serbian Communication Ability: Effective Fiscal Services Manager Required: No Beliefs That Will Affect Care: None marital status: Current Living Situation: Spouse current occupational status: employed 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 How many Children do You have: 1 Other Information That Helps Us Care for You: Yes (born with one kidney right side) Feels Safe at Home: Yes Safety Concerns: Feels Safe At This Time Assistive Devices: CPAP and Glasses Review of Systems A total of 10 systems reviewed and were otherwise negative Physical Exam Vital Signs: Vital Signs - 24 hr 08/20/20 16:15 08/20/20 18:53 08/20/20 20:24 Temperature 37.2 C Temperature Source Oral Pulse Rate 79 Pulse Rate [Finger ] 75 79 Pulse Rhythm Regular Pulse Rhythm [Fing er] Regular Pulse Strength Normal Pulse Strength [Fi nger] Normal Respiratory Rate 16 18 19 Respiratory Effort / Characteristics Non-Labored Non-Labored Non-Labored Respiratory Depth Normal Normal Normal Respiratory Patter n Regular Regular Blood Pressure 138/81 Blood Pressure [Ri ght Arm] 149/83 H 122/74 Blood Pressure Andra n 100 Blood Pressure Andra n [Right Arm] 105 90 Blood Pressure Pos ition Sitting Blood Pressure Pos ition [Right Arm] Lying Sitting Pulse Oximetry 96 98 96 Oxygen Delivery Me thod Room Air Room Air Room Air Sepsis Recent Feve r Within 48 Hours No Sepsis New/Unexpla ined Change in Men chi Status N/A Sepsis Action Take n by Nursing No Action Required Physical Exam: Physical Exam GENERAL: He is oriented to person, place, and time. He appears well-developed and well-nourished. He does not appear distressed. HENT: Exam performed. - Head: Normocephalic and atraumatic. - Right Ear: External ear normal. No mastoid tenderness. - Left Ear: External ear normal. No mastoid tenderness. - Mouth/Throat: The oropharynx is clear and moist. No trismus in the jaw. No dental abscesses or uvula swelling. No oropharyngeal exudate or tonsillar abscesses. EYES: Conjunctivae and EOM are normal. Pupils are equal, round, and reactive to light. Right eye exhibits no discharge. Left eye exhibits no discharge. No scleral icterus. NECK: Normal range of motion. Neck supple. No JVD present. No spinous process tenderness present. No carotid bruit present. No rigidity. No tracheal deviation and normal range of motion present. No Brudzinski's sign and no Kernig's sign noted. CV: Normal rate, regular rhythm, normal heart sounds and intact distal pulses. There is no peripheral edema. Palpable radial pulses bue. PULM/CHEST: Effort normal and breath sounds normal. No respiratory distress. No stridor. He has no wheezes. He has no rales. - Chest Wall: He exhibits no tenderness. ABD: The abdomen is soft. Bowel sounds are normal. He has no distension. No mass is present. There is no tenderness. There is no rebound, no guarding, no Kemp's sign and no tenderness at McBurney's point. Rovsig negative. Right- sided CVA tenderness. MUSC/SKEL: Normal range of motion. There is no peripheral edema, tenderness or deformity. LYMPH: No cervical adenopathy. NEURO: He is alert and oriented to person, place, and time. He has normal strength. No cranial nerve deficit or sensory deficit. Coordination and gait normal. GCS eye subscore is 4. GCS verbal subscore is 5. GCS motor subscore is 6. Cerebellar tests wnl. SKIN: Skin is warm and dry. He is not diaphoretic. PSYCH: He has a normal mood and affect. Behavior is normal. Judgment and thought content normal. Course Course 1748: The patient was evaluated in room B11. A complete history and physical exam was performed. Bladder scan showed a decompressed bladder. 2039: Vital signs stable. Labs show acute kidney injury with creatinine of 2.4. Mild leukocytosis of 13.5. CT shows 3 right-sided kidney stones with hydroureteronephrosis largest kidney stone measuring up to [address]. [address] Baker patient's urologist who recommended that the patient be admitted to the medicine service with him on consult and he will evaluate the patient tomor row morning. Dr. Israel coronel [facility] hospitalist was notified of the patient. Administered Medications Sodium Chloride (Nss 1000ml) 1,000 mls @ 125 mls/hr IV .Q8H JOBY Stop: 09/19/20 22:11 Last Admin: 08/20/20 23:06 Dose: 100 mls/hr Documented by: [id number] Acetaminophen (Ofirmev) 1,000 mg in 100 mls @ 400 mls/hr IV Q8H PRN PRN Reason: Pain Stop: 08/23/20 22:11 Last Infusion: 08/20/20 23:29 Dose: 0 mls/hr Documented by: [id number] Admin: 08/20/20 23:10 Dose: 400 mls/hr Documented by: [id number] Ciprofloxacin (Cipro / D5w) 400 mg in 200 mls @ 100 mls/hr IV Q12H JOBY; Protocol Stop: 08/31/20 00:00 Last Admin: 08/21/20 00:11 Dose: 100 mls/hr Documented by: [id number] Insulin Aspart (Insulin Aspart 100 Units/Ml 3 Ml Pen) 0 units SC Q6 JOBY Stop: 09/19/20 22:44 Last Admin: 08/20/20 23:13 Dose: Not Given Documented by: [id number] Cosigned by: [id number] Metoprolol Tartrate (Metoprolol Tartrate 25 Mg Tab) 25 mg PO BID JOBY Stop: 09/19/20 21:29 Last Admin: 08/20/20 21:15 Dose: 25 mg Documented by: [id number] Tamsulosin HCl (Tamsulosin Hcl 0.4 Mg Cap) 0.4 mg PO HS JOBY Stop: 09/19/20 22:44 Last Admin: 08/20/20 23:12 Dose: 0.4 mg Documented by: [id number] Discontinued Medications Hydromorphone HCl (Hydromorphone Inj 1 Mg/Ml Syringe) 1 mg IV NOW STA Stop: 08/20/20 18:04 Last Admin: 08/20/20 18:54 Dose: 1 mg Documented by: [id number] Sodium Chloride (Nss 1000ml) 1,000 mls @ 999 mls/hr IV .Q1H1M ONE Stop: 08/20/20 19:03 Last Infusion: 08/20/20 19:53 Dose: 0 mls/hr Documented by: [id number] Admin: 08/20/20 18:45 Dose: 999 mls/hr Documented by: [id number] Ondansetron HCl (Ondansetron Inj 2 Mg/Ml 2 Ml Vial) 4 mg IV NOW STA Stop: 08/20/20 18:04 Last Admin: 08/20/20 18:54 Dose: 4 mg Documented by: [id number] Medical Decision Making Laboratory Data Result diagrams: 08/20/20 19:47 08/20/20 19:47 Lab Results 08/20/20 08/20/20 08/20/20 Range/Units 19:47 19:47 20:53 WBC 13.53 H (4.8-10.8) K/uL RBC 4.67 L (4.7-6.1) M/uL Hgb 13.3 L (14.0-18.0) g/dL Hct 39.4 L (42-52) % MCV 84.4 (80-100) fL MCH 28.5 (25-34) pg MCHC 33.8 (32-36) g/dL RDW Std Deviation 38.1 (36.4-46.3) fL RDW Coeff of Kandis 12.5 (11.5-14.5) % Plt Count 244 (130-400) K/uL MPV 8.9 (7.4-10.4) fL Immature Gran % (Auto) 0.2 % Neut % (Auto) 75.7 % Lymph % (Auto) 13.5 % Bladen % (Auto) 9.5 % Eos % (Auto) 0.8 % Baso % (Auto) 0.3 % Neut # (Auto) 10.25 H (1.4-6.5) K/uL Lymph # (Auto) 1.82 (1.2-3.4) K/uL Bladen # (Auto) 1.28 H (0.11-0.59) K/uL Eos # (Auto) 0.11 (0-0.5) K/uL Baso # (Auto) 0.04 (0-0.2) K/uL Immature Gran # (Auto) 0.03 H (0.00-0.02) K/uL Sodium 137 (136-145) mmol/L Potassium 4.3 (3.5-5.1) mmol/L Chloride 106 (98-107) mmol/L Carbon Dioxide 24 (21-32) mmol/L Anion Gap 7.0 (3-11) BUN 27 H (7-18) mg/dl Creatinine 2.45 H (0.6-1.4) mg/dl Est Cr Clr Drug Dosing 47.2 ml/min Est GFR ( Amer) 33.1 Est GFR (Non-Af Amer) 28.6 BUN/Creatinine Ratio 11.1 (10-20) Glucose 115 H (70-99) mg/dl Calcium 9.0 (8.5-10.1) mg/dl COVID-19 Eval [facility] SARS-CoV-2, RNA, NAAT (NEGATIVE) 08/20/20 Range/Units 20:53 WBC (4.8-10.8) K/uL RBC (4.7-6.1) M/uL Hgb (14.0-18.0) g/dL Hct (42-52) % MCV (80-100) fL MCH (25-34) pg MCHC (32-36) g/dL RDW Std Deviation (36.4-46.3) fL RDW Coeff of Kandis (11.5-14.5) % Plt Count (130-400) K/uL MPV (7.4-10.4) fL Immature Gran % (Auto) % Neut % (Auto) % Lymph % (Auto) % Bladen % (Auto) % Eos % (Auto) % Baso % (Auto) % Neut # (Auto) (1.4-6.5) K/uL Lymph # (Auto) (1.2-3.4) K/uL Bladen # (Auto) (0.11-0.59) K/uL Eos # (Auto) (0-0.5) K/uL Baso # (Auto) (0-0.2) K/uL Immature Gran # (Auto) (0.00-0.02) K/uL Sodium (136-145) mmol/L Potassium (3.5-5.1) mmol/L Chloride (98-107) mmol/L Carbon Dioxide (21-32) mmol/L Anion Gap (3-11) BUN (7-18) mg/dl Creatinine (0.6-1.4) mg/dl Est Cr Clr Drug Dosing ml/min Est GFR ( Amer) Est GFR (Non-Af Amer) BUN/Creatinine Ratio (10-20) Glucose (70-99) mg/dl Calcium (8.5-10.1) mg/dl COVID-19 Eval Order SARS-CoV-2, RNA, NAAT NEGATIVE (NEGATIVE) Imaging Data Radiologist's Impression: ABDOMEN AND PELVIS CT WITHOUT CONTRAST CT DOSE: 1928.94 mGy.cm HISTORY: Acute right-sided flank pain with hematuria. History of kidney stones flank pain TECHNIQUE: Multiaxial CT images of the abdomen and pelvis were performed without contrast. A dose lowering technique was utilized adhering to the principles of ALARA. COMPARISON STUDY: CT abdomen pelvis 03/04/2020 FINDINGS: Mild subpleural groundglass opacities of the right lung base favor atelectasis. Mild right hemidiaphragmatic elevation. Calcified granuloma of the lingula. No pneumatosis or pneumoperitoneum. Coronary artery calcifications. The unenhanced spleen, pancreas, gallbladder and adrenal glands are unremarkable. The liver also appears unremarkable. Marked left renal atrophy. Compensatory enlargement of the right kidney. Moderate right-sided hydroureteronephrosis with perinephric and periureteral stranding secondary to an obstructing calculi of the mid right ureter at the level of the superior endplate L4. There appears to be 3 calculi, the largest of which measures 4 mm. There are least 3 nonobstructing calculi noted within the right kidney, largest of which measures 8 mm and is linear within the inferior pole. Decompressed urinary bladder. Unremarkable prostate. Small fat filled right inguinal hernia. Unremarkable aorta and IVC. There is no adenopathy. Small duodenal diverticulum. There is no bowel obstruction or bowel wall thickening. Colonic diverticulosis. Mild to moderate fecal retention. Noninflamed appendix. Tiny fat filled periumbilical hernia. No acute fracture. Remote bilateral L5 pars defects with 2 mm anterolisthesis L5 on S1. IMPRESSION: 1. Moderate right-sided hydroureteronephrosis secondary to three obstructing calculi within the mid right ureter at the level of L4. 2. Nonobstructing right nephrolithiasis. 3. Marked left renal atrophy. 4. No bowel obstruction or bowel wall thickening. Normal appendix. 5. Colonic diverticulosis. ACT 112: Negative or not required by law. The above report was generated using voice recognition software. It may contain grammatical, syntax or spelling errors. Electronically signed by: Bakari Ingram M.D. 08/20/2020 7:50 PM Dictated: 08/20/201938Transcribed: 08/20/201938 MDM Narrative Vital signs stable. Labs show acute kidney injury with creatinine of 2.4. Mild leukocytosis of 13.5. CT shows 3 right-sided kidney stones with hydroureteronephrosis largest kidney stone measuring up to [address]. [address] Baker patient's urologist who recommended that the patient be admitted to the medicine service with him on consult and he will evaluate the patient tomorrow morning. Dr. Israel rollins hospitalist was notified of the patient. Impression & Plan BADOUL (acute kidney injury), Kidney stones, Hydronephrosis Discharge Plan Visit Data Chief Complaint: Flank Pain Stated Complaint: R SIDED FLANK PAIN ED Provider: Junior Rai Discharge Problem: ABDOUL (acute kidney injury), Kidney stones, Hydronephrosis Patient Disposition: Admitted As Inpatient Discharge Instructions Interventions: ED Discharge Assessment Last Done: 08/20/20 21:40 Discharge Problem: Hydronephrosis Qualifiers: Hydronephrosis type: with ureteral calculous obstruction Qualified Code(s): N13.2 - Hydronephrosis with renal and ureteral calculous obstruction
[2020-08-21] MEDS: INSULIN ASPART 100 UNITS/ML 3 ML PEN SC SCH ×4 (06:17→21:03)
[2020-08-21] MEDS ORDERED: ATROPINE SULFATE 0.1 MG/ML 10ML SYR IV PRN (06:52)
[2020-08-21] MEDS ORDERED: fentaNYL citrate 100 MCG/2 ML VIAL IV PRN (06:52)
[2020-08-21] MEDS ORDERED: ePHEDrine sulfate 50 MG/ML AMP IV PRN (06:52)
[2020-08-21] MEDS ORDERED: ONDANSETRON INJ 2 MG/ML 2 ML VIAL IV PRN (06:52)
--- NOTE | 2020-08-21 06:52 | Anesthesiology Consultation ---
Date of Service August 21, 2020 Assessment & Plan ASA ASA3 Proposed Anesthesia Anesthesia Type: MAC Risk / Benefits Reviewed With: PT / POA / Parent / Guardian, Accepts Plan and Informed Consent Obtained History Surgery Operation Date: 08/21/20 07:15 Proposed Procedures p Cystoscopy Stent Insertion Right - Himanshu Baker MD Height/Weight Height: 5 ft 11 in Weight: 132.3 kg Allergies Allergy/AdvReac Type Severity Reaction Status Date / Time Bactrim AdvReac Intermediate diarrhea Verified 02/28/18 05:37 sulfamethoxazole AdvReac Intermediate diarrhea Verified 08/20/20 21:24 trimethoprim AdvReac Intermediate diarrhea Verified 08/20/20 21:24 Medications Home Medications Medication Instructions Recorded Confirmed Last Taken escitalopram oxalate [Lexapro] 10 mg PO QPM 11/19/18 08/20/20 02/14/19 22:00 losartan 50 mg PO QPM 11/21/18 08/20/20 08/20/20 08:00 atorvastatin 20 mg tablet 20 mg PO QPM 04/09/20 08/20/20 Unknown lactobacillus combination no.8 1 mg PO DAILY 04/09/20 08/20/20 Unknown metformin 500 mg 24 hr 2,000 mg PO QPM tab 04/09/20 08/20/20 Unknown tablet,extended release Trulicity 1.5 mg/0.5 mL 1.5 mg SUBCUT .COMPLEX #6 ml NS 05/24/20 08/20/20 Unknown subcutaneous pen injector apixaban 5 mg tablet 5 mg PO BID 06/27/20 08/20/20 08/20/20 08:00 metoprolol tartrate 25 mg tablet 12.5 mg PO BID 06/27/20 08/20/20 08/20/20 09:00 acetaminophen [Tylenol Extra 1,000 mg PO Q6H PRN 08/20/20 08/20/20 Unknown Strength] insulin aspart U-100 [Novolog 6 unit SUBCUT TID 08/20/20 08/20/20 08/19/20 Flexpen U-100 Insulin] insulin degludec [Tresiba 38 unit SUBCUT DAILY 08/20/20 08/20/20 08/19/20 22:00 FlexTouch U-100] Active Medications Generic Name Dose Route Start Last Admin Trade Name Freq PRN Reason Stop Dose Admin Sodium Chloride 1,000 mls @ 125 mls/hr 08/20/20 22:12 08/21/20 05:58 Nss 1000ml IV 09/19/20 22:11 125 mls/hr .Q8H JOBY Infusion Acetaminophen 1,000 mg in 100 mls @ 400 mls/hr 08/20/20 22:12 08/20/20 23:29 Ofirmev IV 08/23/20 22:11 Infused Q8H PRN Infusion Pain Ciprofloxacin 400 mg in 200 mls @ 100 mls/hr 08/21/20 00:00 08/21/20 02:14 Cipro / D5w IV 08/31/20 00:00 Infused Q12H JOBY Infusion Protocol Insulin Aspart 0 units 08/20/20 22:45 08/21/20 06:17 Insulin Aspart 100 Units/Ml 3 Ml Pen SC 09/19/20 22:44 Not Given Q6 JOBY Oxycodone HCl 5 mg 08/20/20 22:12 08/21/20 04:09 Oxycodone Hcl Soln 5 Mg/5 Ml Udc PO 09/03/20 22:11 5 mg Q6H PRN Administration Pain Tamsulosin HCl 0.4 mg 08/20/20 22:45 08/20/20 23:12 Tamsulosin Hcl 0.4 Mg Cap PO 09/19/20 22:44 0.4 mg HS JOBY Administration Past Medical History Medical History Anxiety disorder Congenital kidney disease Diabetes A1C 11.4% TYPE 2 Fatty liver Hyperlipidemia Hypertension Microalbuminuria Morbid obesity ZA on CPAP Renal agenesis Right ureteral calculus Uncontrolled type 2 diabetes mellitus Exercise / Class Metabolic Activity II 4-5 Yardwork/Stairs/Walk up hill Past Family History Family History Grandmother Diabetes Mother SLE (systemic lupus erythematosus) Parkinson disease Macular degeneration Past Surgical History Surgical History History of anesthesia reaction DIZZY/NAUSEATED/LIGHT SENSITIVTY WITH FIRST CYSTOSCOPY History of colonoscopy History of lithotripsy x2 History of removal of ureteral stent x 2 History of tooth extraction Hx of cystoscopy x5 Past Anesthesia History No Hx of Anesthesia Complications and No Family Hx of Anesthesia Complications History of PONV No Hx of PONV and No Hx of Motion Sickness Social History Smoking Status: Never smoker Do You Dip or Chew Tobacco: No Hx Alcohol Use: No Alcohol type: beer alcohol intake frequency: holidays/special occasions only Hx Substance Use: No substance use type: does not use Review of Systems denies fever/cough/ colds/ chest pain/ SOB/ ZA denies ZA Physical Exam Vital Signs Last Vital Signs Temp 36.7 C 08/21/20 06:12 Pulse 73 08/21/20 06:12 Resp 14 08/21/20 06:12 BP 111/64 08/21/20 06:12 Pulse Ox 96 08/21/20 06:12 ENMT Mouth: no TMJ abnormality and no dentition abnormality Thyromental Distance: > or= 3.5 Finger Breadths Mallampati Class: II Neck neck extension not limited Respiratory normal respiratory effort; no respiratory distress Auscultation: lungs clear to auscultation bilaterally Cardiovascular Rate/Rhythm: regular rate and regular rhythm Neurologic moves all extremities Psychiatric Orientation: alert and oriented x 3 Testing Laboratory Results 08/20/20 19:47 08/20/20 19:47 08/21/20 08/20/20 05:59 22:21 POC Glucose 153 H 151 H
[2020-08-21] MEDS ORDERED: PHENYLEPHRINE 100MCG/ML 5ML SYR ONE (06:59)
[2020-08-21] MEDS ORDERED: LIDOCAINE HCL 2% 2 ML VIAL/AMP(20MG/ML) INFIL ONE (06:59)
[2020-08-21] MEDS ORDERED: fentaNYL citrate 100 MCG/2 ML VIAL ONE (06:59)
[2020-08-21] MEDS ORDERED: MIDAZOLAM HCL 1 MG/ML 2ML VIAL ONE (06:59)
[2020-08-21] MEDS ORDERED: ePHEDrine sulfate 50 MG/ML SYR ONE (06:59)
[2020-08-21] MEDS ORDERED: PROPOFOL IV EMULSION 10 MG/ML 20 ML VIAL IV ONE (06:59)
[2020-08-21] MEDS ORDERED: ONDANSETRON INJ 2 MG/ML 2 ML VIAL ONE (06:59)
--- NOTE | 2020-08-21 07:10 | Urology Consultation ---
Date of Consultation August 21, 2020 Assessment & Plan (1) Hydronephrosis: (2) Kidney stones: Mononephric with obstructing ureteral stone and ABDOUL - requires urgent intervention in the form of cystoscopy and stent placement - kidney function should improve over the next 24 hours - will ultimately require another surgery to definitively treat his stones - risks, benefits, and expectations discussed History of Present Illness Attending Physician: Alisa Wood DO History of Present Illness 55y/o male, congenitally mononephric long hx of kidney stones with numerous prior emergent inteventions pain and decreased UoP starting in the past 24-48hr presented to ER CT - stones within the right kidney, mod hydro, several ureteral stones Cr 2.45 very limited UoP no fevers/chills/rigors mentating well hemodynamically stable Allergies Allergy/AdvReac Type Severity Reaction Status Date / Time Bactrim AdvReac Intermediate diarrhea Verified 02/28/18 05:37 sulfamethoxazole AdvReac Intermediate diarrhea Verified 08/20/20 21:24 trimethoprim AdvReac Intermediate diarrhea Verified 08/20/20 21:24 Home Medications Medication Instructions Recorded Confirmed Type escitalopram oxalate [Lexapro] 10 mg PO QPM 11/19/18 08/20/20 History losartan 50 mg PO QPM 11/21/18 08/20/20 History atorvastatin 20 mg tablet 20 mg PO QPM 04/09/20 08/20/20 History lactobacillus combination no.8 1 mg PO DAILY 04/09/20 08/20/20 History metformin 500 mg 24 hr 2,000 mg PO QPM tab 04/09/20 08/20/20 History tablet,extended release Trulicity 1.5 mg/0.5 mL 1.5 mg SUBCUT .COMPLEX #6 ml NS 05/24/20 08/20/20 Rx subcutaneous pen injector apixaban 5 mg tablet 5 mg PO BID 06/27/20 08/20/20 History metoprolol tartrate 25 mg tablet 12.5 mg PO BID 06/27/20 08/20/20 History acetaminophen [Tylenol Extra 1,000 mg PO Q6H PRN 08/20/20 08/20/20 History Strength] insulin aspart U-100 [Novolog 6 unit SUBCUT TID 08/20/20 08/20/20 History Flexpen U-100 Insulin] insulin degludec [Tresiba 38 unit SUBCUT DAILY 08/20/20 08/20/20 History FlexTouch U-100] Patient History Medical History Anxiety disorder Congenital kidney disease Diabetes A1C 11.4% TYPE 2 Fatty liver Hyperlipidemia Hypertension Microalbuminuria Morbid obesity ZA on CPAP Renal agenesis Right ureteral calculus Uncontrolled type 2 diabetes mellitus Surgical History History of anesthesia reaction DIZZY/NAUSEATED/LIGHT SENSITIVTY WITH FIRST CYSTOSCOPY History of colonoscopy History of lithotripsy x2 History of removal of ureteral stent x 2 History of tooth extraction Hx of cystoscopy x5 Family History Grandmother Diabetes Mother SLE (systemic lupus erythematosus) Parkinson disease Macular degeneration Social History Smoking Status: Never smoker Second Hand Exposure: No; Do You Dip or Chew Tobacco: No; Hx Alcohol Use: No Hx Substance Use: No Preferred Language: Icelandic Communication Ability: Effective Drain Layer Required: No Beliefs That Will Affect Care: None marital status: Current Living Situation: Spouse current occupational status: employed 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 How many Children do You have: 1 Other Information That Helps Us Care for You: Yes (born with one kidney right side) Feels Safe at Home: Yes Safety Concerns: Feels Safe At This Time Assistive Devices: CPAP and Glasses Review of Systems Constitutional: no fever, no chills and no fatigue Eyes: no worsening vision Ear, Nose, Mouth, Throat: no facial pain and no pain with swallowing Respiratory: no cough and no dyspnea Cardiovascular: no chest pain and no palpitations Gastrointestinal: no abdominal pain, no nausea and no vomiting Genitourinary: + problem reported Musculoskeletal: no back pain Integumentary: no rash and no urticaria Neurologic: no gait abnormality and no unsteadiness Psychiatric: no behavioral changes and no depression Endocrine: no fatigue Physical Exam Constitutional: well developed and well nourished Neck: neck nontender Respiratory: normal respiratory effort; no respiratory distress and does not use accessory muscles Cardiovascular: Rate/Rhythm: regular rate Vessels: radial pulses present Extremities: no edema Gastrointestinal (Abdomen): Inspection/Auscultation: abdomen normal to inspection Percussion/Palpation: abdomen soft; abdomen nontender and no guarding Musculoskeletal: Head/Neck/Chest: normocephalic and head atraumatic Extremities: extremities normal to inspection Skin: no rashes and no lesions Trauma: no evidence of skin trauma Neurologic: awake; not obtunded Speech / Cognition: normal speech Motor/Sensory: no tremor Psychiatric: Orientation: alert and oriented x 3 Genitourinary: no CVA tenderness Lymphatic: no lymphadenopathy Results & Data ([facility]) Vital Signs (Past 12 Hours) Vital Signs Temp Pulse Pulse Resp BP BP Pulse Ox 08/21/20 06:35 36.9 C 81 20 131/74 98 08/21/20 06:12 36.7 C 73 14 111/64 96 08/21/20 04:02 36.7 C 66 14 112/70 96 08/20/20 23:24 36.7 C 71 14 116/71 95 08/20/20 21:54 36.8 C 76 16 113/70 94 08/20/20 21:40 74 17 123/60 95 08/20/20 20:24 79 19 122/74 96 PG Care Time/CCT Total # of Minutes Spent Total Time Spent with Patient: Total time spent is greater than 50% in coordination of care (as documented) at patient's floor/unit and/or counseling patient: Coding Level of Care Code 64850 Inpt Consult Level 4 Diagnoses Hydronephrosis N13.2 Hydronephrosis type: with ureteral calculous obstruction Kidney stones N20.0 (1) Hydronephrosis Hydronephrosis type: with ureteral calculous obstruction Qualified Code(s): N13.2 - Hydronephrosis with renal and ureteral calculous obstruction
[2020-08-21] MEDS ORDERED: ceFAZolin 2,000 MG/15 ML IV PUSH IV ONE (07:16)
[2020-08-21] MEDS ORDERED: ceFAZolin 2000MG 2,000 MG/15 ML SYR IV ONE (07:18)
--- NOTE | 2020-08-21 07:44 | Operative Report ---
PG Post Operative Report Pre & Post Diagnosis Operation Date: 08/21/20 07:15 Pre-Op Diagnosis: ABDOUL/STONES Post-Op Diagnosis: ABDOUL/STONES I identified the patient and participated in the time-out.: Yes Procedure Operation Date: 08/21/20 07:15 Actual Procedures p Cystoscopy, Ureteral Stent Insertion Right(Right) - Himanshu Baker MD Surgeon Murtaza Baker MD Binding Dyer none Estimated Blood Loss 0 Findings Consistent with Post-Op Diagnosis Specimens none Description of Procedure The patient was identified in the preoperative holding area, appropriate informed consents were reviewed and completed and the patient was transferred to the operative suite. Upon arrival, appropriate antibiotics and anesthesia were administered and the patient was placed in dorsal lithotomy position and prepped and draped in sterile fashion. To begin the case I passed a 22 Omani cystoscope with 30 degree lens. Inspection revealed a healthy-appearing urethra although he does have several wide caliber strictures. All these were navigable with the scope. His prostate is moderately enlarged. Inspection of the bladder revealed healthy-appearing mucosa without any stones within the bladder. The right ureteral orifice was identified and cannulated with a sensor wire and a five Omani open-ended catheter. The wire advanced to the kidney without difficulty although I could feel resistance as if I passed the stones. I then placed a six Omani by 26 cm double-J stent seeing a good curl in the kidney as well as the bladder. There was immediate urine output through and around the stent after deployment. Bladder was decompressed and the case concluded. He was reversed from anesthesia and taken to the recovery room in stable condition. There were no complications. I attest to the content of the Intraoperative Record and any orders documented therein. Any exceptions are noted below.
--- NOTE | 2020-08-21 08:01 | Fluoroscopy Report ---
FL KUB CLINICAL HISTORY: RT STENT COMPARISON STUDY: CT of the abdomen and pelvis August 20, 2020. FLUOROSCOPY TIME: 4.8 seconds. FLUOROSCOPIC IMAGES: 1 FINDINGS: Fluoroscopy was provided during placement of a right ureteral stent. Incidental note is mad e of a right anterior abdominal wall device, as shown on CT. IMPRESSION: Fluoroscopy provided during placement of a right ureteral stent. ACT 112: Negative or not required by law. Electronically signed by: Osman Taylor M.D. 08/21/2020 8:00 AM
--- NOTE | 2020-08-21 08:17 | Anesthesiology Progress Note ---
Date of Service August 21, 2020 Anesthesia Post Procedure Vital Signs Vital Signs: Temp Pulse Pulse Pulse Resp BP BP 08/21/20 08:08 36.4 C L 76 16 119/62 08/21/20 08:00 73 16 129/68 08/21/20 07:51 36.2 C L 76 16 118/64 08/21/20 06:35 36.9 C 81 20 131/74 08/21/20 06:12 36.7 C 73 14 111/64 08/21/20 04:02 36.7 C 66 14 112/70 08/20/20 23:24 36.7 C 71 14 116/71 08/20/20 21:54 36.8 C 76 16 113/70 08/20/20 21:40 74 17 123/60 08/20/20 20:24 79 19 122/74 08/20/20 18:53 75 18 149/83 H 08/20/20 16:15 37.2 C 79 16 138/81 Pulse Ox 08/21/20 08:08 94 08/21/20 08:00 100 08/21/20 07:51 97 08/21/20 06:35 98 08/21/20 06:12 96 08/21/20 04:02 96 08/20/20 23:24 95 08/20/20 21:54 94 08/20/20 21:40 95 08/20/20 20:24 96 08/20/20 18:53 98 08/20/20 16:15 96 Pain Intensity Head: Pain Intensity: 6 Transfer of Care Handoff Completed per policy Notes Mental Status: alert / awake / arousable and participated in evaluation Patient Amnestic to Procedure: Yes Nausea / Vomiting: adequately controlled Pain: adequately controlled Airway Patency, RR, SpO2: stable & adequate BP & HR: stable & adequate Hydration State: stable & adequate Anesthetic Complications: no major complications apparent and Pt Satisfied with anesthetic care
--- NOTE | 2020-08-21 08:50 | Hospitalist Progress Note ---
Date of Service August 21, 2020 Assessment & Plan (1) ABDOUL (acute kidney injury): in patient with CKD III and atrophic L kidney * Secondary to obstructing stones. Cr elevated to 3.16 on AM labs (baseline ~1.7) with atrophic L kidney and R sided calculi * Urology consulted -- emergent intervention given only one functioning kidney * s/p cystoscopy with stent with Dr. Baker this morning * * Avoid nephrotoxic medications * Continue IVF NSS @ 125cc/hr * BMP this afternoon with slight improvement of Cr to 2.93 but still elevated * Given diet * Antiemetics/pain control as needed * WBC wnl (elevated on admission). Cipro x 1 for intervention today-- discussed with urology and no need for further abx (urine not collected prior to abx as had not been able to provide sample) * BMP in AM (2) Calculus of right ureter: s/p cysto with stent as above Flomax (3) Diabetes: Hold metformin ISS while inpatient A1c 8.5 in June BSGs acceptable Continue to monitor (4) Hypertension: Stable, BP 109/67 Continue metoprolol Continue to hold losartan given ABDOUL Monitor (5) Hyperlipidemia: Lipitor (6) Atrial fibrillation: EKG with NSR 77bpm pre-op Resumed Eliquis post-operatively DVT Proph SCDs Eliquis resumed as above Dispo: likely d/c tomorrow (2) Calculus of right ureter: (3) Diabetes: (4) Hypertension: (5) Hyperlipidemia: (6) Atrial fibrillation: Admission and Anticipated Discharge Date Admission Date: August 20, 2020 Subjective Patient evaluated this morning following intervention. Feeling much better. Just ate. Has the hiccups but no further n/v. Pain well controlled. Has been voiding in the urinal without issue. UOP improved. Discussed repeating BMP this afternoon and if improved significantly would consider discharge. Discussed this afternoon Cr still elevated and will continue with hydration and consider discharge in the AM. Patient agreeable. No fever, chills, chest pain, shortness of breath, back pain, dysuria or hematuria. Review of Systems Review of Systems: All systems reviewed & are unremarkable except as noted in HPI & below Physical Exam Constitutional: WD/WN, vitals as above comfortable; no acute distress Eyes: + anicteric sclerae and PERRL ENMT: dry mm Neck: normal visual inspection and trachea midline Respiratory: normal respiratory effort, lungs clear to auscultation Cardiovascular: RRR, no murmur, no edema Gastrointestinal (Abdomen): normal bowel sounds, soft, nontender, no hepatosplenomegaly Musculoskeletal: no cyanosis or clubbing, extremities motor strength 5/5 Skin: no rashes, warm and dry Neurologic: PERRL, EOMI, accommodation nl, no face palsy, no dysarthria Psychiatric: A+Ox3, euthymic affect Genitourinary: no CVA tenderness NO ROSA Lymphatic: no cervical or axillary lymphadenopathy Results & Data Results & Data ([facility]) Vital Signs (Past 12 Hours) Vital Signs Temp Pulse Pulse Pulse Resp BP BP 08/21/20 08:30 37.3 C 74 16 130/78 08/21/20 08:08 36.4 C L 76 16 119/62 08/21/20 08:00 73 16 129/68 08/21/20 07:51 36.2 C L 76 16 118/64 08/21/20 06:35 36.9 C 81 20 131/74 08/21/20 06:12 36.7 C 73 14 111/64 08/21/20 04:02 36.7 C 66 14 112/70 08/20/20 23:24 36.7 C 71 14 116/71 08/20/20 21:54 36.8 C 76 16 113/70 08/20/20 21:40 74 17 123/60 Pulse Ox 08/21/20 08:30 95 08/21/20 08:08 94 08/21/20 08:00 100 08/21/20 07:51 97 08/21/20 06:35 98 08/21/20 06:12 96 08/21/20 04:02 96 08/20/20 23:24 95 08/20/20 21:54 94 08/20/20 21:40 95 Laboratory Results 08/21/20 08/21/20 08/21/20 Range/Units 15:12 12:12 09:58 WBC (4.8-10.8) K/uL RBC (4.7-6.1) M/uL Hgb (14.0-18.0) g/dL Hct (42-52) % MCV (80-100) fL MCH (25-34) pg MCHC (32-36) g/dL RDW Std Deviation (36.4-46.3) fL RDW Coeff of Kandis (11.5-14.5) % Plt Count (130-400) K/uL MPV (7.4-10.4) fL Immature Gran % (Auto) % Neut % (Auto) % Lymph % (Auto) % [place] % (Auto) % Eos % (Auto) % Baso % (Auto) % Neut # (Auto) (1.4-6.5) K/uL Lymph # (Auto) (1.2-3.4) K/uL [place] # (Auto) (0.11-0.59) K/uL Eos # (Auto) (0-0.5) K/uL Baso # (Auto) (0-0.2) K/uL Immature Gran # (Auto) (0.00-0.02) K/uL Sodium 138 136 (136-145) mmol/L Potassium 4.6 4.3 (3.5-5.1) mmol/L Chloride 106 105 (98-107) mmol/L Carbon Dioxide 26 26 (21-32) mmol/L Anion Gap 5.0 5.0 (3-11) BUN 32 H 34 H (7-18) mg/dl Creatinine 2.93 H 3.16 H D (0.6-1.4) mg/dl Est Cr Clr Drug Dosing 39.5 36.6 ml/min Est GFR ( Amer) 26.7 24.3 Est GFR (Non-Af Amer) 23.0 21.0 BUN/Creatinine Ratio 11.0 10.8 (10-20) Glucose 205 H 168 H (70-99) mg/dl POC Glucose 173 H (70-99) mg/dl Calcium 8.8 8.2 L (8.5-10.1) mg/dl COVID-19 Eval Order SARS-CoV-2, RNA, NAAT (NEGATIVE) 08/21/20 08/21/20 08/21/20 Range/Units 09:58 07:53 05:59 WBC 9.90 (4.8-10.8) K/uL RBC 4.48 L (4.7-6.1) M/uL Hgb 12.8 L (14.0-18.0) g/dL Hct 37.6 L (42-52) % MCV 83.9 (80-100) fL MCH 28.6 (25-34) pg MCHC 34.0 (32-36) g/dL RDW Std Deviation 38.4 (36.4-46.3) fL RDW Coeff of Kandis 12.6 (11.5-14.5) % Plt Count 240 (130-400) K/uL MPV 8.8 (7.4-10.4) fL Immature Gran % (Auto) 0.2 % Neut % (Auto) 72.6 % Lymph % (Auto) 15.3 % [place] % (Auto) 11.0 % Eos % (Auto) 0.8 % Baso % (Auto) 0.1 % Neut # (Auto) 7.19 H (1.4-6.5) K/uL Lymph # (Auto) 1.51 (1.2-3.4) K/uL [place] # (Auto) 1.09 H (0.11-0.59) K/uL Eos # (Auto) 0.08 (0-0.5) K/uL Baso # (Auto) 0.01 (0-0.2) K/uL Immature Gran # (Auto) 0.02 (0.00-0.02) K/uL Sodium (136-145) mmol/L Potassium (3.5-5.1) mmol/L Chloride (98-107) mmol/L Carbon Dioxide (21-32) mmol/L Anion Gap (3-11) BUN (7-18) mg/dl Creatinine (0.6-1.4) mg/dl Est Cr Clr Drug Dosing ml/min Est GFR ( Amer) Est GFR (Non-Af Amer) BUN/Creatinine Ratio (10-20) Glucose (70-99) mg/dl POC Glucose 155 H 153 H (70-99) mg/dl Calcium (8.5-10.1) mg/dl COVID-19 Eval Order SARS-CoV-2, RNA, NAAT (NEGATIVE) 08/20/20 08/20/20 08/20/20 Range/Units 22:21 20:53 20:53 WBC (4.8-10.8) K/uL RBC (4.7-6.1) M/uL Hgb (14.0-18.0) g/dL Hct (42-52) % MCV (80-100) fL MCH (25-34) pg MCHC (32-36) g/dL RDW Std Deviation (36.4-46.3) fL RDW Coeff of Kandis (11.5-14.5) % Plt Count (130-400) K/uL MPV (7.4-10.4) fL Immature Gran % (Auto) % Neut % (Auto) % Lymph % (Auto) % [place] % (Auto) % Eos % (Auto) % Baso % (Auto) % Neut # (Auto) (1.4-6.5) K/uL Lymph # (Auto) (1.2-3.4) K/uL [place] # (Auto) (0.11-0.59) K/uL Eos # (Auto) (0-0.5) K/uL Baso # (Auto) (0-0.2) K/uL Immature Gran # (Auto) (0.00-0.02) K/uL Sodium (136-145) mmol/L Potassium (3.5-5.1) mmol/L Chloride (98-107) mmol/L Carbon Dioxide (21-32) mmol/L Anion Gap (3-11) BUN (7-18) mg/dl Creatinine (0.6-1.4) mg/dl Est Cr Clr Drug Dosing ml/min Est GFR ( Amer) Est GFR (Non-Af Amer) BUN/Creatinine Ratio (10-20) Glucose (70-99) mg/dl POC Glucose 151 H (70-99) mg/dl Calcium (8.5-10.1) mg/dl COVID-19 Eval Order Covid19 IDNow [facility] SARS-CoV-2, RNA, NAAT NEGATIVE (NEGATIVE) 08/20/20 08/20/20 Range/Units 19:47 19:47 WBC 13.53 H (4.8-10.8) K/uL RBC 4.67 L (4.7-6.1) M/uL Hgb 13.3 L (14.0-18.0) g/dL Hct 39.4 L (42-52) % MCV 84.4 (80-100) fL MCH 28.5 (25-34) pg MCHC 33.8 (32-36) g/dL RDW Std Deviation 38.1 (36.4-46.3) fL RDW Coeff of Kandis 12.5 (11.5-14.5) % Plt Count 244 (130-400) K/uL MPV 8.9 (7.4-10.4) fL Immature Gran % (Auto) 0.2 % Neut % (Auto) 75.7 % Lymph % (Auto) 13.5 % [place] % (Auto) 9.5 % Eos % (Auto) 0.8 % Baso % (Auto) 0.3 % Neut # (Auto) 10.25 H (1.4-6.5) K/uL Lymph # (Auto) 1.82 (1.2-3.4) K/uL [place] # (Auto) 1.28 H (0.11-0.59) K/uL Eos # (Auto) 0.11 (0-0.5) K/uL Baso # (Auto) 0.04 (0-0.2) K/uL Immature Gran # (Auto) 0.03 H (0.00-0.02) K/uL Sodium 137 (136-145) mmol/L Potassium 4.3 (3.5-5.1) mmol/L Chloride 106 (98-107) mmol/L Carbon Dioxide 24 (21-32) mmol/L Anion Gap 7.0 (3-11) BUN 27 H (7-18) mg/dl Creatinine 2.45 H (0.6-1.4) mg/dl Est Cr Clr Drug Dosing 47.2 ml/min Est GFR ( Amer) 33.1 Est GFR (Non-Af Amer) 28.6 BUN/Creatinine Ratio 11.1 (10-20) Glucose 115 H (70-99) mg/dl POC Glucose (70-99) mg/dl Calcium 9.0 (8.5-10.1) mg/dl COVID-19 Eval Order SARS-CoV-2, RNA, NAAT (NEGATIVE) Diagnostic Findings CTAP IMPRESSION: 1. Moderate right-sided hydroureteronephrosis secondary to three obstructing calculi within the mid right ureter at the level of L4. 2. Nonobstructing right nephrolithiasis. 3. Marked left renal atrophy. 4. No bowel obstruction or bowel wall thickening. Normal appendix. 5. Colonic diverticulosis. FL KUB CLINICAL HISTORY: RT STENT COMPARISON STUDY: CT of the abdomen and pelvis August 20, 2020. FLUOROSCOPY TIME: 4.8 seconds. FLUOROSCOPIC IMAGES: 1 FINDINGS: Fluoroscopy was provided during placement of a right ureteral stent. Incidental note is made of a right anterior abdominal wall device, as shown on CT. IMPRESSION: Fluoroscopy provided during placement of a right ureteral stent. PG Care Time/CCT Total # of Minutes Spent Total Time Spent with Patient: Total time spent is greater than 50% in coordination of care (as documented) at patient's floor/unit and/or counseling patient: Coding Level of Care Code 38623 Subseq Hosp Care Lvl 2 Diagnoses ABDOUL (acute kidney injury) N17.9 Calculus of right ureter N20.1 Diabetes E11.65 Diabetes mellitus type: type 2 Diabetes mellitus extermination inspector insulin use: without extermination inspector use Diabetes mellitus complication status: with hyperglycemia Hypertension I10 Hypertension type: essential hypertension Hyperlipidemia E78.5 Atrial fibrillation I48.91 (1) Diabetes Diabetes mellitus type: type 2 Diabetes mellitus extermination inspector insulin use: without care home use Diabetes mellitus complication status: with hyperglycemia Qualified Code(s): E11.65 - Type 2 diabetes mellitus with hyperglycemia (2) Hypertension Hypertension type: essential hypertension Qualified Code(s): I10 - Essential (primary) hypertension
[2020-08-21] MEDS: SODIUM CHLORIDE 0.9% 1000ML 1,000 ML IV SCH ×3 (08:54→23:49)
[2020-08-21] MEDS: METOPROLOL TARTRATE 25 MG TAB PO SCH ×2 (08:58→21:02)
[2020-08-21] MEDS ORDERED: METOPROLOL TARTRATE 25 MG TAB PO SCH (09:00)
[2020-08-21] MEDS: ESCITALOPRAM OXALATE 10 MG TAB PO SCH (09:03)
[2020-08-21] MEDS: ATORVASTATIN 20 MG TAB PO SCH (09:03)
[2020-08-21 10:19] LABS: Basophils # (auto) 0.01 K/uL (0-0.2); Basophils % (auto) 0.1 %; Eosinophils # (auto) 0.08 K/uL (0-0.5); Eosinophils % (auto) 0.8 %; Hematocrit (blood only) 37.6 % (42-52); Hemoglobin 12.8 g/dL (14.0-18.0); Immature Granulocytes # (auto) 0.02 K/uL (0.00-0.02); Immature Granulocytes % (auto) 0.2 %; Lymphocytes # (auto) 1.51 K/uL (1.2-3.4); Lymphocytes % (auto) 15.3 %; Mean Corpuscular Hemoglobin 28.6 pg (25-34); Mean Corpuscular Volume 83.9 fL (80-100); Mean Platelet Volume 8.8 fL (7.4-10.4); Monocytes # (auto) 1.09 K/uL (0.11-0.59); Neutrophils # (auto) 7.19 K/uL (1.4-6.5); Neutrophils % (auto) 72.6 %; Platelet Count 240 K/uL (130-400); RDW Coefficient of Variation 12.6 % (11.5-14.5); RDW Standard Deviation 38.4 fL (36.4-46.3); Red Blood Count 4.48 M/uL (4.7-6.1)
[2020-08-21 10:43] LABS: BUN Creatinine Ratio 10.8 (10-20); Calcium 8.2 mg/dl (8.5-10.1); Creatinine Clr Calc Pharmacy 36.6 ml/min; Est GFR (African American) 24.3; Potassium 4.3 mmol/L (3.5-5.1)
[2020-08-21] MEDS: DOCUSATE SODIUM 100 MG CAP PO SCH ×2 (13:43→21:02)
[2020-08-21] MEDS: POLYETHYLENE (MIRALAX) 17 GM PACK PO SCH (13:43)
--- NOTE | 2020-08-21 14:23 | Electrocardiogram Report ---
Test Reason : Blood Pressure : / mmHG Vent. Rate : 077 BPM Atrial Rate : 077 BPM P-R Int : 192 ms QRS Dur : 090 ms QT Int : 374 ms P-R-T Axes : 059 027 039 degrees QTc Int : 423 ms Normal sinus rhythm Low voltage QRS Borderline ECG When compared with ECG of 19-NOV-2018 04:44, No significant change was found Confirmed by Abimael Flores ([id number]) on 08/21/2020 2:22:43 PM Referred By: Himanshu Baker Confirmed By:Abimael Flores
[2020-08-21 15:45] LABS: Calcium 8.8 mg/dl (8.5-10.1); Creatinine Clr Calc Pharmacy 39.5 ml/min; Est GFR (African American) 26.7; Potassium 4.6 mmol/L (3.5-5.1)
[2020-08-21] MEDS: APIXABAN 5 MG TABLET PO SCH (21:02)
[2020-08-21] MEDS: TAMSULOSIN HCL 0.4 MG CAP PO SCH (21:03)
[2020-08-22] MEDS: SODIUM CHLORIDE 0.9% 1000ML 1,000 ML IV SCH (06:03)
[2020-08-22 06:34] LABS: Basophils # (auto) 0.01 K/uL (0-0.2); Basophils % (auto) 0.2 %; Eosinophils # (auto) 0.18 K/uL (0-0.5); Eosinophils % (auto) 2.8 %; Hematocrit (blood only) 36.8 % (42-52); Hemoglobin 12.4 g/dL (14.0-18.0); Immature Granulocytes # (auto) 0.01 K/uL (0.00-0.02); Immature Granulocytes % (auto) 0.2 %; Lymphocytes # (auto) 2.06 K/uL (1.2-3.4); Lymphocytes % (auto) 31.9 %; Mean Corpuscular Hemoglobin 28.6 pg (25-34); Mean Corpuscular Hgb Conc 33.7 g/dL (32-36); Mean Corpuscular Volume 84.8 fL (80-100); Monocytes # (auto) 0.67 K/uL (0.11-0.59); Monocytes % (auto) 10.4 %; Neutrophils # (auto) 3.53 K/uL (1.4-6.5); Neutrophils % (auto) 54.5 %; Platelet Count 239 K/uL (130-400); RDW Coefficient of Variation 12.7 % (11.5-14.5); RDW Standard Deviation 39.2 fL (36.4-46.3); Red Blood Count 4.34 M/uL (4.7-6.1); White Blood Count 6.46 K/uL (4.8-10.8)
[2020-08-22 07:12] LABS: BUN Creatinine Ratio 13.1 (10-20); Calcium 8.9 mg/dl (8.5-10.1); Creatinine Clr Calc Pharmacy 69.8 ml/min; Est GFR (Non-African American) 45.7
--- NOTE | 2020-08-22 07:56 | Urology Progress Note ---
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 Smith. Please reconsult us with additional questions, concerns or changes in patient status. Admission and Anticipated Discharge Date Admission Date: August 20, 2020 Subjective Pt examined at bedside this AM Awake, resting in bed on arrival Denies any pain/discomfort at this time No fevers or chills Tolerating diet, no nausea or vomiting Voiding without difficulty Some hematuria as expected No dysuria Feels he is emptying his bladder Chart review: Afebrile Wbc 6.46 Hgb 12.4 Cr 1.66 (previous 2.93) Continues on Flomax Eliquis resumed post-operatively Offers no additional complaints today Review of Systems Constitutional: as per Subjective / HPI Gastrointestinal: as per Subjective / HPI Genitourinary: + as per Subjective / HPI Physical Exam Constitutional: well developed and well nourished; no acute distress and not ill appearing Neck: normal visual inspection Respiratory: normal respiratory effort and able to speak in complete sentences Cardiovascular: Extremities: no calf tenderness Gastrointestinal (Abdomen): Percussion/Palpation: abdomen soft; abdomen non tender and no guarding Skin: Warm and dry Neurologic: moves all extremities and awake; not confused Psychiatric: Orientation: alert, oriented x 3 and cooperative Results & Data ([facility]) Vital Signs (Past 12 Hours) Vital Signs Temp Pulse Resp BP Pulse Ox 08/22/20 04:00 36.7 C 72 14 114/63 98 08/21/20 23:02 36.5 C 76 14 118/72 94 08/21/20 20:24 36.6 C 72 17 118/70 97 PG Care Time/CCT Total # of Minutes Spent Total Time Spent with Patient: Total time spent is greater than 50% in coordination of care (as documented) at patient's floor/unit and/or counseling patient: Coding Level of Care Code 71646 Subseq Hosp Care Lvl 2 Diagnoses Kidney stones N20.0 ABDOUL (acute kidney injury) N17.9
[2020-08-22] MEDS: POLYETHYLENE (MIRALAX) 17 GM PACK PO SCH (08:40)
[2020-08-22] MEDS: DOCUSATE SODIUM 100 MG CAP PO SCH (08:43)
[2020-08-22] MEDS: ESCITALOPRAM OXALATE 10 MG TAB PO SCH (08:43)
[2020-08-22] MEDS: APIXABAN 5 MG TABLET PO SCH (08:43)
[2020-08-22] MEDS: ATORVASTATIN 20 MG TAB PO SCH (08:44)
[2020-08-22] MEDS: METOPROLOL TARTRATE 25 MG TAB PO SCH (08:44)
[2020-08-22] MEDS: INSULIN ASPART 100 UNITS/ML 3 ML PEN SC SCH (08:46)
--- NOTE | 2020-08-22 09:33 | Discharge Summary ---
Date of Service August 22, 2020 Admission HPI Per Admitting Provider This is a 55 year -old male with a history of a left atrophic kidney as well as a history of uric acid kidney stones and acute kidney injury. Patient notes that he has a history of having kidney stones causing acute kidney injury requiring ureteral stents with the most recent episode being in October 2018. He says he follows locally with Dr. Baker of urology. This man was in his usual state of health until approximate 3 to 4 days ago when he developed hematuria. Over the ensuing several days he noted he had some right flank pain with no radiation. He said that the pain persisted so he contacted his urologist. The pain ultimately became so severe he presented to the emergency department. He does have nausea without vomiting but and he also has chills but has not had any febrile episodes. He denies dysuria. In the emergency department a CT scan was performed that showed a markedly atrophic left kidney. The right kidney demonstrated moderate hydronephrosis secondary to 3 obstructing stones in the mid ureter. Labs consisted of a CBC which revealed a white blood cell count of 3.5 his hemoglobin was 13.3 and his hematocrit was 39.4. The platelet count was noted to be within normal range. Chemistry profile showed sodium and potassium were within the normal range. His BUN and creatinine were 27 and 2.4. It is noted to mention that over the past year his baseline renal function showed a creatinine of approximately 1.3. Patient does take Eliquis for history of atrial fibrillation. He said his most recent dose was at 7:30 AM this morning. He currently does not have any palpitations or chest pain. At the time of my exam he is resting comfortably in bed his pain was better controlled and he was in no distress. Admission Exam Per Admitting Provider Constitutional: well developed and well nourished; no acute distress Eyes: no conjunctival abnormality ENMT: Ears: no hearing impairment Neck: trachea midline Respiratory: normal respiratory effort, lungs clear to auscultation Cardiovascular: Rate/Rhythm: regular rate and regular rhythm Gastrointestinal (Abdomen): Percussion/Palpation: abdomen soft; abdomen nontender Right CVA tenderness noted with percussion Musculoskeletal: No calf pain Skin: no rashes, warm and dry Neurologic: CN's II-XI intact bilaterally and moves all extremities Psychiatric: A+Ox3, euthymic affect Principal Diagnosis Acute Kidney Injury secondary to obstructing stones Discharge Exam Constitutional WD/WN, vitals as above comfortable; no acute distress Eyes + anicteric sclerae and PERRL ENMT mmm Neck normal visual inspection and trachea midline Respiratory normal respiratory effort, lungs clear to auscultation Cardiovascular RRR, no murmur, no edema Gastrointestinal (Abdomen) normal bowel sounds, soft, nontender, no hepatosplenomegaly Musculoskeletal no cyanosis or clubbing, extremities motor strength 5/5 Skin no rashes, warm and dry Neurologic PERRL, EOMI, accommodation nl, no face palsy, no dysarthria Psychiatric A+Ox3, euthymic affect Genitourinary no CVA tenderness Lymphatic no cervical or axillary lymphadenopathy Discharge Data Allergies Allergy/AdvReac Type Severity Reaction Status Date / Time Bactrim AdvReac Intermediate diarrhea Verified 02/28/18 05:37 sulfamethoxazole AdvReac Intermediate diarrhea Verified 08/20/20 21:24 trimethoprim AdvReac Intermediate diarrhea Verified 08/20/20 21:24 Consultations 08/20/20 20:40 ED Decision to Admit Stat 08/20/20 22:12 Consult Urology Stat Procedures Performed Operation Date: 08/21/20 07:15 Actual Procedures p Cystoscopy, Ureteral Stent Insertion Right(Right) - Himanshu Baker MD Ordered Studies 08/20/20 18:03 CT abd pelvis wo con Stat 08/21/20 07:30 FL KUB Routine FL fluoroscopy <1hr Routine Hospital Course (1) ABDOUL (acute kidney injury): in patient with CKD III and atrophic L kidney CTAP with: * 1. Moderate right-sided hydroureteronephrosis secondary to three obstructing calculi within the mid right ureter at the level of L4. * 2. Nonobstructing right nephrolithiasis. * 3. Marked left renal atrophy. * 4. No bowel obstruction or bowel wall thickening. Normal appendix. * 5. Colonic diverticulosis. ABDOUL secondary to obstructing stones. Cr elevated to 3.16 (baseline ~1.3-1.7) with atrophic L kidney and R sided calculi * Urology consulted -- emergent intervention given only one functioning kidney * s/p cystoscopy with stent with Dr. Baker on 08/21 * IVF provided for ABDOUL and repeat Cr 1.66, closer to baseline and instructed to hold losartan for today and resume in next 2 days unless BP becomes elevated prior to that on his home BP cuff * Supportive care with antiemetics/pain control -- sent with short prescription for pain medication at discharge for breakthrough pain in addition to flomax for stone expulsion * Cipro x 1 for intervention but discussed with Urology and did not feel any further abx warranted at this time. Urine culture not obtained prior to abx therapy * To follow up with Urology outpatient for definitive treatment. Of note, does follow with Dr Murillo from nephrology and he states he had follow up with [facility] in the past and had been on mediation to help with decreasing stone formation but did not find any help and discontinued at that time. Follow up with Dr. Murillo rec'd as previously scheduled (2) Calculus of right ureter: s/p cysto with stent as above Flomax (3) Diabetes: Hold metformin while inpatient. A1c 8.5 Home medications resumed at discharge. Sugars well controlled while inpatient (4) Hypertension: Stable, BP 119/74 Continue metoprolol Continue to hold losartan given ABDOUL for next day, then resume (5) Hyperlipidemia: Lipitor (6) Atrial fibrillation: EKG with NSR 77bpm pre-op Resumed Eliquis post-operatively DVT Proph SCDs while inpatient Eliquis resumed as above Discharged home (2) Calculus of right ureter: (3) Diabetes: (4) Hypertension: (5) Hyperlipidemia: (6) Atrial fibrillation: Total Time Total Time Spent Total Time Spent (In Minutes): 60 Discharge Plan Discharge Items Patient Disposition: Home - Self-Care Reason For Visit: ABDOUL/STONES Discharge Diagnosis: Acute Kidney Injury secondary to obstructing stones Goals: You have been hospitalized for an urgent problem which required surgery. During your stay at [facility], we have made an effort to correct the problem that brought you to the hospital while keeping you as comfortable as possible. Surgery and medications were used to bring your condition under control and your discharge instructions will include directions for any medications you should take after leaving the hospital. Please make sure to follow the advice of your surgeon regarding follow up with the surgeon and with your primary care provider. Activity: Resume your previous activity Non-emergency contact: Primary Care Provider, Nurse Behavioral Health Care and Urologist Call non-emergency contact if: you have any medication questions and your pain is not controlled Follow-up/Referrals: Tanvir Murillo DO [Physician] - 10/02/20 9:00 am (as previously scheduled) Monica Shaikh [Primary Care Provider] - Zari Harrell CRNP [Nurse Practitioner] - 08/28/20 10:00 am Diet: Heart Healthy Franklyn Attending Provider Instructions: You have been hospitalized for an acute kidney injury secondary to several stones. Urology was consulted and you were taking to the OR for stent placement and will need follow up with them for definitive treatment. You were provided supportive care and analgesia and are being sent home with a short prescription for pain control to use as needed. You can use Tylenol for other non-severe pain. You have also been sent with a prescription for Flomax to help with stone expulsion to be taken at night. Discussion was had with Urology and they do not feel you need to have further antibiotics at this time as the obstruction has been resolved. You should continue to push oral fluids and as discussed, please hold your losartan for tomorrow and resume on Wednesday, unless blood pressure readings at home tomorrow show your pressures to be elevated. You should follow up with Urology in the next 1-2 weeks. You should follow up with your PCP and Nephrology as previously scheduled. Please return to the emergency department with any worsening pain, fever, difficulty urinating, or for any other symptoms that are concerning for you. It has been a pleasure being a part of the medical team providing for you while you have been in the hospital. Take care! Franklyn [employer] Provider Instructions: Please call the urology office at [phone] with any questions, concerns or need to reschedule appointments for any reason. We are happy to assist you. While you have a ureteral stent in place: Some discomfort is normal. Certain movements may trigger pain or a feeling that you need to urinate. You may also feel mild soreness or pressure before or during urination. These symptoms should go away a few days after the stent is removed. Your urine may be slightly pink or red. This is due to bleeding caused by minor irritation from the stent. This may happen on and off while you have the stent, it is not harmful and is to be expected. Medication to help minimize discomfort or bladder spasms, or to prevent infection may be prescribed. Take this as directed. Drink plenty of fluids to help flush out your urinary tract. If you go home with a catheter, wash with soapy water and a fresh washcloth twice daily. We recommend mild bar soap such as Dial or Dove. How long will you need a stent? The stent is often taken out after the blockage in the ureter is treated or the ureter has healed. This may take 1-2 weeks, or longer. If a stent is needed for a longer period of time, it may need to be exchanged every few months. You will need to have your stones treated prior to the stents being removed. When to call [facility] at [phone]: Your urine contains heavy blood clots You are constantly leaking urine Fever of 101F or higher, chills, nausea, or vomiting Your pain is not relieved with medication The end of the stent comes out of your urethra Pending Studies at Discharge: No Stand-Alone Forms: [facility] WorkThink, Opioid Pain Management, Work/School Release (Inpt) Medications and DC Order Prescriptions: New tamsulosin 0.4 mg Capsule 0.4 mg PO HS 7 Days Qty: 7 RF: 0 oxycodone 5 mg tablet 5 mg PO Q6H PRN (Reason: pain) Qty: 7 RF: 0 Continued Trulicity 1.5 mg/0.5 mL pen injector 1.5 mg subcut .COMPLEX Qty: 6 RF: 3 atorvastatin [Lipitor] 20 mg tablet 20 mg PO QPM RF: 0 metformin 500 mg tablet,ER manny.retention 24 hr 2,000 mg PO QPM RF: 0 lactobacillus combination no.8 1 mg PO DAILY RF: 0 metoprolol tartrate 25 mg tablet 12.5 mg PO BID RF: 0 Eliquis 5 mg tablet 5 mg PO BID RF: 0 escitalopram oxalate [Lexapro] 10 mg Tablet 10 mg PO QPM RF: 0 insulin aspart U-100 [Novolog Flexpen U-100 Insulin] 100 unit/mL (3 mL) insulin pen 6 unit subcut TID RF: 0 Tresiba FlexTouch U-100 100 unit/mL (3 mL) insulin pen 38 unit subcut DAILY RF: 0 acetaminophen [Tylenol Extra Strength] 500 mg Tablet 1,000 mg PO Q6H PRN (Reason: Pain) RF: 0 losartan 50 mg tablet 50 mg PO QPM RF: 0 Discharge Orders: Discharge Order (Routine); Ordered 08/22/20 Ordered By: Hannah Cunningham/Other Patient Handouts: Understanding Kidney Stones, Identifying Kidney Stones, Preventing Kidney Stones Admission Data Admit Date/Time: 08/20/20 20:56 Attending Provider: Christian Green Admit Provider: Alisa Wood Primary Care Provider: Monica Shaikh Other Providers: Alisa Wood ; Himanshu Baker Other Interventions: Discharge Summary Assessment (RN) Last Done: 08/22/20 10:28 Coding Level of Care Code D/C Day Management >30 mins Diagnoses ABDOUL (acute kidney injury) N17.9 Calculus of right ureter N20.1 Diabetes E11.65 Diabetes mellitus complication status: with hyperglycemia Diabetes mellitus prison insulin use: without prison use Diabetes mellitus type: type 2 Hypertension I10 Hypertension type: essential hypertension Hyperlipidemia E78.5 Atrial fibrillation I48.91
== END 2020-08-22 11:10 | disposition home or self-care (01) | DRG 660 ==
LOC: ED 15:50 → SUATTDRO 20:56 → 3N 20:56

== ENCOUNTER 2021-09-07 19:19 | Inpatient (IN) ==
[2021-09-07] MEDS ORDERED: SODIUM CHLORIDE 0.9% 1000ML 1,000 ML IV SCH (19:30)
[2021-09-07] MEDS ORDERED: MoRPHine SULFATE 4 MG/ML 1 ML CARP\\VIAL IV STA (19:30)
[2021-09-07] MEDS ORDERED: ONDANSETRON INJ 2 MG/ML 2 ML VIAL IV STA (19:30)
--- NOTE | 2021-09-07 19:39 | Emergency Department Note ---
History of Present Illness General Chief Complaint: Unable to Void Stated Complaint: KIDNEY STONE, PAIN, UNABLE TO VOID Time Seen by Provider: 09/07/21 19:30 History of Present Illness Provider Complaint: flank pain Onset (ago): 4 day(s) Pain Consistency: intermittent Location: R flank Severity: similar to previous episodes (feels like kidney stones) Maximum Pain Intensity: 8 Current Pain Intensity: 8 Quality: + stabbing and + sharp Relieved By: + nothing Exacerbated By: + nothing Context: + history of similar episodes (hx kidney stones); no foreign travel, no possible food poisoning, no sick contacts, no recent antibiotic use, no recent surgery/procedure or no recent injury Associated Symptoms: + nausea and + chills; no vomiting, no diarrhea, no fever, no constipation, no dysuria, no hematemesis, no hematochezia, no melena, no hematuria, no anorexia, no syncope, no headache, no neck pain, no back pain, no chest pain, no weakness, no breathing difficulty and no numbness Difficulty urinating Home Medications Medication Instructions Recorded Confirmed Type losartan 50 mg tablet 50 mg PO QAM 11/21/18 09/07/21 History atorvastatin 20 mg tablet (Lipitor) 20 mg PO QPM 04/09/20 09/07/21 History metformin 500 mg 24 hr 2,000 mg PO QPM tab 04/09/20 09/07/21 History tablet,extended release apixaban 5 mg tablet (Eliquis) 5 mg PO BID 06/27/20 09/07/21 History acetaminophen 500 mg tablet 1,000 mg PO Q6H PRN 08/20/20 09/07/21 History (Tylenol Extra Strength) lactobacillus combination no.4 3 3,000 mmu cells PO QAM 09/04/20 09/07/21 History billion cell capsule (Probiotic) blood-glucose sensor (Dexcom G6 #3 ea 10/28/20 07/07/21 History Sensor) blood-glucose sensor (Dexcom G6 #9 ea 05/20/21 07/07/21 Rx Sensor) Dexcom G6 Transmitter #1 ea NS 05/22/21 07/07/21 Rx (blood-glucose transmitter) insulin degludec 100 unit/mL (3 42 unit SUBCUT HS ml 07/07/21 09/07/21 History mL) subcutaneous pen (Tresiba FlexTouch U-100 insulin) metoprolol tartrate 25 mg tablet 12.5 mg PO PM tab 07/07/21 09/07/21 History dulaglutide 3 mg/0.5 mL 3 mg SUBCUT WK 09/07/21 09/07/21 History subcutaneous pen injector (Trulicity) insulin aspart U-100 100 unit/mL 10 - 15 unit SUBCUT QPM 09/07/21 09/07/21 History (3 mL) subcutaneous pen (Novolog Flexpen U-100 Insulin aspart) Allergies Allergy/AdvReac Type Severity Reaction Status Date / Time Bactrim AdvReac Intermediate diarrhea Verified 02/28/18 05:37 sulfamethoxazole AdvReac Intermediate diarrhea Verified 09/07/21 20:47 trimethoprim AdvReac Intermediate diarrhea Verified 09/07/21 20:47 Past Med/Surg History Medical History Anxiety disorder Atrial fibrillation DX'D 05/20/20 F/U DR RITO OCHOA 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 Diabetes A1C 11.4% TYPE 2 Fatty liver Hydronephrosis Hyperlipidemia Hypertension Microalbuminuria Morbid obesity ZA on CPAP Renal agenesis Right ureteral calculus T2DM (type 2 diabetes mellitus) Uncontrolled type 2 diabetes mellitus Surgical History History of anesthesia reaction DIZZY/NAUSEATED/LIGHT SENSITIVTY WITH FIRST CYSTOSCOPY History of colonoscopy History of lithotripsy x2 History of removal of ureteral stent x 2 History of tooth extraction WISDOM TEETH Hx of cystoscopy x5 Family History Grandmother Diabetes Mother SLE (systemic lupus erythematosus) Parkinson disease Macular degeneration Social History Smoking Status: Never smoker Second Hand Exposure: No; Hx Alcohol Use: Yes Alcohol type: beer Hx Substance Use: No Preferred Language: Malay Communication Ability: Effective Travel Rn Or Required: No Beliefs That Will Affect Care: None marital status: Current Living Situation: Spouse current occupational status: employed current occupation: [employer] How many Children do You have: 1 Feels Safe at Home: Yes Assistive Devices: Contacts and Glasses Review of Systems A total of 10 systems reviewed and were otherwise negative Physical Exam Vital Signs: Vital Signs - 24 hr 09/07/21 19:24 09/07/21 20:14 Temperature 36.0 C L Temperature Source Temporal Artery Sc an Pulse Rate 86 Respiratory Rate 20 Respiratory Effort / Characteristics Non-Labored Sponta neous Respiratory Depth Normal Blood Pressure 146/79 H Blood Pressure Andra n 101 Pulse Oximetry 96 Oxygen Delivery Me thod Room Air Room Air Sepsis New/Unexpla ined Change in Men chi Status N/A Sepsis Action Take n by Nursing No Action Required Physical Exam: Physical Exam GENERAL: He is oriented to person, place, and time. He appears well-developed and well-nourished. He does not appear distressed. HENT: Exam performed. - Head: Normocephalic and atraumatic. - Right Ear: External ear normal. No mastoid tenderness. - Left Ear: External ear normal. No mastoid tenderness. - Mouth/Throat: The oropharynx is clear and moist. No trismus in the jaw. No dental abscesses or uvula swelling. No oropharyngeal exudate or tonsillar abscesses. EYES: Conjunctivae and EOM are normal. Pupils are equal, round, and reactive to light. Right eye exhibits no discharge. Left eye exhibits no discharge. No scleral icterus. NECK: Normal range of motion. Neck supple. No JVD present. No spinous process tenderness present. No carotid bruit present. No rigidity. No tracheal deviation and normal range of motion present. No Brudzinski's sign and no Kernig's sign noted. CV: Normal rate, regular rhythm, normal heart sounds and intact distal pulses. There is no peripheral edema. Palpable radial pulses bue. PULM/CHEST: Effort normal and breath sounds normal. No respiratory distress. No stridor. He has no wheezes. He has no rales. - Chest Wall: He exhibits no tenderness. ABD: The abdomen is soft. Bowel sounds are normal. He has no distension. No mass is present. There is no tenderness. There is no rebound, no guarding, no Kemp's sign and no tenderness at McBurney's point. Rovsig negative. Right- sided CVA tenderness. MUSC/SKEL: Normal range of motion. There is no peripheral edema, tenderness or deformity. LYMPH: No cervical adenopathy. NEURO: He is alert and oriented to person, place, and time. He has normal strength. No cranial nerve deficit or sensory deficit. Coordination and gait normal. GCS eye subscore is 4. GCS verbal subscore is 5. GCS motor subscore is 6. Cerebellar tests wnl. SKIN: Skin is warm and dry. He is not diaphoretic. PSYCH: He has a normal mood and affect. Behavior is normal. Judgment and thought content normal. Course Course 1929: The patient was evaluated in room B12. A complete history and physical e xam was performed Cardiac monitoring: An order was placed for continuous cardiac monitoring. The monitor shows a rate of 80 with sinus rhythm 2105: Vital signs stable. Bladder scan shows does not show much urine in the bladder. CT shows 4 mm stone with hydronephrosis perinephric stranding. Labs show normal white blood cell count. Creatinine is up to 1.96. Higher than his baseline. Given the patient has 1 kidney and his elevated creatinine, [facility] Dowling did evaluate the patient states to make the patient n.p.o. and they will decide if procedure needs to be done tomorrow. Dr. Wood's team notified. Administered Medications Sodium Chloride (Nss 1000ml) 1,000 mls @ 125 mls/hr IV .Q8H JOBY Stop: 10/07/21 19:29 Last Admin: 09/07/21 20:09 Dose: 125 mls/hr Documented by: [id number] Discontinued Medications Morphine Sulfate (Morphine Sulfate 4 Mg/Ml 1 Ml Carp\Vial) 4 mg IV NOW STA Stop: 09/07/21 19:31 Last Admin: 09/07/21 20:09 Dose: 4 mg Documented by: [id number] Ondansetron HCl (Ondansetron Inj 2 Mg/Ml 2 Ml Vial) 4 mg IV NOW STA Stop: 09/07/21 19:31 Last Admin: 09/07/21 20:09 Dose: 4 mg Documented by: [id number] Medical Decision Making Laboratory Data Result diagrams: 09/07/21 20:10 09/07/21 20:10 Lab Results 09/07/21 09/07/21 Range/Units 20:10 20:10 WBC 11.68 H (4.8-10.8) K/uL RBC 4.77 (4.7-6.1) M/uL Hgb 13.5 L (14.0-18.0) g/dL Hct 40.0 L (42-52) % MCV 83.9 (80-100) fL MCH 28.3 (25-34) pg MCHC 33.8 (32-36) g/dL RDW Std Deviation 38.7 (36.4-46.3) fL RDW Coeff of Kandis 12.7 (11.5-14.5) % Plt Count 287 (130-400) K/uL MPV 9.0 (7.4-10.4) fL Immature Gran % (Auto) 0.2 % Neut % (Auto) 64.2 % Lymph % (Auto) 22.3 % Ballard % (Auto) 11.0 % Eos % (Auto) 2.1 % Baso % (Auto) 0.2 % Neut # (Auto) 7.51 H (1.4-6.5) K/uL Lymph # (Auto) 2.61 (1.2-3.4) K/uL Ballard # (Auto) 1.28 H (0.11-0.59) K/uL Eos # (Auto) 0.24 (0-0.5) K/uL Baso # (Auto) 0.02 (0-0.2) K/uL Immature Gran # (Auto) 0.02 (0.00-0.02) K/uL Sodium 138 (136-145) mmol/L Potassium 4.1 (3.5-5.1) mmol/L Chloride 104 (98-107) mmol/L Carbon Dioxide 27 (21-32) mmol/L Anion Gap 7 (3-11) BUN 30 H (6-23) mg/dl Creatinine 1.96 H (0.6-1.4) mg/dl Est Cr Clr Drug Dosing 58.9 ml/min Est GFR ( Amer) 43.0 ml/min Est GFR (Non-Af Amer) 37.1 ml/min BUN/Creatinine Ratio 15.3 (10-20) Glucose 176 H (70-99(Fasting)) mg/dl Calcium 9.2 (8.5-10.1) mg/dl Imaging Data Radiologist's Impression: Abdomen/Pelvis CT 09/07/21 19:30 CT OF THE ABDOMEN AND PELVIS WITHOUT CONTRAST CLINICAL HISTORY: Right flank pain. COMPARISON STUDY: CT of the abdomen and pelvis 08/20/2020. Renal ultrasound April 11, 2021. TECHNIQUE: Axial images of the abdomen and pelvis were obtained without IV contrast. Images were reviewed in the axial, sagittal, and coronal planes. Automated exposure control was utilized for the study. A dose lowering technique was utilized adhering to the principles of ALARA. FINDINGS: A few calcified nodules within the lower lungs are benign. These are unchanged. A 4 mm proximal right ureteral calculus results in moderate right hydronephrosis. There is right perinephric and periureteral stranding. No additional urinary calculi are identified. Marked left renal atrophy is unchanged. Evaluation of the remainder of the abdomen and pelvis is suboptimal on this unenhanced exam. The liver, spleen, adrenal glands and pancreas are unremarkable. There is no biliary or pancreatic ductal dilatation. There is no evidence for a bowel obstruction. Colonic diverticulosis is noted without evidence for acute diverticulitis. There is no lymphadenopathy. No acute fracture or suspicious lesion is identified within the visualized skeletal stru ctures. IMPRESSION: 1. 4 mm proximal right ureteral calculus which results in moderate right h ydronephrosis. Associated perinephric and periureteral stranding. 2. Marked left renal atrophy, unchanged. 3. No bowel obstruction. Colonic diverticulosis without evidence for acute diverticulitis. ACT 112: Negative or not required by law. Electronically signed by: Osman Taylor M.D. 09/07/2021 8:01 PM MDM Narrative Vital signs stable. Bladder scan shows does not show much urine in the bladder. CT shows 4 mm stone with hydronephrosis perinephric stranding. Labs show normal white blood cell count. Creatinine is up to 1.96. Higher than his baseline. Given the patient has 1 kidney and his elevated creatinine, the patient will be admitted to the [facility] hospitalist team. Urology Christ Dowling did evaluate the patient states to make the patient n.p.o. and they will decide if procedure needs to be done tomorrow. Dr. Wood's team notified. Impression & Plan Hydronephrosis concurrent with and due to calculi of kidney and ureter, ABDOUL (acute kidney injury) Discharge Plan Visit Data Chief Complaint: Unable to Void Stated Complaint: KIDNEY STONE, PAIN, UNABLE TO VOID ED Provider: Junior Rai Discharge Problem: Hydronephrosis concurrent with and due to calculi of kidney and ureter, ABDOUL (acute kidney injury) Patient Disposition: Admitted As Inpatient Forms Stand Alone Forms: My [facility] Prescriptions Prescriptions: No Action (DME) Dexcom G6 Sensor Device See Rx Instructions .Route Qty: 9 RF: 3 (DME) Dexcom G6 Transmitter Device See Rx Instructions .Route Qty: 1 RF: 3 Tresiba FlexTouch U-100 100 unit/mL (3 mL) insulin pen 42 unit subcut HS RF: 0 atorvastatin [Lipitor] 20 mg tablet 20 mg PO QPM RF: 0 metformin 500 mg tablet,ER manny.retention 24 hr 2,000 mg PO QPM RF: 0 Eliquis 5 mg tablet 5 mg PO BID RF: 0 metoprolol tartrate 25 mg tablet 12.5 mg PO PM RF: 0 (DME) Dexcom G6 Sensor Device See Rx Instructions .ROUTE .MEDSUPPLY Qty: 3 RF: 0 acetaminophen [Tylenol Extra Strength] 500 mg Tablet 1,000 mg PO Q6H PRN (Reason: Pain) RF: 0 Probiotic 3 billion cell Capsule 3,000 mmu cells PO QAM RF: 0 losartan 50 mg tablet 50 mg PO QAM RF: 0 insulin aspart U-100 [Novolog Flexpen U-100 Insulin] 100 unit/mL (3 mL) insulin pen 10 - 15 unit subcut QPM RF: 0 Trulicity 3 mg/0.5 mL pen injector 3 mg subcut WK RF: 0 Referrals Referrals: Monica Shaikh [Primary Care Provider] -
--- NOTE | 2021-09-07 20:03 | CT Scan Report ---
CT OF THE ABDOMEN AND PELVIS WITHOUT CONTRAST CLINICAL HISTORY: Right flank pain. COMPARISON STUDY: CT of the abdomen and pelvis 08/20/2020. Renal ultrasound April 11, 2021. TECHNIQUE: Axial images of the abdomen and pelvis were obtained without IV contrast. Images were revi ewed in the axial, sagittal, and coronal planes. Automated exposure control was utilized for the isabela dy. A dose lowering technique was utilized adhering to the principles of ALARA. FINDINGS: A few calcified nodules within the lower lungs are benign. These are unchanged. A 4 mm prox imal right ureteral calculus results in moderate right hydronephrosis. There is right perinephric and periureteral stranding. No additional urinary calculi are identified. Marked left renal atrophy is u nchanged. Evaluation of the remainder of the abdomen and pelvis is suboptimal on this unenhanced exam . The liver, spleen, adrenal glands and pancreas are unremarkable. There is no biliary or pancreatic ductal dilatation. There is no evidence for a bowel obstruction. Colonic diverticulosis is noted with out evidence for acute diverticulitis. There is no lymphadenopathy. No acute fracture or suspicious l esion is identified within the visualized skeletal structures. IMPRESSION: 1. 4 mm proximal right ureteral calculus which results in moderate right hydronephrosis. Associated p erinephric and periureteral stranding. 2. Marked left renal atrophy, unchanged. 3. No bowel obstruction. Colonic diverticulosis without evidence for acute diverticulitis. ACT 112: Negative or not required by law. Electronically signed by: Osman Taylor M.D. 09/07/2021 8:01 PM
[2021-09-07 20:19] LABS: Basophils # (auto) 0.02 K/uL (0-0.2); Basophils % (auto) 0.2 %; Eosinophils # (auto) 0.24 K/uL (0-0.5); Eosinophils % (auto) 2.1 %; Hemoglobin 13.5 g/dL (14.0-18.0); Immature Granulocytes # (auto) 0.02 K/uL (0.00-0.02); Immature Granulocytes % (auto) 0.2 %; Lymphocytes # (auto) 2.61 K/uL (1.2-3.4); Lymphocytes % (auto) 22.3 %; Mean Corpuscular Hemoglobin 28.3 pg (25-34); Mean Corpuscular Hgb Conc 33.8 g/dL (32-36); Mean Corpuscular Volume 83.9 fL (80-100); Monocytes # (auto) 1.28 K/uL (0.11-0.59); Neutrophils # (auto) 7.51 K/uL (1.4-6.5); Neutrophils % (auto) 64.2 %; Platelet Count 287 K/uL (130-400); RDW Coefficient of Variation 12.7 % (11.5-14.5); RDW Standard Deviation 38.7 fL (36.4-46.3); Red Blood Count 4.77 M/uL (4.7-6.1); White Blood Count 11.68 K/uL (4.8-10.8)
[2021-09-07 20:37] LABS: BUN Creatinine Ratio 15.3 (10-20); Calcium 9.2 mg/dl (8.5-10.1); Creatinine Clr Calc Pharmacy 58.9 ml/min; Est GFR (Non-African American) 37.1 ml/min; Potassium 4.1 mmol/L (3.5-5.1)
[2021-09-07] MEDS ORDERED: HYDROmorphone INJ 1 MG/ML SYRINGE IV STA (21:06)
--- NOTE | 2021-09-07 21:08 | History & Physical Report ---
Date of Service September 07, 2021 Assessment & Plan (1) Hydronephrosis concurrent with and due to calculi of kidney and ureter: Plan: This is a 56-year-old male with a past medical history significant for renal agenesis with single functioning kidney, CKD stage III (baseline creatinine 1.1 - 1.3), history of nephrolithiasis requiring stent placement, ZA, anxiety, atrial fibrillation, hypertension who presents to [facility] for evaluation of flank pain and inability to void, subsequently found to have evidence of a small, right-sided obstructing proximal ureteral stone resulting in hydronephrosis and perinephric stranding. He tested POSITIVE for COVID-19 on screening in ED. See below. Obstructing Ureteral Calculus (RIGHT) Patient with known history of uric acid stones previously requiring stent placement, left-sided congenital renal agenesis CT abdomen pelvis significant for 4 mm proximal right ureteral calculus resulting in moderate right-sided hydronephrosis, as well as perinephric stranding Urology consulted in the ED: N.p.o., analgesia, antiemetics, hydration, Flomax, urine strainer. Monitor overnight, re-evaluate in AM for ?need in procedure While perinephric and periureteral stranding may be secondary to obstructing stone, cannot rule out developing UTI in setting of recent urine culture positivity --> Initiate ampicillin 1g IV q6h --> Await UA / UCX once urine produced Initiate Flomax 0.4 mg every morning Dilaudid 0.5 mg IV every 6 hours, can increase as needed Continue NSS at 125cc/hr to complete 1 L, then bump down to 80cc/hr Strain urine Following stone passage/intervention if needed, would consider resumption of potassium citrate for urinary alkalinization Hold home anticoagulation for now in case of need for procedure (last dose - AM of 09/07) Acute Kidney Injury Patient with known history of congenital renal agenesis on the left side, alongside CKD stage III (baseline creatinine 1.1-1.3) On admission, patient noticed to have BUN 30/creatinine 1.96primarily suspect post renal in nature given agenesis of left side and obstructing stone on right side Management of obstructing renal calculus as outlined above Given agenesis on the left side and obstruction on right side, opted to decrease maintenance rate to 80cc/hr after first bag is complete BMP in a.m. Hold home losartan COVID-19 -- fully vaccinated x 3 Patient reportedly tested positive using at home test on 08/27 after 1x day of symptoms (since resolved), making day 11 since positive test result and 12 days since symptom onset Screening test performed in the ER did result in positive NAAT test Likely outside of infectious window, however, will place on isolation precautions Monitor for symptoms Paroxysmal Atrial Fibrillation In normal sinus rhythm since arrival Continue metoprolol Hold home anticoagulation in case of need for procedure; can consider initiation of Lovenox pending rest of hospital course Type 2 Diabetes / HLD Home antiglycemics on hold Appreciate glycemic consult given complex home insulin regimen and possible need for procedure, ongoing n.p.o. status Continue atorvastatin ZA Continue home CPAP while here Code: Full code Diet: N.p.o. except for medications Disposition: MedSurg Prophylaxis: SCDs; hold home anticoagulation, as above (2) ABDOUL (acute kidney injury): (3) T2DM (type 2 diabetes mellitus): (4) ABDOUL (acute kidney injury): (5) CKD (chronic kidney disease) stage 3, GFR 30-59 ml/min: (6) Anemia: (7) Calculus of right ureter: (8) ABDOUL (acute kidney injury): (9) S/P ureteral stent placement: (10) Right flank pain: (11) Hyperlipidemia: (12) Obstructive sleep apnea: (13) Anxiety: (14) Acute renal failure: (15) Atrial fibrillation: (16) Kidney stones: (17) Renal calculus, right: (18) Microalbuminuria: (19) Uncontrolled type 2 diabetes mellitus: History of Present Illness Primary Care Provider: Monica Shaikh This is a 56-year-old male with a past medical history significant for renal agenesis with single functioning kidney, CKD stage III (baseline creatinine 1.1 - 1.3), history of nephrolithiasis requiring stent placement, ZA, anxiety, atrial fibrillation, hypertension who presents to [facility] for evaluation of flank pain and inability to void. Patient said that he was in his normal health last week, and beginning on Wednesday, began experiencing right- sided flank pain. He said that this continued throughout the day, but subsequently passed a small stone. Over the weekend, he reported feeling better. Then, beginning today again, he began experiencing worsening right- sided flank pain. He has had some associated nausea without vomiting. Does endorse some chills. He says that he has been unable to void since around noon. Denies any recent urinary symptoms, including hematuria, dysuria, frequency, urgency. He has not thrown up. A urine culture was ordered approximately 2 days ago, which demonstrated growth of Enterococcus only resistant to tetracyclines. He does say that on August 27 (approximately 11 days from today) he tested positive for COVID-19 using a at home test. He was reporting cough, chills, sweats, congestion at that time, which began 1 day prior. Today is day 12 from that time. He is fully vaccinated x3. He says that the symptoms have since resolved. He has no other complaints today. He denies any use of recreational drugs, tobacco, or alcohol. He denies any recent changes in his medications or diet. He denies any fevers, chills, night sweats, chest pain, palpitations, shortness of breath, diarrhea. In the ER, patient was found to be afebrile with normal vital signs. CT of the abdomen and pelvis was obtained, which demonstrated 4 mm proximal right ureteral calculus resulting in moderate right-sided hydronephrosis, also observed was perinephric and periureteral stranding on the side. He was evaluated by urology in the ER, who did make him n.p.o. and gave him 1 dose of Flomax. He was given intravenous fluids as well as Dilaudid. Allergies Allergy/AdvReac Type Severity Reaction Status Date / Time Bactrim AdvReac Intermediate diarrhea Verified 02/28/18 05:37 sulfamethoxazole AdvReac Intermediate diarrhea Verified 09/07/21 20:47 trimethoprim AdvReac Intermediate diarrhea Verified 09/07/21 20:47 Home Medications Medication Instructions Recorded Confirmed Type losartan 50 mg tablet 50 mg PO QAM 11/21/18 09/07/21 History atorvastatin 20 mg tablet (Lipitor) 20 mg PO QPM 04/09/20 09/07/21 History metformin 500 mg 24 hr 2,000 mg PO QPM tab 04/09/20 09/07/21 History tablet,extended release apixaban 5 mg tablet (Eliquis) 5 mg PO BID 06/27/20 09/07/21 History acetaminophen 500 mg tablet 1,000 mg PO Q6H PRN 08/20/20 09/07/21 History (Tylenol Extra Strength) lactobacillus combination no.4 3 3,000 mmu cells PO QAM 09/04/20 09/07/21 History billion cell capsule (Probiotic) blood-glucose sensor (Dexcom G6 #3 ea 10/28/20 07/07/21 History Sensor) blood-glucose sensor (Dexcom G6 #9 ea 05/20/21 07/07/21 Rx Sensor) Dexcom G6 Transmitter #1 ea NS 05/22/21 07/07/21 Rx (blood-glucose transmitter) insulin degludec 100 unit/mL (3 42 unit SUBCUT HS ml 07/07/21 09/07/21 History mL) subcutaneous pen (Tresiba FlexTouch U-100 insulin) metoprolol tartrate 25 mg tablet 12.5 mg PO PM tab 07/07/21 09/07/21 History dulaglutide 3 mg/0.5 mL 3 mg SUBCUT WK 09/07/21 09/07/21 History subcutaneous pen injector (Trulicity) insulin aspart U-100 100 unit/mL 10 - 15 unit SUBCUT QPM 09/07/21 09/07/21 History (3 mL) subcutaneous pen (Novolog Flexpen U-100 Insulin aspart) Past Med/Surg History Medical History Anxiety disorder Atrial fibrillation DX'D 05/20/20 F/U DR RITO OCHOA 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 Diabetes A1C 11.4% TYPE 2 Fatty liver Hydronephrosis Hyperlipidemia Hypertension Microalbuminuria Morbid obesity ZA on CPAP Renal agenesis Right ureteral calculus T2DM (type 2 diabetes mellitus) Uncontrolled type 2 diabetes mellitus Surgical History History of anesthesia reaction DIZZY/NAUSEATED/LIGHT SENSITIVTY WITH FIRST CYSTOSCOPY History of colonoscopy History of lithotripsy x2 History of removal of ureteral stent x 2 History of tooth extraction WISDOM TEETH Hx of cystoscopy x5 Family History Grandmother Diabetes Mother SLE (systemic lupus erythematosus) Parkinson disease Macular degeneration Social History Smoking Status: Never smoker Second Hand Exposure: No; Hx Alcohol Use: Yes Alcohol type: beer Hx Substance Use: No Preferred Language: British Communication Ability: Effective Mushroom Cutter Required: No Beliefs That Will Affect Care: None marital status: Current Living Situation: Spouse current occupational status: employed 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 Nontoxic appearing. HEENT: No JVD Cardiac: Normal rate, regular rhythm. S1 and S2 are present without murmurs rubs or gallops Pulmonary: Normal respiratory effort with symmetric expansion of the chest. Lungs are clear to auscultation bilaterally without crackles or wheezes Abdominal: There is mild distention to the abdomen without tenderness to palpation. There is no CVA tenderness bilaterally Extremities: There is no peripheral edema in the lower extremities. Neuro: Normal movement of the upper and lower extremities Results & Data Results & Data ([facility]) Vital Signs (Past 12 Hours) Vital Signs Temp Pulse Resp BP Pulse Ox 09/07/21 19:24 36.0 C L 86 20 146/79 H 96 Laboratory Results Laboratory Results WBC 11.68 K/uL (4.8-10.8) H 09/07/21 20:10 RBC 4.77 M/uL (4.7-6.1) 09/07/21 20:10 Hgb 13.5 g/dL (14.0-18.0) L 09/07/21 20:10 Hct 40.0 % (42-52) L 09/07/21 20:10 MCV 83.9 fL (80-100) 09/07/21 20:10 MCH 28.3 pg (25-34) 09/07/21 20:10 MCHC 33.8 g/dL (32-36) 09/07/21 20:10 RDW Std Deviation 38.7 fL (36.4-46.3) 09/07/21 20:10 RDW Coeff of Kandis 12.7 % (11.5-14.5) 09/07/21 20:10 Plt Count 287 K/uL (130-400) 09/07/21 20:10 MPV 9.0 fL (7.4-10.4) 09/07/21 20:10 Immature Gran % (Auto) 0.2 % 09/07/21 20:10 Neut % (Auto) 64.2 % 09/07/21 20:10 Lymph % (Auto) 22.3 % 09/07/21 20:10 [place] % (Auto) 11.0 % 09/07/21 20:10 Eos % (Auto) 2.1 % 09/07/21 20:10 Baso % (Auto) 0.2 % 09/07/21 20:10 Neut # (Auto) 7.51 K/uL (1.4-6.5) H 09/07/21 20:10 Lymph # (Auto) 2.61 K/uL (1.2-3.4) 09/07/21 20:10 [place] # (Auto) 1.28 K/uL (0.11-0.59) H 09/07/21 20:10 Eos # (Auto) 0.24 K/uL (0-0.5) 09/07/21 20:10 Baso # (Auto) 0.02 K/uL (0-0.2) 09/07/21 20:10 Immature Gran # (Auto) 0.02 K/uL (0.00-0.02) 09/07/21 20:10 Sodium 138 mmol/L (136-145) 09/07/21 20:10 Potassium 4.1 mmol/L (3.5-5.1) 09/07/21 20:10 Chloride 104 mmol/L (98-107) 09/07/21 20:10 Carbon Dioxide 27 mmol/L (21-32) 09/07/21 20:10 Anion Gap 7 (3-11) 09/07/21 20:10 BUN 30 mg/dl (6-23) H 09/07/21 20:10 Creatinine 1.96 mg/dl (0.6-1.4) H 09/07/21 20:10 Est Cr Clr Drug Dosing 58.9 ml/min 09/07/21 20:10 Est GFR ( Amer) 43.0 ml/min 09/07/21 20:10 Est GFR (Non-Af Amer) 37.1 ml/min 09/07/21 20:10 BUN/Creatinine Ratio 15.3 (10-20) 09/07/21 20:10 Glucose 176 mg/dl (70-99(Fasting)) H 09/07/21 20:10 POC Glucose 122 mg/dl (70-99) H 09/07/21 23:41 Calcium 9.2 mg/dl (8.5-10.1) 09/07/21 20:10 SARS-CoV-2, RNA, NAAT POSITIVE (NEGATIVE) A* 09/07/21 21:26 Impressions Abdomen/Pelvis CT 09/07/21 19:30 CT OF THE ABDOMEN AND PELVIS WITHOUT CONTRAST CLINICAL HISTORY: Right flank pain. COMPARISON STUDY: CT of the abdomen and pelvis 08/20/2020. Renal ultrasound April 11, 2021. TECHNIQUE: Axial images of the abdomen and pelvis were obtained without IV contrast. Images were reviewed in the axial, sagittal, and coronal planes. Automated exposure control was utilized for the study. A dose lowering technique was utilized adhering to the principles of ALARA. FINDINGS: A few calcified nodules within the lower lungs are benign. These are unchanged. A 4 mm proximal right ureteral calculus results in moderate right hydronephrosis. There is right perinephric and periureteral stranding. No additional urinary calculi are identified. Marked left renal atrophy is unchanged. Evaluation of the remainder of the abdomen and pelvis is suboptimal on this unenhanced exam. The liver, spleen, adrenal glands and pancreas are unremarkable. There is no biliary or pancreatic ductal dilatation. There is no evidence for a bowel obstruction. Colonic diverticulosis is noted without evidence for acute diverticulitis. There is no lymphadenopathy. No acute fracture or suspicious lesion is identified within the visualized skeletal structures. IMPRESSION: 1. 4 mm proximal right ureteral calculus which results in moderate right hydronephrosis. Associated perinephric and periureteral stranding. 2. Marked left renal atrophy, unchanged. 3. No bowel obstruction. Colonic diverticulosis without evidence for acute diverticulitis. ACT 112: Negative or not required by law. Electronically signed by: Osman Taylor M.D. 09/07/2021 8:01 PM Supervising Physician Co-Signing Physician Notes Patient seen and examined, chart reviewed, case discussed with Dr. Haq and I agree with his assessment and plan as above. In brief, patient is a 56yo male with hisory of renal agenesis, single functioning kidney on right presenting with right sided flank pain. Found to have obstructing 4mm stone in proximal right ureter with perinephric stranding. Covid-19 POSITIVE Exam is largely unremarkable. Afebrile, mildly hypertensive otherwise HD stable. No hypoxia Skin - warm, dry, intact, no rashes HEENT - NC/AT, PERRL, MMM, Neck supple Heart - +S1/S2, regular, no m/r/g Lungs - CTA, no rales/rhonchi/wheezes Abd - Mildly distended, full, non-tender, no organomegaly, no CVA tenderness Ext - Warm, well perfused, no clubbing/cyanosis or edema Labs and images reviewed Elevated Cr to 1.97. Electrolytes and metabolic profile acceptable Covid-19 POSITIVE MIld leukocytosis with WBC=11.68 Assessment/Plan Ureteral stone - obstructive with hydronephrosis - patient with solitary kidney -Pain control, IVF and anti-emetics. Flomax. Urine strainer. -Ampicillin - history of urine cx + enterococcus faecalis - Ampicillin sensitive -Covid-19 POSITIVE -Monitor oxygenation - no need for supplemental O2, dexamethasone at this time. Patient is vaccinated + booster -Hold Losartan. Gentle IVF. Monitor renal function -Urology consultation appreciated -Remainder of plan as above Resident Activity Tracking Resident Involvement: Resident Care Provided Care Provided: Adult [facility] Medicine
--- NOTE | 2021-09-07 21:10 | Urology Consultation ---
Date of Consultation September 07, 2021 Assessment & Plan (1) Hydronephrosis concurrent with and due to calculi of kidney and ureter: Due to the patient's history of atrophic left kidney and acute kidney injury combined with nephrolithiasis and hydronephrosis he is a bit admitted by the hospitalist service. We recommend proceeding as follows: Provide analgesics Provide antiemetics Provide hydration with IV fluids Initiate Flomax for expulsive therapy Check urinalysis and culture if appropriate Initiate antibiotics if clinically indicated based on urinalysis results Strain all urine We will make the patient n.p.o. after midnight in the event that cystoscopic intervention is required tomorrow. Additional recommendations will be made based on his clinical course as it unfolds History of Present Illness Reason for Consultation: Nephrolithiasis with acute kidney injury History of Present Illness A 56-year-old male with an underlying history of atrophic left kidney and history of nephrolithiasis. Patient notes that he has had multiple cystoscopic interventions in the past due to nephrolithiasis. Patient's chart was reviewed and his most recent operative intervention was on 09/10/[address] Baker. On this date the patient underwent a cystoscopy with a right ureteroscopy and laser lithotripsy as well as insertion of a right ureteral stent. Patient presented to the emergency department today secondary to right flank pain. Patient notes that approximately 3 days ago he developed right flank pain with some radiation to his right abdomen which was similar in nature to what he experienced when he had kidney stones in the past. Patient notes the following day he did pass a kidney stone but then earlier today he developed some severe right flank pain again with radiation to the right side of his abdomen. He denies any fevers, shakes, chills. He denies any dysuria or urinary frequency. He denies any hematuria. Patient does have nausea without vomiting. Because of his history of atrophic left kidney as well as prior history of nephrolithiasis he presented to the emergency department. Today in the emergency department the patient had labs and imaging which I independently reviewed. Patient did have a CT scan of the abdomen and pelvis that showed a 4 mm proximal right ureteral calculus resulting in moderate right hydronephrosis. Associated perinephric and periureteral stranding was noted. Labs include a CBC her white blood cell count is 11.6. His hemoglobin and hematocrit were 13.5 and 40.0. Platelet count was noted to be within the normal range. Chemistry profile showed sodium and potassium were both within normal range. Patient's BUN and creatinine were noted to be elevated at 31.9. His baseline creatinine usually runs around 1.0-1.2. At the time of my interview the patient was pain-free and was resting comfortably in bed. Allergies Allergy/AdvReac Type Severity Reaction Status Date / Time Bactrim AdvReac Intermediate diarrhea Verified 02/28/18 05:37 sulfamethoxazole AdvReac Intermediate diarrhea Verified 09/07/21 20:47 trimethoprim AdvReac Intermediate diarrhea Verified 09/07/21 20:47 Home Medications Medication Instructions Recorded Confirmed Type losartan 50 mg tablet 50 mg PO QAM 11/21/18 09/07/21 History atorvastatin 20 mg tablet (Lipitor) 20 mg PO QPM 04/09/20 09/07/21 History metformin 500 mg 24 hr 2,000 mg PO QPM tab 04/09/20 09/07/21 History tablet,extended release apixaban 5 mg tablet (Eliquis) 5 mg PO BID 06/27/20 09/07/21 History acetaminophen 500 mg tablet 1,000 mg PO Q6H PRN 08/20/20 09/07/21 History (Tylenol Extra Strength) lactobacillus combination no.4 3 3,000 mmu cells PO QAM 09/04/20 09/07/21 History billion cell capsule (Probiotic) blood-glucose sensor (Dexcom G6 #3 ea 10/28/20 07/07/21 History Sensor) blood-glucose sensor (Dexcom G6 #9 ea 05/20/21 07/07/21 Rx Sensor) Dexcom G6 Transmitter #1 ea NS 05/22/21 07/07/21 Rx (blood-glucose transmitter) insulin degludec 100 unit/mL (3 42 unit SUBCUT HS ml 07/07/21 09/07/21 History mL) subcutaneous pen (Tresiba FlexTouch U-100 insulin) metoprolol tartrate 25 mg tablet 12.5 mg PO PM tab 07/07/21 09/07/21 History dulaglutide 3 mg/0.5 mL 3 mg SUBCUT WK 09/07/21 09/07/21 History subcutaneous pen injector (Trulicity) insulin aspart U-100 100 unit/mL 10 - 15 unit SUBCUT QPM 09/07/21 09/07/21 Hist ory (3 mL) subcutaneous pen (Novolog Flexpen U-100 Insulin aspart) Patient History Medical History Anxiety disorder Atrial fibrillation DX'D 05/20/20 F/U DR RITO OCHOA 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 Diabetes A1C 11.4% TYPE 2 Fatty liver Hydronephrosis Hyperlipidemia Hypertension Microalbuminuria Morbid obesity ZA on CPAP Renal agenesis Right ureteral calculus T2DM (type 2 diabetes mellitus) Uncontrolled type 2 diabetes mellitus Surgical History History of anesthesia reaction DIZZY/NAUSEATED/LIGHT SENSITIVTY WITH FIRST CYSTOSCOPY History of colonoscopy History of lithotripsy x2 History of removal of ureteral stent x 2 History of tooth extraction WISDOM TEETH Hx of cystoscopy x5 Family History Grandmother Diabetes Mother SLE (systemic lupus erythematosus) Parkinson disease Macular degeneration Social History Smoking Status: Never smoker Second Hand Exposure: No; Hx Alcohol Use: Yes Alcohol type: beer Hx Substance Use: No Preferred Language: Lithuanian Communication Ability: Effective Plant Guide Required: No Beliefs That Will Affect Care: None marital status: Current Living Situation: Spouse current occupational status: employed 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 How many Children do You have: 1 Feels Safe at Home: Yes Assistive Devices: Contacts and Glasses Review of Systems Constitutional: no fever and no chills Eyes: no diplopia Ear, Nose, Mouth, Throat: no ear pain Respiratory: no cough and no dyspnea Cardiovascular: no chest pain Gastrointestinal: + abdominal pain (Radiating from right flank) and + nausea; no vomiting Genitourinary: + flank pain (Right sided); no dysuria, no urinary frequency or no hematuria Physical Exam Constitutional: WD/WN, vitals as above Eyes: no conjunctival abnormality ENMT: Ears: no hearing impairment and no external ear abnormality Neck: trachea midline Respiratory: normal respiratory effort; no respiratory distress and no labored breathing Cardiovascular: Rate/Rhythm: regular rate and regular rhythm Gastrointestinal (Abdomen): Soft, nontender, nondistended Musculoskeletal: No calf tenderness Skin: no rashes Neurologic: moves all extremities Psychiatric: A+Ox3, euthymic affect Genitourinary: no CVA tenderness (No CVA tenderness with percussion at the time of my exam) Results & Data ([facility]) Vital Signs (Past 12 Hours) Vital Signs Temp Pulse Resp BP Pulse Ox 09/07/21 19:24 36.0 C L 86 20 146/79 H 96 PG Care Time/CCT Total # of Minutes Spent Total Time Spent with Patient: Total time spent is greater than 50% in coordination of care (as documented) at patient's floor/unit and/or counseling patient: Coding Level of Care Code 34944 Inpt Consult Level 5 Diagnoses Hydronephrosis concurrent with and due to calculi of kidney and ureter N13.2
[2021-09-07] MEDS ORDERED: TAMSULOSIN HCL 0.4 MG CAP PO ONE (21:18)
[2021-09-07] MEDS ORDERED: GLUCAGON FOR INJ 1 MG VIAL SQ PRN (21:29)
[2021-09-07] MEDS ORDERED: ONDANSETRON INJ 2 MG/ML 2 ML VIAL IV PRN (21:29)
[2021-09-07] MEDS ORDERED: GLUCOSE 10 TABS/TUBE PO PRN (21:29)
[2021-09-07] MEDS ORDERED: CARBOHYDRATES FOR HYPOGLYCEMIA PO PRN (21:29)
[2021-09-07] MEDS ORDERED: DEXTROSE 50% 50 ML SYRINGE IV PRN (21:29)
[2021-09-07] MEDS ORDERED: GLUCOSE 40% GEL 15 GM TUBE PO PRN (21:29)
[2021-09-07] MEDS ORDERED: PHARMACY GLYCEMIC MGMT CONSULT PRN (21:39)
[2021-09-07] MEDS ORDERED: HYDROmorphone INJ 0.5 MG/0.5 ML SYR IV PRN (22:56)
[2021-09-07] MEDS ORDERED: ACETAMINOPHEN 500 MG TAB PO PRN (23:00)
[2021-09-07] MEDS ORDERED: ATORVASTATIN 20 MG TAB PO STA (23:26)
[2021-09-07] MEDS ORDERED: METOPROLOL TARTRATE 25 MG TAB PO STA (23:27)
[2021-09-07] MEDS ORDERED: INSULIN GLARGINE SOLOSTAR 100 UNITS/ML 3 ML PEN SC ONE (23:30)
[2021-09-07] MEDS: AMPICILLIN 1,000 MG in SODIUM CHLOR 0.9% AD-VAN 50 ML IV SCH (23:36)
[2021-09-07] MEDS: INSULIN ASPART PER UNIT SC SCH (23:48)
--- NOTE | 2021-09-08 00:35 | Billing Data ---
Date of Service September 07, 2021 Coding Level of Care Code 33428 Initial Inpt Care Lvl 3
[2021-09-08] MEDS: AMPICILLIN 1,000 MG in SODIUM CHLOR 0.9% AD-VAN 50 ML IV SCH ×4 (05:17→22:35)
[2021-09-08] MEDS: INSULIN ASPART PER UNIT SC SCH ×3 (06:03→21:00)
[2021-09-08 06:22] LABS: Basophils # (auto) 0.03 K/uL (0-0.2); Basophils % (auto) 0.3 %; Eosinophils # (auto) 0.31 K/uL (0-0.5); Eosinophils % (auto) 3.1 %; Hematocrit (blood only) 40.4 % (42-52); Hemoglobin 13.2 g/dL (14.0-18.0); Immature Granulocytes # (auto) 0.02 K/uL (0.00-0.02); Immature Granulocytes % (auto) 0.2 %; Lymphocytes % (auto) 21.1 %; Mean Corpuscular Hgb Conc 32.7 g/dL (32-36); Mean Corpuscular Volume 85.6 fL (80-100); Mean Platelet Volume 9.2 fL (7.4-10.4); Monocytes # (auto) 1.34 K/uL (0.11-0.59); Monocytes % (auto) 13.5 %; Neutrophils # (auto) 6.14 K/uL (1.4-6.5); Neutrophils % (auto) 61.8 %; Platelet Count 266 K/uL (130-400); RDW Coefficient of Variation 13.1 % (11.5-14.5); RDW Standard Deviation 41.1 fL (36.4-46.3); Red Blood Count 4.72 M/uL (4.7-6.1); White Blood Count 9.94 K/uL (4.8-10.8)
[2021-09-08 06:48] LABS: BUN Creatinine Ratio 10.8 (10-20); Calcium 8.9 mg/dl (8.5-10.1); Creatinine Clr Calc Pharmacy 35.7 ml/min; Est GFR (African American) 23.5 ml/min; Est GFR (Non-African American) 20.3 ml/min; Potassium 4.2 mmol/L (3.5-5.1)
[2021-09-08] MEDS ORDERED: INSULIN ASPART PER UNIT SC SCH (07:30)
[2021-09-08 07:36] LABS: Estimated Average Glucose 166 mg/dl; Hemoglobin A1C 7.4 % (4.5-5.6)
--- NOTE | 2021-09-08 07:56 | Urology Progress Note ---
Date of Service September 08, 2021 Assessment & Plan (1) Calculus of right ureter: (2) ABDOUL (acute kidney injury): (3) Anuria: (4) Atrophic kidney: Plan: 56yo M with a hx of atrophic left kidney admitted with ABDOUL and intractable flank pain secondary to an obstructing 4mm right ureteral stone - Afebrile, non-toxic appearing. - Labs reviewed - Wbc down to 9 today, previously 11; Creatinine up to 3.23 today - Continue to trend - Urine culture from 09/05 positive with Enterococcus - On IV Ampicillin - Plan of care reviewed with Dr. Cohen, on-call urologist. - Given his hx of atrophic left kidney, ABDOUL, flank pain and anuria in the context of an obstructing 4mm right ureteral stone, will proceed with OR for Cystoscopy, Right retrograde pyelogram, right ureteral stent placement depending on findings. - Risks and benefits to be reviewed with patient by Dr. Cohen. OR notified. Covid test positive. On IV Ampicillin. - Keep NPO and strain all urine. - Continue supportive care, flomax, and antibiotic therapy - Will continue to follow Attending note: Patient with known history of stone disease. Has history of atrophic left kidney. Has had multiple stone issues in the past. Was most recently monitored with imaging. Had approximately a year ago had stones that also required treatment. Presented with significant illness. Also found to be Covid positive. Had previously had a UTI with Enterococcus on currently on antibiotics. Patient has had poor urine production. Concern for anuria due to obstructing stone with atrophic contralateral kidney essentially solitary kidney. With patient's illness. Risk to develop significant renal issues due to obstruction and recent infection patient is considered high risk and emergent for intervention. Risks and benefits discussed at length for procedure. These include bleeding, infection, injury to surrounding tissues or organs, and risks associated with anesthesia. Patient states understanding and agrees to proceed. Will sign consent and proceed. Plan for Cystoscopy and right stent. Admission and Anticipated Discharge Date Admission Date: September 07, 2021 Subjective Pt examined at bedside this AM. On isolation for Covid. Awake, resting in bed on arrival. No acute distress. Still with right flank pain, managing with IV pain medication. Remains afebrile. Some nausea, no vomiting. Pt reports minimal urine output. No hematuria or dysuria. Has been NPO. Review of Systems Constitutional: as per Subjective / HPI Gastrointestinal: as per Subjective / HPI Genitourinary: + as per Subjective / HPI Physical Exam Constitutional: well developed and well nourished; no acute distress and not ill appearing Neck: normal visual inspection Respiratory: normal respiratory effort and able to speak in complete sentences; no labored breathing and no audible wheezes Gastrointestinal (Abdomen): Inspection/Auscultation: abdomen normal to inspection; abdomen not distended Musculoskeletal: Head/Neck/Chest: normocephalic Skin: No visible rashes or lesions to exposed skin areas Neurologic: moves all extremities and awake Psychiatric: Orientation: alert, oriented x 3 and cooperative Results & Data ([facility]) Vital Signs (Past 12 Hours) Vital Signs Temp Pulse Resp BP BP Pulse Ox 09/07/21 23:01 37.2 C 75 18 151/92 H 94 09/07/21 22:25 82 18 168/94 H 97 09/07/21 21:22 80 14 172/105 H 96 PG Care Time/CCT Total # of Minutes Spent Total Time Spent with Patient: Total time spent is greater than 50% in coordination of care (as documented) at patient's floor/unit and/or counseling patient: Coding Level of Care Code 87161 Subseq Hosp Care Lvl 2 Diagnoses Calculus of right ureter N20.1 ABDOUL (acute kidney injury) N17.9 Anuria R34 Atrophic kidney N26.1
[2021-09-08] MEDS: TAMSULOSIN HCL 0.4 MG CAP PO SCH (07:59)
[2021-09-08] MEDS ORDERED: HYDROmorphone INJ 0.5 MG/0.5 ML SYR IV PRN (08:29)
[2021-09-08] MEDS ORDERED: INSULIN GLARGINE SOLOSTAR 100 UNITS/ML 3 ML PEN SC SCH ×2 (09:00→21:00)
[2021-09-08] MEDS ORDERED: fentaNYL citrate 100 MCG/2 ML VIAL ONE (11:17)
[2021-09-08] MEDS ORDERED: MIDAZOLAM HCL 1 MG/ML 2ML VIAL ONE (11:17)
[2021-09-08] MEDS ORDERED: PROPOFOL IV EMULSION 10 MG/ML 20 ML VIAL IV ONE ×3 (11:17→11:19)
[2021-09-08] MEDS ORDERED: LIDOCAINE 2% 2 ML VIAL/AMP(20MG/ML) INFIL ONE (11:17)
[2021-09-08] MEDS ORDERED: ePHEDrine sulfate 50 MG/ML SYR ONE (11:17)
[2021-09-08] MEDS ORDERED: ONDANSETRON INJ 2 MG/ML 2 ML VIAL IV PRN (13:13)
[2021-09-08] MEDS ORDERED: fentaNYL citrate 100 MCG/2 ML VIAL IV PRN (13:13)
[2021-09-08] MEDS ORDERED: ePHEDrine sulfate 50 MG/ML AMP IV PRN (13:13)
[2021-09-08] MEDS ORDERED: ATROPINE SULFATE 0.1 MG/ML 10ML SYR IV PRN (13:13)
--- NOTE | 2021-09-08 13:13 | Anesthesiology Consultation ---
Date of Service September 08, 2021 Assessment & Plan (1) Encounter for pre-operative examination: covid positive. plan for mac. Chart Review Chart Review: Acceptable Risk for Surgery and Patient NOT seen in Pre Admission Testing Consults Requested none History Surgery Operation Date: 09/08/21 13:00 Proposed Procedures p Cystoscopy, Right Stent Insertion - Kiran Cohen, DO Height/Weight Height: 5 ft 11 in Weight: 134.3 kg Allergies Allergy/AdvReac Type Severity Reaction Status Date / Time Bactrim AdvReac Intermediate diarrhea Verified 02/28/18 05:37 sulfamethoxazole AdvReac Intermediate diarrhea Verified 09/07/21 20:47 trimethoprim AdvReac Intermediate diarrhea Verified 09/07/21 20:47 Medications Home Medications Medication Instructions Recorded Confirmed Last Taken losartan 50 mg tablet 50 mg PO QAM 11/21/18 09/07/21 09/07/21 atorvastatin 20 mg tablet (Lipitor) 20 mg PO QPM 04/09/20 09/07/21 09/06/21 metformin 500 mg 24 hr 2,000 mg PO QPM tab 04/09/20 09/07/21 09/07/21 tablet,extended release apixaban 5 mg tablet (Eliquis) 5 mg PO BID 06/27/20 09/07/21 09/07/21 acetaminophen 500 mg tablet 1,000 mg PO Q6H PRN 08/20/20 09/07/21 09/07/21 18:00 (Tylenol Extra Strength) 1000 mg lactobacillus combination no.4 3 3,000 mmu cells PO QAM 09/04/20 09/07/21 0 09/07/21 billion cell capsule (Probiotic) blood-glucose sensor (Dexcom G6 #3 ea 10/28/20 07/07/21 Unknown Sensor) blood-glucose sensor (Dexcom G6 #9 ea 05/20/21 07/07/21 Unknown Sensor) Dexcom G6 Transmitter #1 ea NS 05/22/21 07/07/21 Unknown (blood-glucose transmitter) insulin degludec 100 unit/mL (3 42 unit SUBCUT HS ml 07/07/21 09/07/21 09/06/21 mL) subcutaneous pen (Tresiba FlexTouch U-100 insulin) metoprolol tartrate 25 mg tablet 12.5 mg PO PM tab 07/07/21 09/07/21 09/07/21 dulaglutide 3 mg/0.5 mL 3 mg SUBCUT WK 09/07/21 09/07/21 09/04/21 subcutaneous pen injector (Trulicity) insulin aspart U-100 100 unit/mL 10 - 15 unit SUBCUT QPM 09/07/21 09/07/21 09/07/21 (3 mL) subcutaneous pen (Novolog 10 units Flexpen U-100 Insulin aspart) Active Medications Generic Name Dose Route Start Last Admin Trade Name Freq PRN Reason Stop Dose Admin Hydromorphone HCl 0.5 mg 09/08/21 08:29 09/08/21 08:43 Hydromorphone Inj 0.5 Mg/0.5 Ml Syr IV 09/21/21 22:55 0.5 mg Q3H PRN Administration Pain Insulin Aspart 0 units 09/08/21 00:00 09/08/21 13:28 Insulin Aspart Per Unit SC 10/08/21 00:00 1 units Q6 JOBY Administration Ondansetron HCl 4 mg 09/07/21 21:29 09/08/21 08:00 Ondansetron Inj 2 Mg/Ml 2 Ml Vial IV 10/07/21 21:28 4 mg Q6H PRN Administration Nausea Tamsulosin HCl 0.4 mg 09/08/21 09:00 09/08/21 07:59 Tamsulosin Hcl 0.4 Mg Cap PO 10/08/21 08:59 0.4 mg QAM JOBY Administration Past Medical History Medical History Anxiety disorder Atrial fibrillation DX'D 05/20/20 F/U DR RITO OCHOA 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 Diabetes TYPE 2 Fatty liver Hydronephrosis Hyperlipidemia Hypertension Microalbuminuria Morbid obesity ZA on CPAP Renal agenesis Right ureteral calculus T2DM (type 2 diabetes mellitus) Uncontrolled type 2 diabetes mellitus Past Family History Family History Grandmother Diabetes Mother SLE (systemic lupus erythematosus) Parkinson disease Macular degeneration Past Surgical History Surgical History History of anesthesia reaction DIZZY/NAUSEATED/LIGHT SENSITIVTY WITH FIRST CYSTOSCOPY History of colonoscopy History of lithotripsy x2 History of removal of ureteral stent x 2 History of tooth extraction WISDOM TEETH Hx of cystoscopy x5 Social History Smoking Status: Never smoker Hx Alcohol Use: Yes Alcohol type: beer alcohol intake frequency: holidays/special occasions only Hx Substance Use: No substance use type: does not use Physical Exam Vital Signs Last Vital Signs Temp 37.1 C 09/08/21 07:56 Pulse 76 09/08/21 07:56 Resp 16 09/08/21 07:56 BP 161/94 H 09/08/21 07:56 Pulse Ox 97 09/08/21 07:56 Testing Laboratory Results 09/08/21 05:49 09/08/21 05:49 Hemoglobin A1c 7.4 % (4.5-5.6) H 09/08/21 05:49 09/08/21 09/08/21 12:52 05:58 POC Glucose 145 H 130 H Other Testing ECG 08/20/20: DICTATED BY:Abimael Flores MD Test Reason : Blood Pressure : / mmHG Vent. Rate : 077 BPM Atrial Rate : 077 BPM P-R Int : 192 ms QRS Dur : 090 ms QT Int : 374 ms P-R-T Axes : 059 027 039 degrees QTc Int : 423 ms Normal sinus rhythm Low voltage QRS Borderline ECG When compared with ECG of 19-NOV-2018 04:44, No significant change was found Confirmed by Abimael Flores ([id number]) on 08/21/2020 2:22:43 PM
--- NOTE | 2021-09-08 13:58 | Hospitalist Progress Note ---
Date of Service September 08, 2021 Assessment & Plan (1) Hydronephrosis concurrent with and due to calculi of kidney and ureter: Plan: This is a 56-year-old male with a past medical history significant for renal agenesis with single functioning kidney, CKD stage III (baseline creatinine 1.1 - 1.3), history of nephrolithiasis requiring stent placement, ZA, anxiety, atrial fibrillation, hypertension who presents to [facility] for evaluation of flank pain and inability to void, subsequently found to have evidence of a small, right-sided obstructing proximal ureteral stone resulting in hydronephrosis and perinephric stranding. He tested POSITIVE for COVID-19 on screening in ED. See below. Obstructing Ureteral Calculus (RIGHT) known h/o uric acid stones previously requiring stent placement, left-sided congenital renal agenesis CT abdomen pelvis: 4 mm proximal right ureteral calculus, moderate right-sided hydronephrosis + perinephric stranding Urology consulted: NPO, analgesia, antiemetics, hydration, Flomax, urine strainer. Patient was anuric this morning with significantly increased creatinine, decision made for urgent ureteral stent placement today. While perinephric and periureteral stranding may be secondary to obstructing stone, cannot rule out developing UTI in setting of recent urine culture positivity --> cont. ampicillin 1g IV q6h --> Await UA and culture once urine produced cont. Flomax 0.4 mg qAM Increased dilaudid 0.5 mg IV q3h Following stone passage/intervention if needed, would consider resumption of potassium citrate Restart home anticoagulation tomorrow Acute Kidney Injury h/o congenital renal agenesis on the left side, alongside CKD stage III (baseline creatinine 1.1-1.3) On admission, BUN 30/creatinine 1.96primarily suspect post renal in nature given agenesis of left side and obstructing stone on right side Management of obstructing renal calculus as outlined above Hold home losartan BMP am COVID-19 -- fully vaccinated x 3 tested positive using at home test on 08/27 after 1x day of symptoms (since resolved), making day 12 since positive test result and 13 days since symptom onset Screening test in ER was positive Likely outside of infectious window, however, will place on isolation precautions Monitor for symptoms Paroxysmal Atrial Fibrillation normal sinus rhythm since arrival Cont. metoprolol Restart home anticoagulation tomorrow Type 2 Diabetes / HLD Home antiglycemics on hold Appreciate glycemic consult given complex home insulin regimen and possible need for procedure, ongoing NPO status Cont. atorvastatin ZA Continue home CPAP while here Code: Full code Diet: DM2 s/p procedure Disposition: med/surg DVT ppx: SCDs; restart home anticoagulation tomorrow (2) ABDOUL (acute kidney injury): (3) T2DM (type 2 diabetes mellitus): (4) CKD (chronic kidney disease) stage 3, GFR 30-59 ml/min: (5) Anemia: (6) Calculus of right ureter: (7) S/P ureteral stent placement: (8) Right flank pain: (9) Hyperlipidemia: (10) Obstructive sleep apnea: (11) Anxiety: (12) Acute renal failure: (13) Atrial fibrillation: (14) Kidney stones: (15) Renal calculus, right: (16) Microalbuminuria: (17) Uncontrolled type 2 diabetes mellitus: Admission and Anticipated Discharge Date Admission Date: September 07, 2021 Supervising Physician Co-Signing Physician Notes I personally examined the patient and verified all monreal points of history and exam, discussed case, and agree with decision making with Dr Lind feeling better post stenting. no complaints otherwise vitals noted nad heent nc at mmm breathing unlabored no accessory muscles good effort skin no rashes no pallor or icterus ARF due to obstructive uropathy / ureteral stone w solitary kidney and baseline CKD3 - questionable enterococcus infection as well but given context obligated to treat. anticipate ARF improving now that he is stented. continue ampicillin otherwise as above. resume apixiban probably in AM Subjective Patient laying in bed, appears comfortable. Was in a lot of pain before increasing Dilaudid dosing, doing better following increase. Review of Systems Review of Systems: Constitutional: denies fevers, chills CV: denies chest pain, palpitations Resp: denies shortness of breath GI: +right sided abdominal pain, +nausea. denies, vomiting, constipation, diarrhea. Physical Exam Physical Exam: General: afebrile, nontoxic appearing. Cardiac: Normal rate, regular rhythm. No JVD. Pulmonary: Normal respiratory effort with symmetric expansion of the chest. Lungs are clear to auscultation bilaterally without crackles or wheezes Abdominal: mild distention to the abdomen with mild discomfort to palpation. No CVA tenderness bilaterally. Extremities: no peripheral edema in the lower extremities. Results & Data Results & Data ([facility]) Vital Signs (Past 12 Hours) Vital Signs Temp Pulse Resp BP Pulse Ox 09/08/21 07:56 37.1 C 76 16 161/94 H 97 Resident Activity Tracking Resident Involvement: Resident Care Provided Care Provided: Adult Hospital Medicine
--- NOTE | 2021-09-08 15:01 | Pharmacy Report ---
Pharmacy Glycemic Short Note 2 - Date of Service September 08, 2021 - Glycemic Short BSG Results (Last 24 hours): 09/07/21 09/07/21 09/08/21 20:10 23:41 05:49 Glucose 176 H 132 H POC Glucose 122 H 09/08/21 09/08/21 05:58 12:52 Glucose POC Glucose 130 H 145 H OUTPATIENT ANTIDIABETIC REGIMEN: * Trulicity 3 mg weekly * metformin * Tresiba 42 units HS * Novolog 10-15 units qPM ASSESSMENT: * Mr Smith is a 56 y/o M who presents with kidney stones and hydronephrosis. Patient is undergoing stone removal today. * Patient's BSG yesterday as 122 mg/dL and today have been 130-145 mg/dL. Dannielle ulloa is NPO. * For Lantus Patient received half of his home dose yesterday. * Patient's kidney function has dramatically worsened today (serum creatinine increased to 3.23 mg/dL). * Will continue with scale Lantus tonight. * Novolog weight-based stress of 2. PLAN FOR INPATIENT GLYCEMIC CONTROL: * Hold outpatient oral diabetes medications * Basal insulin * Lantus 15-25 units SQ HS (15 units if BSG < 140 mg/dL; 20 units if BSG 140- 180 mg/dL; 25 units if BSG greater than 180 mg/dL) * Bolus insulin * NovoLog per scale ACHS or Q6hrs while NPO * Goal Range: Low 110 mg/dL - High 140 mg/dL * Correction Factor: 20 mg/dL/unit * Nutritional / Prandial insulin per carb ratio of 1 unit per 8 grams CHO consumed PLAN FOR DISCHARGE: * TBD
--- NOTE | 2021-09-08 15:18 | Operative Report ---
PG Post Operative Report Pre & Post Diagnosis Operation Date: 09/08/21 13:00 Pre-Op Diagnosis: Calculus of right ureter; acute kidney injury; Anuria; Atrophic kidney Post-Op Diagnosis: Calculus of right ureter; acute kidney injury; Anuria; Atrophic kidney I identified the patient and participated in the time-out.: Yes Procedure Operation Date: 09/08/21 13:00 Actual Procedures p Cystoscopy with urethral dilation and right retrograde pyelogram, urine aspiration, and stent Insertion(Right) - Kiran Cohen DO Surgeon Kiran Cohen, II, DO Radio Artist None Estimated Blood Loss 1 Findings Consistent with Post-Op Diagnosis Stent placed in good position. Specimens Urine right renal pelvis Drains 6 Fr Multilength 18 American Ray catheter Anesthesia Type MAC Complications none Disposition Disposition: Recovery Room Indications Patient with obstruction with history of atrophic left kidney and multiple stones on right. Patient has been dealing with severe ABDOUL on CKD with significant decrease in urinary output likely due to obstruction. Risks and benefits discussed at length. Description of Procedure Patient was consented and brought back to the operating room. Patient was placed under anesthesia in the supine position and moved to the dorsal lithotomy position. Patient was prepped and draped in the regular sterile fashion. A time out was completed. A 30degree Cystoscope was placed into the urethra. At the pendulous urethra there were 3 areas of narrowing/stricture the most significant being at the junction with the bulbar urethra. These were dilated. The scope was then advanced to the bladder and the entire bladder was examined. The UO's were identified. The right UO was cannulized with a catheter, urine was aspirated, and a retrograde pyelogram was completed. A significant amount of urine was found draining with the catheter placement. A wire was then placed. With the wire in place, a 6 Fr Double J stent was placed. It was confirmed with fluoroscopy. With the stent in place, the bladder was emptied. The scope was removed. An 18 American Ray catheter coud catheter was placed. The patient was cleaned, aroused from anesthesia, and transferred to the pacu in stable condition having tolerated the procedure well with no complications. I was present and participated in all aspects of the procedure. The patient will be monitored in the PACU until transferred. We will plan to maintain catheter overnight will reassess in the morning for removal in the next day or 2. We will maintain stent for approximately 1 to 2 weeks to allow time for healing with plans for intervention likely with ureteroscopy for stone treatment. Patient of Dr. Baker is can follow-up with our office. I attest to the content of the Intraoperative Record and any orders documented therein. Any exceptions are noted below.
--- NOTE | 2021-09-08 15:21 | Fluoroscopy Report ---
FL retrograde includes kub CLINICAL HISTORY: Right retrograde with stent COMPARISON STUDY: 09/10/2020 FLUOROSCOPY TIME: 16 second. FLUOROSCOPIC IMAGES: 2 FINDINGS: Images demonstrate a double-J ureteral stent within the kidney and within the bladder. IMPRESSION: Right double-J ureteral stent ACT 112: Negative or not required by law. Electronically signed by: Fredy Fontaine M.D. 09/08/2021 3:19 PM
[2021-09-08] MEDS ORDERED: DIATRIZOATE MEGLUMINE 30% 100ML VIAL INSTIL ONE (15:27)
--- NOTE | 2021-09-08 15:39 | Anesthesiology Progress Note ---
Date of Service September 08, 2021 Anesthesia Post Procedure Vital Signs Vital Signs: Temp Pulse Pulse Pulse Resp BP BP 09/08/21 15:30 80 19 144/91 H 09/08/21 15:22 37.1 C 75 18 132/73 09/08/21 07:56 37.1 C 76 16 161/94 H 09/07/21 23:01 37.2 C 75 18 151/92 H 09/07/21 22:25 82 18 09/07/21 21:22 80 14 09/07/21 19:24 36.0 C L 86 20 146/79 H BP Pulse Ox 09/08/21 15:30 98 09/08/21 15:22 98 09/08/21 07:56 97 09/07/21 23:01 94 09/07/21 22:25 168/94 H 97 09/07/21 21:22 172/105 H 96 09/07/21 19:24 96 Pain Intensity Abdomen: Pain Intensity: 3 Right Flank: Pain Intensity: 7 Transfer of Care Handoff Completed per policy Notes Mental Status: alert / awake / arousable and participated in evaluation Patient Amnestic to Procedure: Yes Nausea / Vomiting: adequately controlled Pain: adequately controlled Airway Patency, RR, SpO2: stable & adequate BP & HR: stable & adequate Hydration State: stable & adequate Anesthetic Complications: no major complications apparent and Pt Satisfied with anesthetic care
[2021-09-08] MEDS ORDERED: Nursing to Pharmacy Communication SCH (17:30)
--- NOTE | 2021-09-08 17:34 | Billing Data ---
Date of Service September 08, 2021 Coding Level of Care Code 70716 Subseq Hosp Care Lvl 3
[2021-09-08] MEDS: ADVANCED PROBIOTIC 1250 MG CAPSULE PO SCH (18:04)
[2021-09-08] MEDS ORDERED: ATORVASTATIN 20 MG TAB PO SCH (21:00)
[2021-09-08] MEDS ORDERED: METOPROLOL TARTRATE 25 MG TAB PO SCH (21:00)
[2021-09-08] MEDS: SODIUM CHLORIDE 0.9% 1000ML 1,000 ML IV SCH (22:35)
[2021-09-09] MEDS: AMPICILLIN 1,000 MG in SODIUM CHLOR 0.9% AD-VAN 50 ML IV SCH ×2 (05:57→13:42)
[2021-09-09 06:15] LABS: BUN Creatinine Ratio 13.1 (10-20); Calcium 8.6 mg/dl (8.5-10.1); Creatinine Clr Calc Pharmacy 48.9 ml/min; Est GFR (African American) 34.4 ml/min; Est GFR (Non-African American) 29.7 ml/min; Potassium 3.8 mmol/L (3.5-5.1)
[2021-09-09] MEDS: TAMSULOSIN HCL 0.4 MG CAP PO SCH (08:40)
[2021-09-09] MEDS: ADVANCED PROBIOTIC 1250 MG CAPSULE PO SCH (08:40)
[2021-09-09] MEDS: INSULIN ASPART PER UNIT SC SCH ×2 (08:45→12:44)
--- NOTE | 2021-09-09 10:55 | Pharmacy Report ---
Pharmacy Glycemic Short Note 2 - Date of Service September 09, 2021 - Glycemic Short BSG Results (Last 24 hours): 09/08/21 09/08/21 09/08/21 12:52 15:31 16:59 Glucose POC Glucose 145 H 117 H 103 H 09/08/21 09/09/21 09/09/21 20:40 05:41 08:16 Glucose 147 H POC Glucose 139 H 133 H OUTPATIENT ANTIDIABETIC REGIMEN: * Trulicity 3 mg weekly * metformin * Tresiba 42 units HS * Novolog 10-15 units qPM ASSESSMENT: 09/09/21 * Patient's BSGs yesterday were 240-142-020-139 mg/dL. Fasting today is 133 mg/dL. * Patient received 16 units of insulin yesterday (Lantus 15 units + 1 unit of bolus). Patient has ABDOUL currently that is resolving. * Continue with scale for tonight. Remove Lantus 25 unit dose as this appears to be too aggressive. * Continue Novolog. Patient has diet ordered for the first time so CR may necessitate tightening. Background * Mr Smith is a 56 y/o M who presents with kidney stones and hydronephrosis. Patient is undergoing stone removal today. * Patient's BSG yesterday as 122 mg/dL and today have been 130-145 mg/dL. Patient is NPO. * For Lantus Patient received half of his home dose yesterday. * Patient's kidney function has dramatically worsened today (serum creatinine increased to 3.23 mg/dL). * Will continue with scale Lantus tonight. * Novolog weight-based stress of 2. PLAN FOR INPATIENT GLYCEMIC CONTROL: * Hold outpatient oral diabetes medications * Basal insulin * Lantus 15-20 units SQ HS (15 units if BSG < 180 mg/dL; 20 units if BSG 180 mg/dL or greater) * Bolus insulin * NovoLog per scale ACHS or Q6hrs while NPO * Goal Range: Low 110 mg/dL - High 140 mg/dL * Correction Factor: 20 mg/dL/unit * Nutritional / Prandial insulin per carb ratio of 1 unit per 8 grams CHO consumed PLAN FOR DISCHARGE: * Patient's HbA1C is 7.4% which is close to goal range of 7-7.5%. * Recommend continuing home regimen as long as kidney function returns to baseline.
[2021-09-09] MEDS: SODIUM CHLORIDE 0.9% 1000ML 1,000 ML IV SCH (12:37)
--- NOTE | 2021-09-09 14:53 | Communication Note ---
Date of Service: September 09, 2021 56 yo M with a hx of atrophic left kidney admitted with ABDOUL and intractable flank pain secondary to an obstructing 4mm right ureteral stone. Pt POD#1 s/p Cystoscopy, Right Stent Insertion with Dr. Cohen. Chart reviewed. Patient not seen today due to COVID status. Afebrile, lab work reviewed - creatinine improved to 2.36 today - continue to trend; WBC 9.94 (09/08). Per chart review, no acute issues overnight. Ray catheter intact and draining. Pt is not utilizing pain medication. Plan of care reviewed with Dr. Baker. Can discontinue Ray catheter at this time, monitor for void. Urine culture 09/05 grew out Enterococcus - has been on IV Ampicillin during admission. Repeat urine culture is preliminary no growth. Can transition to course of PO Ampicillin upon discharge. Will arrange outpatient follow-up with our service to discuss definitive stone management. will sign off, please contact our service with any questions/concerns.
[2021-09-09 15:59] LABS: BUN Creatinine Ratio 13.2 (10-20); Creatinine Clr Calc Pharmacy 56.3 ml/min; Est GFR (African American) 40.8 ml/min; Est GFR (Non-African American) 35.2 ml/min; Potassium 3.8 mmol/L (3.5-5.1)
--- NOTE | 2021-09-09 17:35 | Discharge Summary ---
Date of Service September 09, 2021 Admission HPI Per Admitting Provider This is a 56-year-old male with a past medical history significant for renal agenesis with single functioning kidney, CKD stage III (baseline creatinine 1.1 - 1.3), history of nephrolithiasis requiring stent placement, ZA, anxiety, atrial fibrillation, hypertension who presents to [facility] for evaluation of flank pain and inability to void. Patient said that he was in his normal health last week, and beginning on Wednesday, began experiencing right- sided flank pain. He said that this continued throughout the day, but subsequently passed a small stone. Over the weekend, he reported feeling better. Then, beginning today again, he began experiencing worsening right- sided flank pain. He has had some associated nausea without vomiting. Does endorse some chills. He says that he has been unable to void since around noon. Denies any recent urinary symptoms, including hematuria, dysuria, frequency, urgency. He has not thrown up. A urine culture was ordered approximately 2 days ago, which demonstrated growth of Enterococcus only resistant to tetracyclines. He does say that on August 27 (approximately 11 days from today) he tested positive for COVID-19 using a at home test. He was reporting cough, chills, sweats, congestion at that time, which began 1 day prior. Today is day 12 from that time. He is fully vaccinated x3. He says that the symptoms have since resolved. He has no other complaints today. He denies any use of recreational drugs, tobacco, or alcohol. He denies any recent changes in his medications or diet. He denies any fevers, chills, night sweats, chest pain, palpitations, shortness of breath, diarrhea. In the ER, patient was found to be afebrile with normal vital signs. CT of the abdomen and pelvis was obtained, which demonstrated 4 mm proximal right ureteral calculus resulting in moderate right-sided hydronephrosis, also observed was perinephric and periureteral stranding on the side. He was evaluated by urology in the ER, who did make him n.p.o. and gave him 1 dose of Flomax. He was given intravenous fluids as well as Dilaudid. Principal Diagnosis Right nephrolithiasis s/p stent placement Discharge Exam General: afebrile, nontoxic appearing. Cardiac: Normal rate, regular rhythm. Pulmonary: Normal respiratory effort.. Lungs are clear to auscultation bilaterally. Abdominal: mild distention to the abdomen with mild discomfort to palpation. No CVA tenderness bilaterally. Extremities: no peripheral edema in the lower extremities. Discharge Data Allergies Allergy/AdvReac Type Severity Reaction Status Date / Time Bactrim AdvReac Intermediate diarrhea Verified 02/28/18 05:37 sulfamethoxazole AdvReac Intermediate diarrhea Verified 09/07/21 20:47 trimethoprim AdvReac Intermediate diarrhea Verified 09/07/21 20:47 Consultations 09/07/21 20:49 ED Decision to Admit Stat 09/07/21 21:29 Consult Urology Routine Procedures Performed Operation Date: 09/08/21 13:00 Actual Procedures p Cystoscopy, Right Stent Insertion(Right) - Kiran Cohen, DO Ordered Studies Laboratory Results WBC 9.94 K/uL (4.8-10.8) 09/08/21 05:49 RBC 4.72 M/uL (4.7-6.1) 09/08/21 05:49 Hgb 13.2 g/dL (14.0-18.0) L 09/08/21 05:49 Hct 40.4 % (42-52) L 09/08/21 05:49 MCV 85.6 fL (80-100) 09/08/21 05:49 MCH 28.0 pg (25-34) 09/08/21 05:49 MCHC 32.7 g/dL (32-36) 09/08/21 05:49 RDW Std Deviation 41.1 fL (36.4-46.3) 09/08/21 05:49 RDW Coeff of Kandis 13.1 % (11.5-14.5) 09/08/21 05:49 Plt Count 266 K/uL (130-400) 09/08/21 05:49 MPV 9.2 fL (7.4-10.4) 09/08/21 05:49 Immature Gran % (Auto) 0.2 % 09/08/21 05:49 Neut % (Auto) 61.8 % 09/08/21 05:49 Lymph % (Auto) 21.1 % 09/08/21 05:49 [place] % (Auto) 13.5 % 09/08/21 05:49 Eos % (Auto) 3.1 % 09/08/21 05:49 Baso % (Auto) 0.3 % 09/08/21 05:49 Neut # (Auto) 6.14 K/uL (1.4-6.5) 09/08/21 05:49 Lymph # (Auto) 2.10 K/uL (1.2-3.4) 09/08/21 05:49 [place] # (Auto) 1.34 K/uL (0.11-0.59) H 09/08/21 05:49 Eos # (Auto) 0.31 K/uL (0-0.5) 09/08/21 05:49 Baso # (Auto) 0.03 K/uL (0-0.2) 09/08/21 05:49 Immature Gran # (Auto) 0.02 K/uL (0.00-0.02) 09/08/21 05:49 Sodium 138 mmol/L (136-145) 09/09/21 15:25 Potassium 3.8 mmol/L (3.5-5.1) 09/09/21 15:25 Chloride 105 mmol/L (98-107) 09/09/21 15:25 Carbon Dioxide 25 mmol/L (21-32) 09/09/21 15:25 Anion Gap 8 (3-11) 09/09/21 15:25 BUN 27 mg/dl (6-23) H 09/09/21 15:25 Creatinine 2.05 mg/dl (0.6-1.4) H D 09/09/21 15:25 Est Cr Clr Drug Dosing 56.3 ml/min 09/09/21 15:25 Est GFR ( Amer) 40.8 ml/min 09/09/21 15:25 Est GFR (Non-Af Amer) 35.2 ml/min 09/09/21 15:25 BUN/Creatinine Ratio 13.2 (10-20) 09/09/21 15:25 Glucose 171 mg/dl (70-99(Fasting)) H 09/09/21 15:25 POC Glucose 134 mg/dl (70-99) H 09/09/21 12:22 Estimat Average Glucose 166 mg/dl 09/08/21 05:49 Hemoglobin A1c 7.4 % (4.5-5.6) H 09/08/21 05:49 Calcium 9.0 mg/dl (8.5-10.1) 09/09/21 15:25 SARS-CoV-2, RNA, NAAT POSITIVE (NEGATIVE) A* 09/07/21 21:26 Impressions Abdomen/Pelvis CT 09/07/21 19:30 CT OF THE ABDOMEN AND PELVIS WITHOUT CONTRAST CLINICAL HISTORY: Right flank pain. COMPARISON STUDY: CT of the abdomen and pelvis 08/20/2020. Renal ultrasound April 11, 2021. TECHNIQUE: Axial images of the abdomen and pelvis were obtained without IV contrast. Images were reviewed in the axial, sagittal, and coronal planes. Automated exposure control was utilized for the study. A dose lowering technique was utilized adhering to the principles of ALARA. FINDINGS: A few calcified nodules within the lower lungs are benign. These are unchanged. A 4 mm proximal right ureteral calculus results in moderate right hydronephrosis. There is right perinephric and periureteral stranding. No additional urinary calculi are identified. Marked left renal atrophy is unchanged. Evaluation of the remainder of the abdomen and pelvis is suboptimal on this unenhanced exam. The liver, spleen, adrenal glands and pancreas are unremarkable. There is no biliary or pancreatic ductal dilatation. There is no evidence for a bowel obstruction. Colonic diverticulosis is noted without evidence for acute diverticulitis. There is no lymphadenopathy. No acute fracture or suspicious lesion is identified within the visualized skeletal structures. IMPRESSION: 1. 4 mm proximal right ureteral calculus which results in moderate right hydronephrosis. Associated perinephric and periureteral stranding. 2. Marked left renal atrophy, unchanged. 3. No bowel obstruction. Colonic diverticulosis without evidence for acute diverticulitis. ACT 112: Negative or not required by law. Electronically signed by: Osman Taylor M.D. 09/07/2021 8:01 PM Retrograde Pyelogram 09/08/21 11:30 FL retrograde includes kub CLINICAL HISTORY: Right retrograde with stent COMPARISON STUDY: 09/10/2020 FLUOROSCOPY TIME: 16 second. FLUOROSCOPIC IMAGES: 2 FINDINGS: Images demonstrate a double-J ureteral stent within the kidney and within the bladder. IMPRESSION: Right double-J ureteral stent ACT 112: Negative or not required by law. Electronically signed by: Fredy Fontaine M.D. 09/08/2021 3:19 PM Hospital Course (1) Hydronephrosis concurrent with and due to calculi of kidney and ureter: This is a 56-year-old male with a past medical history significant for renal agenesis with single functioning kidney, CKD stage III (baseline creatinine 1.1 - 1.3), history of nephrolithiasis requiring stent placement, ZA, anxiety, atrial fibrillation, hypertension who presents to [facility] for evaluation of flank pain and inability to void, subsequently found to have evidence of a small, right-sided obstructing proximal ureteral stone resulting in hydronephrosis and perinephric stranding. He tested POSITIVE for COVID-19 on screening in ED. See below. Obstructing Ureteral Calculus (RIGHT) known h/o uric acid stones previously requiring stent placement, left-sided congenital renal agenesis CT abdomen pelvis: 4 mm proximal right ureteral calculus, moderate right-sided hydronephrosis + perinephric stranding Urology consulted: NPO, analgesia, antiemetics, hydration, Flomax, urine strainer. Patient was anuric this on admission with significantly increased creatinine, decision made for urgent ureteral stent placement. Stent placed. While perinephric and periureteral stranding may be secondary to obstructing stone, cannot rule out developing UTI in setting of recent urine culture positivity --> IV ampicillin during stay; will transition to PO ampicillin 500mg q6h x5 days cont. Flomax 0.4 mg qAM -f/u with urology, stent to be removed in 1-2 weeks Acute Kidney Injury h/o congenital renal agenesis on the left side, alongside CKD stage III (baseline creatinine 1.1-1.3) On admission, BUN 30/creatinine 1.96primarily suspect post renal in nature given agenesis of left side and obstructing stone on right side Management of obstructing renal calculus as outlined above -Creatinine peaked >3, continues to resolve last check was 2.05 -will get BMP tomorrow and f/u with PCP, we want to make sure creatinine continues to decrease towards baseline COVID-19 -- fully vaccinated x 3 tested positive using at home test on 08/27 after 1x day of symptoms (since resolved), making day 12 since positive test result and 13 days since symptom onset Screening test in ER was positive Likely outside of infectious window, however, was placed on isolation precautions Paroxysmal Atrial Fibrillation normal sinus rhythm since arrival Cont. metoprolol, eliquis Type 2 Diabetes / HLD cont. home antiglycemics Cont. atorvastatin ZA Continue home CPAP (2) ABDOUL (acute kidney injury): (3) T2DM (type 2 diabetes mellitus): (4) CKD (chronic kidney disease) stage 3, GFR 30-59 ml/min: (5) Anemia: (6) Calculus of right ureter: (7) S/P ureteral stent placement: (8) Hyperlipidemia: (9) Obstructive sleep apnea: (10) Anxiety: (11) Atrial fibrillation: (12) Microalbuminuria: (13) Uncontrolled type 2 diabetes mellitus: Total Time Total Time Spent Total Time Spent (In Minutes): 30 Discharge Plan Discharge Items Patient Disposition: Home - Self-Care Reason For Visit: OBSTRUCTING CALCULUS Discharge Diagnosis: obstructing nephrolithiasis Activity: Per Instructions section Non-emergency contact: Primary Care Provider Call non-emergency contact if: you have any medication questions, your symptoms worsen and you have a fever Follow-up/Referrals: Kiran Cohen DO [Physician] - (You are being discharged when the Urology office is closed. A follow up appt will be made tomorrow and a community organization aide will phone you with the time and date of your follow up.) Monica Shaikh [Primary Care Provider] - 09/12/21 3:00 pm Diet: Regular Ambulatory Orders: Basic Metabolic Panel (Routine) Timeframe: 1 Day Location: Determined by Patient Ordered By: Ankur Estes Attending Provider Instructions: You were admitted to the hospital for a right sided kidney stone. Urology placed a stent which will be removed in 1-2 weeks via urology. We have been following your creatinine as well and although it is decreasing it still remains high so we will want you to repeat this TOMORROW, follow up and send results to your primary care provider. You are also to take an antibiotic (ampicillin) as prescribed as well as tamsulosin. A discharge summary will be sent to your primary care physician to ensure continuity of care. Please bring this discharge summary with you to your next office appointment so that your provider can review it at that time. Follow-up appointments: Make a follow-up appointment with your PCP and urologist within the next week. It is very important that you follow up with them shortly after discharge from the hospital. We have requested a follow-up appointment with your primary care physician and urologist within one week of discharge. Please call their office if you do not hear from them. Keep all your follow-up appointments as already scheduled. If you cannot make an appointment, notify your provider. Medications: Your medication list has been reviewed and reconciled upon discharge to ensure accuracy and continuity of care. An updated list of all your medications is included with your hospital discharge paperwork. Please review this list closely,and make note of any changes. We sent a new medication called ampicillin to your pharmacy. Take ampic illin 500mg one tablet every 6 hours for 5 days We sent a new medication called tamsulosin to your pharmacy. Take tamsulosin 0.4mg one tablet daily until stent removed. Take your medications as instructed; do not skip a dose of your medicines. Make sure all of your doctors know every medicine you are taking (including vapi-vtk-oanaapx medicines, vitamins,and supplements). Call your primary care provider before taking any new medicines (including ieuk-xua-cudigpu medicines, vitamins, and supplements),because some of these may interact with your current medications, or may make your symptoms worse. Tell your primary care provider if you cannot afford your medications. CONTACT YOUR PRIMARY CARE PROVIDER if you experience any of the following: Fever, increasing right sided flank pain, increasing pain with urination, continued blood in urine Difficulty following your treatment plan, or difficulty taking medications. CALL 911 OR GO TO THE EMERGENCY DEPARTMENT if you experience any of the following: Sudden, severe abdominal pain or nausea/vomiting Severe chest pain, or chest pain that radiates (moves)to your jaw or arm Sudden, severe shortness of breath or difficulty breathing Thank you for allowing us to participate in your care. Pending Studies at Discharge: No Stand-Alone Forms: [facility], Smoking Cessation Medications and DC Order Prescriptions: New tamsulosin 0.4 mg Capsule 0.4 mg PO QAM 30 Days Qty: 30 RF: 0 ampicillin 500 mg capsule 500 mg PO Q6H 5 Days Qty: 20 RF: 0 Continued (DME) Dexcom G6 Sensor Device See Rx Instructions .Route Qty: 9 RF: 3 (DME) Dexcom G6 Transmitter Device See Rx Instructions .Route Qty: 1 RF: 3 Tresiba FlexTouch U-100 100 unit/mL (3 mL) insulin pen 42 unit subcut HS RF: 0 atorvastatin [Lipitor] 20 mg tablet 20 mg PO QPM RF: 0 metformin 500 mg tablet,ER manny.retention 24 hr 2,000 mg PO QPM RF: 0 Eliquis 5 mg tablet 5 mg PO BID RF: 0 metoprolol tartrate 25 mg tablet 12.5 mg PO PM RF: 0 (DME) Dexcom G6 Sensor Device See Rx Instructions .ROUTE .MEDSUPPLY Qty: 3 RF: 0 acetaminophen [Tylenol Extra Strength] 500 mg Tablet 1,000 mg PO Q6H PRN (Reason: Pain) RF: 0 Probiotic 3 billion cell Capsule 3,000 mmu cells PO QAM RF: 0 losartan 50 mg tablet 50 mg PO QAM RF: 0 insulin aspart U-100 [Novolog Flexpen U-100 Insulin] 100 unit/mL (3 mL) insulin pen 10 - 15 unit subcut QPM RF: 0 Trulicity 3 mg/0.5 mL pen injector 3 mg subcut WK RF: 0 Discharge Orders: Discharge Order (Routine); Ordered 09/09/21 Ordered By: Kiet Cunningham/Other Patient Handouts: Managing Type 2 Diabetes, Having a Ureteral Stent Admission Data Admit Date/Time: 09/07/21 21:32 Attending Provider: Jb Florian Admit Provider: Jb Haq Primary Care Provider: Monica Shaikh Other Providers: Alisa Wood ; Abimael Martinez ; Bossman Mixon ; Himanshu Baker ; Hannah Be ; Kiran Cohen ; Cinthya Benson ; Nanci Sandoval ; No Escalante ; Cayetano Higgins ; Christian Gallagher ; Zari Harrell ; Wilma Escalante ; Willis Farr Other Interventions: Discharge Summary Assessment (RN) Last Done: 09/09/21 17:07 Supervising Physician Co-Signing Physician Notes I personally examined the patient and verified all monreal points of history and exam, discussed case, and agree with decision making with Dr Lind feeling better, feels up to going home vitals noted nad heent nc at mmm breathing unlabored no accessory muscles good effort skin no rashes no pallor or icterus ARF due to obstructive uropathy / ureteral stone w solitary kidney and baseline CKD3 - questionable enterococcus infection as well but given context obligated to treat. improving. voiding well without stone. creat improving - home, BMP tomorrow. finish abx otherwise as above. Resident Activity Tracking Resident Involvement: Resident Care Provided Care Provided: Adult Hospital Medicine
--- NOTE | 2021-09-09 18:01 | Billing Data ---
Date of Service September 09, 2021 Coding Level of Care Code D/C DAY MANAGEMENT <30 MINS
== END 2021-09-09 18:03 | disposition home or self-care (01) | DRG 659 ==
LOC: ED 19:19 → SUATTDRO 21:32 → 3W 21:32

== ENCOUNTER 2022-06-30 22:13 | Inpatient (IN) ==
[2022-06-30] MEDS ORDERED: MoRPHine SULFATE 4 MG/ML 1 ML CARP\\VIAL IV STA (22:28)
[2022-06-30] MEDS ORDERED: ONDANSETRON INJ 2 MG/ML 2 ML VIAL IV STA (22:28)
--- NOTE | 2022-06-30 22:35 | Emergency Department Note ---
History of Present Illness General Chief complaint: Kidney Stone Stated complaint: FLANK PAIN,KIDNEY STONE Time Seen by Provider: 06/30/22 22:18 History of Present Illness Maximum Pain Intensity: 7 This is a 57-year-old male with a history of kidney stones that presents to the emergency department via private vehicle with complaints of "flank pain, kidney stone". Patient notes that he has 1 kidney, the right kidney. He does follow closely with urology with his history of kidney stones. He follows with [facility] She notes that he had an ultrasound done of the kidneys about 2 months ago. At that time there was a 5 mm stone noted in the right kidney. He was doing well up until this past Wednesday when he developed some mild right flank pain but that resolved. He then returned today. He then noted blood in the urine around 6:30 no fevers or chills. No trauma or injury. No nausea or vomiting. Current pain /10. He points to the R posterior flank as the location of his pain. Home Medications Medication Instructions Recorded Confirmed Type losartan 50 mg tablet 50 mg PO QAM 11/21/18 06/05/22 History atorvastatin 20 mg tablet (Lipitor) 20 mg PO QPM 04/09/20 06/05/22 History apixaban 5 mg tablet (Eliquis) 5 mg PO BID 06/27/20 06/05/22 History acetaminophen 500 mg tablet 1,000 mg PO Q6H PRN Pain 08/20/20 06/05/22 History (Tylenol Extra Strength) lactobacillus combination no.4 3 3,000 mmu cells PO QAM 09/04/20 06/05/22 History billion cell capsule (Probiotic) metoprolol tartrate 25 mg tablet 25 mg PO PM 07/07/21 06/05/22 History dulaglutide 3 mg/0.5 mL 3 mg subcut WK 09/07/21 06/05/22 History subcutaneous pen injector (Trulicity) insulin aspart U-100 100 unit/mL 10 - 15 unit subcut QPM 09/07/21 06/05/22 History (3 mL) subcutaneous pen (Novolog Flexpen U-100 Insulin aspart) paroxetine HCl 20 mg tablet (Paxil) 20 mg PO QPM 09/29/21 06/05/22 History insulin degludec 100 unit/mL (3 35 unit subcut HS 12/23/21 06/05/22 History mL) subcutaneous pen (Tresiba FlexTouch U-100 insulin) metformin 500 mg 24 hr 2,000 mg PO QPM #360 tabs 12/29/21 06/05/22 Rx tablet,extended release pen needle, diabetic 32 gauge x #400 ea 12/29/21 06/05/22 Rx 5/32" (BD Ultra-Fine Kimmy Pen Needle) potassium citrate 15 mEq (1,620 15 meq PO BID #180 tabs 12/29/21 06/05/22 Rx mg) tablet,extended release Dexcom G6 Transmitter #1 ea 05/19/22 06/05/22 Rx (blood-glucose transmitter) blood-glucose sensor (Dexcom G6 #9 ea 05/19/22 06/05/22 Rx Sensor device) empagliflozin 25 mg tablet 25 mg PO QAM #30 tabs 06/29/22 Rx (Jardiance) Allergies Allergy/AdvReac Type Severity Reaction Status Date / Time Bactrim AdvReac Intermediate diarrhea Verified 02/28/18 05:37 sulfamethoxazole AdvReac Intermediate diarrhea Verified 06/05/22 12:50 trimethoprim AdvReac Intermediate diarrhea Verified 06/05/22 12:50 Past Med/Surg History Medical History Anxiety disorder Atrial fibrillation currently on eliquis bid-- F/U DR RITO OCHOA 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 Fatty liver History of COVID-19 diagnosed 09/07/21 @ [facility]--cough, fatigue, runny nose--symptoms have resolved Hydronephrosis Hyperlipidemia Hypertension Microalbuminuria Morbid obesity BMI 39.7 On anticoagulant therapy eliquis bid ZA on CPAP Renal agenesis Right ureteral calculus T2DM (type 2 diabetes mellitus) Surgical History History of anesthesia reaction DIZZY/NAUSEATED/LIGHT SENSITIVTY WITH FIRST CYSTOSCOPY History of colonoscopy History of lithotripsy x2 History of removal of ureteral stent x 2 History of tooth extraction WISDOM TEETH Hx of cystoscopy multiple--last 09/08/2021 @ [facility] Family History Grandmother Diabetes Mother SLE (systemic lupus erythematosus) Parkinson disease Macular degeneration Social History Smoking Status: Never smoker Second Hand Exposure: No; Hx Alcohol Use: Yes Alcohol type: beer Hx Substance Use: No Preferred Language: Macanese Communication Ability: Effective Geriatric Nurse Required: No Beliefs That Will Affect Care: None marital status: Current Living Situation: Spouse current occupational status: employed 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 How many Children do You have: 1 Feels Safe at Home: Yes Assistive Devices: Contacts, CPAP and Glasses Review of Systems A total of 10 systems reviewed and were otherwise negative Physical Exam Vital Signs Vital Signs - 24 hr 06/30/22 22:15 07/01/22 01:00 07/01/22 02:55 Temperature 37 C Temperature Source Temporal Artery Scan Pulse Rate 65 65 Pulse Rate [Finger] 62 Pulse Rhythm Regular Pulse Rhythm [Finger] Regular Pulse Strength Normal Respiratory Rate 18 16 18 Respiratory Effort / Characteristics Non-Labored Spontaneous Respiratory Depth Normal Respiratory Pattern Regular Blood Pressure 155/82 H 134/84 Blood Pressure Mean 106 Blood Pressure Position Sitting Pulse Oximetry 99 96 98 Oxygen Delivery Method Room Air Room Air Room Air Sepsis Recent Fever Within 48 Hours No Sepsis New/Unexplained Change in Mental Status N/A Sepsis Action Taken by Nursing No Action Required VITAL SIGNS - Vital signs and nursing notes were reviewed. Stable and afebrile. GENERAL -57-year-old male appearing his stated age who is in no acute distress. Communicates well with provider and answers questions appropriately. SKIN - Without rashes. No meningeal or petechial rash. HEAD - NC/AT. EYES - PERRL with EOMI bilaterally. Sclera anicteric. EARS - No deformities of external structures noted on gross examination bilaterally. NOSE - Midline and without cyanosis. No epistaxis or purulent drainage noted. MOUTH/OROPHARYNX - Without perioral cyanosis. NECK - No nuchal rigidity. LUNGS - Chest wall symmetric without accessory muscle use, intercostals retractions, or central cyanosis. Normal vesicular breath sounds CTA B/L. No wheezes, rales, or rhonchi appreciated. CARDIAC - RRR with S1/S2. No murmur, rubs, or gallops appreciated. ABDOMEN - Abdominal contour normal without pulsations or visible masses. BS normoactive all four quadrants. No tenderness, palpable masses, hepatosplenomegaly, or ascites noted. EXTREMITIES - No clubbing or peripheral cyanosis. +5/5 strength noted in UE/LE bilaterally. NEUROLOGIC - Cranial nerves II through XII grossly intact. PSYCH - A&Ox3 and cooperates fully with examiner. Pt is very pleasant and interacts well with examiner. Course Administered Medications Discontinued Medications Sodium Chloride (Nss 1000ml) 500 mls @ 500 mls/hr IV .Q1H ONE Stop: 07/01/22 00:35 Last Admin: 06/30/22 23:49 Dose: 500 mls/hr Documented By: DIMAS Morphine Sulfate (Morphine Sulfate 4 Mg/Ml 1 Ml Carp\\Vial) 4 mg IV NOW STA Stop: 06/30/22 22:29 Last Admin: 06/30/22 23:06 Dose: 4 mg Documented By: MIREILLE Morphine Sulfate (Morphine Sulfate 4 Mg/Ml 1 Ml Carp\\Vial) 4 mg IV NOW STA Stop: 07/01/22 00:51 Last Admin: 07/01/22 00:58 Dose: 4 mg Documented By: MIREILLE Ondansetron HCl (Ondansetron Inj 2 Mg/Ml 2 Ml Vial) 4 mg IV NOW STA Stop: 06/30/22 22:29 Last Admin: 06/30/22 23:06 Dose: 4 mg Documented By: MIREILLE Medical Decision Making Laboratory Data Result diagrams: 06/30/22 22:55 06/30/22 22:55 Lab Results 06/30/22 06/30/22 07/01/22 Range/Units 22:55 22:55 00:52 WBC 8.64 (4.8-10.8) K/ul RBC 5.07 (4.63-6.08) M/uL Hgb 14.2 (14.0-18.0) g/dl Hct 43.0 (40.1-51.0) % MCV 84.8 (80.0-100.0) fL MCH 28.0 (25.0-34.0) pg MCHC 33.0 (32.0-36.0) g/dL RDW Std Deviation 39.9 (36.4-46.3) fL RDW Coeff of Kandis 13.0 (11.5-14.5) % Plt Count 253 (130-400) K/uL MPV 9.1 L (9.4-12.4) fL Immature Gran % (Auto) 0.2 % Neut % (Auto) 52.3 % Lymph % (Auto) 32.2 % Bristol % (Auto) 10.8 % Eos % (Auto) 3.8 % Baso % (Auto) 0.7 % Neut # (Auto) 4.52 (1.4-6.5) K/uL Lymph # (Auto) 2.78 (1.2-3.4) K/uL Bristol # (Auto) 0.93 H (0.24-0.82) K/uL Eos # (Auto) 0.33 (0-0.50) K/uL Baso # (Auto) 0.06 (0-0.2) K/uL Immature Gran # (Auto) 0.02 (0.00-0.02) K/uL Sodium 140 (136-145) mmol/L Potassium 3.9 (3.5-5.1) mmol/L Chloride 106 (98-107) mmol/L Carbon Dioxide 28 (21-32) mmol/L Anion Gap 6 (3-11) BUN 23 (6-23) mg/dl Creatinine 1.57 H (0.6-1.4) mg/dl Est Cr Clr Drug Dosing 71.9 ml/min Est GFR ( Amer) 55.9 ml/min Est GFR (Non-Af Amer) 48.2 ml/min BUN/Creatinine Ratio 14.6 (10-20) Glucose 112 H (70-99(Fasting)) mg/dl Calcium 9.0 (8.5-10.1) mg/dl Total Bilirubin 0.4 (0.2-1.0) mg/dl AST 16 (13-39) U/L ALT 25 (7-52) U/L Alkaline Phosphatase 95 (34-104) U/L Total Protein 7.3 (6.0-8.3) gm/dl Albumin 4.2 (3.4-5.0) gm/dl Globulin 3.1 (2.5-4.0) gm/dl Albumin/Globulin Ratio 1.4 (0.9-2) Urine Color Parke Urine Appearance Cloudy A (Clear) Urine pH 5.0 (4.5-7.5) Ur Specific Lincoln 1.025 (1.000-1.030) Urine Protein 1+ H (Negative) Urine Glucose (UA) 3+ H (Negative) Urine Ketones Trace H (Negative) Urine Blood 3+ H (Negative) Urine Nitrite Negative (Negative) Urine Bilirubin Negative (Negative) Urine Urobilinogen Negative (Negative) Ur Leukocyte Esterase Negative (Negative) Urine WBC (Auto) 1-5 (0-5) /hpf Urine RBC (Auto) >30 H (0-4) /hpf U Hyaline Cast (Auto) 0 (0-5) /lpf U Epithel Cells (Auto) 5-10 H (0-5) /lpf Urine Bacteria (Auto) Negative (Negative) Urine Yeast Not Reportable SARS-CoV-2, RNA, NAAT (NEGATIVE) 07/01/22 Range/Units 01:50 WBC (4.8-10.8) K/ul RBC (4.63-6.08) M/uL Hgb (14.0-18.0) g/dl Hct (40.1-51.0) % MCV (80.0-100.0) fL MCH (25.0-34.0) pg MCHC (32.0-36.0) g/dL RDW Std Deviation (36.4-46.3) fL RDW Coeff of Kandis (11.5-14.5) % Plt Count (130-400) K/uL MPV (9.4-12.4) fL Immature Gran % (Auto) % Neut % (Auto) % Lymph % (Auto) % Bristol % (Auto) % Eos % (Auto) % Baso % (Auto) % Neut # (Auto) (1.4-6.5) K/uL Lymph # (Auto) (1.2-3.4) K/uL Bristol # (Auto) (0.24-0.82) K/uL Eos # (Auto) (0-0.50) K/uL Baso # (Auto) (0-0.2) K/uL Immature Gran # (Auto) (0.00-0.02) K/uL Sodium (136-145) mmol/L Potassium (3.5-5.1) mmol/L Chloride (98-107) mmol/L Carbon Dioxide (21-32) mmol/L Anion Gap (3-11) BUN (6-23) mg/dl Creatinine (0.6-1.4) mg/dl Est Cr Clr Drug Dosing ml/min Est GFR ( Amer) ml/min Est GFR (Non-Af Amer) ml/min BUN/Creatinine Ratio (10-20) Glucose (70-99(Fasting)) mg/dl Calcium (8.5-10.1) mg/dl Total Bilirubin (0.2-1.0) mg/dl AST (13-39) U/L ALT (7-52) U/L Alkaline Phosphatase (34-104) U/L Total Protein (6.0-8.3) gm/dl Albumin (3.4-5.0) gm/dl Globulin (2.5-4.0) gm/dl Albumin/Globulin Ratio (0.9-2) Urine Color Urine Appearance (Clear) Urine pH (4.5-7.5) Ur Specific Lincoln (1.000-1.030) Urine Protein (Negative) Urine Glucose (UA) (Negative) Urine Ketones (Negative) Urine Blood (Negative) Urine Nitrite (Negative) Urine Bilirubin (Negative) Urine Urobilinogen (Negative) Ur Leukocyte Esterase (Negative) Urine WBC (Auto) (0-5) /hpf Urine RBC (Auto) (0-4) /hpf U Hyaline Cast (Auto) (0-5) /lpf U Epithel Cells (Auto) (0-5) /lpf Urine Bacteria (Auto) (Negative) Urine Yeast SARS-CoV-2, RNA, NAAT NEGATIVE (NEGATIVE) Imaging Data Radiologist's Impression: US RENAL: The right kidney measures 15.3 cm in length and demonstrates moderate hydronephrosis and proximal hydroureter No obvious right-sided ureteral jet is identified The left kidney appears to be absent Radiologist: Roderick Thomas MD Study ready at 23:47 and initial results transmitted at 23:49 CT ABDOMEN & PELVIS Without Contrast: Moderate right-sided hydronephrosis and hydroureter noted to the level of an obstructing mid right ureteral stone measuring 2-3 mm located at L4 The urinary bladder is slightly thick-walled which may reflect cystitis versus artifact related to underdistention The left kidney is severely atrophic. Therefore emergent consultation recommended secondary to the high-grade ureteral obstruction of the single functioning kidney. Colonic diverticulosis noted without inflammation Radiologist: Roderick Thomas MD Study ready at 01:10 and initial results transmitted at 01:21 MDM Narrative Patient was seen and evaluated as above in room C12. Review was performed of nursing notes and vital signs. I did review pertinent previous visits and patient history. After obtaining a thorough history and physical examination the above work up was performed. Patient presents to us today with right flank pain and hematuria. Clinically appears well and nontoxic. No infectious symptoms. Options of care were discussed with the patient. IV access was established. Labs were drawn. In an effort to minimize radiation noting he has had several CT scans of the abdomen pelvis in the past, I did start work-up here with a KUB as well as renal ultrasound. Labs reveal no leukocytosis or concerning anemia. Creatinine 1.57. Glucose 112. Urinalysis reveals evidence of likely stone but no infection. COVID testing negative. Ultrasound results as above. Moderate hydronephrosis noted and proximal hydroureter. KUB per my interpretation is without definitive stone. With the patient having 1 kidney in the setting of right-sided flank pain and moderate hydronephrosis I did find it reasonable to proceed with CT imaging of the abdomen/pelvis. This was without contrast. Moderate right-sided hydronephrosis and hydroureter noted to the level of an obstructing right ureteral stone measuring 2-3 mm located at L4. The patient at this time is felt to be best managed in the inpatient setting. Reassuringly the patient clinically appears well nontoxic. No signs of infection at this time. Patient's creatinine is marginally elevated compared to his baseline. I will also note that this is favored to be prerenal and clinically dry. Patient will be admitted to the hospital for further care and management as well as urology consultation. I did discuss this with the hospitalist. Please refer to further documentation regarding his stay. Case was discussed with the attending physician, Dr. Branham. GCS: 15 In the evaluation and treatment of this patient the following differential diagnoses were entertained: Kidney stone, pyelonephritis, dissection, bowel obstruction, appendicitis, among others. Impression & Plan Right ureteral calculus, Hydronephrosis due to obstruction of ureter, Acute right flank pain Discharge Plan Visit Data Chief Complaint: Kidney Stone Stated Complaint: FLANK PAIN,KIDNEY STONE ED Provider: Fredis Branham ED Midlevel Provider: Froylan Staton Patient Disposition: Admitted As Inpatient Condition: Good Prescriptions Prescriptions: No Action potassium citrate 15 mEq tablet extended release 15 meq PO BID Qty: 180 3RF metformin 500 mg tablet,ER manny.retention 24 hr 2,000 mg PO QPM Qty: 360 3RF (DME) pen needle, diabetic [BD Ultra-Fine Kimmy Pen Needle] 32 gauge x 5/32" needle See Rx Instructions .ROUTE .MEDSUPPLY Qty: 400 3RF Rx Instructions: Use with Insulin 4 times a day Tresiba FlexTouch U-100 100 unit/mL (3 mL) insulin pen 0RF (DME) Dexcom G6 Sensor Device See Rx Instructions .Route Qty: 9 3RF Rx Instructions: Change every 10 days (DME) Dexcom G6 Transmitter Device See Rx Instructions .Route Qty: 1 3RF Rx Instructions: Change transmitter every 90 days Jardiance 25 mg tablet 25 mg PO QAM Qty: 30 5RF Mounjaro 2.5 mg/0.5 mL pen injector 0RF Tresiba FlexTouch U-100 100 unit/mL (3 mL) insulin pen 35 unit subcut HS atorvastatin [Lipitor] 20 mg tablet 20 mg PO QPM Eliquis 5 mg tablet 5 mg PO BID metoprolol tartrate 25 mg tablet 25 mg PO PM acetaminophen [Tylenol Extra Strength] 500 mg Tablet 1,000 mg PO Q6H PRN (Reason: Pain) Probiotic 3 billion cell Capsule 3,000 mmu cells PO QAM losartan 50 mg tablet 50 mg PO QAM insulin aspart U-100 [Novolog Flexpen U-100 Insulin] 100 unit/mL (3 mL) insulin pen 10 - 15 unit subcut QPM Trulicity 3 mg/0.5 mL pen injector 3 mg subcut WK Rx Instructions: Inject on the same day each week. paroxetine HCl [Paxil] 20 mg Tablet 20 mg PO QPM
[2022-06-30 23:15] LABS: Basophils # (auto) 0.06 K/uL (0-0.2); Basophils % (auto) 0.7 %; Eosinophils # (auto) 0.33 K/uL (0-0.50); Eosinophils % (auto) 3.8 %; Hemoglobin 14.2 g/dl (14.0-18.0); Immature Granulocytes # (auto) 0.02 K/uL (0.00-0.02); Immature Granulocytes % (auto) 0.2 %; Lymphocytes # (auto) 2.78 K/uL (1.2-3.4); Lymphocytes % (auto) 32.2 %; Mean Corpuscular Volume 84.8 fL (80.0-100.0); Mean Platelet Volume 9.1 fL (9.4-12.4); Monocytes # (auto) 0.93 K/uL (0.24-0.82); Monocytes % (auto) 10.8 %; Neutrophils # (auto) 4.52 K/uL (1.4-6.5); Neutrophils % (auto) 52.3 %; Platelet Count 253 K/uL (130-400); RDW Standard Deviation 39.9 fL (36.4-46.3); Red Blood Count 5.07 M/uL (4.63-6.08); White Blood Count 8.64 K/ul (4.8-10.8)
[2022-06-30] MEDS ORDERED: SODIUM CHLORIDE 0.9% 1000ML 500 ML IV ONE (23:36)
[2022-06-30 23:48] LABS: Albumin Globulin Ratio 1.4 (0.9-2); Albumin Level 4.2 gm/dl (3.4-5.0); BUN Creatinine Ratio 14.6 (10-20); Bilirubin,Total 0.4 mg/dl (0.2-1.0); Creatinine Clr Calc Pharmacy 71.9 ml/min; Est GFR (African American) 55.9 ml/min; Est GFR (Non-African American) 48.2 ml/min; Globulin 3.1 gm/dl (2.5-4.0); Potassium 3.9 mmol/L (3.5-5.1); Total Protein 7.3 gm/dl (6.0-8.3)
[2022-07-01] MEDS ORDERED: MoRPHine SULFATE 4 MG/ML 1 ML CARP\\VIAL IV STA (00:50)
[2022-07-01 01:19] LABS: Appearance Urine Cloudy (Clear); Bacteria Urine Automated Negative (Negative); Bilirubin Urine Negative (Negative); Blood Urine 3+ (Negative); Cast Urine Automated 0 /lpf (0-5); Color Urine Orange; Glucose Urine UA 3+ (Negative); Ketones Urine Trace (Negative); Leukocyte Esterase Urine Negative (Negative); Nitrite Urine Negative (Negative); Protein Urine 1+ (Negative); Specific Gravity Urine 1.025 (1.000-1.030); Urobilinogen Urine Negative (Negative)
--- NOTE | 2022-07-01 01:26 | History & Physical Report ---
Date of Service July 01, 2022 Assessment & Plan (1) Hydronephrosis with urinary obstruction due to ureteral calculus: Plan: Right flank pain + hematuria/dysuria x1 day, with CT A/P showing moderate hydronephrosis with 2-3mm obstructing right mid-ureteral stone in addition to mild bladder wall thickening. - consult Urology - appreciate recs - NPO pending Urology evaluation - s/p NSS 500cc bolus - continue with full maintenance IVFs: Normosol-R @170cc/hr - will start Ceftriaxone 1g IV Q24H for ppx (UA without evidence for infection, urine cx pending) - PRN pain regimen: Tylenol 1g IV; Morphine 2mg IV; Morphine 4mg IV - start Flomax 0.4mg PO daily (2) ABDOUL (acute kidney injury): Plan: Cr 1.57 (Baseline 1.2 - 1.3). Likely 2/2 to obstruction as stated above. - IVFs as stated above - avoid nephrotoxins - trend BMP in AM (3) Renal agenesis: Plan: Congenital left renal agenesis. (4) Diabetes: Plan: Chronic, A1c 7.3 on 05/29/2022. Uses units basal dosing QHS and 10-12 units Novolog with dinner - hold oral meds - reduced Lantus dosing with 6 units BID, while NPO - SSI (5) Atrial fibrillation: Plan: Chronic, rate-controlled. CHADS-VASc 2. - hold Eliquis for possible Urology procedure - continue home Metoprolol (6) Hypertension: Plan: Chronic, normotensive. - continue home Metoprolol as stated above - hold Losartan (ABDOUL) (7) Hyperlipidemia: Plan: Continue home statin. (8) Obstructive sleep apnea: Plan: CPAP HS (9) Anxiety disorder: Plan: Continue home Paxil Plan FEN/GI: NPO, Normosol-R @170cc/hr DVT Prophylaxis: SCDs, hold home Eliquis for possible procedure Code Status: full code Disposition: med/surg History of Present Illness Chief Complaint: kidney stone Primary Care Provider: Monica Shaikh Anival Smith is a 57yo male with PMHx significant for renal agenesis with single functioning kidney, CKD stage III (baseline creatinine 1.1 - 1.3), history of nephrolithiasis requiring stent placement, ZA, anxiety, atrial fibrillation (on Eliquis and MTP), and HTN who presented to [facility] ED on 07/01 for right flank pain and concern for kidney stone. Patient has significant urologic history and f/w [facility]. Had US evaluation ~1 month ago showing 5mm right ureteral stone without symptoms; then developed acute-onset right flank pain 4 days ago which initially resolved but then recurred yesterday evening, in addition to one episode of hematuria and dysuria. Denies fever/chills, N/V or abdominal pain. Patient denies alcohol/smoking/drug use. Proficient in ADLs/iADLs. In the ED the patient was afebrile and hemodynamically stable on room air. Labs significant for Cr 1.57 (baseline 1.2 - 1.3). Otherwise CBC/CMP WNL. UA cloudy with 3+ blood but negative nitrite/LE/bacteria. Renal US showing right kidney 15.3cm with moderate hydronephrosis and proximal hydroureter (left kidney absent - chronic). CT A/P supporting US findings and showing 2-3mm obstructing right mid-ureteral stone in addition to mild bladder wall thickening. Patient was given NSS 500cc bolus, Zofran 4mg IV x1 and Morphine 4mg IV x2. Pain significantly improved. Allergies Allergy/AdvReac Type Severity Reaction Status Date / Time Bactrim AdvReac Intermediate diarrhea Verified 02/28/18 05:37 sulfamethoxazole AdvReac Intermediate diarrhea Verified 06/05/22 12:50 trimethoprim AdvReac Intermediate diarrhea Verified 06/05/22 12:50 Home Medications Medication Instructions Recorded Confirmed Type atorvastatin 20 mg tablet (Lipitor) 20 mg PO QPM 04/09/20 06/05/22 History apixaban 5 mg tablet (Eliquis) 5 mg PO BID 06/27/20 06/05/22 History acetaminophen 500 mg tablet 1,000 mg PO Q6H PRN Pain 08/20/20 06/05/22 History (Tylenol Extra Strength) lactobacillus combination no.4 3 3,000 mmu cells PO QAM 09/04/20 06/05/22 History billion cell capsule (Probiotic) metoprolol tartrate 25 mg tablet 25 mg PO PM 07/07/21 06/05/22 History dulaglutide 3 mg/0.5 mL 3 mg subcut WK 09/07/21 06/05/22 History subcutaneous pen injector (Trulicity) insulin aspart U-100 100 unit/mL 10 - 15 unit subcut QPM 09/07/21 06/05/22 History (3 mL) subcutaneous pen (Novolog Flexpen U-100 Insulin aspart) paroxetine HCl 20 mg tablet (Paxil) 20 mg PO QPM 09/29/21 06/05/22 History insulin degludec 100 unit/mL (3 35 unit subcut HS 12/23/21 06/05/22 History mL) subcutaneous pen (Tresiba FlexTouch U-100 insulin) metformin 500 mg 24 hr 2,000 mg PO QPM #360 tabs 12/29/21 06/05/22 Rx tablet,extended release pen needle, diabetic 32 gauge x #400 ea 12/29/21 06/05/22 Rx 32" (BD Ultra-Fine Kimmy Pen Needle) potassium citrate 15 mEq (1,620 15 meq PO BID #180 tabs 12/29/21 06/05/22 Rx mg) tablet,extended release Dexcom G6 Transmitter #1 ea 05/19/22 06/05/22 Rx (blood-glucose transmitter) blood-glucose sensor (Dexcom G6 #9 ea 05/19/22 06/05/22 Rx Sensor device) empagliflozin 25 mg tablet 25 mg PO QAM #30 tabs 06/29/22 Rx (Jardiance) Past Med/Surg History Medical History Anxiety disorder Atrial fibrillation currently on eliquis bid-- F/U DR RITO OCHOA 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 Fatty liver History of COVID-19 diagnosed 09/07/21 @ [facility]--cough, fatigue, runny nose--symptoms have resolved Hydronephrosis Hyperlipidemia Hypertension Microalbuminuria Morbid obesity BMI 39.7 On anticoagulant therapy eliquis bid ZA on CPAP Renal agenesis Right ureteral calculus T2DM (type 2 diabetes mellitus) Surgical History History of anesthesia reaction DIZZY/NAUSEATED/LIGHT SENSITIVTY WITH FIRST CYSTOSCOPY History of colonoscopy History of lithotripsy x2 History of removal of ureteral stent x 2 History of tooth extraction WISDOM TEETH Hx of cystoscopy multiple--last 09/08/2021 @ [facility] Family History Grandmother Diabetes Mother SLE (systemic lupus erythematosus) Parkinson disease Macular degeneration Social History Smoking Status: Never smoker Second Hand Exposure: No; Do You Dip or Chew Tobacco: No; Tobacco Cessation Education Requested by Patient: No Hx Alcohol Use: Yes Alcohol type: beer Hx Substance Use: No Preferred Language: Zimbabwean Communication Ability: Effective Dive Master Required: No Beliefs That Will Affect Care: None marital status: Current Living Situation: Spouse current occupational status: employed 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 How many Children do You have: 1 Feels Safe at Home: Yes Safety Concerns: Feels Safe At This Time Assistive Devices: None Review of Systems Review of Systems: All systems reviewed & are unremarkable except as noted in HPI & below Results & Data Results & Data ([facility]) Vital Signs (Past 12 Hours) Vital Signs Temp Pulse Resp BP Pulse Ox O2 Del Method 06/30/22 22:15 37 C 65 18 155/82 H 99 Room Air Supervising Physician Co-Signing Physician Notes Attending addendum: I have physically seen this patient, have supervised the medical residents activities, and agree with the H&P unless as otherwise noted. Assessment and Plan: Acute kidney injury on CKD/moderate right hydronephrosis due to ureteral ureteral calculus/absent left kidney- Right kidney enlarged to 15.3 cm Follow urine culture and sensitivity Empiric ceftriaxone Pain control with Tylenol 1 g IV every 6 hours as needed mild pain or fever Morphine sulfate 2 mg IV every 4 hours as needed moderate pain Morphine sulfate 4 mg IV every 4 hours as needed severe pain Start tamsulosin 0.4 mg daily in the evening IV fluids as noted Creatinine 1.57, with base 1.2-1.3 Repeat laboratories in a.m. Atrial fibrillation/hypertension- Continue metoprolol Hold losartan due to ADBOUL Hold Eliquis for possible urologic procedure Diabetes mellitus- Reduce dose of Lantus as noted Placed on Accu-Cheks with SSI Remaining orders and notations as noted Resident Activity Tracking Resident Involvement: Resident Care Provided Care Provided: Adult Hospital Medicine (1) Diabetes Diabetes mellitus complication status: with hyperglycemia Diabetes mellitus assisted insulin use: without watermaster use Diabetes mellitus type: type 2 Qualified Code(s): E11.65 - Type 2 diabetes mellitus with hyperglycemia (2) Anxiety disorder Anxiety disorder type: generalized anxiety disorder Qualified Code(s): F41.1 - Generalized anxiety disorder (3) Hypertension Hypertension type: essential hypertension Qualified Code(s): I10 - Essential (primary) hypertension
[2022-07-01 01:31] LABS: RBC Urine Automated >30 /hpf (0-4)
[2022-07-01] MEDS ORDERED: MoRPHine SULFATE 4 MG/ML 1 ML CARP\\VIAL IV PRN (03:14)
[2022-07-01] MEDS ORDERED: DEXTROSE 50% 50 ML SYRINGE IV PRN (03:14)
[2022-07-01] MEDS ORDERED: ACETAMINOPHEN 1,000 MG/100 ML VIAL IV PRN (03:14)
[2022-07-01] MEDS ORDERED: METOPROLOL TARTRATE 25 MG TAB PO SCH (03:14)
[2022-07-01] MEDS ORDERED: GLUCAGON FOR INJ 1 MG VIAL SQ PRN (03:14)
[2022-07-01] MEDS ORDERED: CARBOHYDRATES FOR HYPOGLYCEMIA PO PRN (03:14)
[2022-07-01] MEDS ORDERED: GLUCOSE 10 TAB/TUBE PO PRN (03:14)
[2022-07-01] MEDS ORDERED: MoRPHine SULFATE 2 MG/ML CARP IV PRN (03:14)
[2022-07-01] MEDS ORDERED: TAMSULOSIN HCL 0.4 MG CAP PO SCH (03:14)
[2022-07-01] MEDS ORDERED: GLUCOSE 40% GEL 15 GM TUBE PO PRN (03:14)
[2022-07-01] MEDS: NORMOSOL-R 1,000 ML IV SCH ×3 (03:57→15:06)
[2022-07-01] MEDS ORDERED: cefTRIAXone SODIUM 2,000 MG in DEXTROSE 5% 50 ML IV SCH (04:00)
[2022-07-01] MEDS: INSULIN ASPART PER UNIT SC SCH ×2 (05:52→12:44)
--- NOTE | 2022-07-01 07:07 | XRay Report ---
KUB CLINICAL HISTORY: Right flank pain. Hematuria. FINDINGS: 3 AP supine abdominal radiographs are compared to study dated 09/18/2021 and correlated with abdominal CT dated 09/07/2021. There is a nonobstructed abdominal bowel gas pattern. Mild fecal reten tion is seen throughout the colon. No evidence of intraperitoneal free air is seen on these supine im ages. An electronic device projects over the right midabdomen. There are no abnormal abdominal calcif ications. The bony structures appear intact. IMPRESSION: No acute abnormality is identified. Electronically signed by: Ga Dumont M.D. 07/01/2022 7:05 AM
--- NOTE | 2022-07-01 07:33 | Ultrasound Report ---
ULTRASOUND KIDNEYS AND BLADDER CLINICAL HISTORY: Right flank pain. Hematuria. COMPARISON STUDY: Abdominal CT dated 09/07/2021. Abdominal radiograph dated 06/30/2022 TECHNIQUE: Real-time, grayscale, and color flow sonography of the kidneys and bladder is performed. I mages are reviewed in the transverse and longitudinal planes. FINDINGS: Kidneys: The left kidney is not identified and was shown to be severely atrophic on the 09/07/2021 CT scan. The right kidney is enlarged and normal in echotexture, measuring 15.3 x 8.7 x 7.7 cm. There is moderate right hydroureteronephrosis. No shadowing renal calculi are identified. There is no sonogra phic evidence of contour deforming renal mass lesion. No perinephric fluid is identified. Bladder: The bladder wall appears thickened/trabeculated indicating chronic outlet obstruction. Urete ral jets were not seen. IMPRESSION: 1. There is moderate right hydroureteronephrosis. Given the history of right flank pain and hematuria this is likely related to the presence of an obstructing right ureteral stone. The stone was not vis ualized by ultrasound. 2. The left kidney was not identified and shown to be severely atrophic on prior CT scans. There is c ompensatory enlargement of the right kidney. 3. The appearance of the bladder suggests chronic outlet obstruction. ACT 112: Negative or not required by law. Electronically signed by: Ga Dumont M.D. 07/01/2022 7:32 AM
--- NOTE | 2022-07-01 07:46 | CT Scan Report ---
CT SCAN OF THE ABDOMEN AND PELVIS WITHOUT IV CONTRAST CLINICAL HISTORY: Right flank pain. Hematuria. COMPARISON STUDY: Renal ultrasound dated 06/30/2022. Abdominal CT dated 09/07/2021. TECHNIQUE: CT scan of the abdomen and pelvis is performed from the lung bases to the proximal femora. Images are reviewed in the axial, sagittal, and coronal planes. IV contrast was not administered for this examination. A dose lowering technique was utilized adhering to the principles of ALARA. CT DOSE: 2284.63 mGy.cm FINDINGS: Lung bases: The heart is normal in size and without pericardial effusion. There is minimal coronary a rtery calcification. There are punctate calcified granulomas. The lung bases are otherwise clear noti ng bibasilar scarring/atelectasis. A small hiatal hernia is noted. Liver: The unenhanced liver is normal in size, contour, and attenuation. There is no intrahepatic karla iary ductal dilatation. Gallbladder: Unremarkable. Spleen: Normal in size and attenuation. Pancreas: Unremarkable. Adrenal glands: Unremarkable. Kidneys: The left kidney is markedly atrophic and there is compensatory hypertrophy of the right kidn ey. There is a 3 mm obstructing calculus in the right proximal ureter at the level of L4 seen on imag e #282. This causes moderate right hydroureteronephrosis. There is associated right perinephric stran ding and fluid. No additional right renal calculi are identified. There is no evidence of contour def orming renal mass lesion. Abdominal vasculature: The abdominal aorta is normal in course and caliber noting minimal atheroscler otic calcification. Bowel: There is moderate colonic diverticulosis without CT evidence of acute diverticulitis. Moderate fecal retention is seen throughout the colon. No bowel obstruction is identified. The appendix is w ell-visualized and normal. Peritoneum: There is no intraperitoneal free air or abdominal ascites. There is a fat-containing umbi lical hernia. Lymphadenopathy: None. Pelvic viscera: The prostate gland is mildly enlarged and heterogeneous. The bladder wall appears thi ckened/recommend suggesting chronic outlet obstruction. There is a small fat-containing hernia. Skeletal structures: No lytic or blastic lesions are seen. There are bilateral pars defects at L5. IMPRESSION: 1. There is a 3 mm obstructing calculus in the right proximal ureter. This causes moderate right hydr oureteronephrosis. 2. No additional right renal calculi are identified. 3. Markedly atrophic left kidney with compensatory hypertrophy of the right kidney. This is similar t o previous. 4. Moderate colonic diverticulosis without CT evidence of acute diverticulitis. 5. Additional findings as above. ACT 112: Negative or not required by law. Electronically signed by: Ga Dumont M.D. 07/01/2022 7:43 AM
[2022-07-01 08:05] LABS: Basophils # (auto) 0.05 K/uL (0-0.2); Basophils % (auto) 0.6 %; Eosinophils # (auto) 0.33 K/uL (0-0.50); Eosinophils % (auto) 3.9 %; Hematocrit (blood only) 41.6 % (40.1-51.0); Hemoglobin 13.5 g/dl (14.0-18.0); Immature Granulocytes # (auto) 0.02 K/uL (0.00-0.02); Immature Granulocytes % (auto) 0.2 %; Lymphocytes # (auto) 2.43 K/uL (1.2-3.4); Lymphocytes % (auto) 28.7 %; Mean Corpuscular Hemoglobin 27.7 pg (25.0-34.0); Mean Corpuscular Hgb Conc 32.5 g/dL (32.0-36.0); Mean Corpuscular Volume 85.2 fL (80.0-100.0); Monocytes # (auto) 0.91 K/uL (0.24-0.82); Monocytes % (auto) 10.7 %; Neutrophils # (auto) 4.73 K/uL (1.4-6.5); Neutrophils % (auto) 55.9 %; Platelet Count 221 K/uL (130-400); RDW Coefficient of Variation 13.1 % (11.5-14.5); RDW Standard Deviation 40.5 fL (36.4-46.3); Red Blood Count 4.88 M/uL (4.63-6.08); White Blood Count 8.47 K/ul (4.8-10.8)
[2022-07-01 08:31] LABS: BUN Creatinine Ratio 15.6 (10-20); Calcium 8.6 mg/dl (8.5-10.1); Creatinine Clr Calc Pharmacy 79.8 ml/min; Est GFR (African American) 63.6 ml/min; Est GFR (Non-African American) 54.9 ml/min; Potassium 4.4 mmol/L (3.5-5.1)
--- NOTE | 2022-07-01 08:40 | Urology Consultation ---
Date of Consultation July 01, 2022 Assessment & Plan (1) Right flank pain: (2) Right ureteral calculus: (3) ABDOUL (acute kidney injury): 57 yo M with single functioning kidney admitted for right flank pain and ABDOUL secondary to a 3 mm right ureteral calculus. - Patient spontaneously passed stone this AM. - Stone was collected and can be sent for analysis. - He is doing well, asymptomatic. - He is afebrile and hemodynamically stable. - Creatinine is trending down, no leukocytosis. - Reasonable to discharge him home if he remains asymptomatic this am. - Recommend close follow-up with a repeat creatinine in a few days. - Given he has a single functioning kidney, low threshold for him to return if symptoms recur. - Will arrange outpatient follow-up with our service. Supervising Physician Co-Signing Physician Notes Patient spontaneously passed his stone today. Symptoms resolved. Creatinine had improved. Stone was visualized by urology team. Stone was not visible on previous KUB so we could not get a repeat x-ray to confirm this. We opted not to radiate him again with another CT scan. We will discharge him and have close follow-up next week to ensure his renal function is stable if not improved. History of Present Illness Reason for Consultation: right ureteral obstructing stone, ABDOUL, one kidney Requesting Physician: Dr. Wharton Attending Physician: Jb Florian DO History of Present Illness 57-year-old male with past medical history of type 2 diabetes, chronic kidney disease stage III, and congenitally mononephric presented to the emergency department with right flank pain. On presentation he was afebrile and hemodynamically stable. Lab work independently reviewed. CBC showed no leukocytosis. Chemistry was notable for creatinine of 1.57 (baseline 1.2-1.3). Urinalysis on arrival showed 1+ protein 3+ glucose, trace ketones, pleat 3+ blood, 1-5 WBC, >30 RBC; negative for bacteria/nitrates/leukocyte esterase. A urine culture was collected and pending. He had a KUB which showed no acute abnormality. A renal ultrasound showed moderate right hydroureteronephrosis. He then underwent CT abdomen pelvis without contrast which showed a 3 mm obstructing calculus in the right proximal to mid ureter causing moderate right hydroureteronephrosis, no additional right renal calculi identified. Markedly atrophic left kidney similar to previous. He was treated with IV fluids, Zofran, and morphine in the ER. He was admitted to the hospital medicine service. Urology is consulted for evaluation of right obstructing stone, ABDOUL, solitary kidney. Patient known to our service for longstanding history of uric acid kidney stones with numerous prior emergent interventions. Most recent intervention was cystoscopy, right ureteroscopy, laser lithotripsy, and stent placement on 10/01/2021. Patient seen and examined at bedside this AM. He is awake and resting in bed. He reports he just spontaneously passed his stone. Stone collected in strainer. He denies flank or abdominal pain. No dysuria or hematuria. No fever or chills. No nausea or vomiting. Allergies Allergy/AdvReac Type Severity Reaction Status Date / Time Bactrim AdvReac Intermediate diarrhea Verified 02/28/18 05:37 sulfamethoxazole AdvReac Intermediate diarrhea Verified 06/05/22 12:50 trimethoprim AdvReac Intermediate diarrhea Verified 06/05/22 12:50 Home Medications Medication Instructions Recorded Confirmed Type atorvastatin 20 mg tablet (Lipitor) 20 mg PO QPM 04/09/20 06/05/22 History apixaban 5 mg tablet (Eliquis) 5 mg PO BID 06/27/20 06/05/22 History acetaminophen 500 mg tablet 1,000 mg PO Q6H PRN Pain 08/20/20 06/05/22 History (Tylenol Extra Strength) lactobacillus combination no.4 3 3,000 mmu cells PO QAM 09/04/20 06/05/22 History billion cell capsule (Probiotic) metoprolol tartrate 25 mg tablet 25 mg PO PM 07/07/21 06/05/22 History dulaglutide 3 mg/0.5 mL 3 mg subcut WK 09/07/21 06/05/22 History subcutaneous pen injector (Trulicity) insulin aspart U-100 100 unit/mL 10 - 15 unit subcut QPM 09/07/21 06/05/22 History (3 mL) subcutaneous pen (Novolog Flexpen U-100 Insulin aspart) paroxetine HCl 20 mg tablet (Paxil) 20 mg PO QPM 09/29/21 06/05/22 History insulin degludec 100 unit/mL (3 35 unit subcut HS 12/23/21 06/05/22 History mL) subcutaneous pen (Tresiba FlexTouch U-100 insulin) metformin 500 mg 24 hr 2,000 mg PO QPM #360 tabs 12/29/21 06/05/22 Rx tablet,extended release pen needle, diabetic 32 gauge x #400 ea 12/29/21 06/05/22 Rx " (BD Ultra-Fine Kimmy Pen Needle) potassium citrate 15 mEq (1,620 15 meq PO BID #180 tabs 12/29/21 06/05/22 Rx mg) tablet,extended release Dexcom G6 Transmitter #1 ea 05/19/22 06/05/22 Rx (blood-glucose transmitter) blood-glucose sensor (Dexcom G6 #9 ea 05/19/22 06/05/22 Rx Sensor device) empagliflozin 25 mg tablet 25 mg PO QAM #30 tabs 06/29/22 Rx (Jardiance) Patient History Medical History Anxiety disorder Atrial fibrillation currently on eliquis bid-- F/U DR RITO OCHOA 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 Fatty liver History of COVID-19 diagnosed 09/07/21 @ [facility]--cough, fatigue, runny nose--symptoms have resolved Hydronephrosis Hyperlipidemia Hypertension Microalbuminuria Morbid obesity BMI 39.7 On anticoagulant therapy eliquis bid ZA on CPAP Renal agenesis Right ureteral calculus T2DM (type 2 diabetes mellitus) Surgical History History of anesthesia reaction DIZZY/NAUSEATED/LIGHT SENSITIVTY WITH FIRST CYSTOSCOPY History of colonoscopy History of lithotripsy x2 History of removal of ureteral stent x 2 History of tooth extraction WISDOM TEETH Hx of cystoscopy multiple--last 09/08/2021 @ [facility] Family History Grandmother Diabetes Mother SLE (systemic lupus erythematosus) Parkinson disease Macular degeneration Social History Smoking Status: Never smoker Second Hand Exposure: No; Do You Dip or Chew Tobacco: No; Tobacco Cessation Education Requested by Patient: No Hx Alcohol Use: Yes Alcohol type: beer Hx Substance Use: No Preferred Language: Andorran Communication Ability: Effective Equipment Monitor Phototypesetting Required: No Beliefs That Will Affect Care: None marital status: Current Living Situation: Spouse current occupational status: employed 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 How many Children do You have: 1 Feels Safe at Home: Yes Safety Concerns: Feels Safe At This Time Assistive Devices: None Review of Systems Review of Systems: All systems reviewed & are unremarkable except as noted in HPI & below Physical Exam Constitutional: well developed and well nourished; no acute distress and not ill appearing Eyes: no scleral abnormality Neck: normal visual inspection Respiratory: normal respiratory effort and able to speak in complete sentences; no respiratory distress and no labored breathing Cardiovascular: Extremities: no pedal edema Gastrointestinal (Abdomen): Inspection/Auscultation: abdomen normal to inspection; abdomen not distended Percussion/Palpation: abdomen soft; abdomen nontender and no guarding Neurologic: moves all extremities and awake Psychiatric: Orientation: alert and oriented x 3 Genitourinary: Stone visualized in strainer. Appears to be ~3 mm stone seen on imaging. Results & Data ([facility]) Vital Signs (Past 12 Hours) Vital Signs Temp Pulse Pulse Resp BP BP Pulse Ox 07/01/22 07:27 36.7 C 55 L 16 102/65 97 07/01/22 03:27 36.5 C 66 18 121/77 94 07/01/22 02:55 65 18 134/84 98 07/01/22 01:00 62 16 96 06/30/22 22:15 37 C 65 18 155/82 H 99 O2 Del Method 07/01/22 07:27 Room Air 07/01/22 03:27 Room Air, CPAP 07/01/22 02:55 Room Air 07/01/22 01:00 Room Air 06/30/22 22:15 Room Air PG Care Time/CCT Total # of Minutes Spent Total Time Spent with Patient: Total time spent is greater than 50% in coordination of care (as documented) at patient's floor/unit and/or counseling patient: Coding Level of Care Code 39571 Inpt Consult Level 3 Diagnoses Right flank pain R10.9 Right ureteral calculus N20.1 ABDOUL (acute kidney injury) N17.9
[2022-07-01] MEDS ORDERED: LANTUS PER UNIT CHARGE SQ SCH (09:00)
--- NOTE | 2022-07-01 10:21 | Discharge Summary ---
Date of Service July 01, 2022 Admission HPI Per Admitting Provider Anival Smith is a 57yo male with PMHx significant for renal agenesis with single functioning kidney, CKD stage III (baseline creatinine 1.1 - 1.3), history of nephrolithiasis requiring stent placement, ZA, anxiety, atrial fibrillation (on Eliquis and MTP), and HTN who presented to [facility] ED on 07/01 for right flank pain and concern for kidney stone. Patient has significant urologic history and f/w [facility]. Had US evaluation ~1 month ago showing 5mm right ureteral stone without symptoms; then developed acute-onset right flank pain 4 days ago which initially resolved but then recurred yesterday evening, in addition to one episode of hematuria and dysuria. Denies fever/chills, N/V or abdominal pain. Patient denies alcohol/smoking/drug use. Proficient in ADLs/iADLs. In the ED the patient was afebrile and hemodynamically stable on room air. Labs significant for Cr 1.57 (baseline 1.2 - 1.3). Otherwise CBC/CMP WNL. UA cloudy with 3+ blood but negative nitrite/LE/bacteria. Renal US showing right kidney 15.3cm with moderate hydronephrosis and proximal hydroureter (left kidney absent - chronic). CT A/P supporting US findings and showing 2-3mm obstructing right mid-ureteral stone in addition to mild bladder wall thickening. Patient was given NSS 500cc bolus, Zofran 4mg IV x1 and Morphine 4mg IV x2. Pain significantly improved. Admission Exam Per Admitting Provider Physical Exam: General: A&Ox3. NAD. Cooperative. HEENT: Atraumatic, normocephalic. Pulm: CTAB A&P. -wheezes, -rales, -rhonchi. Symmetrical chest rise. No increase work of breathing. No respiratory distress. Cardiac: RRR, -mrg. Radial pulses intact and symmetrical. No LE edema. Back: no CVA tenderness Abdominal: soft, non-tender, non-distended, BS x 4 Principal Diagnosis right ureteral stone, ABDOUL Discharge Exam Constitutional NAD. Vitals WNL. Respiratory CTA bilaterally. No rhonchi, rales, or crackles. Cardiovascular RRR. No murmur noted. No LE edema. Gastrointestinal (Abdomen) Soft, nontender throughout, +BS. No masses noted. Psychiatric Alert. Mood and affect congruent. Discharge Data Allergies Allergy/AdvReac Type Severity Reaction Status Date / Time Bactrim AdvReac Intermediate diarrhea Verified 02/28/18 05:37 sulfamethoxazole AdvReac Intermediate diarrhea Verified 06/05/22 12:50 trimethoprim AdvReac Intermediate diarrhea Verified 06/05/22 12:50 Consultations 07/01/22 01:31 ED Decision to Admit Stat 07/01/22 02:18 Consult Urology Routine Ordered Studies 06/30/22 22:27 US Renal Bladder [US renal/blad retro comp] Urgent 07/01/22 00:44 CT abd pelvis wo con Stat KUB X-Ray 06/30/22 22:27 KUB CLINICAL HISTORY: Right flank pain. Hematuria. FINDINGS: 3 AP supine abdominal radiographs are compared to study dated 09/18/2021 and correlated with abdominal CT dated 09/07/2021. There is a nonobstructed abdominal bowel gas pattern. Mild fecal retention is seen throughout the colon. No evidence of intraperitoneal free air is seen on these supine images. An electronic device projects over the right midabdomen. There are no abnormal abdominal calcifications. The bony structures appear intact. IMPRESSION: No acute abnormality is identified. Electronically signed by: Ga Dumont M.D. 07/01/2022 7:05 AM Renal Ultrasound 06/30/22 22:27 ULTRASOUND KIDNEYS AND BLADDER CLINICAL HISTORY: Right flank pain. Hematuria. COMPARISON STUDY: Abdominal CT dated 09/07/2021. Abdominal radiograph dated 06/30/2022 TECHNIQUE: Real-time, grayscale, and color flow sonography of the kidneys and bladder is performed. Images are reviewed in the transverse and longitudinal planes. FINDINGS: Kidneys: The left kidney is not identified and was shown to be severely atrophic on the 09/07/2021 CT scan. The right kidney is enlarged and normal in echotexture, measuring 15.3 x 8.7 x 7.7 cm. There is moderate right hydroureteronephrosis. No shadowing renal calculi are identified. There is no sonographic evidence of contour deforming renal mass lesion. No perinephric fluid is identified. Bladder: The bladder wall appears thickened/trabeculated indicating chronic outlet obstruction. Ureteral jets were not seen. IMPRESSION: 1. There is moderate right hydroureteronephrosis. Given the history of right flank pain and hematuria this is likely related to the presence of an obstructing right ureteral stone. The stone was not visualized by ultrasound. 2. The left kidney was not identified and shown to be severely atrophic on prior CT scans. There is compensatory enlargement of the right kidney. 3. The appearance of the bladder suggests chronic outlet obstruction. ACT 112: Negative or not required by law. Electronically signed by: Ga Dumont M.D. 07/01/2022 7:32 AM Abdomen/Pelvis CT 07/01/22 00:44 CT SCAN OF THE ABDOMEN AND PELVIS WITHOUT IV CONTRAST CLINICAL HISTORY: Right flank pain. Hematuria. COMPARISON STUDY: Renal ultrasound dated 06/30/2022. Abdominal CT dated . TECHNIQUE: CT scan of the abdomen and pelvis is performed from the lung bases to the proximal femora. Images are reviewed in the axial, sagittal, and coronal planes. IV contrast was not administered for this examination. A dose lowering technique was utilized adhering to the principles of ALARA. CT DOSE: 2284.63 mGy.cm FINDINGS: Lung bases: The heart is normal in size and without pericardial effusion. There is minimal coronary artery calcification. There are punctate calcified granulomas. The lung bases are otherwise clear noting bibasilar scarring/atelectasis. A small hiatal hernia is noted. Liver: The unenhanced liver is normal in size, contour, and attenuation. There is no intrahepatic biliary ductal dilatation. Gallbladder: Unremarkable. Spleen: Normal in size and attenuation. Pancreas: Unremarkable. Adrenal glands: Unremarkable. Kidneys: The left kidney is markedly atrophic and there is compensatory hypertrophy of the right kidney. There is a 3 mm obstructing calculus in the right proximal ureter at the level of L4 seen on image #282. This causes moderate right hydroureteronephrosis. There is associated right perinephric stranding and fluid. No additional right renal calculi are identified. There is no evidence of contour deforming renal mass lesion. Abdominal vasculature: The abdominal aorta is normal in course and caliber noting minimal atherosclerotic calcification. Bowel: There is moderate colonic diverticulosis without CT evidence of acute diverticulitis. Moderate fecal retention is seen throughout the colon. No bowel obstruction is identified. The appendix is well-visualized and normal. Peritoneum: There is no intraperitoneal free air or abdominal ascites. There is a fat-containing umbilical hernia. Lymphadenopathy: None. Pelvic viscera: The prostate gland is mildly enlarged and heterogeneous. The bladder wall appears thickened/recommend suggesting chronic outlet obstruction. There is a small fat-containing hernia. Skeletal structures: No lytic or blastic lesions are seen. There are bilateral pars defects at L5. IMPRESSION: 1. There is a 3 mm obstructing calculus in the right proximal ureter. This cause s moderate right hydroureteronephrosis. 2. No additional right renal calculi are identified. 3. Markedly atrophic left kidney with compensatory hypertrophy of the right kidney. This is similar to previous. 4. Moderate colonic diverticulosis without CT evidence of acute diverticulitis. 5. Additional findings as above. ACT 112: Negative or not required by law. Electronically signed by: Ga Dumont M.D. 07/01/2022 7:43 AM Hospital Course (1) Hydronephrosis with urinary obstruction due to ureteral calculus: - Right flank pain, hematuria/dysuria x1 day - given fluids in ED, ceftriaxone started for ppx - PRN pain regimen: Tylenol 1g IV; Morphine 2mg IV; Morphine 4mg IV - UA neg for infection, urine cx pending - CTAP showed moderate hydronephrosis with 3mm obstructing right mid-ureteral stone in addition to mild bladder wall thickening - KUB neg - Renal ultrasound showed right sided hydronephrosis - started Flomax 0.4mg PO daily - pt spontaneously passed stone in AM; no residual or recurrent pain - pt to f/u with urology to discuss prevent of recurrent stones (2) ABDOUL (acute kidney injury): - Cr 1.57 upon admission (Baseline 1.2 - 1.3) - likely 2/2 to obstruction - IVFs - held losartan in hospital; pt to continue holding until PCP/uro recommends restart - repeat BMP showed Cr of 1.41 - pt to recheck BMP at lab in a few days to ensure ABDOUL is resolving (3) Renal agenesis: - Congenital left renal agenesis (4) Diabetes: - Chronic, A1c 7.3 on 05/29/2022. Uses units basal dosing QHS and 10-12 units Novolog with dinner - held oral meds while in hospital - reduced Lantus dosing with 6 units BID, while NPO - resume outpatient regimen on d/c (5) Atrial fibrillation: Chronic, rate-controlled. CHADS-VASc 2. - held eliquis for possible urology procedure - continue home metoprolol and eliquis upon d/c (6) Hypertension: Chronic, normotensive. - continue home metoprolol as stated above - continuing holding losartan until resolution of ABDOUL, consider resuming after ABDOUL resolution (7) Hyperlipidemia: - Continue home statin (8) Obstructive sleep apnea: - CPAP HS (9) Anxiety disorder: - Continue home Paxil Plan FEN/GI: NPO, with Normosol-R @170cc/hr given while hospitalized; pt tolerated normal diet for lunch before d/c DVT Prophylaxis: SCDs, held home Eliquis for possible procedure; resume upon d/c Code Status: full code Disposition: med/surg Total Time Total Time Spent Total Time Spent (In Minutes): as per attending attestation Discharge Plan Discharge Items Patient Disposition: Home - Self-Care Reason For Visit: RIGHT URETERAL STONE, ABDOUL Discharge Diagnosis: right ureteral stone, ABDOUL Condition on Discharge: Good Activity: Resume your previous activity Non-emergency contact: Primary Care Provider and Urologist Call non-emergency contact if: you have any medication questions, your symptoms worsen and your pain is worsening Follow-up/Referrals: Cinthya Benson CRNP [Nurse Practitioner] - (f/u ureteral stone, congenital left renal agenesis) Monica Shaikh [Primary Care Provider] - 07/07/22 8:25 am Diet: Carb Consistent or DM2 Ambulatory Orders: Basic Metabolic Panel (Routine) Timeframe: 2 Days Location: Determined by Patient Ordered By: Lyudmila Estes Attending Provider Instructions: You were admitted to the hospital for right flank pain and blood in your urine found to be caused by a right sided ureteral stone (a kidney stone that has moved into your ureter). This 3 mm stone was found on CT scan. A renal ultrasound confirmed that this stone was causing fluid to back up around your kidney/ureter. You were treated with prophylactic antibiotics, fluids, morphine for pain, and flomax to encourage passage of the stone. You passed the stone without further intervention. This stone will be sent for further composition analysis. A discharge summary will be sent to your primary care physician to ensure continuity of care. Please bring this discharge summary with you to your next office appointment so that your provider can review it at that time. Medications: Your medication list has been reviewed and reconciled upon discharge to ensure accuracy and continuity of care. An updated list of all your medications is included with your hospital discharge paperwork. Please review this list closely and make note of any changes to your medications. - Do not take your home losartan until your urologist and/or PCP tells you to resume it. - Otherwise, resume your home medications as before you came into the hospital. - A few days after discharge, you are to get blood work drawn to reevaluate your kidney function to ensure it continues to improve. An electronic order has been sent to the lab. Follow up appointments: - We have requested a follow up appointment with your primary care physician within one to two weeks of discharge. Please call their offices if you do not hear from them. - You should also follow up with your urologist 1-2 weeks after discharge, especially to ensure your kidney function is improving and to discuss further management of your recurrent stones. - Keep all of your follow up appointments as already scheduled. If you cannot make an appointment, notify your provider. CONTACT YOUR PRIMARY CARE PROVIDER if you experience any of the following: - Difficulty following your treatment plan - Difficulty taking any of your medications CALL 911 OR GO TO THE EMERGENCY DEPARTMENT if you experience any of the following: - Recurrence of flank pain - Blood in your urine - Sudden, severe abdominal pain or nausea/vomiting - Severe chest pain or chest pain that radiates to your jaw or arm - Sudden, severe shortness of breath or difficulty breathing Pending Studies at Discharge: Yes Studies:: stone analysis Stand-Alone Forms: My [facility], Smoking Cessation Medications and DC Order Prescriptions: Continued potassium citrate 15 mEq tablet extended release 15 meq PO BID Qty: 180 3RF metformin 500 mg tablet,ER manny.retention 24 hr 2,000 mg PO QPM Qty: 360 3RF (DME) pen needle, diabetic [BD Ultra-Fine Kimmy Pen Needle] 32 gauge x 5/32" needle See Rx Instructions .ROUTE .MEDSUPPLY Qty: 400 3RF Rx Instructions: Use with Insulin 4 times a day Tresiba FlexTouch U-100 100 unit/mL (3 mL) insulin pen 0RF (DME) Dexcom G6 Sensor Device See Rx Instructions .Route Qty: 9 3RF Rx Instructions: Change every 10 days (DME) Dexcom G6 Transmitter Device See Rx Instructions .Route Qty: 1 3RF Rx Instructions: Change transmitter every 90 days Jardiance 25 mg tablet 25 mg PO QAM Qty: 30 5RF Mounjaro 2.5 mg/0.5 mL pen injector 0RF Tresiba FlexTouch U-100 100 unit/mL (3 mL) insulin pen 35 unit subcut HS atorvastatin [Lipitor] 20 mg tablet 20 mg PO QPM Eliquis 5 mg tablet 5 mg PO BID metoprolol tartrate 25 mg tablet 25 mg PO PM acetaminophen [Tylenol Extra Strength] 500 mg Tablet 1,000 mg PO Q6H PRN (Reason: Pain) Probiotic 3 billion cell Capsule 3,000 mmu cells PO QAM insulin aspart U-100 [Novolog Flexpen U-100 Insulin] 100 unit/mL (3 mL) insulin pen 10 - 15 unit subcut QPM Trulicity 3 mg/0.5 mL pen injector 3 mg subcut WK Rx Instructions: Inject on the same day each week. paroxetine HCl [Paxil] 20 mg Tablet 20 mg PO QPM Discontinued losartan 50 mg tablet 50 mg PO QAM Discharge Orders: Discharge Order (Routine); Ordered 07/01/22 Ordered By: Lyudmila Mcfarland Admission Data Admit Date/Time: 07/01/22 02:18 Attending Provider: bJ Florian Admit Provider: Cayetano Wharton Primary Care Provider: Monica Shaikh Other Providers: Willis Farr ; Andrzej Ramirez Other Interventions: Discharge Summary Assessment (RN) Last Done: 07/01/22 15:14 Supervising Physician Co-Signing Physician Notes I personally examined the patient and verified all monreal points of history and exam, discussed case, and agree with decision making with Dr Mcfarland Feeling good and would like to go home. No more pain. Neurology input appreciated. Vitals noted, in general no distress. HEENT normocephalic atraumatic mucous membranes moist. Breathing unlabored no accessory muscle use good effort. Skin shows no rashes no pallor or icterus. Neuro no focal deficits. Ureterolithiasisnow passed. Safe/stable for home. Outpatient urology follow- up.morbid obesity with BMI 40.3 noted Resident Activity Tracking Resident Involvement: Resident Care Provided Care Provided: Adult Hospital Medicine
[2022-07-01] MEDS ORDERED: ONDANSETRON 4 MG OD TAB PO ONE (11:29)
[2022-07-01] MEDS ORDERED: FLUARIX QUADRIVALENT 0.5 ML SYR IM ONE (12:40)
--- NOTE | 2022-07-01 19:19 | Billing Data ---
Date of Service July 01, 2022 Coding Level of Care Code D/C DAY MANAGEMENT <30 MINS
--- NOTE | 2022-07-01 20:16 | Billing Data ---
Date of Service July 01, 2022 Coding Level of Care Code 17064 Initial Inpt Care Lvl 3
[2022-07-01] MEDS ORDERED: PARoxetine HCL 20 MG TAB PO SCH (21:00)
[2022-07-01] MEDS ORDERED: ATORVASTATIN 20 MG TAB PO SCH (21:00)
== END 2022-07-01 15:48 | disposition home or self-care (01) | DRG 694 ==
LOC: ED 22:13 → 3N 07-01 02:18 → SUATTDRO 07-01 02:18 → 3N 07-01 02:55